=== PATIENT | female | born 1940 | race Caucasian/White ===

== ENCOUNTER 2016-10-28 17:06 | Inpatient (IN) | payer MEDICARE, OTHER ==
--- NOTE | 2016-10-28 18:32 | ER Document Report ---
ED General - General Mode of Arrival: Medic Information source: Patient TRAVEL OUTSIDE OF THE [place] IN LAST 30 DAYS: No - HPI Patient complains to provider of: Shortness of Breath Onset: Other - "few days" ago Onset/Duration: Gradual, Worse Associated symptoms: Nonproductive cough, Shortness of breath. denies: Chest pain Exacerbated by: Other - Exertion <KANDACE ROJAS - Last Filed: 10/28/16 19:19> <JOSEFA MONTGOMERY - Last Filed: 10/28/16 22:06> - General Chief Complaint: Breathing Difficulty Stated Complaint: SHORTNESS OF BREATH Notes: Patient is a 76-year-old female presenting to the emergency department from her trust evaluation supervisor's office due to low O2 saturation. Patient states that she was having difficulty breathing over the past 2-3 days. Patient is normally on oxygen at night, but her is at [facility], so she has been staying with him without her oxygen. Patient states that she went home this morning and hooked herself up to the oxygen and fell asleep. when she woke up she was rushing to get to her doctor's appointment because she woke up late. Patient states by the time she got to her car she was completely out of breath and could not breathe. Patient's trust evaluation supervisor, Vicenta Gustafson, told patient that her heart rate was out of whack and she had low oxygen levels, so she sent her here. Patient denies any chest pain, heart racing, or lightheadedness. Patient admits to having a dry cough. Patient states that she feels good now that she is laying down with oxygen. (KANDACE ROJAS) - Related Data Allergies/Adverse Reactions: sulfamethoxazole [From Bactrim] Allergy (Verified 10/28/16 17:07) trimethoprim [From Bactrim] Allergy (Verified 10/28/16 17:07) nut - unspecified Adverse Reaction (Verified 10/28/16 17:07) aggravates diverticulitis. Past Medical History - General Information source: Patient - Social History Smoking Status: Smoker,Current Status Unk Chew tobacco use (# tins/day): No Frequency of alcohol use: Occasional Drug Abuse: None Lives with: Spouse/Significant other Family History: Reviewed & Not Pertinent, CAD - in both parents but not premature Patient has suicidal ideation: No Patient has homicidal ideation: No - Past Medical History Cardiac Medical History: Reports: Hx Atrial Fibrillation, Hx Congestive Heart Failure, Hx Hypercholesterolemia Pulmonary Medical History: Reports: Hx COPD GI Medical History: Reports: Hx Gastroesophageal Reflux Disease, Hx Hiatal Hernia Past Surgical History: Reports: Hx Bowel Surgery, Other - Ablation - Immunizations Hx Diphtheria, Pertussis, Tetanus Vaccination: No <KANDACE ROJAS - Last Filed: 10/28/16 19:19> Review of Systems - Review of Systems Constitutional: No symptoms reported EENT: No symptoms reported Cardiovascular: No symptoms reported. denies: Chest pain, Heart racing, Dizziness, Lightheaded Respiratory: See HPI, Cough - Dry, Short of breath, Other - Difficulty breathing Gastrointestinal: No symptoms reported Genitourinary: No symptoms reported Female Genitourinary: No symptoms reported Musculoskeletal: No symptoms reported Skin: No symptoms reported Hematologic/Lymphatic: No symptoms reported Neurological/Psychological: No symptoms reported -: Yes All other systems reviewed and negative <KANDACE ROJAS - Last Filed: 10/28/16 19:19> Physical Exam - Vital signs Interpretation: Tachypneic - General General appearance: Appears well, Alert - HEENT Head: Normocephalic, Atraumatic Eyes: Normal Pupils: PERRL - Respiratory Respiratory status: No respiratory distress Chest status: Nontender Breath sounds: Normal Chest palpation: Normal - Cardiovascular Rhythm: Regular Heart sounds: Normal auscultation Murmur: No - Abdominal Inspection: Normal Distension: No distension Bowel sounds: Normal Tenderness: Nontender Organomegaly: No organomegaly - Back Back: Normal, Nontender - Extremities General upper extremity: Normal inspection, Nontender, Normal color, Normal ROM , Normal temperature General lower extremity: Normal inspection, Nontender, Normal color, Normal ROM , Normal temperature - Neurological Neuro grossly intact: Yes Cognition: Normal Starla Coma Scale Eye Opening: Spontaneous Norris Coma Scale Verbal: Oriented Starla Coma Scale Motor: Obeys Commands Starla Coma Scale Total: 15 Speech: Normal - Psychological Associated symptoms: Normal affect, Normal mood - Skin Skin Temperature: Warm Skin Moisture: Dry Skin Color: Normal <KANDACE ROJAS - Last Filed: 10/28/16 19:19> Course - Laboratory Result Diagrams: 10/28/16 17:50 10/28/16 17:50 <KANDACE ROJAS - Last Filed: 10/28/16 19:19> - Laboratory Result Diagrams: 10/28/16 17:50 10/28/16 17:50 <JOSEFA MONTGOMERY - Last Filed: 10/28/16 22:06> - Re-evaluation Re-evalutation: 10/28/16 21:58 Patient satting 94% on 2 L and resting comfortably. Chest x-ray reveals a right lower lobe infiltrate and pulmonary edema. Presentation most consistent with CHF exacerbation with acute hypoxic episode accompanied by likely a developing pneumonia. Patient has been treated for CHF with Nitropaste and Lasix. I've spoken to Dr. Morales, patient's primary physician who agrees to admit the patient. He requests that we start Rocephin. (JOSEFA MONTGOMERY) - Vital Signs Vital signs: Temp Pulse Resp BP Pulse Ox 97.8 F 40 H 116/69 95 10/28/16 21:23 10/28/16 19:10 10/28/16 19:10 10/28/16 19:10 (KANDACE ROJAS) (JOSEFA MONTGOMERY) - Laboratory Laboratory results interpreted by me: 10/28/16 10/28/16 10/28/16 17:50 17:50 18:35 BUN 22 H Creatinine 1.56 H Est GFR ( Amer) 39 L Est GFR (Non-Af Amer) 32 L NT-Pro-B Natriuret Pep 6310 H Urine Protein 100 H Ur Leukocyte Esterase MODERATE H Urine Ascorbic Acid 20 H (JOSEFA MONTGOMERY) - Diagnostic Test Radiology results interpreted by me: 10/28/16 22:01 CXR: pulmonary edema, cardiomegaly, RLL infiltrate worse than prior CXR, as interpreted by me. (JOSEFA MONTGOMERY) - EKG Interpretation by Me Additional EKG results interpreted by me: 10/28/16 19:36 EKG: Heart rate 78, multiple PACs, normal axis, nonspecific ST changes, as interpreted by me. (JOSEFA MONTGOMERY) Discharge <KANDACE ROJAS - Last Filed: 10/28/16 19:19> - Discharge Admitting Provider: Andrew Unit Admitted: Telemetry <JOSEFA MONTGOMERY - Last Filed: 10/28/16 22:06> - Discharge Clinical Impression: Shortness of breath CHF (congestive heart failure) Qualifiers: Congestive heart failure type: systolic Congestive heart failure chronicity: acute on chronic Qualified Code(s): I50.23 - Acute on chronic systolic ( congestive) heart failure Pneumonia Qualifiers: Pneumonia type: due to unspecified organism Laterality: right Lung location: lower lobe of lung Qualified Code(s): J18.1 - Lobar pneumonia, unspecified organism Condition: Stable Disposition: ADMITTED INPATIENT Referrals: CHEYENNE MORALES MD [Primary Care Provider] - Follow up as needed Scribe Attestation: 10/28/16 22:06 I personally performed the services described in the documentation, reviewed and edited the documentation which was dictated to the scribe in my presence, and it accurately records my words and actions. (JOSEFA MONTGOMERY) Scribe Documentation <KANDACE ROJAS - Last Filed: 10/28/16 19:19> <JOSEFA MONTGOMERY - Last Filed: 10/28/16 22:06> - Scribe Written by Scribe:: JOSEFA MONTGOMERY MD, SCRIBE 10/28/16 193 Acting as scribe for: KANDACE De Anda) (JOSEFA MONTGOMERY)
[2016-10-28 18:46] LABS: ABSOLUTE BASOPHILS # (AUTO) 0.1 10^3/uL (0.0-0.2); ABSOLUTE EOSINOPHILS # (AUTO) 0.3 10^3/uL (0.0-0.6); ABSOLUTE LYMPHOCYTES (AUTO) 1.5 10^3/uL (0.5-4.7); ABSOLUTE MONOCYTES (AUTO) 0.6 10^3/uL (0.1-1.4); ABSOLUTE NEUT (AUTO) 5.2 10^3/uL (1.7-8.2); BASOPHILS % (AUTO) 1.5 % (0-2); EOSINOPHILS % (AUTO) 3.3 % (0-6); HEMOGLOBIN 12.4 g/dL (12.0-15.5); HGB HCT DIFFERENCE -0.8; MEAN CORPUSCULAR HEMOGLOBIN 31.2 pg (27.0-33.4); MEAN CORPUSCULAR HGB CONC 32.5 g/dL (32.0-36.0); MEAN CORPUSCULAR VOLUME 96 fl (80-97); MONOCYTES % (AUTO) 7.3 % (3-13); RED BLOOD COUNT 3.96 10^6/uL (3.72-5.28); RED CELL DISTRIBUTION WIDTH 13.1 % (11.5-14.0); SEGMENTED NEUTROPHILS % (AUTO) 67.9 % (42-78); WHITE BLOOD COUNT 7.7 10^3/uL (4.0-10.5)
[2016-10-28 18:48] LABS: APPEARANCE,URINE CLEAR; BILIRUBIN,URINE NEGATIVE (NEGATIVE); GLUCOSE, URINE NEGATIVE (NEGATIVE); KETONES,URINE NEGATIVE (NEGATIVE); LEUKOCYTE ESTERASE,URINE MODERATE (NEGATIVE); NITRITE,URINE NEGATIVE (NEGATIVE); PROTEIN,URINE 100 mg/dL (NEGATIVE); URINE SPECIFIC GRAVITY 1.006; UROBILINOGEN,URINE NEGATIVE mg/dL (<2.0)
[2016-10-28 19:06] LABS: ANION GAP 8 (5-19); BLOOD UREA NITROGEN 22 mg/dL (7-20); CALCIUM 9.6 mg/dL (8.4-10.2); CARBON DIOXIDE 28 mmol/L (22-30); CHLORIDE 105 mmol/L (98-107); CREATININE RESULT 1.56 mg/dL (0.52-1.25); GLUCOSE 98 mg/dL (75-110); POTASSIUM 4.6 mmol/L (3.6-5.0); SODIUM 141.4 mmol/L (137-145)
[2016-10-28] MEDS ORDERED: NITROGLYCERIN 2% OINTMENT 1 GM PACKET TP ONE (21:15)
[2016-10-28] MEDS ORDERED: FUROSEMIDE INJ/PF 20 MG/2 ML SDV IV ONE (21:16)
[2016-10-28] MEDS ORDERED: ONDANSETRON HCL INJ/PF 4 MG/2 ML SDV IV PRN (21:51)
[2016-10-28] MEDS ORDERED: ACETAMINOPHEN 325 MG TABLET PO PRN (21:51)
[2016-10-28] MEDS ORDERED: CEFTRIAXONE 1 GM/D5W RTU 50 ML IV ONE (21:52)
[2016-10-28] MEDS: FUROSEMIDE INJ/PF 20 MG/2 ML SDV IV SCH (22:15)
[2016-10-28] MEDS: APIXABAN 2.5 MG TABLET PO SCH (22:37)
[2016-10-29 05:29] LABS: ABSOLUTE BASOPHILS # (AUTO) 0.1 10^3/uL (0.0-0.2); ABSOLUTE EOSINOPHILS # (AUTO) 0.3 10^3/uL (0.0-0.6); ABSOLUTE LYMPHOCYTES (AUTO) 1.5 10^3/uL (0.5-4.7); ABSOLUTE MONOCYTES (AUTO) 0.6 10^3/uL (0.1-1.4); ABSOLUTE NEUT (AUTO) 4.7 10^3/uL (1.7-8.2); BASOPHILS % (AUTO) 1.1 % (0-2); EOSINOPHILS % (AUTO) 4.7 % (0-6); HEMATOCRIT 35.1 % (36.0-47.0); HEMOGLOBIN 11.7 g/dL (12.0-15.5); LYMPHOCYTES % (AUTO) 20.4 % (13-45); MEAN CORPUSCULAR HEMOGLOBIN 31.6 pg (27.0-33.4); MEAN CORPUSCULAR HGB CONC 33.2 g/dL (32.0-36.0); MEAN CORPUSCULAR VOLUME 95 fl (80-97); MONOCYTES % (AUTO) 8.4 % (3-13); RED BLOOD COUNT 3.69 10^6/uL (3.72-5.28); RED CELL DISTRIBUTION WIDTH 13.3 % (11.5-14.0); SEGMENTED NEUTROPHILS % (AUTO) 65.4 % (42-78); WHITE BLOOD COUNT 7.2 10^3/uL (4.0-10.5)
[2016-10-29 05:45] LABS: ALANINE AMINOTRANSFERASE 28 U/L (9-52); ALBUMIN 2.4 g/dL (3.5-5.0); ALKALINE PHOSPHATASE 76 U/L (38-126); ANION GAP 10 (5-19); ASPARTATE AMINO TRANSFERASE 22 U/L (14-36); BILIRUBIN,TOTAL 0.3 mg/dL (0.2-1.3); BLOOD UREA NITROGEN 21 mg/dL (7-20); CALCIUM 8.8 mg/dL (8.4-10.2); CARBON DIOXIDE 25 mmol/L (22-30); CHLORIDE 105 mmol/L (98-107); CREATINE KINASE 43 U/L (30-135); GLUCOSE 85 mg/dL (75-110); POTASSIUM 4.1 mmol/L (3.6-5.0); SODIUM 140.2 mmol/L (137-145); TOTAL PROTEIN 4.8 g/dL (6.3-8.2)
[2016-10-29 06:07] LABS: CREATINE KINASE MB 2.22 ng/mL (<4.55); TROPONIN I 0.082 ng/mL
[2016-10-29] MEDS: IPRATROPIUM/ALBUTEROL 0.5-2.5 MG/3 ML AMPUL NEB SCH ×3 (07:47→19:44)
--- NOTE | 2016-10-29 08:16 | PDOC H&P ---
History of Present Illness Admission Date/PCP: 10/28/16 21:51 CHEYENNE VILLARREAL MD Patient complains of: Shortness of the breath History of Present Illness: SALOME MOSLEY is a 76 year old female This is a 76-year-old female with a history of diastolic congestive heart failure COPD oxygen dependent Q need 2 lit. Oxygen at night patient's also see the bindery worker office today and was complaining of shortness of the breath and patient's O2 sat was 80 persons patient was sent to the emergency department for further evaluation patient is taking care of for her in a care home and patient is not wearing the oxygen at nighttime supposed to and not watching the diet in the emergency department so find the hypoxia ordered to monitor oxygen and oxygen saturations close to up to 95% patient also found diastolic congestive heart failure to. Patient rwcentan echo done last hospital admissions and EF was normal. Currently on eliquis 2.5 mg bid for A. fib. Saw the patient on the floor is feeling much better since denied any chest pain or any shortness of the breath patient's compiling some mild cough no fever chest x-ray supposed the patient have a congestive heart failure and questionable infiltrate in cxr. Denied any fever no productive cough and most likely a patient have a congestive heart failure than pneumonia and was admitted the patient and treat appropriately Past Medical History Cardiac Medical History: Reports: Atrial Fibrillation, Congestive Heart Failure , Hyperlipidema Denies: Myocardial Infarction, Hypertension Pulmonary Medical History: Reports: Chronic Obstructive Pulmonary Disease (COPD) Denies: Asthma, Bronchitis, Pneumonia Neurological Medical History: Denies: Seizures GI Medical History: Reports: Gastroesophageal Reflux Disease, Hiatal Hernia Musculoskeltal Medical History: Denies: Arthritis Psychiatric Medical History: Reports: General Anxiety Disorder Denies: Depression Hematology: Denies: Anemia, Sickle Cell Disease Past Surgical History Past Surgical History: Reports: Other - Ablation Denies: Amputation, Hysterectomy, Mastectomy Social History Lives with: Spouse/Significant other Smoking Status: Former Smoker Last Time Smoked: 13 yrs ago Frequency of Alcohol Use: None Hx Recreational Drug Use: No Hx Prescription Drug Abuse: No - Advance Directive Resuscitation Status: Full Code Family History Family History: Reviewed & Not Pertinent, CAD - in both parents but not premature Parental Family History Reviewed: Yes Children Family History Reviewed: Yes Sibling(s) Family History Reviewed.: Yes Medication/Allergy Home Medications: Omeprazole 20 mg PO BID 09/08/16 Tiotropium Cypress [Spiriva Respimat] 2 sprays DAILY PRN 09/08/16 Vit A/Vit C/Vit E/Zinc/Copper [Preservision Areds Softgel] 1 each PO BID Simvastatin 40 mg PO DAILY 09/11/16 Apixaban [Eliquis 2.5 mg Tablet] 2.5 mg PO BID #60 tablet 09/12/16 Cephalexin Monohydrate [Keflex 500 mg Capsule] 500 mg PO Q8 #21 capsule Diltiazem HCl [Cardizem Cd 120 mg Capsule] 120 mg PO DAILY #30 cap.sr.24h Spironolactone [Aldactone 25 mg Tablet] 12.5 mg PO DAILY #30 tablet 09/12/16 Torsemide [Demadex 20 mg Tablet] 10 mg PO DAILY #30 tablet 09/12/16 Allergies/Adverse Reactions: sulfamethoxazole [From Bactrim] Allergy (Verified 10/28/16 17:07) trimethoprim [From Bactrim] Allergy (Verified 10/28/16 17:07) nut - unspecified Adverse Reaction (Verified 10/28/16 17:07) aggravates diverticulitis. Review of Systems Constitutional: PRESENT: fatigue, weakness Cardiovascular: PRESENT: dyspnea on exertion, edema Respiratory: PRESENT: cough Gastrointestinal: ABSENT: as per HPI, abdominal pain, bloating, coffee ground emesis, constipation, diarrhea, dysphagia, heartburn, hematemesis, hematochezia , melena, nausea, vomiting, other Genitourinary: ABSENT: as per HPI, difficulty urinating, dysuria, hematuria, nocturia, other Musculoskeletal: ABSENT: as per HPI, back pain, deformity, joint swelling, muscle weakness, other Integumentary: ABSENT: as per HPI, diaphoresis, erythema, lesions, pruritus, rash, wounds, other Neurological: ABSENT: as per HPI, abnormal gait, abnormal movements, abnormal speech, confusion, convulsions, dizziness, focal weakness, frequent falls, lack of coordination, memory loss, numbness, paresthesias, restless legs, syncope, tingling, tremor(s), vertigo, weakness, other Psychiatric: PRESENT: anxiety Endocrine: ABSENT: as per HPI, cold intolerance, flushing, heat intolerance, menstrual abnormalities, polydipsia, polyphagia, polyuria, other Hematologic/Lymphatic: ABSENT: as per HPI, easy bleeding, easy bruising, lymphadenopathy, other Physical Exam Vital Signs: Temp Pulse Resp BP Pulse Ox 98.2 F 85 18 127/56 H 97 10/29/16 00:28 10/29/16 07:00 10/29/16 00:28 10/29/16 00:28 10/29/16 00:28 Intake & Output 10/28/16 10/29/16 10/30/16 06:59 06:59 06:59 Intake Total 200 Balance 200 Weight 55.6 kg General appearance: PRESENT: no acute distress Head exam: PRESENT: normocephalic Eye exam: PRESENT: PERRLA Mouth exam: PRESENT: neck supple Neck exam: ABSENT: carotid bruit, full ROM, JVD, lymphadenopathy, meningismus, tenderness, thyromegaly, tracheal deviation, tracheostomy, other Respiratory exam: PRESENT: clear to auscultation marylou. ABSENT: wheezes Cardiovascular exam: PRESENT: +S1 GI/Abdominal exam: PRESENT: normal bowel sounds, soft. ABSENT: tenderness Extremities exam: ABSENT: pedal edema Musculoskeletal exam: PRESENT: ambulatory Neurological exam: PRESENT: alert, awake, oriented to person, oriented to place , oriented to time, oriented to situation Psychiatric exam: PRESENT: anxious, normal mood Skin exam: PRESENT: normal color Results Laboratory Results: 10/29/16 05:10 10/29/16 05:10 10/29/16 10/29/16 05:10 05:10 WBC 7.2 RBC 3.69 L Hgb 11.7 L Hct 35.1 L MCV 95 MCH 31.6 MCHC 33.2 RDW 13.3 Plt Count 170 Seg Neutrophils % 65.4 Lymphocytes % 20.4 Monocytes % 8.4 Eosinophils % 4.7 Basophils % 1.1 Absolute Neutrophils 4.7 Absolute Lymphocytes 1.5 Absolute Monocytes 0.6 Absolute Eosinophils 0.3 Absolute Basophils 0.1 Sodium 140.2 Potassium 4.1 Chloride 105 Carbon Dioxide 25 Anion Gap 10 BUN 21 H Creatinine 1.50 H Est GFR ( Amer) 41 L Est GFR (Non-Af Amer) 34 L Glucose 85 Calcium 8.8 Total Bilirubin 0.3 AST 22 ALT 28 Alkaline Phosphatase 76 Total Protein 4.8 L Albumin 2.4 L 10/28/16 10/28/16 10/29/16 23:26 23:26 05:10 Creatine Kinase 48 43 CK-MB (CK-2) 2.55 Troponin I NT-Pro-B Natriuret Pep 10/29/16 05:10 Creatine Kinase CK-MB (CK-2) 2.22 Troponin I 0.082 NT-Pro-B Natriuret Pep 5180 H Impressions: Chest X-Ray 10/28/16 18:28 IMPRESSION: Interval worsening in the appearance of the chest which may all be related to congestive failure although superimposed pneumonia in the right base cannot be excluded. Assessment & Plan - Diagnosis (1) CHF (congestive heart failure) Qualifiers: Congestive heart failure type: diastolic Congestive heart failure chronicity: acute on chronic Qualified Code(s): I50.33 - Acute on chronic diastolic (congestive) heart failure Is this a current diagnosis for this admission?: YesPlan: Plan to give IV Lasix (2) Chronic renal insufficiency, stage II (mild) Is this a current diagnosis for this admission?: YesPlan: Creatinine is 1.5 which is stable (3) History of atrial fibrillation Is this a current diagnosis for this admission?: YesPlan: Currently on eliquis (4) Pneumonia Qualifiers: Pneumonia type: due to unspecified organism Laterality: right Lung location: lower lobe of lung Qualified Code(s): J18.1 - Lobar pneumonia, unspecified organism Is this a current diagnosis for this admission?: YesPlan: Continues the Rocephin (5) Shortness of breath Is this a current diagnosis for this admission?: YesPlan: From the acute diastolic congestive heart failure and COPD and noncompliant with oxygen (6) Chronic obstruct airways disease Qualifiers: Emphysema type: unspecified Is this a current diagnosis for this admission?: YesPlan: Continues a nebulizer treatment is also severe pulmonary and outpatient center and the wear oxygen at night - Time Time Spent: 30 to 50 Minutes Medications reviewed and adjusted accordingly: Yes Anticipated discharge: Home Within: within 24 hours - Inpatient Certification Medical Necessity: Need Close Monitoring Due to Risk of Patient Decompensation, Need for Nebulizer Therapy and Monitoring of Response, Need for IV Antibiotics Post Hospital Care: D/C Route Jumper Documentation - Plan Summary Plan Summary: We start the patient IV Lasix nebulizer IV antibiotic and consult cardiology for further evaluation
[2016-10-29] MEDS: LANSOPRAZOLE 15 MG TAB.RAP.DR PO SCH ×2 (08:30→15:48)
[2016-10-29] MEDS: SIMVASTATIN 40 MG TABLET PO SCH (09:10)
[2016-10-29] MEDS: APIXABAN 2.5 MG TABLET PO SCH ×2 (09:10→22:22)
[2016-10-29] MEDS: SPIRONOLACTONE 25 MG TABLET PO SCH (09:10)
[2016-10-29] MEDS: DOCUSATE SODIUM 100 MG CAPSULE PO SCH (09:10)
[2016-10-29] MEDS: FUROSEMIDE INJ/PF 20 MG/2 ML SDV IV SCH ×2 (09:10→22:21)
--- NOTE | 2016-10-29 14:40 | Physician Advisory Note ---
Physician Advisor ProgressNote .: Pursuant to the plan for [facility], I have reviewed the medical record for this patient. Physician Advisor Statement: Great job documenting amount O2 pt usually needs, Ac on chr diastolic CHF, lobe of PNA Possible documentation opportunities if attending agrees: 1. "Chronic Hypoxic Respiratory Failure requiring 2L O2 at night at baseline" 2. "Possible Pneumonia RLL, likely gram-negative, given underlying COPD & spending time in rehab facility recently..." - or whatever type of bacteria you think is most likely, for which you are covering w/Rocephin 3. "Persistent Afib" - or "Paroxysmal Afib", or ... - need type specified. 4. "chronic kidney disease stage 3, with a single kidney" [GFR 30s, pt told ED nurse 1 kidney] - term "renal insufficiency" means nothing to coding/ reviewers 5. 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 (+) RR 32, HR 85, sat 95% on ___L O2 at 17:56, WBC 7.7, BUN 22, Cr 1.56, NTProBNP 6310, CXR = RLL infiltrate, pulm edema, cardiomegaly, U/A = mod LE. ED dr reported pt "feels good now that laying down w/O2", "tachypneic", " satting 94% on 2L & resting comfortably". ED dr ordered Lasix, NTP. Attending asked ED dr to give IV abx, & ordered IV Rocephin, Lasix, I/Os, daily wts, O2, Duonebs 6h, Cardiology consult. Status: O2 sat at 22:00 was 89% on __L O2, and at 23:11 was 86% on __ L O2. Pt came in with acute exac CHF + possible RLL pneumonia, with associated hypoxemia/possibly Ac on chr Resp Failure. CHF exacerbations are typically Outpt Obs appropriate to start with, then changing to Inpt the next day if pt not felt safe for d/c yet. However, this pt was seen for H&P after her 1st MN of hospital care, & attending did not feel she was sufficiently stable for d/c home today, which means she will require a 2nd MN of hospital care. He is appropriately worried about her risks for decompensation given her underlying co -morbidities. He needs to watch her response to diuresis closely due to underlying renal disease & lack of 1 kidney. BNP still quite elevated this AM at 5180 (baseline appears to be [id number] in 2015, went up to 1525-1559 & then down to 4620 in Aug 2016 during a CHF exacerbation admission.). Trop I =0.082, which appears to be around her baseline (CKD). Her BNP is still far from baseline, & attending plans to continue to follow it daily for the next couple of days in hospital, along with renal fn, lytes, & CBC, with repeat CXR 10/30 AM to follow up acute dx.s. Tx in inpatient hospital setting medically reasonable & necessary to protect pt' s health, safety, & medical condition. Appropriate for Inpt status. Thanks for your help with documentation accuracy/specificity improvement! Kimberly Price MD [facility] Physician Advisor, Fellow of Hospital Medicine
[2016-10-29] MEDS ORDERED: CEFTRIAXONE 1 GM/D5W RTU 1 GM/50 ML RTUPB IV ONE (15:00)
--- NOTE | 2016-10-29 21:28 | CONSULTATION REPORT E ---
Consultation Report NAME: SALOME MOSLEY : 1940 AGE: 76Y DATE: 10/29/2016 538 A TO: LOYDA WAGNER M.D. FROM: CHEYENNE VILLARREAL M.D. Requesting Physician REASON FOR CONSULTATION: Patient with acute exacerbation of COPD, hypoxemia, and congestive heart failure. HISTORY OF PRESENT ILLNESS: Patient is a 76-year-old female with a known history of recurrent congestive heart failure who has significant COPD on nocturnal oxygen at 2 L per minute. Due to taking care of her who is in rehabilitation, forgot to wear her nocturnal oxygen. 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 The patient denies any chest pain or discomfort. She has a history of atrial fibrillation, and in October, she was ablated successfully and now is in sinus rhythm. The patient denies any TIA or CVA. No anginal symptoms. No leg edema. No PND or orthopnea. She does have a cough which is nonproductive of any sputum. There is no pleuritic chest pain. There is no hemoptysis. PAST MEDICAL HISTORY: 1. History of atrial fibrillation ablated to sinus rhythm at present. 2. History of congestive heart failure. 3. History of COPD on home oxygen. 4. History of GERD and hiatal hernia. 5. Generalized anxiety disorder. There is no thyroid disease. There is no history of diabetes mellitus. The patient also has chronic kidney disease stage 3. There is no history of GI bleed. There is no bleeding on Eliquis on which the patient is. The patient's heart rate is controlled with Cardizem CD. PAST SURGICAL HISTORY: Negative for any surgeries. SOCIAL HISTORY: The patient used to smoke. She quit smoking 30 years ago. DISPOSITION: The patient is a FULL CODE although she lives with her who the patient states has mild dementia. The patient's sister is her surrogate healthcare decision maker. REVIEW OF SYSTEMS: CONSTITUTIONAL: Denies any fevers, chills, or rigors. HEAD: Denies headaches or head injury. EYES: No history of amblyopia or diplopia. No history of amaurosis fugax. EARS: The patient is hard of hearing and needs to be spoken to very loudly. NOSE: No history of hay fever. No history of nosebleeds. MOUTH: No history of ulcers in the mouth. No bleeding from the gums. THROAT: No odynophagia or dysphagia. No recurrent sore throats. SKIN: There is no psoriasis. No petechiae or ecchymosis. No skin cancer. No yellowish discoloration of the skin and no pruritus. NECK: Denies any symptoms of cervical arthritis. There is no goiter. There is no painless or painful swelling in the neck. LUNGS: History of COPD on home oxygen at night. The patient has been noncompliant with it which led to her getting hypoxemic with acute exacerbation of COPD with also congestive heart failure for the reasons mentioned above. There is no history of pulmonary embolism. No history of hemoptysis. No pleuritic chest pain. No history of sleep apnea. CARDIAC: No history of coronary artery disease. No history of NM. History of atrial fibrillation. The patient was ablated successfully to sinus rhythm. The patient is on Eliquis without any bleeding or TIA or CVA symptoms. She denies any PND, orthopnea or leg edema. There is no rapid beating of her heart. There is no syncope or presyncope. She denies a history of hypertension. GASTROINTESTINAL: History of hiatal hernia and GERD present. No history of GI bleed. No history of jaundice. No history of fatty food intolerance. ENDOCRINE: No history of diabetes mellitus. No history of thyroid disease. No history of polydipsia or polyuria. No history of heat or cold intolerance. No history of hirsutism or excessive sweating. MUSCULOSKELETAL: Denies any significant arthritis or collagen vascular disease. METABOLIC: History of hyperlipidemia present. No history of gout. RENAL: History of chronic kidney disease stage 3. No symptoms of UTI. No history of hematuria, polyuria, or dysuria. CENTRAL NERVOUS SYSTEM: No history of TIA or CVA. No history of sleep apnea. No history of gait imbalance. No history of seizures, headaches, or migraines. PSYCHIATRIC: History of generalized anxiety disorder. No history of depression. HEMATOLOGIC: Denies any bleeding diathesis or clotting disorders. PHYSICAL EXAMINATION: GENERAL: On examination, the patient is of a frail build but seems to be adequately nourished. VITAL SIGNS: She is afebrile with a temperature of 98.7 degrees Fahrenheit. Pulse is 85 beats per minute. Blood pressure is 117/64. Respirations are 18 per minute. O2 saturations now are 98% on 2 L nasal cannula. HEENT: Head is atraumatic, normocephalic. Eyes: Pupils are equal, round, regular, reactive to light and accommodation. Extraocular movements are normal. There is no conjunctival pallor. There is no scleral icterus. Ears: External auditory canals are clear. There is no inflammation of the tympanic membranes. Nose: The patient has no redness of nasal mucosa. There are no nasal polyps. Mouth: Mucous membranes of the mouth are moist. Tongue is moist. There are no ulcers. There is no bleeding from the gums. Throat: There is no redness of the oropharynx. There are no exudates in the throat. SKIN: There are no skin rashes. There is no petechiae or ecchymosis. There are no skin lesions. NECK: Supple. There is mild JVD present. Carotids are equal; there is no bruit. There is no goiter. There is no lymph node enlargement. LUNGS: There are a few scattered rhonchi and a few bibasilar rales of CHF. There is diminished air entry and prolonged expiration throughout. At present, there is no wheezing. CARDIOVASCULAR: S1, S2 are heard. There is no S3 gallop. There is no S4 gallop. There is systolic murmur left sternal border and the apex. There is no rub. ABDOMEN: Soft, nontender. There is no hepatosplenomegaly. Bowel sounds are well heard. There are no tender areas or masses. EXTREMITIES: Femorals are fairly well felt. There are no femoral bruits. Leg pulses are well felt. There is no pedal edema. There is no DVT or cellulitis. There is no cyanosis or clubbing. There is no calf tenderness. CENTRAL NERVOUS SYSTEM: The patient is conscious, awake in no acute distress. There are no focal deficits. PSYCHIATRIC: The patient appears to be slightly anxious, but the patient is not agitated. MEDICATIONS: 1. Tylenol 650 mg p.o. q.4 hours p.r.n. 2. She is on albuterol/ipratropium DuoNeb 3 mL respiratory treatment q.6 hours while awake. 3. She is on Eliquis 2.5 mg tablet b.i.d. 4. She is on ceftriaxone 1 g IV piggyback daily. 5. Colace 100 mg p.o. daily. 6. She is on Lasix 20 mg IV q.12 hours. 7. She is on Prevacid 15 mg p.o. b.i.d. 8. She is on Zofran 4 mg IV q.6 hours p.r.n. for nausea. 9. She is on Zocor 40 mg p.o. daily. 10. She is on Aldactone 12.5 mg p.o. daily. 11. She was on nitroglycerin. 12. *------* ointment 1 g packet with a dose of 0.5 g topically applied x1 which has been discontinued. LABORATORY DATA: The patient's white count is 7200; hemoglobin is 11.7; hematocrit is 35.1; platelet count is 170,000. The patient's sodium is 140.2, potassium 4.1, chloride 105, CO2 25. The patient's BUN is 21; creatinine is 1.50. Her GFR is estimated at 34 which is chronic kidney disease stage 3. Her borderline is 85. Calcium is 8.8. Her liver tests are normal. Anti-ProBNP is elevated at 5180. The patient's albumin is 2.4. Total protein is 4.8. The patient's CPK-MB are negative x3. Her troponin-I is negative x1. The patient's EKG shows some sinus rhythm with occasional PVCs with repolarization changes in the lateral leads. The patient's chest x-ray shows small bilateral pleural effusions. There are diffuse increased interstitial densities with abnormal airspace density in the bases. Findings may be related to congestive heart failure. Probable pneumonia in the right base cannot be excluded. There is no evidence of failure. No other acute findings. IMPRESSION: 1. Hypoxia secondary to chronic obstructive pulmonary disease acute exacerbation and congestive heart failure. 2. Chronic obstructive pulmonary disease acute exacerbation. 3. Congestive heart failure most likely a combination of diastolic heart failure and myocardial depression due to hypoxemia and with the patient having chronic kidney disease stage 3. 4. Chronic kidney disease stage 3. 5. History of atrial fibrillation, now in sinus rhythm post ablation in 10/2015. 6. Gastroesophageal reflux disease. 7. Hiatal hernia. 8. Anxiety disorder, unspecified. 9. Moderate pulmonary hypertension. RECOMMENDATIONS: Agree with antibiotics. Agree with Lasix. In view of the patient's renal function, would be very cautious with spironolactone. Continue Eliquis. Note the patient was on Cardizem CD at home 120 mg p.o. daily which has been held for bradycardia, but I do not see any records of her bradycardia by EKG or by rhythm strips. Would later restart the patient on Cardizem CD. Note that the patient had an echocardiogram in 10/16/2015 which showed normal left ventricular function within normal limits. Doppler measurements suggest pseudonormalized left ventricular relaxation which is associated with grade 2 bipolar or mild to moderate diastolic dysfunction. There is mild concentric left ventricular hypertrophy. The left ventricle is normal in size. Wall motion cannot be accurately commented on, but no definite regional wall motion abnormality is noted. The right ventricle is mildly dilated. The right ventricle appears to be hypertrophied. The right ventricular systolic function is normal. The right atrium is mildly dilated. The left atrium is mildly dilated. There is no mitral valve stenosis. There is mild to moderate amount of mitral regurgitation. There is no aortic valve stenosis. There is trace amount of aortic regurgitation. There is mild amount of tricuspid regurgitation. There is moderate pulmonary hypertension by echocardiogram. Right ventricular systolic pressure is estimated to be 50-60 mmHg. TIME SPENT: Note 40 minutes spent on this patient including of reviewing of old records, and more than 50% of the time was spent in direct patient care and discussions with the attending physician on the case. We will follow with you. DICTATING PHYSICIAN: LOYDA WAGNER M.D. [id number] PHY#: [id number] ID: [id number] JOB#: [id number] ACCT: [id number] cc:LOYDA WAGNER M.D. >
[2016-10-30] MEDS: IPRATROPIUM/ALBUTEROL 0.5-2.5 MG/3 ML AMPUL NEB SCH ×3 (07:45→20:23)
[2016-10-30 08:06] LABS: ABSOLUTE BASOPHILS # (AUTO) 0.1 10^3/uL (0.0-0.2); ABSOLUTE EOSINOPHILS # (AUTO) 0.2 10^3/uL (0.0-0.6); ABSOLUTE LYMPHOCYTES (AUTO) 1.1 10^3/uL (0.5-4.7); ABSOLUTE MONOCYTES (AUTO) 0.6 10^3/uL (0.1-1.4); ABSOLUTE NEUT (AUTO) 6.7 10^3/uL (1.7-8.2); BASOPHILS % (AUTO) 0.9 % (0-2); EOSINOPHILS % (AUTO) 2.2 % (0-6); HEMATOCRIT 36.4 % (36.0-47.0); HEMOGLOBIN 12.1 g/dL (12.0-15.5); HGB HCT DIFFERENCE -0.1; LYMPHOCYTES % (AUTO) 12.8 % (13-45); MEAN CORPUSCULAR HEMOGLOBIN 31.5 pg (27.0-33.4); MEAN CORPUSCULAR HGB CONC 33.2 g/dL (32.0-36.0); MEAN CORPUSCULAR VOLUME 95 fl (80-97); MONOCYTES % (AUTO) 6.6 % (3-13); RED BLOOD COUNT 3.83 10^6/uL (3.72-5.28); RED CELL DISTRIBUTION WIDTH 13.1 % (11.5-14.0); SEGMENTED NEUTROPHILS % (AUTO) 77.5 % (42-78); WHITE BLOOD COUNT 8.7 10^3/uL (4.0-10.5)
[2016-10-30 08:22] LABS: ANION GAP 8 (5-19); BLOOD UREA NITROGEN 22 mg/dL (7-20); CALCIUM 8.7 mg/dL (8.4-10.2); CARBON DIOXIDE 27 mmol/L (22-30); CHLORIDE 103 mmol/L (98-107); CREATININE RESULT 1.32 mg/dL (0.52-1.25); GLUCOSE 97 mg/dL (75-110); POTASSIUM 4.4 mmol/L (3.6-5.0); SODIUM 137.8 mmol/L (137-145)
--- NOTE | 2016-10-30 08:25 | PDOC PROGRESS REPORT ---
Subjective Progress Note for:: 10/30/16 Subjective:: Patient is doing much better. Since denied any chest pain no shortness of the breath patient seen by Dr. Phoenix. Since chest x-rays stable around in the hallway without any problems .. Denied any nausea no vomiting. Patient's no fever overnight Physical Exam Vital Signs: Temp Pulse Resp BP Pulse Ox 98.2 F 85 17 104/58 L 97 10/30/16 00:36 10/30/16 07:45 10/30/16 07:45 10/30/16 00:36 10/30/16 04:05 Intake & Output 10/29/16 10/30/16 10/31/16 06:59 06:59 06:59 Intake Total 200 1830 Output Total 300 Balance 200 1530 Weight 55.6 kg 56.6 kg General appearance: PRESENT: no acute distress Head exam: PRESENT: normocephalic Eye exam: PRESENT: PERRLA Mouth exam: PRESENT: neck supple Respiratory exam: PRESENT: clear to auscultation marylou Cardiovascular exam: PRESENT: +S1, +S2 GI/Abdominal exam: ABSENT: ascites, diminished bowel sounds, distended, firm, guarding, hernia, hyperactive bowel sounds, hypoactive bowel sounds, mass, Mckinley's sign, normal bowel sounds, organolmegaly, rebound, rigid, soft, tenderness, other Extremities exam: ABSENT: full ROM, left AKA, right AKA, left BKA, right BKA, calf tenderness, joint swelling, pedal edema, tenderness, other Neurological exam: PRESENT: alert, awake, oriented to person, oriented to place Psychiatric exam: PRESENT: anxious Skin exam: PRESENT: dry Results Laboratory Results: 10/30/16 07:42 10/30/16 07:42 WBC 8.7 RBC 3.83 Hgb 12.1 Hct 36.4 MCV 95 MCH 31.5 MCHC 33.2 RDW 13.1 Plt Count 228 Seg Neutrophils % 77.5 Lymphocytes % 12.8 L Monocytes % 6.6 Eosinophils % 2.2 Basophils % 0.9 Absolute Neutrophils 6.7 Absolute Lymphocytes 1.1 Absolute Monocytes 0.6 Absolute Eosinophils 0.2 Absolute Basophils 0.1 10/28/16 10/28/16 10/29/16 23:26 23:26 05:10 Creatine Kinase 48 43 CK-MB (CK-2) 2.55 Troponin I NT-Pro-B Natriuret Pep 10/29/16 10/29/16 10/29/16 05:10 12:22 12:22 Creatine Kinase 81 CK-MB (CK-2) 2.22 3.37 Troponin I 0.082 NT-Pro-B Natriuret Pep 5180 H Impressions: Chest X-Ray 10/30/16 07:00 IMPRESSION: 1. Pulmonary vascular congestion interstitial thickening likely secondary to underlying edema. 2. Persistent bibasilar airspace opacities, right greater than left. These likely representing combination of atelectasis with effusion. The left-sided appears stable. The right side appears slightly worsened. Assessment & Plan - Diagnosis (1) CHF (congestive heart failure) Qualifiers: Congestive heart failure type: diastolic Congestive heart failure chronicity: acute on chronic Qualified Code(s): I50.33 - Acute on chronic diastolic (congestive) heart failure Is this a current diagnosis for this admission?: YesPlan: Continuous IV Lasix (2) Chronic renal insufficiency, stage II (mild) Is this a current diagnosis for this admission?: YesPlan: Stable (3) History of atrial fibrillation Is this a current diagnosis for this admission?: YesPlan: Currently on eliquis (4) Pneumonia Qualifiers: Pneumonia type: due to unspecified organism Laterality: right Lung location: lower lobe of lung Qualified Code(s): J18.1 - Lobar pneumonia, unspecified organism Is this a current diagnosis for this admission?: YesPlan: Continues to IV Rocephin (5) Shortness of breath Is this a current diagnosis for this admission?: YesPlan: ALT improving (6) Chronic obstruct airways disease Qualifiers: Emphysema type: unspecified Is this a current diagnosis for this admission?: YesPlan: continue the current nebulizer - Time Time Spent with patient: 15-24 minutes Medications reviewed and adjusted accordingly: Yes Anticipated discharge: Home Within: within 24 hours - Inpatient Certification Medical Necessity: Need Close Monitoring Due to Risk of Patient Decompensation, Need for IV Antibiotics - Plan Summary Plan Summary: Continues IV Lasix and IV antibiotic and follow with the cardiology
[2016-10-30] MEDS: SIMVASTATIN 40 MG TABLET PO SCH (09:43)
[2016-10-30] MEDS: LANSOPRAZOLE 15 MG TAB.RAP.DR PO SCH ×2 (09:44→16:03)
[2016-10-30] MEDS: APIXABAN 2.5 MG TABLET PO SCH ×2 (09:44→22:20)
[2016-10-30] MEDS: SPIRONOLACTONE 25 MG TABLET PO SCH (09:45)
[2016-10-30] MEDS: DOCUSATE SODIUM 100 MG CAPSULE PO SCH (09:45)
[2016-10-30] MEDS: CEFTRIAXONE 1 GM/D5W RTU 1 GM/50 ML RTUPB IV SCH (09:47)
[2016-10-30] MEDS: FUROSEMIDE INJ/PF 20 MG/2 ML SDV IV SCH ×2 (09:47→22:21)
--- NOTE | 2016-10-30 14:28 | PROGRESS NOTE E ---
Progress Note NAME: SALOME MOSLEY : 1940 AGE: 76Y DATE: 10/30/2016 ROOM: 538 SUBJECTIVE: The patient states her shortness of breath is much improved after she received Lasix this morning. She has a cough which is nonproductive. She has no pedal edema. There is no PND, orthopnea, chest pain, or discomfort. She says her breathing is much better compared to the day she came into the hospital. The patient remains in sinus rhythm with occasional APCs and PVCs. There are no TIA or CVA symptoms. There is no bleeding on Eliquis. OBJECTIVE: GENERAL: On examination, the patient is of frail built but seems to be adequately nourished. VITAL SIGNS: She is afebrile with a temperature of 98.3 degrees Fahrenheit, pulse is 80 beats per minute, blood pressure 110/66, respirations are 18 per minute, 02 saturations are 99% on 2 L nasal cannula. HEENT: Head is atraumatic, normocephalic. Eyes: Pupils are equal, round, regular, and reactive to light and accommodation. Extraocular movements are normal. There is no conjunctival pallor. There is no scleral icterus. ENT is negative. NECK: Supple. There is no JVD present today. Carotids are equal. There is no bruit. There is no goiter. There is no lymph node enlargement. LUNGS: There are a few scattered rhonchi and also there is dry and wet rales in the bases. There is diminished air entry and prolonged expiration throughout. On percussion, there is hyperresonance throughout. There is no wheezing. HEART: S1 and S2 are heard. There is no S3 gallop. There is no S4 gallop. There is a systolic murmur in the left sternal border and also a systolic murmur in the apex which radiates to the left axilla. There are no rubs. ABDOMEN: Soft, nontender. There is no hepatosplenomegaly. Bowel sounds are well heard. There are no tender areas or masses. EXTREMITIES: Femorals are fairly well felt. There are no femoral bruits. Leg pulses are well felt. There is no pedal edema. There is no DVT or cellulitis. There is no cyanosis or clubbing. There is no calf tenderness. CENTRAL NERVOUS SYSTEM: The patient is conscious, awake in no acute distress. There are no focal deficits. PSYCHIATRIC: The patient's judgment and insight appear to be intact. At present, she is not anxious. Note that the patient has significant hearing loss. The patient's 24-hour intake is 1830 mL. Output is 300 mL. DIAGNOSTICS: Patient's chest x-ray: 1. The impression of the radiologist is that the patient has pulmonary vascular congestion, interstitial thickening likely secondary to underlying edema. 2. Persistent bibasilar airspace opacities, right greater than left, likely representing combination of atelectasis with effusion. The left side appears stable. The right side seems to be slightly worsened. The patient's white count is 8700, hemoglobin is 12.1, hematocrit of 36.4, platelet count is 228,000. The patient's sodium is 137.8, potassium is 4.4, chloride 103, CO2 is 27. The patient's BUN is 22, creatinine is 1.32, and the GFR is improved to 39 mL which is still chronic kidney disease stage III. The NT-proBNP is 4900. It has come down from 5180. IMPRESSION: 1. HYPOXIA SECONDARY TO CHRONIC OBSTRUCTIVE PULMONARY DISEASE WITH ACUTE EXACERBATION AND CONGESTIVE HEART FAILURE. Now the patient on oxygen and has a good oxygen saturation. 2. CHRONIC OBSTRUCTIVE PULMONARY DISEASE WITH ACUTE EXACERBATION. 3. CONGESTIVE HEART FAILURE MOST LIKELY A COMBINATION OF DIASTOLIC HEART FAILURE AND MYOCARDIAL DEPRESSION AND ALSO WITH THE PATIENT HAVING CHRONIC KIDNEY DISEASE STAGE III. 4. CHRONIC KIDNEY DISEASE STAGE III. 5. POSSIBLE BIBASILAR PNEUMONIA WITH EFFUSION. 6. HISTORY OF ATRIAL FIBRILLATION, NOW IN SINUS RHYTHM POST ABLATION. 7. GASTROESOPHAGEAL REFLUX DISEASE. 8. HIATAL HERNIA. 9. ANXIETY DISORDER, UNSPECIFIED. At present, patient's anxiety has been well controlled. 10. MODERATE PULMONARY HYPERTENSION. RECOMMENDATIONS: I agree with the antibiotics. Agree with Lasix. Would continue the patient's spironolactone but would be cautious with the patient's potassium in view of the patient's renal failure. Would later restart the patient on Cardizem CD and continue the patient on Eliquis. Would recommend strongly that would get a high resolution CT of the chest without contrast if indeed the patient has interstitial fibrosis. Time spent is 30 minutes with more than 50% of the time spent on direct patient care. Also, reviewed the medications and discussions of the patient's care with the attending physician taking care of the patient. Note that the patient has a past history of *------*, contact precautions. We will follow with you. DICTATING PHYSICIAN: LOYDA WAGNER M.D. [id number] PHY#: [id number] ID: [id number] JOB#: [id number] ACCT: [id number] cc: >
[2016-10-31 05:07] LABS: ABSOLUTE EOSINOPHILS # (AUTO) 0.4 10^3/uL (0.0-0.6); ABSOLUTE LYMPHOCYTES (AUTO) 1.6 10^3/uL (0.5-4.7); ABSOLUTE MONOCYTES (AUTO) 0.6 10^3/uL (0.1-1.4); ABSOLUTE NEUT (AUTO) 4.7 10^3/uL (1.7-8.2); BASOPHILS % (AUTO) 0.1 % (0-2); EOSINOPHILS % (AUTO) 5.6 % (0-6); HEMATOCRIT 35.4 % (36.0-47.0); HEMOGLOBIN 11.5 g/dL (12.0-15.5); HGB HCT DIFFERENCE -0.9; LYMPHOCYTES % (AUTO) 21.8 % (13-45); MEAN CORPUSCULAR HGB CONC 32.4 g/dL (32.0-36.0); MEAN CORPUSCULAR VOLUME 96 fl (80-97); RED BLOOD COUNT 3.71 10^6/uL (3.72-5.28); SEGMENTED NEUTROPHILS % (AUTO) 64.5 % (42-78); WHITE BLOOD COUNT 7.3 10^3/uL (4.0-10.5)
[2016-10-31 05:26] LABS: ANION GAP 8 (5-19); BLOOD UREA NITROGEN 21 mg/dL (7-20); CALCIUM 8.7 mg/dL (8.4-10.2); CARBON DIOXIDE 26 mmol/L (22-30); CHLORIDE 105 mmol/L (98-107); CREATININE RESULT 1.41 mg/dL (0.52-1.25); GLUCOSE 98 mg/dL (75-110); POTASSIUM 4.4 mmol/L (3.6-5.0); SODIUM 139.2 mmol/L (137-145)
[2016-10-31] MEDS: IPRATROPIUM/ALBUTEROL 0.5-2.5 MG/3 ML AMPUL NEB SCH ×3 (07:43→20:16)
[2016-10-31] MEDS: CEFTRIAXONE 1 GM/D5W RTU 1 GM/50 ML RTUPB IV SCH (09:09)
[2016-10-31] MEDS: APIXABAN 2.5 MG TABLET PO SCH (09:09)
[2016-10-31] MEDS: DOCUSATE SODIUM 100 MG CAPSULE PO SCH (09:09)
[2016-10-31] MEDS: SPIRONOLACTONE 25 MG TABLET PO SCH (09:10)
[2016-10-31] MEDS: FUROSEMIDE INJ/PF 20 MG/2 ML SDV IV SCH ×2 (09:10→21:59)
[2016-10-31] MEDS: LANSOPRAZOLE 15 MG TAB.RAP.DR PO SCH ×2 (09:10→15:23)
[2016-10-31] MEDS: SIMVASTATIN 40 MG TABLET PO SCH (09:10)
--- NOTE | 2016-10-31 14:56 | PDOC PROGRESS REPORT ---
Subjective Progress Note for:: 10/31/16 Subjective:: pt is doing well nofever nosob no chest pain pt ct chest shows pleural effusion and rt side partial collapse lung Physical Exam Vital Signs: Temp Pulse Resp BP Pulse Ox 98.0 F 95 16 117/71 95 10/31/16 11:11 10/31/16 14:25 10/31/16 14:25 10/31/16 11:11 10/31/16 14:25 Intake & Output 10/30/16 10/31/16 11/01/16 06:59 06:59 06:59 Intake Total 1830 1167 Output Total 300 Balance 1530 1167 Weight 56.6 kg 55.8 kg General appearance: PRESENT: no acute distress Head exam: PRESENT: normocephalic Eye exam: PRESENT: PERRLA Mouth exam: PRESENT: neck supple Respiratory exam: PRESENT: clear to auscultation marylou Cardiovascular exam: PRESENT: +S1, +S2 GI/Abdominal exam: PRESENT: normal bowel sounds, soft. ABSENT: tenderness Extremities exam: ABSENT: pedal edema Neurological exam: PRESENT: alert, awake, oriented to person, oriented to place , oriented to time, oriented to situation Psychiatric exam: PRESENT: anxious Skin exam: PRESENT: dry Results Laboratory Results: 10/31/16 04:52 10/31/16 04:52 10/31/16 10/31/16 04:52 04:52 WBC 7.3 RBC 3.71 L Hgb 11.5 L Hct 35.4 L MCV 96 MCH 31.0 MCHC 32.4 RDW 13.0 Plt Count 204 Seg Neutrophils % 64.5 Lymphocytes % 21.8 Monocytes % 8.0 Eosinophils % 5.6 Basophils % 0.1 Absolute Neutrophils 4.7 Absolute Lymphocytes 1.6 Absolute Monocytes 0.6 Absolute Eosinophils 0.4 Absolute Basophils 0.0 Sodium 139.2 Potassium 4.4 Chloride 105 Carbon Dioxide 26 Anion Gap 8 BUN 21 H Creatinine 1.41 H Est GFR ( Amer) 44 L Est GFR (Non-Af Amer) 36 L Glucose 98 Calcium 8.7 10/29/16 09:00 Nasophary (Mrs[facility] Only) MRSA Surveillance Culture - Final NO MRSA RECOVERED 10/28/16 10/28/16 10/29/16 23:26 23:26 05:10 Creatine Kinase 48 43 CK-MB (CK-2) 2.55 Troponin I NT-Pro-B Natriuret Pep 10/29/16 10/29/16 10/29/16 05:10 12:22 12:22 Creatine Kinase 81 CK-MB (CK-2) 2.22 3.37 Troponin I 0.082 NT-Pro-B Natriuret Pep 5180 H 10/30/16 10/31/16 07:42 04:52 Creatine Kinase CK-MB (CK-2) Troponin I NT-Pro-B Natriuret Pep 4900 H 4670 H Impressions: Chest X-Ray 10/30/16 07:00 IMPRESSION: 1. Pulmonary vascular congestion interstitial thickening likely secondary to underlying edema. 2. Persistent bibasilar airspace opacities, right greater than left. These likely representing combination of atelectasis with effusion. The left-sided appears stable. The right side appears slightly worsened. Chest CT 10/31/16 06:00 IMPRESSION: Moderate bilateral pleural effusions Partial collapse and consolidation medial right lower lobe, persist on both prone and supine images Assessment & Plan - Diagnosis (1) CHF (congestive heart failure) Qualifiers: Congestive heart failure type: diastolic Congestive heart failure chronicity: acute on chronic Qualified Code(s): I50.33 - Acute on chronic diastolic (congestive) heart failure Is this a current diagnosis for this admission?: YesPlan: Continuous IV Lasix (2) Chronic renal insufficiency, stage II (mild) Is this a current diagnosis for this admission?: YesPlan: pt have only one kidney cont monitor (3) History of atrial fibrillation Is this a current diagnosis for this admission?: YesPlan: Currently on eliquis (4) Pneumonia Qualifiers: Pneumonia type: due to unspecified organism Laterality: right Lung location: lower lobe of lung Qualified Code(s): J18.1 - Lobar pneumonia, unspecified organism Is this a current diagnosis for this admission?: YesPlan: Continues to IV Rocephin (5) Shortness of breath Is this a current diagnosis for this admission?: YesPlan: consulr pulmonary (6) Chronic obstruct airways disease Qualifiers: Emphysema type: unspecified Is this a current diagnosis for this admission?: YesPlan: continue the current nebulizer - Time Time Spent with patient: 15-24 minutes Medications reviewed and adjusted accordingly: Yes Anticipated discharge: Home - Inpatient Certification Medical Necessity: Need Close Monitoring Due to Risk of Patient Decompensation, Need for IV Antibiotics
--- NOTE | 2016-10-31 15:45 | PDOC CONSULTATION ---
Consultation Consult Date: 10/31/16 Attending physician:: CHEYENNE VILLARREAL Consult reason:: dyspnea History of Present Illness Admission Date/PCP: 10/28/16 21:51 CHEYENNE VILLARREAL MD History of Present Illness: SALOME MOSLEY is a 76 year old female This is a 76-year-old female with a history of diastolic congestive heart failure COPD oxygen dependent Q need 2 lit. 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 Patient most recent echo done last hospital admissions and EF was normal. Currently on eliquis 2.5 mg bid for A. fib.She denies shortness of breath at rest but admits to increasing dyspnea on exertion not unlike that if she she is experiencing several episodes in the past when she was treated for congestive heart failure.She denies cough nausea vomiting fevers chills rhinorrhea sore throat chest pain and has some chronic edema. She denies any history of chronic lung disease as a child or adolescent. She denies hemoptysis her PPD was negative the dates unknown. She admits to exposure to passive smoke as a child as well as an adult. She herself has not smoked in the last 12 years smoked a pack a day for 45 years she denies any occupational exposure to known potential respiratory problem toxins. She has no pets and denies any recent travel she denies angina-like chest pain sleeps on 2 pillows no PND no nocturnal cough and edema as stated above. She denies snoring and restless sleep nocturia unrestful sleep or excessive daytime somnolence. Past Medical History Cardiac Medical History: Reports: Atrial Fibrillation, Congestive Heart Failure , Hyperlipidema Denies: Myocardial Infarction, Hypertension Pulmonary Medical History: Reports: Chronic Obstructive Pulmonary Disease (COPD) Denies: Asthma, Bronchitis, Pneumonia Neurological Medical History: Denies: Seizures GI Medical History: Reports: Gastroesophageal Reflux Disease, Hiatal Hernia Musculoskeltal Medical History: Denies: Arthritis Psychiatric Medical History: Reports: General Anxiety Disorder Denies: Depression Hematology: Denies: Anemia, Sickle Cell Disease Past Surgical History Past Surgical History: Reports: Other - Ablation Denies: Amputation, Hysterectomy, Mastectomy Social History Information Source: Patient, [facility] Records Lives with: Spouse/Significant other Smoking Status: Former Smoker Cigarettes Packs Per Day: 1 Number of Years Smokin Last Time Smoked: 13 yrs ago Passive smoke exposure as: Both Frequency of Alcohol Use: None Hx Recreational Drug Use: No Drugs: None Hx Prescription Drug Abuse: No Do you have pets?: No Have you had any respiratory illnesses as a child?: No Have you been exposed to any sick contacts recently?: No Have you travelled outside of [place] in the past 12 months?: No - Advance Directive Resuscitation Status: Full Code Family History Family History: Reviewed & Not Pertinent, CAD - in both parents but not premature Parental Family History Reviewed: Yes - HTN:H Lipids,CAD,CVA,cancer Children Family History Reviewed: Yes - w/o Sibling(s) Family History Reviewed.: Yes Medication/Allergy Home Medications: Omeprazole 20 mg PO BID 09/08/16 Tiotropium [place] [Spiriva Respimat] 2 sprays DAILY PRN 09/08/16 Vit A/Vit C/Vit E/Zinc/Copper [Preservision Areds Softgel] 1 each PO BID Simvastatin 40 mg PO DAILY 09/11/16 Apixaban [Eliquis 2.5 mg Tablet] 2.5 mg PO BID #60 tablet 09/12/16 Diltiazem HCl [Cardizem Cd 120 mg Capsule] 120 mg PO DAILY #30 cap.sr.24h Spironolactone [Aldactone 25 mg Tablet] 12.5 mg PO DAILY #30 tablet 09/12/16 Torsemide [Demadex 20 mg Tablet] 10 mg PO DAILY #30 tablet 09/12/16 Allergies/Adverse Reactions: sulfamethoxazole [From Bactrim] Allergy (Verified 10/28/16 17:07) trimethoprim [From Bactrim] Allergy (Verified 10/28/16 17:07) nut - unspecified Adverse Reaction (Verified 10/28/16 17:07) aggravates diverticulitis. Physical Exam Vital Signs: Temp Pulse Resp BP Pulse Ox 98.5 F 93 16 113/67 94 10/31/16 07:27 10/31/16 07:43 10/31/16 07:43 10/31/16 07:27 10/31/16 07:27 Intake & Output 10/30/16 10/31/16 11/01/16 06:59 06:59 06:59 Intake Total 1830 1167 Output Total 300 Balance 1530 1167 Weight 56.6 kg 55.8 kg General appearance: PRESENT: no acute distress, cooperative, thin Head exam: PRESENT: atraumatic, normocephalic Eye exam: PRESENT: conjunctiva pale, EOMI Mouth exam: PRESENT: moist, neck supple, tongue midline Throat exam: PRESENT: tonsillogmegaly Neck exam: ABSENT: carotid bruit, JVD, lymphadenopathy, thyromegaly Respiratory exam: PRESENT: decreased breath sounds, prolonged expiratory phas, rales, symmetrical, unlabored, other - Bibasilar decreased breath sounds and egophony on the right base Cardiovascular exam: PRESENT: irregular rhythm, other - Heart sounds distant Pulses: PRESENT: normal radial pulses GI/Abdominal exam: PRESENT: normal bowel sounds, soft. ABSENT: distended, guarding, mass, organolmegaly, rebound, tenderness Rectal exam: PRESENT: deferred Gentrourinary exam: PRESENT: indwelling catheter Musculoskeletal exam: PRESENT: normal inspection Neurological exam: PRESENT: alert, awake, oriented to person, other - hard of hearing Skin exam: PRESENT: dry, warm Results Laboratory Results: 10/31/16 04:52 10/31/16 04:52 10/31/16 10/31/16 04:52 04:52 WBC 7.3 RBC 3.71 L Hgb 11.5 L Hct 35.4 L MCV 96 MCH 31.0 MCHC 32.4 RDW 13.0 Plt Count 204 Seg Neutrophils % 64.5 Lymphocytes % 21.8 Monocytes % 8.0 Eosinophils % 5.6 Basophils % 0.1 Absolute Neutrophils 4.7 Absolute Lymphocytes 1.6 Absolute Monocytes 0.6 Absolute Eosinophils 0.4 Absolute Basophils 0.0 Sodium 139.2 Potassium 4.4 Chloride 105 Carbon Dioxide 26 Anion Gap 8 BUN 21 H Creatinine 1.41 H Est GFR ( Amer) 44 L Est GFR (Non-Af Amer) 36 L Glucose 98 Calcium 8.7 10/29/16 09:00 Nasophary (Mrsa Only) MRSA Surveillance Culture - Final NO MRSA RECOVERED 10/28/16 10/28/16 10/29/16 23:26 23:26 05:10 Creatine Kinase 48 43 CK-MB (CK-2) 2.55 Troponin I NT-Pro-B Natriuret Pep 10/29/16 10/29/16 10/29/16 05:10 12:22 12:22 Creatine Kinase 81 CK-MB (CK-2) 2.22 3.37 Troponin I 0.082 NT-Pro-B Natriuret Pep 5180 H 10/30/16 10/31/16 07:42 04:52 Creatine Kinase CK-MB (CK-2) Troponin I NT-Pro-B Natriuret Pep 4900 H 4670 H Impressions: Chest X-Ray 10/30/16 07:00 IMPRESSION: 1. Pulmonary vascular congestion interstitial thickening likely secondary to underlying edema. 2. Persistent bibasilar airspace opacities, right greater than left. These likely representing combination of atelectasis with effusion. The left-sided appears stable. The right side appears slightly worsened. Chest CT 10/31/16 06:00 IMPRESSION: Moderate bilateral pleural effusions Partial collapse and consolidation medial right lower lobe, persist on both prone and supine images Assessment & Plan - Diagnosis (1) Pleural effusion Is this a current diagnosis for this admission?: YesPlan: Bilateral effusions right greater than left both of which house player on CT scan initial assumption would be transudate of fluids from congestive heart failure and a single kidney which functions however review of patient's history of smoking age and general condition exudative effusion such as parapneumonic or even malignant should be excluded schedule patient for ultrasound-guided thoracentesis of right hemithoraxHold Eliquis in the a.m. (2) Chronic obstruct airways disease Qualifiers: Emphysema type: unspecified Is this a current diagnosis for this admission?: YesPlan: Continue DuoNeb and supplemental oxygen - Time Time Spent: 50 to 70 Minutes
[2016-10-31 16:06] LABS: PROTHROMBIN TIME 14.6 SEC (11.4-15.4)
[2016-10-31 16:07] LABS: PARTIAL THROMBOPLASTIN TIME 37.8 SEC (23.5-35.8)
[2016-10-31 16:21] LABS: TOTAL PROTEIN 6.3 g/dL (6.3-8.2)
--- NOTE | 2016-10-31 21:58 | PROGRESS NOTE E ---
Progress Note NAME: SALOME MOSLEY : 1940 AGE: 76Y DATE: 10/30/2016 ROOM: 538 SUBJECTIVE: The patient has no shortness of breath. She has no cough. She has no PND or orthopnea. The patient remains in sinus rhythm. There are no TIA or CVA symptoms. There is no bleeding on Eliquis, but Eliquis has been held for pleural effusion aspiration. OBJECTIVE: GENERAL: On examination, the patient is of frail build, but seems to be adequately nourished. VITAL SIGNS: She is afebrile with a temperature 98 degrees Fahrenheit, pulse 97 beats per minute and irregular rhythm., blood pressure 117/71, respirations 16 per minute, oxygen saturation 94% on room air. HEENT: Head is atraumatic, normocephalic. Eyes: Pupils are equal, round, regular, reactive to light and accommodation. Extraocular movements are normal. There is no conjunctival pallor. There is no scleral icterus. ENT is negative. NECK: Supple. There is no JVD. Carotids are equal. There is no bruit. There is no goiter. There is no lymph node enlargement. LUNGS: There are absent breath sounds in the bases. There are diffuse scattered rhonchi. There is diminished air entry and prolonged expiration throughout. There is no wheezing. There are no rales or CHF. HEART: S1 and S2 are heard. There is no S3 gallop. There is no S4 gallop. There is a systolic murmur in the left sternal border and also a systolic murmur in the apex which radiates to the left axilla, suggestive of mitral regurgitation. There are no rubs. ABDOMEN: Soft, nontender. There is no hepatosplenomegaly. Bowel sounds are well heard. There are no tender areas or masses. EXTREMITIES: Femorals are fairly well felt. There are no femoral bruits. Leg pulses are well felt. There is no pedal edema. CENTRAL NERVOUS SYSTEM: The patient is conscious, awake, alert and oriented x3, with no focal deficits. Note that the patient is hard of hearing, especially in her right ear. PSYCHIATRIC: At present, the patient has no anxiety or depression and is not agitated. INTAKE AND OUTPUT: The patient's intake and output are not accurate. DIAGNOSTIC DATA: The patient had a CT of her chest, which shows moderate bilateral pleural effusions with consolidation of right medial lobe. White count 7300, hemoglobin *------*, hematocrit 35.4, platelet count 204,000. Sodium 139.2, potassium 4.4, chloride 105, CO2 of 25, BUN 25, creatinine 1.41; GFR reduced to 36 mL which is chronic kidney disease, stage 3; glucose 98, calcium 8.7, total protein 6.3. LDH 347. IMPRESSION: 1. HYPOXIA SECONDARY TO CHRONIC OBSTRUCTIVE PULMONARY DISEASE WITH ACUTE EXACERBATION AND CONGESTIVE HEART FAILURE. Now, the patient's oxygen saturation is good. 2. CHRONIC OBSTRUCTIVE PULMONARY DISEASE WITH ACUTE EXACERBATION. Seems to be resolving. 3. CONGESTIVE HEART FAILURE, MORE THAN LIKELY A COMBINATION OF DIASTOLIC HEART FAILURE AND MYOCARDIAL DEPRESSION; ALSO, THE PATIENT HAS CHRONIC KIDNEY DISEASE. 4. CHRONIC KIDNEY DISEASE, STAGE 3. 5. POSSIBLE BIBASILAR PNEUMONIA WITH BILATERAL EFFUSIONS, BUT CANNOT RULE OUT AN EXUDATE SECONDARY TO DIASTOLIC CONGESTIVE HEART FAILURE AND ALSO SECONDARY TO THE PATIENT HAVING CHRONIC KIDNEY DISEASE. 6. HISTORY OF ATRIAL FIBRILLATION, NOW IN SINUS RHYTHM POST-ABLATION. 7. GASTROESOPHAGEAL REFLUX DISEASE. 8. HIATAL HERNIA. 9. ANXIETY DISORDER, UNSPECIFIED. At present, the patient's anxiety is well controlled. 10. MODERATE PULMONARY HYPERTENSION. RECOMMENDATIONS: Continue antibiotics, continue Lasix and continue spironolactone, but watch the patient's potassium as mentioned earlier. The patient is on Cardizem CD at present. Eliquis is being held for possible paracentesis. The CT scan does not show interstitial lung disease. A total of 30 minutes on this patient, with more than 50% of the time spent on direct patient care, and also reviewed the medications and discussions of the patient's care with the attending physician and all other care providers on the case. The patient has a past history of MRSA and she is on contact precautions. We will follow with you. Discussed the CT findings with the patient also. DICTATING PHYSICIAN: LOYDA WAGNER M.D. [id number] GUSTAVO#: [id number] ID: [id number] JOB#: [id number] ACCT: [id number] cc: >
[2016-11-01] MEDS: IPRATROPIUM/ALBUTEROL 0.5-2.5 MG/3 ML AMPUL NEB SCH ×3 (07:39→20:09)
[2016-11-01 08:09] LABS: ANION GAP 9 (5-19); BLOOD UREA NITROGEN 21 mg/dL (7-20); CARBON DIOXIDE 30 mmol/L (22-30); CHLORIDE 100 mmol/L (98-107); CREATININE RESULT 1.41 mg/dL (0.52-1.25); GLUCOSE 95 mg/dL (75-110); POTASSIUM 4.4 mmol/L (3.6-5.0); SODIUM 138.8 mmol/L (137-145)
[2016-11-01] MEDS: CEFTRIAXONE 1 GM/D5W RTU 1 GM/50 ML RTUPB IV SCH (10:14)
[2016-11-01] MEDS: DOCUSATE SODIUM 100 MG CAPSULE PO SCH (10:15)
[2016-11-01] MEDS: SIMVASTATIN 40 MG TABLET PO SCH (10:15)
[2016-11-01] MEDS: FUROSEMIDE INJ/PF 20 MG/2 ML SDV IV SCH ×2 (10:15→21:21)
[2016-11-01] MEDS: SPIRONOLACTONE 25 MG TABLET PO SCH (10:15)
[2016-11-01] MEDS: LANSOPRAZOLE 15 MG TAB.RAP.DR PO SCH ×2 (10:15→17:35)
--- NOTE | 2016-11-01 13:43 | PDOC PROGRESS REPORT ---
Subjective Progress Note for:: 11/01/16 Subjective:: Patient is doing well patient is scheduled for the thoracocentesis in the morning. Patient's complaining some heartburn symptoms. Patient's denied any chest pain denied any shortness of the breath. Patient's by mouth intake is fair and patient's move on the hallway without any problems. Physical Exam Vital Signs: Temp Pulse Resp BP Pulse Ox 98.7 F 84 18 116/48 L 93 11/01/16 12:49 11/01/16 12:49 11/01/16 12:49 11/01/16 12:49 11/01/16 12:49 Intake & Output 10/31/16 11/01/16 11/02/16 06:59 06:59 06:59 Intake Total 1167 995 Balance 1167 995 Weight 55.8 kg 56 kg General appearance: PRESENT: no acute distress Head exam: PRESENT: normocephalic Eye exam: PRESENT: PERRLA Mouth exam: PRESENT: neck supple Neck exam: PRESENT: full ROM Respiratory exam: PRESENT: clear to auscultation marylou Cardiovascular exam: PRESENT: +S1, +S2 GI/Abdominal exam: PRESENT: normal bowel sounds, soft. ABSENT: tenderness Extremities exam: ABSENT: pedal edema Neurological exam: PRESENT: alert, awake, oriented to person, oriented to place Psychiatric exam: PRESENT: anxious Results Laboratory Results: 10/31/16 04:52 11/01/16 07:25 10/31/16 11/01/16 15:30 07:25 Sodium 138.8 Potassium 4.4 Chloride 100 Carbon Dioxide 30 Anion Gap 9 BUN 21 H Creatinine 1.41 H Est GFR ( Amer) 44 L Est GFR (Non-Af Amer) 36 L Glucose 106 95 Calcium 10.0 Total Protein 6.3 10/28/16 10/28/16 10/29/16 23:26 23:26 05:10 Creatine Kinase 48 43 CK-MB (CK-2) 2.55 Troponin I NT-Pro-B Natriuret Pep 10/29/16 10/29/16 10/29/16 05:10 12:22 12:22 Creatine Kinase 81 CK-MB (CK-2) 2.22 3.37 Troponin I 0.082 NT-Pro-B Natriuret Pep 5180 H 10/30/16 10/31/16 07:42 04:52 Creatine Kinase CK-MB (CK-2) Troponin I NT-Pro-B Natriuret Pep 4900 H 4670 H Impressions: Chest X-Ray 10/30/16 07:00 IMPRESSION: 1. Pulmonary vascular congestion interstitial thickening likely secondary to underlying edema. 2. Persistent bibasilar airspace opacities, right greater than left. These likely representing combination of atelectasis with effusion. The left-sided appears stable. The right side appears slightly worsened. Chest CT 10/31/16 06:00 IMPRESSION: Moderate bilateral pleural effusions Partial collapse and consolidation medial right lower lobe, persist on both prone and supine images Assessment & Plan - Diagnosis (1) CHF (congestive heart failure) Qualifiers: Congestive heart failure type: diastolic Congestive heart failure chronicity: acute on chronic Qualified Code(s): I50.33 - Acute on chronic diastolic (congestive) heart failure Is this a current diagnosis for this admission?: YesPlan: Continuous IV Lasix (2) Chronic renal insufficiency, stage II (mild) Is this a current diagnosis for this admission?: YesPlan: pt have only one kidney cont monitor (3) History of atrial fibrillation Is this a current diagnosis for this admission?: YesPlan: Currently on eliquis (4) Pneumonia Qualifiers: Pneumonia type: due to unspecified organism Laterality: right Lung location: lower lobe of lung Qualified Code(s): J18.1 - Lobar pneumonia, unspecified organism Is this a current diagnosis for this admission?: YesPlan: Continues to IV Rocephin (5) Shortness of breath Is this a current diagnosis for this admission?: YesPlan: consulr pulmonary (6) Chronic obstruct airways disease Qualifiers: Emphysema type: unspecified Is this a current diagnosis for this admission?: YesPlan: continue the current nebulizer - Time Time Spent with patient: 15-24 minutes Medications reviewed and adjusted accordingly: Yes Within: within 72 hours - Inpatient Certification Medical Necessity: Need Close Monitoring Due to Risk of Patient Decompensation, Need for IV Antibiotics - Plan Summary Plan Summary: Currently hold and eliquis for thoracocentesis in the morning. Also given some mallox and continues to monitor the patient's is going to stay in the weekend
[2016-11-01] MEDS: MAG HYDROX/AL HYDROX/SIMETH SUSP 30 ML UDCUP PO PRN (17:35)
[2016-11-01] MEDS: APIXABAN 2.5 MG TABLET PO SCH (21:18)
--- NOTE | 2016-11-02 01:38 | PROGRESS NOTE E ---
Progress Note NAME: SALOME MOSLEY : 1940 AGE: 76Y DATE: 11/01/2016 ROOM: 538 SUBJECTIVE: The patient denies any chest pain or discomfort. There is no shortness of breath; in fact, she is off the oxygen. There is no PND or orthopnea. She has not had a paracentesis since the patient was on Eliquis which was stopped yesterday. She has no pedal edema. There is no palpitation. The patient remains in sinus rhythm. OBJECTIVE: GENERAL: On examination, the patient is of frail build, but seems to be adequately nourished. VITAL SIGNS: She is afebrile with a temperature 98.7 degrees Fahrenheit, pulse 84 beats per minute, blood pressure 116/48, respirations are 18 per minute, and oxygen saturation 93% on room air. HEENT: Head is atraumatic, normocephalic. Eyes: Pupils are equal, round, regular, reactive to light and accommodation. Extraocular movements are normal. There is no conjunctival pallor. There is no scleral icterus. ENT is negative. NECK: Supple. There is no JVD. Carotids are equal. There is no bruit. There is no goiter. There is no lymph node enlargement. LUNGS: There are absent breath sounds in the bases. The rest of the lungs are fairly clear. There is diminished air entry and prolonged expiration elsewhere except where there is dullness bilaterally. There is no rhonchi, rales or wheezes. There is diminished air entry and prolonged expiration on auscultation. On percussion there is dullness in the bases and hyperresonance elsewhere in the lung jeffery. HEART: S1 and S2 are heard. There is no S3 gallop. There is no S4 gallop. There is a systolic murmur in the left sternal border and also a systolic murmur in the apex which radiates to the left axilla, suggestive of mitral regurgitation. There are no rubs. ABDOMEN: Soft, nontender. There is no hepatosplenomegaly. Bowel sounds are well heard. There are no tender areas or masses. EXTREMITIES: Femorals are fairly well felt. There are no femoral bruits. Leg pulses are well felt. There is no pedal edema. There is no cyanosis or clubbing. CENTRAL NERVOUS SYSTEM: The patient is conscious, awake, alert and oriented x3, with no focal deficits. Note that the patient is hard of hearing, especially in her right ear in spite of a hearing aid which she said does not work. PSYCHIATRIC: At present, the patient has no anxiety or depression and is not agitated. INTAKE AND OUTPUT: The patient's intake and output are not accurate. DIAGNOSTIC DATA: The patient's sodium is 138.8, potassium 4.4, chloride 100, CO2 30, BUN and creatinine remain stable at 21 and 1.41; GFR reduced to 36 mL which is chronic kidney disease stage 4. The patient's glucose 95, calcium is 10. IMPRESSION: 1. HYPOXIA SECONDARY TO CHRONIC OBSTRUCTIVE PULMONARY DISEASE WITH ACUTE EXACERBATION AND CONGESTIVE HEART FAILURE. At present the patient's oxygen saturation is good on room air. 2. CHRONIC OBSTRUCTIVE PULMONARY DISEASE WITH ACUTE EXACERBATION. At present resolved but patient back to baseline COPD. 3. CONGESTIVE HEART FAILURE, MORE THAN LIKELY A COMBINATION OF DIASTOLIC HEART FAILURE AND MYOCARDIAL DEPRESSION AND ALSO, THE PATIENT HAS CHRONIC KIDNEY DISEASE. 4. CHRONIC KIDNEY DISEASE, STAGE 3. Stable. 5. POSSIBLE BIBASILAR PNEUMONIA WITH BILATERAL EFFUSIONS, BUT CANNOT RULE OUT AN EXUDATE VERSUS TRANSUDATE. The patient will have paracentesis done for diagnosis 72 hours after stopping the Eliquis. 6. HISTORY OF ATRIAL FIBRILLATION, NOW IN SINUS RHYTHM POST-ABLATION. 7. GASTROESOPHAGEAL REFLUX DISEASE. At present no symptoms. 8. HIATAL HERNIA. Stable. 9. ANXIETY DISORDER, UNSPECIFIED. At present, the patient's anxiety is well controlled. 10. MODERATE PULMONARY HYPERTENSION. RECOMMENDATIONS: I would continue Lasix. I would continue antibiotics, continue spironolactone. The patient was on Cardizem CD which she is not on anymore. Would start the patient on 30 mg of Cardizem p.o. q.8 h. from tomorrow in anticipation of the paracentesis and subsequently on the day of paracentesis converted to IV Cardizem infusion to prevent a recurrence of patient's atrial fibrillation. Watch the patient's potassium as mentioned earlier. Note Eliquis is being held and we will start it later after paracentesis. Note the patient needs accurate intake and outpatient measurements. NOTE: A total of 30 minutes spent on this patient, with more than 50% of the time spent on direct patient care, and also reviewing the medications and discussions of the patient's attending physician and all other care providers on the case. The patient also has a past history of MRSA and she is on contact precautions. Also, discussed with the patient's sister who is the healthcare [id number] who is at the bedside with the patient's consent. Also the patient was anxious to see Dr. Forman and after I discussed with Dr. Forman and he stopped by. Will follow with you. Thanking you. DICTATING PHYSICIAN: LOYDA WAGNER M.D. [id number] PHY#: [id number] ID: [id number] JOB#: [id number] ACCT: [id number] cc: >
[2016-11-02 06:00] LABS: ABSOLUTE EOSINOPHILS # (AUTO) 0.5 10^3/uL (0.0-0.6); ABSOLUTE LYMPHOCYTES (AUTO) 1.4 10^3/uL (0.5-4.7); ABSOLUTE MONOCYTES (AUTO) 0.5 10^3/uL (0.1-1.4); BASOPHILS % (AUTO) 0.1 % (0-2); EOSINOPHILS % (AUTO) 7.6 % (0-6); HEMATOCRIT 36.9 % (36.0-47.0); HGB HCT DIFFERENCE -0.9; LYMPHOCYTES % (AUTO) 22.2 % (13-45); MEAN CORPUSCULAR HEMOGLOBIN 31.4 pg (27.0-33.4); MEAN CORPUSCULAR HGB CONC 32.6 g/dL (32.0-36.0); MEAN CORPUSCULAR VOLUME 96 fl (80-97); MONOCYTES % (AUTO) 8.3 % (3-13); RED BLOOD COUNT 3.83 10^6/uL (3.72-5.28); RED CELL DISTRIBUTION WIDTH 13.3 % (11.5-14.0); SEGMENTED NEUTROPHILS % (AUTO) 61.8 % (42-78); WHITE BLOOD COUNT 6.5 10^3/uL (4.0-10.5)
[2016-11-02 06:01] LABS: ANION GAP 8 (5-19); BLOOD UREA NITROGEN 22 mg/dL (7-20); CALCIUM 9.4 mg/dL (8.4-10.2); CARBON DIOXIDE 29 mmol/L (22-30); CHLORIDE 98 mmol/L (98-107); CREATININE RESULT 1.46 mg/dL (0.52-1.25); GLUCOSE 106 mg/dL (75-110); POTASSIUM 4.7 mmol/L (3.6-5.0); SODIUM 135.2 mmol/L (137-145)
[2016-11-02] MEDS: LANSOPRAZOLE 15 MG TAB.RAP.DR PO SCH ×2 (07:47→15:15)
[2016-11-02] MEDS: IPRATROPIUM/ALBUTEROL 0.5-2.5 MG/3 ML AMPUL NEB SCH ×3 (08:15→20:42)
[2016-11-02 08:58] LABS: PROTHROMBIN TIME 13.2 SEC (11.4-15.4)
[2016-11-02 08:59] LABS: PARTIAL THROMBOPLASTIN TIME 37.2 SEC (23.5-35.8)
[2016-11-02] MEDS: SIMVASTATIN 40 MG TABLET PO SCH (09:58)
[2016-11-02] MEDS: DOCUSATE SODIUM 100 MG CAPSULE PO SCH (09:58)
[2016-11-02] MEDS: APIXABAN 2.5 MG TABLET PO SCH ×2 (09:58→21:28)
[2016-11-02] MEDS: FUROSEMIDE INJ/PF 20 MG/2 ML SDV IV SCH ×2 (09:59→21:28)
[2016-11-02] MEDS: CEFTRIAXONE 1 GM/D5W RTU 1 GM/50 ML RTUPB IV SCH (10:02)
[2016-11-02 11:45] LABS: FLUID APPEARANCE SLIGHTLY HAZY; FLUID TYPE PLEURAL
[2016-11-02 11:46] LABS: FLUID RBC AVERAGE 106.5; FLUID RBC DILUENT USED CSF DILUTING FLUID; FLUID RBC DILUTION FACTOR 1; FLUID RBC SIDE 1 100; FLUID RBC SIDE 2 113; TOTAL RBC SQUARES COUNTED FLD 150
[2016-11-02] MEDS: MAG HYDROX/AL HYDROX/SIMETH SUSP 30 ML UDCUP PO PRN (15:16)
--- NOTE | 2016-11-02 20:03 | PDOC PROGRESS REPORT ---
Subjective Progress Note for:: 11/02/16 Subjective:: Patient seen by the bedside, she had thoracentesis done today, 700 mL of fluid was collected Physical Exam Vital Signs: Temp Pulse Resp BP Pulse Ox 98.3 F 93 20 120/51 L 96 11/02/16 16:59 11/02/16 16:59 11/02/16 16:00 11/02/16 16:59 11/02/16 16:59 Intake & Output 11/01/16 11/02/16 11/03/16 06:59 06:59 06:59 Intake Total 995 1415 1030 Output Total 1200 Balance 995 1415 -170 Weight 56 kg 56 kg General appearance: PRESENT: no acute distress Eye exam: PRESENT: PERRLA Respiratory exam: PRESENT: clear to auscultation marylou Cardiovascular exam: PRESENT: +S1, +S2 GI/Abdominal exam: PRESENT: soft Neurological exam: PRESENT: alert, CN II-XII grossly intact Results Laboratory Results: 11/02/16 05:30 11/02/16 05:30 11/02/16 11/02/16 11/02/16 05:30 05:30 09:16 WBC 6.5 RBC 3.83 Hgb 12.0 Hct 36.9 MCV 96 MCH 31.4 MCHC 32.6 RDW 13.3 Plt Count 216 Seg Neutrophils % 61.8 Lymphocytes % 22.2 Monocytes % 8.3 Eosinophils % 7.6 H Basophils % 0.1 Absolute Neutrophils 4.0 Absolute Lymphocytes 1.4 Absolute Monocytes 0.5 Absolute Eosinophils 0.5 Absolute Basophils 0.0 Sodium 135.2 L Potassium 4.7 Chloride 98 Carbon Dioxide 29 Anion Gap 8 BUN 22 H Creatinine 1.46 H Est GFR ( Amer) 42 L Est GFR (Non-Af Amer) 35 L Glucose 106 Calcium 9.4 Fluid Type PLEURAL Fluid Source LUNG Fluid Color LIGHT YELLOW Fluid Appearance SLIGHTLY HAZY Fluid Viscosity LIQUID Fluid WBC 321 Fluid RBC 177 10/28/16 10/28/16 10/29/16 23:26 23:26 05:10 Creatine Kinase 48 43 CK-MB (CK-2) 2.55 Troponin I NT-Pro-B Natriuret Pep 10/29/16 10/29/16 10/29/16 05:10 12:22 12:22 Creatine Kinase 81 CK-MB (CK-2) 2.22 3.37 Troponin I 0.082 NT-Pro-B Natriuret Pep 5180 H 10/30/16 10/31/16 07:42 04:52 Creatine Kinase CK-MB (CK-2) Troponin I NT-Pro-B Natriuret Pep 4900 H 4670 H Impressions: Chest CT 10/31/16 06:00 IMPRESSION: Moderate bilateral pleural effusions Partial collapse and consolidation medial right lower lobe, persist on both prone and supine images Chest X-Ray 11/02/16 11:27 IMPRESSION: No pneumothorax status post right thoracentesis. Thoracentesis Ultrasound 11/02/16 13:49 IMPRESSION: Ultrasound-guided right thoracentesis. Assessment & Plan - Diagnosis (1) CHF (congestive heart failure) Qualifiers: Congestive heart failure type: diastolic Congestive heart failure chronicity: acute on chronic Qualified Code(s): I50.33 - Acute on chronic diastolic (congestive) heart failure Is this a current diagnosis for this admission?: YesPlan: Continue present treatment (2) Chronic renal insufficiency, stage II (mild) Is this a current diagnosis for this admission?: Yes (3) History of atrial fibrillation Is this a current diagnosis for this admission?: Yes
[2016-11-03 04:54] LABS: ANION GAP 8 (5-19); BLOOD UREA NITROGEN 22 mg/dL (7-20); CALCIUM 9.2 mg/dL (8.4-10.2); CARBON DIOXIDE 29 mmol/L (22-30); CHLORIDE 98 mmol/L (98-107); CREATININE RESULT 1.32 mg/dL (0.52-1.25); GLUCOSE 108 mg/dL (75-110); POTASSIUM 4.3 mmol/L (3.6-5.0); SODIUM 134.5 mmol/L (137-145)
[2016-11-03] MEDS: LANSOPRAZOLE 15 MG TAB.RAP.DR PO SCH ×2 (07:35→15:35)
[2016-11-03] MEDS: IPRATROPIUM/ALBUTEROL 0.5-2.5 MG/3 ML AMPUL NEB SCH ×3 (08:28→19:56)
[2016-11-03] MEDS: CEFTRIAXONE 1 GM/D5W RTU 1 GM/50 ML RTUPB IV SCH (09:51)
[2016-11-03] MEDS: FUROSEMIDE INJ/PF 20 MG/2 ML SDV IV SCH ×2 (09:52→22:12)
[2016-11-03] MEDS: SIMVASTATIN 40 MG TABLET PO SCH (09:52)
[2016-11-03] MEDS: DOCUSATE SODIUM 100 MG CAPSULE PO SCH (09:52)
[2016-11-03] MEDS: APIXABAN 2.5 MG TABLET PO SCH ×2 (09:52→22:11)
--- NOTE | 2016-11-03 15:08 | PROGRESS NOTE E ---
Progress Note NAME: SALOME MOSLEY : 1940 AGE: 76Y DATE: 11/03/2016 ROOM: 538 SUBJECTIVE: The patient is comfortable, denies any chest pain or discomfort. There is no PND or orthopnea. There is no leg discomfort. The patient remains in sinus rhythm. There are no TIA or CVA symptoms. The patient is back on Eliquis 2.5 mg p.o. at hour of sleep without any bleeding complications. OBJECTIVE: GENERAL: On examination, the patient is of frail build but seems to be adequately nourished. VITAL SIGNS: She is afebrile with a temperature of 97.5 degrees Fahrenheit. Pulse is 89 beats per minute. Blood pressure 101/45. Respirations are 16 per minute. O2 saturations are 95% on room air. HEAD: Atraumatic/normocephalic. EYES: Pupils are equal, round, regular, reactive to light and accommodation. Extraocular movements are normal. There is no conjunctival pallor. There is no scleral icterus. EARS, NOSE, AND THROAT: Negative. NECK: Supple. There is no JVD. Carotids are equal. There is no bruit. There is no goiter. There is no lymph node enlargement. LUNGS: The lungs are clear to auscultation and percussion with diminished air entry and prolonged expiration throughout. There is hyperresonance throughout. There is no rhonchi, rales. There is no dullness. HEART: S1, S2 is heard. There is no S3 gallop. There is no S4 gallop. There is a systolic murmur in the left sternal border and the apex. There is no rub. There is a murmur with mitral regurgitation at the apex which radiates to the left axilla. There are no rubs. ABDOMEN: Soft, nontender. There is no hepatosplenomegaly. Bowel sounds are well heard. There are no tender areas or masses. EXTREMITIES: Femoral are fairly well felt. There is no femoral bruit. Leg pulses are felt. There is no pedal edema. There is no cyanosis or clubbing. CENTRAL NERVOUS SYSTEM: The patient is conscious, awake, alert, oriented x3 with no focal deficit. PSYCHIATRIC: The patient's judgements and insights are intact. Her affect is normal. She is not depressed or anxious at present. DIAGNOSTIC DATA: The patient's pleural fluid shows that the color is light yellow, it is slightly hazy; the WBC is 321, the RBC is 177, the fluid lymphocytes are 66, fluid monocytes are 12; the protein and other labs on the pleural fluid is awaited. The patient's sodium is 134.5, potassium 4.8, chloride is 98, CO2 is 29, the patient's BUN is 22, creatinine is 1.32, GFR is reduced at 39 mL which is chronic kidney disease stage 3. The patient's glucose is 108, her calcium is 9.2. IMPRESSION: 1. HYPOXIA SECONDARY TO COPD DISEASE WITH ACUTE EXACERBATION AND CONGESTIVE HEART FAILURE. AT PRESENT, THIS IS RESOLVED. GOOD OXYGEN SATURATIONS ON ROOM AIR. 2. CHRONIC OBSTRUCTIVE PULMONARY DISEASE WITH ACUTE EXACERBATION AT PRESENT, WITHOUT PATIENT BACK TO BASELINE COPD. 3. CONGESTIVE HEART FAILURE, MOST LIKELY A COMBINATION OF CONGESTIVE HEART FAILURE AND MYOCARDIAL DEPRESSION, AND ALSO THE PATIENT HAS CHRONIC KIDNEY DISEASE, AT PRESENT COMPENSATED. NO EVIDENCE OF CONGESTIVE HEART FAILURE. 4. CHRONIC KIDNEY DISEASE STAGE 3, STABLE. 5. PNEUMONIA, BASILAR, RESOLVED. 6. PLEURAL FLUID, RESOLVED POST THORACENTESIS. AWAIT CHEMISTRY ON THE PLEURAL FLUID. 7. HISTORY OF ATRIAL FIBRILLATION, NOW IN SINUS RHYTHM POST ABLATION. 8. GASTROESOPHAGEAL REFLUX DISEASE, AT PRESENT NO SYMPTOMS. 9. HIATAL HERNIA, STABLE. 10. ANXIETY DISORDER UNSPECIFIED. AT PRESENT, ANXIETY IS WELL CONTROLLED. 11. MODERATE PULMONARY HYPERTENSION. RECOMMENDATIONS: I would continue the Lasix, continue antibiotics, continue spironolactone, and the patient is back on the Levaquin. Would start the patient on 30 mg p.o. of Cardizem q.8 h. Will follow with you. Of note, 30 minutes were spent on the patient with more than 50% of the time spent in direct patient care and adjusting the patient's medications and also discussions with Dr. Gillette, covering Dr. Morales. The patient's cardiac status is stable, will stable. Will discuss with Dr. Morales when he comes back in the morning to transition the plain Cardizem to Cardizem CD 120 mg p.o. daily. The patient will follow up with me in the office. DICTATING PHYSICIAN: LOYDA WAGNER M.D. [id number] PHY#: [id number] ID: [id number] JOB#: [id number] ACCT: [id number] cc:LOYDA WAGNER M.D. >
--- NOTE | 2016-11-03 18:53 | PROGRESS NOTE E ---
Progress Note NAME: SALOME MOSLEY : 1940 AGE: 76Y DATE: 11/02/2016 ROOM: 538 SUBJECTIVE: The patient states that at present she is comfortable without any orthopnea or PND. There are no palpitations. She remains in sinus rhythm. Earlier this morning, she had a right thoracentesis done with 660 mL of fluid being removed. The patient remains in sinus rhythm. The patient's Eliquis will be restarted later. There are no TIA or CVA symptoms. There is no pedal edema. OBJECTIVE: GENERAL: On examination, the patient is of a frail build but seems to be adequately nourished. VITAL SIGNS: She is afebrile with a temperature of 98 degrees Fahrenheit. Pulse of 83 beats per minute. Blood pressure is 110/68. Her respirations are 20 per minute. O2 saturations are 98% on room air. HEAD: Atraumatic/normocephalic. EYES: Pupils are equal, round, regular, reactive to light and accommodation. Extraocular movements are normal. There is no conjunctival pallor. There is no scleral icterus. EARS, NOSE, AND THROAT: Negative. NECK: Supple. There is no JVD. Carotids are equal. There is no bruit. There is no goiter. There is no lymph node enlargement. LUNGS: Show are fairly clear with a few crackles in the right base. There is diminished air entry and prolonged expiration throughout. There is no dullness. There is hyperresonance on percussion. HEART: S1, S2 is heard. There is no S3 gallop. There is no S4 gallop. There is a systolic murmur in the left sternal border and the apex. There is no rub. There is a murmur of mild mitral regurgitation at the apex which radiates to the left axilla. ABDOMEN: Soft, nontender. There is no hepatosplenomegaly. Bowel sounds are well heard. There are no tender areas or masses. EXTREMITIES: Femorals are slightly well felt. There is no femoral bruit. Leg pulses are felt. There is no pedal edema. There is no cyanosis or clubbing. CENTRAL NERVOUS SYSTEM: The patient is conscious, awake, alert, oriented x3 with no focal deficits. PSYCHIATRIC: The patient's judgement and intact are intact. Her affect is normal. DIAGNOSTIC DATA: The patient's chest x-ray 2 hours after the right thoracentesis is negative for any acute pathology. The patient's sodium is 135.2, potassium 4.7, chloride 98, CO2 is 29. The patient's BUN is 22, creatinine is 1.46, and her GFR is reduced to 35 which is chronic kidney disease stage 3. The patient's ProTime is *------*, INR is 0.98, PTT is 37.2. IMPRESSION: 1. HYPOXIA SECONDARY TO COPD ACUTE EXACERBATION AND CONGESTIVE HEART FAILURE. AT PRESENT, THIS HAS RESOLVED WITH GOOD OXYGEN SATURATIONS ON ROOM AIR. 2. CHRONIC OBSTRUCTIVE PULMONARY DISEASE WITH ACUTE EXACERBATION, AT PRESENT WITH THE PATIENT BACK TO BASELINE. 3. CONGESTIVE HEART FAILURE, MOST LIKELY A COMBINATION OF CONGESTIVE HEART FAILURE DUE TO MYOCARDIAL DEPRESSION AND ALSO DUE TO CHRONIC KIDNEY DISEASE. AT PRESENT, THERE IS NO EVIDENCE OF CONGESTIVE HEART FAILURE. AND ALSO SECONDARY DIASTOLIC HEART FAILURE HAS EARLIER CONTRIBUTED TO THE CHF, NOW THE PATIENT IS COMPENSATED. 4. CHRONIC KIDNEY DISEASE STAGE 3. 5. PNEUMONIA, BASILAR, SEEMS TO HAVE RESOLVED. 6. RIGHT PLEURAL FLUID STATUS POST THORACENTESIS WITH NO COMPLICATION. 7. HISTORY OF ATRIAL FIBRILLATION, NOW IN SINUS RHYTHM POST ABLATION. 8. GERD SYMPTOMS, AT PRESENT NO SYMPTOMS. 9. HIATAL HERNIA. 10. ANXIETY DISORDER, AT PRESENT CONTROLLED. 11. MODERATE PULMONARY HYPERTENSION. RECOMMENDATIONS: Continue Lasix. Continue antibiotics. Continue spironolactone. The patient will have her Eliquis started later on. Later, if the patient's blood pressure is stable, will start the patient on Cardizem 30 mg p.o. q.8 h. and transition to a long-acting Cardizem CD. Discussed with the patient. About 30 minutes spent on the patient, more than 50% of the time spent on direct patient care. Will follow with you. DICTATING PHYSICIAN: LOYDA WAGNER M.D. [id number] PHY#: [id number] ID: [id number] JOB#: [id number] ACCT: [id number] cc:LOYDA WAGNER M.D. >
--- NOTE | 2016-11-03 19:01 | PDOC PROGRESS REPORT ---
Subjective Subjective:: Patient seen by the bedside, she had thoracentesis done today, 700 mL of fluid was collected Physical Exam Vital Signs: Temp Pulse Resp BP Pulse Ox 97.7 F 89 18 109/63 98 11/03/16 16:52 11/03/16 16:52 11/03/16 16:52 11/03/16 16:52 11/03/16 16:52 Intake & Output 11/02/16 11/03/16 11/04/16 06:59 06:59 06:59 Intake Total 1415 1535 1570 Output Total 2300 900 Balance 1415 -765 670 Weight 56 kg 56 kg General appearance: PRESENT: no acute distress Eye exam: PRESENT: PERRLA Respiratory exam: PRESENT: clear to auscultation [email or web address] Cardiovascular exam: PRESENT: +S1, +S2 Neurological exam: PRESENT: alert Results Laboratory Results: 11/02/16 05:30 11/03/16 04:20 11/03/16 04:20 Sodium 134.5 L Potassium 4.3 Chloride 98 Carbon Dioxide 29 Anion Gap 8 BUN 22 H Creatinine 1.32 H Est GFR ( Amer) 47 L Est GFR (Non-Af Amer) 39 L Glucose 108 Calcium 9.2 10/28/16 10/28/16 10/29/16 23:26 23:26 05:10 Creatine Kinase 48 43 CK-MB (CK-2) 2.55 Troponin I NT-Pro-B Natriuret Pep 10/29/16 10/29/16 10/29/16 05:10 12:22 12:22 Creatine Kinase 81 CK-MB (CK-2) 2.22 3.37 Troponin I 0.082 NT-Pro-B Natriuret Pep 5180 H 10/30/16 10/31/16 07:42 04:52 Creatine Kinase CK-MB (CK-2) Troponin I NT-Pro-B Natriuret Pep 4900 H 4670 H Impressions: Chest CT 10/31/16 06:00 IMPRESSION: Moderate bilateral pleural effusions Partial collapse and consolidation medial right lower lobe, persist on both prone and supine images Chest X-Ray 11/02/16 11:27 IMPRESSION: No pneumothorax status post right thoracentesis. Thoracentesis Ultrasound 11/02/16 13:49 IMPRESSION: Ultrasound-guided right thoracentesis. Assessment & Plan - Diagnosis (1) CHF (congestive heart failure) Qualifiers: Congestive heart failure type: diastolic Congestive heart failure chronicity: acute on chronic Qualified Code(s): I50.33 - Acute on chronic diastolic (congestive) heart failure Is this a current diagnosis for this admission?: YesPlan: Continue present treatment (2) Chronic renal insufficiency, stage II (mild) Is this a current diagnosis for this admission?: Yes (3) History of atrial fibrillation Is this a current diagnosis for this admission?: Yes
[2016-11-03] MEDS: DILTIAZEM HCL 30 MG TABLET PO SCH (22:12)
[2016-11-04] MEDS: DILTIAZEM HCL 30 MG TABLET PO SCH ×3 (06:51→22:53)
[2016-11-04] MEDS: IPRATROPIUM/ALBUTEROL 0.5-2.5 MG/3 ML AMPUL NEB SCH ×3 (07:45→20:03)
[2016-11-04 08:10] LABS: BLOOD UREA NITROGEN 23 mg/dL (7-20); CALCIUM 9.1 mg/dL (8.4-10.2); CHLORIDE 95 mmol/L (98-107); CREATININE RESULT 1.32 mg/dL (0.52-1.25); GLUCOSE 90 mg/dL (75-110); POTASSIUM 4.3 mmol/L (3.6-5.0)
[2016-11-04 08:11] LABS: ANION GAP 10 (5-19); CARBON DIOXIDE 28 mmol/L (22-30); SODIUM 132.7 mmol/L (137-145)
--- NOTE | 2016-11-04 08:40 | PDOC PROGRESS REPORT ---
Subjective Progress Note for:: 11/04/16 Subjective:: Patient is doing very well denied any chest pain or any shortness of the breath. Patient also have a thoracocentesis done and there is no growth. I don 't see any cytology record Dr. patient otherwise doing well and is anxious to go home. Physical Exam Vital Signs: Temp Pulse Resp BP Pulse Ox 97.5 F 77 17 103/58 L 93 11/04/16 06:00 11/04/16 06:00 11/04/16 06:00 11/04/16 06:00 11/04/16 06:00 Intake & Output 11/03/16 11/04/16 11/05/16 06:59 06:59 06:59 Intake Total 1535 2640 Output Total 2300 2500 Balance -765 140 Weight 56 kg 55.9 kg General appearance: PRESENT: no acute distress, well-developed, well-nourished Head exam: PRESENT: atraumatic, normocephalic Eye exam: PRESENT: conjunctiva pink, EOMI, PERRLA. ABSENT: scleral icterus Ear exam: PRESENT: normal external ear exam Mouth exam: PRESENT: moist, tongue midline Neck exam: PRESENT: full ROM. ABSENT: carotid bruit, JVD, lymphadenopathy, thyromegaly Cardiovascular exam: PRESENT: RRR. ABSENT: diastolic murmur, rubs, systolic murmur Pulses: PRESENT: normal dorsalis pedis pul, +2 pedal pulses bilateral Vascular exam: PRESENT: normal capillary refill GI/Abdominal exam: PRESENT: normal bowel sounds, soft. ABSENT: distended, guarding, mass, organolmegaly, rebound, tenderness Rectal exam: PRESENT: deferred Neurological exam: PRESENT: alert, awake, oriented to person, oriented to place , oriented to time, oriented to situation, CN II-XII grossly intact. ABSENT: motor sensory deficit Psychiatric exam: PRESENT: appropriate affect, normal mood. ABSENT: homicidal ideation, suicidal ideation Skin exam: PRESENT: dry, intact, warm. ABSENT: cyanosis, rash Results Laboratory Results: 11/02/16 05:30 11/04/16 07:02 11/04/16 07:02 Sodium 132.7 L Potassium 4.3 Chloride 95 L Carbon Dioxide 28 Anion Gap 10 BUN 23 H Creatinine 1.32 H Est GFR ( Amer) 47 L Est GFR (Non-Af Amer) 39 L Glucose 90 Calcium 9.1 10/28/16 10/28/16 10/29/16 23:26 23:26 05:10 Creatine Kinase 48 43 CK-MB (CK-2) 2.55 Troponin I NT-Pro-B Natriuret Pep 10/29/16 10/29/16 10/29/16 05:10 12:22 12:22 Creatine Kinase 81 CK-MB (CK-2) 2.22 3.37 Troponin I 0.082 NT-Pro-B Natriuret Pep 5180 H 10/30/16 10/31/16 07:42 04:52 Creatine Kinase CK-MB (CK-2) Troponin I NT-Pro-B Natriuret Pep 4900 H 4670 H Impressions: Chest CT 10/31/16 06:00 IMPRESSION: Moderate bilateral pleural effusions Partial collapse and consolidation medial right lower lobe, persist on both prone and supine images Chest X-Ray 11/02/16 11:27 IMPRESSION: No pneumothorax status post right thoracentesis. Thoracentesis Ultrasound 11/02/16 13:49 IMPRESSION: Ultrasound-guided right thoracentesis. Assessment & Plan - Diagnosis (1) CHF (congestive heart failure) Qualifiers: Congestive heart failure type: diastolic Congestive heart failure chronicity: acute on chronic Qualified Code(s): I50.33 - Acute on chronic diastolic (congestive) heart failure Is this a current diagnosis for this admission?: YesPlan: Change IV to the by mouth Lasix (2) Chronic renal insufficiency, stage II (mild) Is this a current diagnosis for this admission?: YesPlan: As outpatient Dr. Forman currently cr is stable (3) History of atrial fibrillation Is this a current diagnosis for this admission?: YesPlan: Continuous current medications (4) Pneumonia Qualifiers: Pneumonia type: due to unspecified organism Laterality: right Lung location: lower lobe of lung Qualified Code(s): J18.1 - Lobar pneumonia, unspecified organism Is this a current diagnosis for this admission?: YesPlan: No sign of any bacterial and pleural fluid (5) Shortness of breath Is this a current diagnosis for this admission?: YesPlan: All resolving (6) Chronic obstruct airways disease Qualifiers: Emphysema type: unspecified Is this a current diagnosis for this admission?: YesPlan: Stable - Time Time Spent with patient: 15-24 minutes Medications reviewed and adjusted accordingly: Yes Anticipated discharge: Home Within: within 24 hours - Inpatient Certification Medical Necessity: Need Close Monitoring Due to Risk of Patient Decompensation, Need for IV Antibiotics - Plan Summary Plan Summary: This with the Dr. Phoenix and Dr. Smyth will also get the cytology report for pleural fluid and switched to IV the by mouth medications and potentially go home very soon within the 24 hours
[2016-11-04] MEDS: DOCUSATE SODIUM 100 MG CAPSULE PO SCH (09:47)
[2016-11-04] MEDS: LANSOPRAZOLE 15 MG TAB.RAP.DR PO SCH ×2 (09:47→18:27)
[2016-11-04] MEDS: SIMVASTATIN 40 MG TABLET PO SCH (09:47)
[2016-11-04] MEDS: FUROSEMIDE 20 MG TABLET PO SCH ×2 (09:48→18:28)
[2016-11-04] MEDS: APIXABAN 2.5 MG TABLET PO SCH ×2 (09:48→22:49)
[2016-11-04] MEDS: MAG HYDROX/AL HYDROX/SIMETH SUSP 30 ML UDCUP PO PRN (10:12)
[2016-11-05] MEDS: IPRATROPIUM/ALBUTEROL 0.5-2.5 MG/3 ML AMPUL NEB SCH (07:52)
[2016-11-05 07:59] VITALS: BP 104/77
[2016-11-05] MEDS: LANSOPRAZOLE 15 MG TAB.RAP.DR PO SCH (08:01)
[2016-11-05] MEDS: DILTIAZEM HCL 30 MG TABLET PO SCH (08:01)
--- NOTE | 2016-11-05 08:31 | PDOC DISCHARGE SUMMARY ---
General - Admit/Disc Date/PCP Admission Date/Primary Care Provider: 10/28/16 21:51 CHEYENNE VILLARREAL MD Discharge Date: 11/05/16 - Discharge Diagnosis (1) CHF (congestive heart failure) Is this a current diagnosis for this admission?: YesSummary: With the diastolic dysfunctions (2) Chronic renal insufficiency, stage II (mild) Is this a current diagnosis for this admission?: YesSummary: Patient's currently see out patient's Dr. Forman (3) History of atrial fibrillation Is this a current diagnosis for this admission?: YesSummary: Continues to Eliquis (4) Pneumonia Is this a current diagnosis for this admission?: YesSummary: Initial uroflow did not see any sign of bacterial infections continues to wait for the cytology report (5) Shortness of breath Is this a current diagnosis for this admission?: YesSummary: Is likely from diastolic dysfunctions (6) Chronic obstruct airways disease Is this a current diagnosis for this admission?: YesSummary: I the current inhaler - Additional Information Resuscitation Status: Full Code Discharge Diet: As Tolerated Discharge Activity: Activity As Tolerated, Balance Activity w/Rest, Weigh Daily Home Medications: Omeprazole 20 mg PO BID 09/08/16 Tiotropium [place] [Spiriva Respimat] 2 sprays DAILY PRN 09/08/16 Vit A/Vit C/Vit E/Zinc/Copper [Preservision Areds Softgel] 1 each PO BID Simvastatin 40 mg PO DAILY 09/11/16 Apixaban [Eliquis 2.5 mg Tablet] 2.5 mg PO BID #60 tablet 09/12/16 Diltiazem HCl [Cardizem Cd 120 mg Capsule] 120 mg PO DAILY #30 cap.sr.24h Cefdinir [Omnicef 300 mg Capsule] 1 cap PO BID #14 capsule 11/05/16 Furosemide [Lasix 20 mg Tablet] 20 mg PO DAILY #30 tablet 11/05/16 History of Present Illness History of Present Illness: SALOME MOSLEY is a 76 year old female This is a 76-year-old female with a history of diastolic congestive heart failure COPD oxygen dependent Q need 2 lit. 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 Patient rwcentan echo done last hospital admissions and EF was normal. Currently on eliquis 2.5 mg bid for A. fib. Saw the patient on the floor is feeling much better since denied any chest pain or any shortness of the breath patient's compiling some mild cough no fever chest x-ray supposed the patient have a congestive heart failure and questionable infiltrate in cxr. Denied any fever no productive cough and most likely a patient have a congestive heart failure than pneumonia and was admitted the patient and treat appropriately Hospital Course Hospital Course: This is a 76-year-old female with the history of the congestive heart failure chronic atrial fibrillation and COPD oxygen dependent at night and to the emergency department complaining of shortness of the breath and not feeling well by the Vicenta Gustafson geothermal powerplant mechanic as outpatient and is referred to the emergency department for the same day because of the above symptoms is a department patient's have a pleural effusions and pneumonia in the diastolic congestive heart failure and patient was admitted in the telemetry and appropriately treated with IV antibiotic and IV diuretics. In by Dr. Phoenix and also seen by Dr. Smyth also have a ultrasound-guided thoracocentesis done. Initial flow so most likely a transudate was removed for cytology is still pending. Otherwise feeling much better and patient's waiting to go home and discuss with the Dr. Phoenix and Dr. Smyth and follow as outpatient for further evaluation and treatment Physical Exam Vital Signs: Temp Pulse Resp BP Pulse Ox 98.4 F 93 16 104/77 97 11/05/16 07:29 11/05/16 07:52 11/05/16 07:52 11/05/16 07:29 11/05/16 07:52 Intake & Output 11/04/16 11/05/16 11/06/16 06:59 06:59 06:59 Intake Total 2640 1100 Output Total 2500 3050 Balance 140 -1950 Weight 55.9 kg 56 kg General appearance: PRESENT: no acute distress, well-developed, well-nourished Head exam: PRESENT: atraumatic, normocephalic Eye exam: PRESENT: conjunctiva pink, EOMI, PERRLA. ABSENT: scleral icterus Ear exam: PRESENT: normal external ear exam Mouth exam: PRESENT: moist, tongue midline Neck exam: PRESENT: full ROM. ABSENT: carotid bruit, JVD, lymphadenopathy, thyromegaly Cardiovascular exam: PRESENT: RRR. ABSENT: diastolic murmur, rubs, systolic murmur Pulses: PRESENT: normal dorsalis pedis pul, +2 pedal pulses bilateral Vascular exam: PRESENT: normal capillary refill GI/Abdominal exam: PRESENT: normal bowel sounds, soft. ABSENT: distended, guarding, mass, organolmegaly, rebound, tenderness Rectal exam: PRESENT: deferred Neurological exam: PRESENT: alert, awake, oriented to person, oriented to place , oriented to time, oriented to situation, CN II-XII grossly intact. ABSENT: motor sensory deficit Psychiatric exam: PRESENT: appropriate affect, normal mood. ABSENT: homicidal ideation, suicidal ideation Skin exam: PRESENT: dry, intact, warm. ABSENT: cyanosis, rash Results Laboratory Results: 11/02/16 05:30 11/04/16 07:02 10/28/16 10/28/16 10/29/16 23:26 23:26 05:10 Creatine Kinase 48 43 CK-MB (CK-2) 2.55 Troponin I NT-Pro-B Natriuret Pep 10/29/16 10/29/16 10/29/16 05:10 12:22 12:22 Creatine Kinase 81 CK-MB (CK-2) 2.22 3.37 Troponin I 0.082 NT-Pro-B Natriuret Pep 5180 H 10/30/16 10/31/16 07:42 04:52 Creatine Kinase CK-MB (CK-2) Troponin I NT-Pro-B Natriuret Pep 4900 H 4670 H Impressions: Chest CT 10/31/16 06:00 IMPRESSION: Moderate bilateral pleural effusions Partial collapse and consolidation medial right lower lobe, persist on both prone and supine images Chest X-Ray 11/02/16 11:27 IMPRESSION: No pneumothorax status post right thoracentesis. Thoracentesis Ultrasound 11/02/16 13:49 IMPRESSION: Ultrasound-guided right thoracentesis. Qualifiers PATEINT BEING DISCHARGED WITH ANY OF THE FOLLOWING DIAGNOSIS?: Heart Failure HF Pt being discharged on ACEI for LVEF less than 40%?: No Reason(s) for not prescribing ACEI:: Contraindicated HF Pt being discharged on ARBS for LVEF less than 40%?: No Reason(s) for not prescribing ARBS:: Contraindicated HF Pt with Afib discharged with Warfarin?: Yes HF Pt discharged on evidence-based [place] [facility]?: No Reason(s) for not prescribing evidence-based [address]:: Medical Contraindication Plan Discharge Plan: Plan is follow as outpatient is further evaluate the cytology report continues to Lasix 20 mg by mouth daily follow-up patient's cardiology and outpatients nephrology continuous oxygen at nighttime and continues the current inhaler Time Spent: Greater than 30 Minutes
[2016-11-05] MEDS: APIXABAN 2.5 MG TABLET PO SCH (09:30)
[2016-11-05] MEDS: DOCUSATE SODIUM 100 MG CAPSULE PO SCH (09:30)
[2016-11-05] MEDS: FUROSEMIDE 20 MG TABLET PO SCH (09:30)
[2016-11-05] MEDS: SIMVASTATIN 40 MG TABLET PO SCH (09:31)
--- NOTE | 2016-11-05 12:47 | PDOC PROGRESS REPORT ---
Subjective Progress Note for:: 11/05/16 Subjective:: Patient was seen prior to discharge. Patient seems to be doing better. Pt is denying any chest arm or neck discomfort. Patient denying any PND, orthopnea. Patient denied any sustained palpitations, dizziness, syncope, near syncope. Patient denying any fever chills. Patient denying any other significant discomfort. Patient is maintaining sinus rhythm. Review of systems: Rest review of systems negative. Medications: Medications have been reviewed. Physical Exam Vital Signs: Temp Pulse Resp BP Pulse Ox 98.4 F 85 16 104/77 95 11/05/16 09:52 11/05/16 09:52 11/05/16 09:52 11/05/16 09:52 11/05/16 09:52 Intake & Output 11/04/16 11/05/16 11/06/16 06:59 06:59 06:59 Intake Total 2640 1100 Output Total 2500 3050 Balance 140 -1950 Weight 55.9 kg 56 kg Exam: GENERAL: well-nourished and in no acute distress. Alert and oriented x3 HEAD: Atraumatic, normocephalic. EYES: Pupils equal round and reactive to light, extraocular movements intact, sclera anicteric, conjunctiva are normal. ENT: TMs normal, nares patent, oropharynx clear without exudates. Moist mucous membranes. No oral ulcerations or bleeding gums noted NECK: supple without lymphadenopathy. Trachea is central. No cervical or axillary lymphadenopathy noted. Carotids are 2+, JVD WNL LUNGS: Respiration seems nonlabored, no significant accessory muscle action noted. Breath sounds clear to auscultation bilaterally and equal. No wheezes rales or rhonchi. No significant dullness noted on percussion. CHEST: Palpation of the chest wall shows no significant chest wall tenderness or abnormalities. HEART: [place] [employer], No PSH, 1/6 SONJA aortic area, 1/6 zayas systolic murmur mitral area, no rubs, no gallops. ABDOMEN: Soft, no significant tenderness appreciated, normoactive bowel sounds. No guarding, no rebound. No rigidity noted . No masses appreciated. EXTREMITIES: Pedal pulses are 1-2+, no calf tenderness noted. No clubbing or cyanosis.trace to 1+ pedal edema noted NEUROLOGICAL: Focused neurological exam showed no significant neurologic deficit. Normal speech, no focal weakness appreciated. PSYCH: Normal mood, normal affect. Judgment and insight within normal limits. SKIN: No significant ecchymosis, rash, ulcerations or signs of pruritus noted. MUSCULOSKELETAL EXAM: No significant joint swelling noted. Results Laboratory Results: 11/02/16 05:30 11/04/16 07:02 10/28/16 10/28/16 10/29/16 23:26 23:26 05:10 Creatine Kinase 48 43 CK-MB (CK-2) 2.55 Troponin I NT-Pro-B Natriuret Pep 10/29/16 10/29/16 10/29/16 05:10 12:22 12:22 Creatine Kinase 81 CK-MB (CK-2) 2.22 3.37 Troponin I 0.082 NT-Pro-B Natriuret Pep 5180 H 10/30/16 10/31/16 07:42 04:52 Creatine Kinase CK-MB (CK-2) Troponin I NT-Pro-B Natriuret Pep 4900 H 4670 H Impressions: Chest CT 10/31/16 06:00 IMPRESSION: Moderate bilateral pleural effusions Partial collapse and consolidation medial right lower lobe, persist on both prone and supine images Chest X-Ray 11/02/16 11:27 IMPRESSION: No pneumothorax status post right thoracentesis. Thoracentesis Ultrasound 11/02/16 13:49 IMPRESSION: Ultrasound-guided right thoracentesis. Assessment & Plan - Diagnosis (1) CHF (congestive heart failure) Qualifiers: Congestive heart failure type: diastolic Congestive heart failure chronicity: acute on chronic Qualified Code(s): I50.33 - Acute on chronic diastolic (congestive) heart failure Is this a current diagnosis for this admission?: YesPlan: Currently improved. Precipitating cause could be COPD exacerbation, transient atrial fibrillation etc. Rhythm strip obtained this admission showed sinus rhythm. Continue baseline diuretic therapy. (2) Chronic obstruct airways disease Qualifiers: Emphysema type: unspecified Is this a current diagnosis for this admission?: YesPlan: Currently stable. Continue current bronchodilator management. (3) Chronic kidney disease Qualifiers: Chronic kidney disease stage: stage 3 (moderate) Qualified Code(s): N18.3 - Chronic kidney disease, stage 3 (moderate) Is this a current diagnosis for this admission?: YesPlan: Patient seems to have stage III chronic kidney disease. Continue close monitoring of renal functions. Avoid nephrotoxic drugs and contrast agent. (4) Atrial fibrillation Qualifiers: Atrial fibrillation type: paroxysmal Qualified Code(s): I48.0 - Paroxysmal atrial fibrillation Is this a current diagnosis for this admission?: YesPlan: Patient gives history of paroxysmal atrial fibrillation. This could be related to COPD and diastolic dysfunction. Patient to start on ELIQUIS as an outpatient. (5) Pleural effusion Is this a current diagnosis for this admission?: YesPlan: Patient status post thoracentesis. Chest x-ray review shows bilateral pleural effusion therefore most likely related to CHF. Continue diuretic therapy. Change therapy based on thoracentesis result as needed. - Notes Notes: CODE STATUS was discussed, patient remains full code. Surrogate decision-maker patient's . Multiple medical problems were addressed. - Time Time with patient: 15-25 minutes - More than 50% of the time spent coordinating care, discussing management plans with involved caregivers. Management plans discussed with involved personnels. Medical decision making was of moderate complexity.
== END 2016-11-05 10:49 | disposition home or self-care (01) | DRG 291 ==
LOC: ER 17:06 → EH 21:51 → 5 10-29 00:25
PROVIDERS: ADMIT Family Medicine; ATTEND Family Medicine
PROC: 3E0F73Z Introduction of Anti-inflammatory into Respiratory Tract, Via Natural or Artificial Opening (ICD-10-PCS; 2016-10-29)
PROC: 0W993ZX Drainage of Right Pleural Cavity, Percutaneous Approach, Diagnostic (ICD-10-PCS; principal; 2016-11-02)
DX: I13.0 Hypertensive heart and chronic kidney disease with heart failure and stage 1 through stage 4 chronic kidney disease, or unspecified chronic kidney disease (principal); J18.1 Lobar pneumonia, unspecified organism; I50.33 Acute on chronic diastolic (congestive) heart failure; J44.1 Chronic obstructive pulmonary disease with (acute) exacerbation; E78.5 Hyperlipidemia, unspecified; K21.9 Gastro-esophageal reflux disease without esophagitis; I27.2 Other secondary pulmonary hypertension; R09.02 Hypoxemia; N18.3 Chronic kidney disease, stage 3 (moderate); F41.1 Generalized anxiety disorder; K44.9 Diaphragmatic hernia without obstruction or gangrene; I34.0 Nonrheumatic mitral (valve) insufficiency; Z88.2 Allergy status to sulfonamides; Z87.891 Personal history of nicotine dependence; Z90.710 Acquired absence of both cervix and uterus; Z91.19 Patient's noncompliance with other medical treatment and regimen; Z99.81 Dependence on supplemental oxygen; Z79.02 Long term (current) use of antithrombotics/antiplatelets; Z82.49 Family history of ischemic heart disease and other diseases of the circulatory system; Z86.14 Personal history of Methicillin resistant Staphylococcus aureus infection; I48.91 Unspecified atrial fibrillation
CPT/HCPCS: 32555; 36415; 71010; 71020; 71250; 80048; 80053; 81001; 82550; 82553; 82947; 83615; 83880; 84155; 84484; 85025; 85610; 85730; 87015; 87070; 87075; 87116; 87205; 87206; 88305; 89050; 94640; 96374; 99285; J0696; J1940; J7620

== ENCOUNTER 2016-11-10 04:54 | Inpatient (IN) | payer MEDICARE, OTHER ==
[2016-11-10 05:21] LABS: ABSOLUTE EOSINOPHILS # (AUTO) 0.3 10^3/uL (0.0-0.6); ABSOLUTE LYMPHOCYTES (AUTO) 2.2 10^3/uL (0.5-4.7); ABSOLUTE MONOCYTES (AUTO) 0.5 10^3/uL (0.1-1.4); ABSOLUTE NEUT (AUTO) 4.4 10^3/uL (1.7-8.2); BASOPHILS % (AUTO) 0.3 % (0-2); EOSINOPHILS % (AUTO) 3.7 % (0-6); HEMATOCRIT 37.9 % (36.0-47.0); HEMOGLOBIN 12.5 g/dL (12.0-15.5); HGB HCT DIFFERENCE -0.4; LYMPHOCYTES % (AUTO) 29.3 % (13-45); MEAN CORPUSCULAR HEMOGLOBIN 31.4 pg (27.0-33.4); MEAN CORPUSCULAR VOLUME 95 fl (80-97); MONOCYTES % (AUTO) 7.2 % (3-13); RED BLOOD COUNT 3.98 10^6/uL (3.72-5.28); RED CELL DISTRIBUTION WIDTH 13.1 % (11.5-14.0); SEGMENTED NEUTROPHILS % (AUTO) 59.5 % (42-78); WHITE BLOOD COUNT 7.5 10^3/uL (4.0-10.5)
[2016-11-10 05:24] LABS: VENOUS BLOOD HCO3 28.3 mmol/L (20-32); VENOUS BLOOD PCO2 46.2 mmHg (35-63); VENOUS BLOOD PH 7.41 (7.30-7.42)
--- NOTE | 2016-11-10 05:33 | ER Document Report ---
ED Medical Screen (RME) - General Stated Complaint: TROUBLE BREATHING Time seen by provider: 05:32 Mode of Arrival: Medic Information source: Patient TRAVEL OUTSIDE OF THE [place] IN LAST 30 DAYS: No - HPI Patient complains to provider of: difficulty breathing Onset: Yesterday Onset/Duration: Gradual, Persistent Quality of pain: No pain Notes: 11/10/16 05:32 Patient is a 76-year-old female with history of CHF and COPD presenting to the emergency room via EMS for difficulty breathing that started yesterday, at time of arrival in the emergency room she reports that she is feeling much better, there is no respiratory distress, she denies any chest pain - Related Data Allergies/Adverse Reactions: sulfamethoxazole [From Bactrim] Allergy (Verified 10/28/16 17:07) trimethoprim [From Bactrim] Allergy (Verified 10/28/16 17:07) nut - unspecified Adverse Reaction (Verified 10/28/16 17:07) aggravates diverticulitis. Past Medical History - Past Medical History Cardiac Medical History: Reports: Hx Atrial Fibrillation, Hx Congestive Heart Failure, Hx Hypercholesterolemia Denies: Hx Heart Attack, Hx Hypertension Pulmonary Medical History: Reports: Hx COPD Denies: Hx Asthma, Hx Bronchitis, Hx Pneumonia Neurological Medical History: Denies: Hx Seizures GI Medical History: Reports: Hx Gastroesophageal Reflux Disease, Hx Hiatal Hernia Musculoskeltal Medical History: Denies Hx Arthritis Psychiatric Medical History: Denies: Hx Depression Past Surgical History: Reports: Hx Bowel Surgery, Other - Ablation. Denies: Hx Hysterectomy, Hx Mastectomy - Immunizations Hx Diphtheria, Pertussis, Tetanus Vaccination: No Course - Laboratory Result Diagrams: 11/10/16 05:05 11/10/16 05:05
[2016-11-10 05:43] LABS: ALANINE AMINOTRANSFERASE 37 U/L (9-52); ALBUMIN 3.1 g/dL (3.5-5.0); ALKALINE PHOSPHATASE 88 U/L (38-126); ANION GAP 10 (5-19); ASPARTATE AMINO TRANSFERASE 36 U/L (14-36); BILIRUBIN,TOTAL 0.5 mg/dL (0.2-1.3); BLOOD UREA NITROGEN 37 mg/dL (7-20); CALCIUM 9.3 mg/dL (8.4-10.2); CARBON DIOXIDE 27 mmol/L (22-30); CHLORIDE 98 mmol/L (98-107); CREATINE KINASE 90 U/L (30-135); CREATININE RESULT 1.72 mg/dL (0.52-1.25); GLUCOSE 96 mg/dL (75-110); POTASSIUM 4.1 mmol/L (3.6-5.0); SODIUM 135.2 mmol/L (137-145); TOTAL PROTEIN 6.4 g/dL (6.3-8.2)
[2016-11-10 05:55] LABS: CREATINE KINASE MB 3.54 ng/mL (<4.55); TROPONIN I 0.078 ng/mL
--- NOTE | 2016-11-10 06:21 | ER Document Report ---
ED Respiratory Problem - General Time seen by provider: 06:15 Mode of Arrival: Medic Information source: Patient, Emergency Med Personnel TRAVEL OUTSIDE OF THE [place] IN LAST 30 DAYS: No - HPI Patient complains to provider of: CHF, COPD, Cough, Short of breath Onset: Yesterday - see HPI Context: Hx CHF, Hx COPD Cough: Nonproductive At home treatment: Oxygen EMS treatments: Bronchodilators, Solumedrol Associated symptoms: Cough, Difficulty breathing Similar symptoms previously: Yes Recently seen / treated by doctor: Yes <LEWIS BECKER - Last Filed: 11/10/16 06:58> <DURAN CARRION - Last Filed: 11/10/16 07:25> - General Chief Complaint: Breathing Difficulty Stated Complaint: TROUBLE BREATHING Notes: Patient is a 76 year old female with a history of CHF and COPD presenting to the emergency department with complaints of difficulty breathing and cough. Patient was recently admitted to [facility] from 10/28-11/05 for CHF exacerbation. Patient had a para thoracentesis of the right lung on 11/02 in which 660 mL of fluid was drained. Patient states this episode of difficulty breathing started yesterday. Patient was brought in by EMS and received 1 duo neb and 125 mg solumedrol. Patient states she had some relief from this treatment. Patient is O2 dependent. Patient also states that she has gained 2 lbs since being discharged on 11/05. Patient denies any chest pain. (LEWIS BECKER) - Related Data Allergies/Adverse Reactions: sulfamethoxazole [From Bactrim] Allergy (Verified 10/28/16 17:07) trimethoprim [From Bactrim] Allergy (Verified 10/28/16 17:07) nut - unspecified Adverse Reaction (Verified 10/28/16 17:07) aggravates diverticulitis. Past Medical History - General Information source: Patient - Social History Smoking Status: Former Smoker Cigarette use (# per day): No Chew tobacco use (# tins/day): No Frequency of alcohol use: None Drug Abuse: None Family History: CAD - in both parents but not premature - Past Medical History Cardiac Medical History: Reports: Hx Atrial Fibrillation, Hx Congestive Heart Failure, Hx Hypercholesterolemia Pulmonary Medical History: Reports: Hx COPD GI Medical History: Reports: Hx Gastroesophageal Reflux Disease, Hx Hiatal Hernia Past Surgical History: Reports: Hx Bowel Surgery, Hx Cardiac Surgery - cardiac ablation - Immunizations Hx Diphtheria, Pertussis, Tetanus Vaccination: No <LEWIS BECKER - Last Filed: 11/10/16 06:58> Review of Systems - Review of Systems Constitutional: No symptoms reported EENT: No symptoms reported Cardiovascular: No symptoms reported Respiratory: See HPI, Cough, Short of breath Gastrointestinal: No symptoms reported Genitourinary: No symptoms reported Female Genitourinary: No symptoms reported Musculoskeletal: No symptoms reported Skin: No symptoms reported Hematologic/Lymphatic: No symptoms reported Neurological/Psychological: No symptoms reported -: Yes All other systems reviewed and negative <LEWIS BECKER - Last Filed: 11/10/16 06:58> Physical Exam - Vital signs Interpretation: Tachypneic - General General appearance: Appears well, Alert, Other - patient is sleeping in bed but is easily arousable In distress: Mild - HEENT Head: Normocephalic, Atraumatic Eyes: Normal Pupils: PERRL Mucous membranes: Normal - Respiratory Respiratory status: Tachypnea, Other - patient has a 93% O2 saturation with 4 L of oxygen Chest status: Nontender Breath sounds: Productive cough, Rales - in the bases bilaterally Chest palpation: Other - clear sputum - Cardiovascular Rhythm: Regular Heart sounds: Normal auscultation Murmur: No - Abdominal Inspection: Normal Distension: No distension Bowel sounds: Normal Tenderness: Nontender Organomegaly: No organomegaly - Back Back: Normal, Nontender - Extremities General upper extremity: Normal inspection, Normal ROM, Normal strength General lower extremity: Normal inspection, Normal ROM, Normal strength - Neurological Neuro grossly intact: Yes Cognition: Normal Orientation: AAOx4 [place] Coma Scale Eye Opening: Spontaneous Starla Coma Scale Verbal: Oriented Starla Coma Scale Motor: Obeys Commands Starla Coma Scale Total: 15 Speech: Normal - Psychological Associated symptoms: Normal affect, Normal mood - Skin Skin Temperature: Warm Skin Moisture: Dry <LEWIS BECKER - Last Filed: 11/10/16 06:58> Course - Laboratory Result Diagrams: 11/10/16 05:05 11/10/16 05:05 <LEWIS BECKER - Last Filed: 11/10/16 06:58> - Laboratory Result Diagrams: 11/10/16 05:05 11/10/16 05:05 - Diagnostic Test Radiology reviewed: Image reviewed, Reports reviewed - Bibasilar infiltrates with pleural effusions, right greater than left. These infiltrates are felt most likely to be pneumonia. - EKG Interpretation by Me EKG shows normal: Sinus rhythm, [place], Intervals. abnormal: QRS Complexes - Borderline R progression in the anterior leads, ST-T Waves - Abnormal T's in the lateral leads Rate: Normal - 85 Rhythm: NSR - Consults Dr. Morales Time consulted: 07:15 Consulted provider: will see as inpatient <DURAN CARRION - Last Filed: 11/10/16 07:25> - Vital Signs Vital signs: Temp Pulse Resp BP Pulse Ox 17 118/64 92 11/10/16 07:01 11/10/16 07:01 11/10/16 07:01 - Laboratory Laboratory results interpreted by ok: 11/10/16 11/10/16 05:05 05:05 Sodium 135.2 L BUN 37 H Creatinine 1.72 H Est GFR ( Amer) 35 L Est GFR (Non-Af Amer) 29 L NT-Pro-B Natriuret Pep 5230 H Albumin 3.1 L (LEWIS BECKER) (DURAN CARRION) Discharge <LEWIS BECKER - Last Filed: 11/10/16 06:58> - Discharge Admitting Provider: Andrew Unit Admitted: IMCU <DURAN CARRION - Last Filed: 11/10/16 07:25> - Discharge Clinical Impression: Pleural effusion, Dehydration, Hypoxia, COPD with exacerbation Pneumonia Qualifiers: Pneumonia type: due to unspecified organism Laterality: bilateral Lung location : lower lobe of lung Qualified Code(s): J18.9 - Pneumonia, unspecified organism Dyspnea Qualifiers: Dyspnea type: shortness of breath Qualified Code(s): R06.02 - Shortness of breath Condition: Good Disposition: ADMITTED INPATIENT Referrals: CHEYENNE MORALES MD [Primary Care Provider] - Follow up as needed Scribe Attestation: 11/10/16 07:25 I personally performed the services described in the documentation, reviewed and edited the documentation which was dictated to the scribe in my presence, and it accurately records my words and actions. (DURAN CARRION) Scribe Documentation - Scribe Written by Scribe:: Lewis Becker 11/10/16 06:34 acting as scribe for :: Cassi <LEWIS BECKER - Last Filed: 11/10/16 06:58>
[2016-11-10] MEDS ORDERED: CEFEPIME 1 GM/D5W RTU 50 ML IV ONE (07:23)
[2016-11-10] MEDS ORDERED: IPRATROPIUM/ALBUTEROL 0.5-2.5 MG/3 ML AMPUL NEB ONE (07:23)
[2016-11-10] MEDS ORDERED: ACETAMINOPHEN 325 MG TABLET PO PRN (09:08)
--- NOTE | 2016-11-10 09:39 | EKG REPORT ---
SEVERITY:- ABNORMAL ECG - SINUS RHYTHM LOW VOLTAGE THROUGHOUT BORDERLINE R WAVE PROGRESSION, ANTERIOR LEADS ABNORMAL T, CONSIDER ISCHEMIA, LATERAL LEADS : Confirmed by: Liya Phoenix MD 10-Nov-2016 09:39:02
[2016-11-10] MEDS: DOCUSATE SODIUM 100 MG CAPSULE PO SCH ×2 (11:56→17:34)
--- NOTE | 2016-11-10 12:48 | PDOC H&P ---
History of Present Illness Admission Date/PCP: 11/10/16 09:08 CHEYENNE VILLARREAL MD Patient complains of: Shortness of the breath History of Present Illness: SALOME MOSLEY is a 76 year old female This is a 76-year-old female centrally admitted in the hospital for the COPD and congestive heart failure and right-sided pleural effusion and underwent for the thoracocentesis and remove the 6 and is in a so some inflammatory cells but no sign of any malignancy. Patient's came today because patient's noticed that her oxygen tank was not working overnight and patient more difficulty in breathing is and is coughing a lot and it was a department patient's and found some again right-sided pleural effusion and possible pneumonia and decided to admit for further evaluation and treatment patient's kidney function is also worsening abdomen discharge is currently on a Lasix 20 mg by mouth daily. When I saw the patient in the room rations denied any chest discomfort comfortably sitting when the age of the back family on the bedside Past Medical History Cardiac Medical History: Reports: Atrial Fibrillation, Congestive Heart Failure , Hyperlipidema Denies: Myocardial Infarction, Hypertension Pulmonary Medical History: Reports: Chronic Obstructive Pulmonary Disease (COPD) Denies: Asthma, Bronchitis, Pneumonia Neurological Medical History: Denies: Seizures GI Medical History: Reports: Gastroesophageal Reflux Disease, Hiatal Hernia Musculoskeltal Medical History: Denies: Arthritis Psychiatric Medical History: Denies: Depression Hematology: Denies: Anemia, Sickle Cell Disease Past Surgical History Past Surgical History: Reports: Other - Ablation Denies: Amputation, Hysterectomy, Mastectomy Social History Smoking Status: Former Smoker Frequency of Alcohol Use: None Hx Recreational Drug Use: No Drugs: None Hx Prescription Drug Abuse: No Family History Family History: Reviewed & Not Pertinent, CAD - in both parents but not premature Parental Family History Reviewed: Yes Children Family History Reviewed: Yes Sibling(s) Family History Reviewed.: Yes Medication/Allergy Home Medications: Apixaban [Eliquis 2.5 mg Tablet] 2.5 mg PO BID 11/10/16 Diltiazem HCl [Diltiazem 24Hr Cd] 120 mg PO DAILY 11/10/16 Docusate Sodium [Colace 100 mg Capsule] 100 mg PO BID 11/10/16 Furosemide [Lasix 20 mg Tablet] 20 mg PO DAILY 11/10/16 Omeprazole 20 mg PO BID 11/10/16 Simvastatin [Zocor 40 mg Tablet] 40 mg PO QHS 11/10/16 Tiotropium [place] [Spiriva Respimat] 2 sprays IH DAILY 11/10/16 Vit A/Vit C/Vit E/Zinc/Copper [Preservision Areds Softgel] 1 cap PO BID Allergies/Adverse Reactions: sulfamethoxazole [From Bactrim] Allergy (Verified 10/28/16 17:07) trimethoprim [From Bactrim] Allergy (Verified 10/28/16 17:07) nut - unspecified Adverse Reaction (Verified 10/28/16 17:07) aggravates diverticulitis. Review of Systems Constitutional: PRESENT: fatigue, weakness. ABSENT: chills, fever(s), headache( s), weight gain, weight loss Eyes: ABSENT: visual disturbances Ears: ABSENT: hearing changes Cardiovascular: PRESENT: dyspnea on exertion. ABSENT: chest pain, edema, orthropnea, palpitations Respiratory: ABSENT: cough, hemoptysis Gastrointestinal: ABSENT: abdominal pain, constipation, diarrhea, hematemesis, hematochezia, nausea, vomiting Genitourinary: ABSENT: dysuria, hematuria Musculoskeletal: ABSENT: joint swelling Integumentary: ABSENT: rash, wounds Neurological: ABSENT: abnormal gait, abnormal speech, confusion, dizziness, focal weakness, syncope Psychiatric: ABSENT: anxiety, depression, homidical ideation, suicidal ideation Endocrine: ABSENT: cold intolerance, heat intolerance, menstrual abnormalities, polydipsia, polyuria Hematologic/Lymphatic: ABSENT: easy bleeding, easy bruising, lymphadenopathy Physical Exam Vital Signs: Temp Pulse Resp BP Pulse Ox 97.9 F 91 18 114/51 L 91 L 11/10/16 10:19 11/10/16 10:19 11/10/16 10:19 11/10/16 10:19 11/10/16 10:19 Intake & Output 11/09/16 11/10/16 11/11/16 06:59 06:59 06:59 Weight 54.2 kg General appearance: PRESENT: no acute distress, well-developed, well-nourished Head exam: PRESENT: atraumatic, normocephalic Eye exam: PRESENT: conjunctiva pink, EOMI, PERRLA. ABSENT: scleral icterus Ear exam: PRESENT: normal external ear exam Mouth exam: PRESENT: moist, tongue midline Neck exam: PRESENT: full ROM. ABSENT: carotid bruit, JVD, lymphadenopathy, thyromegaly Respiratory exam: PRESENT: decreased breath sounds Cardiovascular exam: PRESENT: RRR. ABSENT: diastolic murmur, rubs, systolic murmur Pulses: PRESENT: normal dorsalis pedis pul, +2 pedal pulses bilateral Vascular exam: PRESENT: normal capillary refill GI/Abdominal exam: PRESENT: normal bowel sounds, soft. ABSENT: distended, guarding, mass, organolmegaly, rebound, tenderness Rectal exam: PRESENT: deferred Neurological exam: PRESENT: alert, awake, oriented to person, oriented to place , oriented to time, oriented to situation, CN II-XII grossly intact. ABSENT: motor sensory deficit Psychiatric exam: PRESENT: appropriate affect, normal mood. ABSENT: homicidal ideation, suicidal ideation Skin exam: PRESENT: dry, intact, warm. ABSENT: cyanosis, rash Results Impressions: Renal Ultrasound 11/10/16 00:00 IMPRESSION: Atrophic right kidney. No hydronephrosis. Chest X-Ray 11/10/16 04:58 IMPRESSION: Bibasilar infiltrates and pleural effusions right slightly greater than left. Findings are most consistent with pneumonia less likely edema. Assessment & Plan - Diagnosis (1) Pneumonia Qualifiers: Pneumonia type: due to unspecified organism Laterality: bilateral Lung location: lower lobe of lung Qualified Code(s): J18.9 - Pneumonia, unspecified organism Is this a current diagnosis for this admission?: YesPlan: Start patient on IV cefepime and Levaquin (2) COPD (chronic obstructive pulmonary disease) Qualifiers: COPD type: chronic bronchitis Is this a current diagnosis for this admission?: YesPlan: Nebulizer treatment and oxygen (3) Recurrent pleural effusion on right Is this a current diagnosis for this admission?: YesPlan: The last thoracocentesis so some inflammatory cell and no sign of any malignancy (4) Hypoxia Is this a current diagnosis for this admission?: YesPlan: We'll consult the nephrology social worker to fix the oxygen tank (5) Atrial fibrillation Qualifiers: Atrial fibrillation type: paroxysmal Qualified Code(s): I48.0 - Paroxysmal atrial fibrillation Is this a current diagnosis for this admission?: YesPlan: Continues to current medication (6) CHF (congestive heart failure) Qualifiers: Congestive heart failure type: diastolic Congestive heart failure chronicity: acute on chronic Qualified Code(s): I50.33 - Acute on chronic diastolic (congestive) heart failure Is this a current diagnosis for this admission?: YesPlan: Currently hold the Lasix (7) Acute renal failure Qualifiers: Acute renal failure type: unspecified Qualified Code(s): N17.9 - Acute kidney failure, unspecified Is this a current diagnosis for this admission?: YesPlan: With the recent diuretics and the patient have a history of only [address] Forman - Time Time Spent: 50 to 70 Minutes Medications reviewed and adjusted accordingly: Yes Anticipated discharge: Home - Inpatient Certification Medical Necessity: Failure to Improve With Outpatient Therapy, Need Close Monitoring Due to Risk of Patient Decompensation, Need for IV Antibiotics Post Hospital Care: D/C Evaporator Documentation - Plan Summary Plan Summary: Discussed with the patient and her family in the room of the patient's current conditions with the multiple comorbidity consult the other subspecialty further evaluation of this complex problem
[2016-11-10 13:20] LABS: CREATINE KINASE MB 3.24 ng/mL (<4.55); TROPONIN I 0.067 ng/mL
[2016-11-10] MEDS: LEVOFLOXACIN 250 MG/D5W RTU 250 MG/50 ML RTUPB IV SCH (14:15)
[2016-11-10] MEDS: IPRATROPIUM/ALBUTEROL 0.5-2.5 MG/3 ML AMPUL NEB SCH ×2 (14:32→20:45)
[2016-11-10] MEDS: CEFEPIME 1 GM/D5W RTU 1 GM/50 ML RTUPB IV SCH (15:50)
--- NOTE | 2016-11-10 16:08 | PDOC CONSULTATION ---
Consultation Consult Date: 11/10/16 Attending physician:: CHEYENNE VILLARREAL Consult reason:: Congestive heart failure, dyspnea History of Present Illness Admission Date/PCP: 11/10/16 09:08 CHEYENNE VILLARREAL MD Patient complains of: Shortness of breath History of Present Illness: SALOME MOSLEY is a 76 year old female This is a 76-year-old female recently admitted in the hospital for the COPD and congestive heart failure and right-sided pleural effusion and underwent for the thoracocentesis. Patient's came today because patient's noticed that her oxygen tank was not working overnight and patient more difficulty in breathing is and is coughing a lot and it was a department patient's and found some again right-sided pleural effusion and possible pneumonia and decided to admit for further evaluation and treatment patient's kidney function is also worsening abdomen discharge is currently on a Lasix 20 mg by mouth daily. When I saw the patient in the room, patient denied any chest discomfort comfortably sitting when the age of the back family on the bedside. She was also noted to be comfortable in no acute distress. On questioning patient denied any chest pain. Patient denied any PND, orthopnea. She denied any fever or chills. Past Medical History Cardiac Medical History: Reports: Atrial Fibrillation, Congestive Heart Failure , Hyperlipidema Denies: Myocardial Infarction, Hypertension Pulmonary Medical History: Reports: Chronic Obstructive Pulmonary Disease (COPD) Denies: Asthma, Bronchitis, Pneumonia Neurological Medical History: Denies: Seizures GI Medical History: Reports: Gastroesophageal Reflux Disease, Hiatal Hernia Musculoskeltal Medical History: Denies: Arthritis Psychiatric Medical History: Denies: Depression Hematology: Denies: Anemia, Sickle Cell Disease Past Surgical History Past Surgical History: Reports: Other - Ablation Denies: Amputation, Hysterectomy, Mastectomy Social History Information Source: Patient Smoking Status: Former Smoker Frequency of Alcohol Use: None Hx Recreational Drug Use: No Drugs: None Hx Prescription Drug Abuse: No - Advance Directive Resuscitation Status: Full Code Family History Family History: Reviewed & Not Pertinent, CAD - in both parents but not premature Parental Family History Reviewed: Yes Children Family History Reviewed: Yes Sibling(s) Family History Reviewed.: Yes - Negative for premature coronary artery disease or sudden cardiac in the family amongst first degree relatives. Medication/Allergy Home Medications: Apixaban [Eliquis 2.5 mg Tablet] 2.5 mg PO BID 11/10/16 Diltiazem HCl [Diltiazem 24Hr Cd] 120 mg PO DAILY 11/10/16 Docusate Sodium [Colace 100 mg Capsule] 100 mg PO BID 11/10/16 Furosemide [Lasix 20 mg Tablet] 20 mg PO DAILY 11/10/16 Omeprazole 20 mg PO BID 11/10/16 Simvastatin [Zocor 40 mg Tablet] 40 mg PO QHS 11/10/16 Tiotropium [place] [Spiriva Respimat] 2 sprays IH DAILY 11/10/16 Vit A/Vit C/Vit E/Zinc/Copper [Preservision Areds Softgel] 1 cap PO BID Allergies/Adverse Reactions: sulfamethoxazole [From Bactrim] Allergy (Verified 10/28/16 17:07) trimethoprim [From Bactrim] Allergy (Verified 10/28/16 17:07) nut - unspecified Adverse Reaction (Verified 10/28/16 17:07) aggravates diverticulitis. Review of Systems Review of Systems: Please see history of present illness and past medical history as wall. Constitutional: No fever or chills reported. Head : No recent chronic headaches, recent head injury. Eyes: No recent eye pain, diplopia, redness, discharge, acute visual changes. Ears: No recent chronic ear pain, acute hearing loss, ear discharge. Oral cavity: No recent ulcerations, bleeding, oral cavity discomfort. Neck: No recent acute neck pain reported. Hematologic: No recent easy bruising or bleeding or hematologic malignancy reported. Lymphatic: No recent lymphatic malignancy, chronic lymphadenopathy reported yet Cardiovascular system review: See history of present illness. Occasional palpitations and paroxysmal atrial fibrillation. Respiratory system review: Cough with scant sputum production but no hemoptysis , blood clots in the lungs reported. Moderate Shortness of breath on exertion Gastrointestinal system review: Negative for any recent acute or chronic abdominal pain, hematemesis, melena, recent change in bowel habits. Genitourinary system review: No recent acute or chronic hematuria, flank pain, UTI etc. reported. Skin system review: Negative for any recent abnormal bruising, no rash, no pruritus reported. Neurologic: No prior history of strokes, mini strokes, seizure disorder. Psychologic: No history of major psychosis or depression reported. Musculoskeletal: Minor aches and pains reported. No acute joint swelling reported. Endocrine: No recent polyuria, polydipsia, recent heat or cold intolerance. Physical Exam Vital Signs: Temp Pulse Resp BP Pulse Ox 97.9 F 91 18 114/51 L 94 11/10/16 10:19 11/10/16 14:32 11/10/16 14:32 11/10/16 10:19 11/10/16 14:32 Intake & Output 11/09/16 11/10/16 11/11/16 06:59 06:59 06:59 Weight 54.2 kg Exam: GENERAL: well-nourished and in no acute distress. Alert and oriented x3 HEAD: Atraumatic, normocephalic. EYES: Pupils equal round and reactive to light, extraocular movements intact, sclera anicteric, conjunctiva are normal. ENT: TMs normal, nares patent, oropharynx clear without exudates. Moist mucous membranes. No oral ulcerations or bleeding gums noted NECK: supple without lymphadenopathy. Trachea is central. No cervical or axillary lymphadenopathy noted. Carotids are 2+, JVD 8-10 CM LUNGS: Respiration seems nonlabored, no significant accessory muscle action noted. Diminished breath sounds with mild dullness both bases. No wheezes rales or rhonchi. CHEST: Palpation of the chest wall shows no significant chest wall tenderness or abnormalities. 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 ABDOMEN: Soft, no significant tenderness appreciated, normoactive bowel sounds. No guarding, no rebound. No rigidity noted . No masses appreciated. EXTREMITIES: Pedal pulses are 1-2+, no calf tenderness noted. No clubbing or cyanosis.trace pedal edema noted NEUROLOGICAL: Focused neurological exam showed no significant neurologic deficit. Normal speech, no focal weakness appreciated. PSYCH: Normal mood, normal affect. Judgment and insight within normal limits. SKIN: No significant ecchymosis, rash, ulcerations or signs of pruritus noted. MUSCULOSKELETAL EXAM: No significant joint swelling noted. Results Laboratory Results: 11/10/16 11/10/16 12:31 12:31 Creatine Kinase 62 CK-MB (CK-2) 3.24 Troponin I 0.067 EKG Comments: Sinus rhythm with frequent APCs and minor nonspecific ST-T wave changes. Impressions: Chest CT 11/10/16 00:00 IMPRESSION: Moderate bilateral pleural effusions, similar compared to 2015 Renal Ultrasound 11/10/16 00:00 IMPRESSION: Atrophic right kidney. No hydronephrosis. Chest X-Ray 11/10/16 04:58 IMPRESSION: Bibasilar infiltrates and pleural effusions right slightly greater than left. Findings are most consistent with pneumonia less likely edema. Assessment & Plan - Diagnosis (1) CHF (congestive heart failure) Qualifiers: Congestive heart failure type: diastolic Congestive heart failure chronicity: acute on chronic Qualified Code(s): I50.33 - Acute on chronic diastolic (congestive) heart failure Is this a current diagnosis for this admission?: YesPlan: CT chest showed increased pleural effusion. Recommend IV diuretic therapy. Previous 2-D echo reviewed which showed diastolic dysfunction, moderate pulmonary hypertension. At this point will recommend oxygenation, may consider sleep study as an outpatient to help with mobilization of pleural fluid. (2) Chronic kidney disease Qualifiers: Chronic kidney disease stage: stage 3 (moderate) Qualified Code(s): N18.3 - Chronic kidney disease, stage 3 (moderate) Is this a current diagnosis for this admission?: YesPlan: Creatinine is somewhat worse but will treat volume overload. Follow renal functions closely. (3) Chronic obstruct airways disease Qualifiers: Emphysema type: unspecified Is this a current diagnosis for this admission?: YesPlan: Continue oxygen supplementation. Consider pulmonary consultation, PFTs etc. (5) Atrial fibrillation Qualifiers: Atrial fibrillation type: paroxysmal Qualified Code(s): I48.0 - Paroxysmal atrial fibrillation Is this a current diagnosis for this admission?: YesPlan: Patient has a history of paroxysmal atrial fibrillation. In the past was on Multaq therapy. Currently on hold. Continue chronic anticoagulation. Patient currently in sinus rhythm. - Notes Notes: Will recommend pulmonary consultation, close follow-up with chest x-ray, intake and output for proper management of CHF. May consider thoracentesis for further evaluation of pleural effusion. We will also recommend serologic studies such as AA name, rheumatoid factor etc., PPD with controls etc. CODE STATUS was discussed, patient remains full code. Surrogate decision-maker unchanged. Multiple medical problems were addressed. - Time Time Spent: 30 to 50 Minutes - More than 50% of the time spent coordinating care , discussing management plans with involved caregivers. Management plans discussed with involved personnels. Medical decision making was of moderate complexity.
[2016-11-10 17:23] LABS: CREATINE KINASE MB 2.77 ng/mL (<4.55); TROPONIN I 0.059 ng/mL
[2016-11-10] MEDS: APIXABAN 2.5 MG TABLET PO SCH (17:34)
[2016-11-10] MEDS: LANSOPRAZOLE 15 MG TAB.RAP.DR PO SCH (17:34)
[2016-11-10] MEDS ORDERED: (PENDING PHARMACY ID) (Vit A/Vit C/Vit E/Zinc/Copper [Preservision Areds Softgel] 1 CAP) PO SCH (18:00)
[2016-11-10] MEDS: MAG HYDROX/AL HYDROX/SIMETH SUSP 30 ML UDCUP PO PRN (21:34)
[2016-11-10] MEDS: FUROSEMIDE INJ/PF 20 MG/2 ML SDV IV SCH (21:35)
[2016-11-10] MEDS: SIMVASTATIN 40 MG TABLET PO SCH (21:40)
[2016-11-10 23:24] LABS: CREATINE KINASE MB 2.86 ng/mL (<4.55); TROPONIN I 0.067 ng/mL
[2016-11-11] MEDS ORDERED: FUROSEMIDE INJ/PF 20 MG/2 ML SDV ONE (04:30)
[2016-11-11] MEDS ORDERED: FUROSEMIDE INJ/PF 20 MG/2 ML SDV IV ONE (04:45)
[2016-11-11 06:54] LABS: ABSOLUTE BASOPHILS # (AUTO) 0.1 10^3/uL (0.0-0.2); ABSOLUTE EOSINOPHILS # (AUTO) 0.1 10^3/uL (0.0-0.6); ABSOLUTE LYMPHOCYTES (AUTO) 1.3 10^3/uL (0.5-4.7); ABSOLUTE MONOCYTES (AUTO) 0.7 10^3/uL (0.1-1.4); ABSOLUTE NEUT (AUTO) 9.6 10^3/uL (1.7-8.2); BASOPHILS % (AUTO) 0.8 % (0-2); HEMATOCRIT 33.1 % (36.0-47.0); HGB HCT DIFFERENCE -0.1; LYMPHOCYTES % (AUTO) 10.9 % (13-45); MEAN CORPUSCULAR HEMOGLOBIN 31.1 pg (27.0-33.4); MEAN CORPUSCULAR HGB CONC 33.3 g/dL (32.0-36.0); MEAN CORPUSCULAR VOLUME 93 fl (80-97); MONOCYTES % (AUTO) 6.3 % (3-13); RED BLOOD COUNT 3.55 10^6/uL (3.72-5.28); RED CELL DISTRIBUTION WIDTH 13.2 % (11.5-14.0); WHITE BLOOD COUNT 11.8 10^3/uL (4.0-10.5)
[2016-11-11 07:08] LABS: ANION GAP 12 (5-19); BLOOD UREA NITROGEN 36 mg/dL (7-20); CARBON DIOXIDE 23 mmol/L (22-30); CHLORIDE 93 mmol/L (98-107); CREATININE RESULT 1.64 mg/dL (0.52-1.25); GLUCOSE 113 mg/dL (75-110); POTASSIUM 3.8 mmol/L (3.6-5.0); SODIUM 127.6 mmol/L (137-145)
--- NOTE | 2016-11-11 08:31 | EKG REPORT ---
SEVERITY:- ABNORMAL ECG - SINUS RHYTHM ANTEROLATERAL INFARCT, AGE INDETERMINATE BORDERLINE T ABNORMALITIES, INFERIOR LEADS : Confirmed by: Jon Aguilera 11-Nov-2016 08:30:49
[2016-11-11] MEDS: IPRATROPIUM/ALBUTEROL 0.5-2.5 MG/3 ML AMPUL NEB SCH ×3 (08:44→20:46)
--- NOTE | 2016-11-11 09:34 | PDOC PROGRESS REPORT ---
Subjective Progress Note for:: 11/11/16 Subjective:: pt is overnithg painc attck and c/o sob but pt felt better thisam nochest pain no sob pt sodium level is low this am Physical Exam Vital Signs: Temp Pulse Resp BP Pulse Ox 97.6 F 77 18 116/74 88 L 11/11/16 03:44 11/11/16 08:44 11/11/16 08:44 11/11/16 03:44 11/11/16 08:44 Intake & Output 11/10/16 11/11/16 11/12/16 06:59 06:59 06:59 Intake Total 1126 Output Total 2400 Balance -1274 Weight 56.6 kg General appearance: PRESENT: no acute distress Head exam: PRESENT: normocephalic Eye exam: PRESENT: PERRLA Mouth exam: PRESENT: neck supple Respiratory exam: PRESENT: clear to auscultation marylou Cardiovascular exam: PRESENT: +S1, +S2 GI/Abdominal exam: PRESENT: normal bowel sounds, soft Extremities exam: ABSENT: pedal edema Neurological exam: PRESENT: alert, awake, oriented to person, oriented to place , oriented to time, oriented to situation Psychiatric exam: PRESENT: anxious Results Laboratory Results: 11/11/16 06:17 11/11/16 06:17 11/11/16 11/11/16 06:17 06:17 WBC 11.8 H RBC 3.55 L Hgb 11.0 L Hct 33.1 L MCV 93 MCH 31.1 MCHC 33.3 RDW 13.2 Plt Count 271 Seg Neutrophils % 81.0 H Lymphocytes % 10.9 L Monocytes % 6.3 Eosinophils % 1.0 Basophils % 0.8 Absolute Neutrophils 9.6 H Absolute Lymphocytes 1.3 Absolute Monocytes 0.7 Absolute Eosinophils 0.1 Absolute Basophils 0.1 Sodium 127.6 L Potassium 3.8 Chloride 93 L Carbon Dioxide 23 Anion Gap 12 BUN 36 H Creatinine 1.64 H Est GFR ( Amer) 37 L Est GFR (Non-Af Amer) 30 L Glucose 113 H Calcium 9.0 11/10/16 11/10/16 11/10/16 12:31 12:31 16:43 Creatine Kinase 62 76 CK-MB (CK-2) 3.24 Troponin I 0.067 11/10/16 11/10/16 11/10/16 16:43 22:30 22:30 Creatine Kinase 59 CK-MB (CK-2) 2.77 2.86 Troponin I 0.059 0.067 Impressions: Chest CT 11/10/16 00:00 IMPRESSION: Moderate bilateral pleural effusions, similar compared to 2015 Renal Ultrasound 11/10/16 00:00 IMPRESSION: Atrophic right kidney. No hydronephrosis. Chest X-Ray 11/11/16 00:00 IMPRESSION: No significant interval change. Bibasilar densities as noted above. Assessment & Plan - Diagnosis (1) Pneumonia Qualifiers: Pneumonia type: due to unspecified organism Laterality: bilateral Lung location: lower lobe of lung Qualified Code(s): J18.9 - Pneumonia, unspecified organism Is this a current diagnosis for this admission?: YesPlan: Start patient on IV cefepime and Levaquin (2) COPD (chronic obstructive pulmonary disease) Qualifiers: COPD type: chronic bronchitis Is this a current diagnosis for this admission?: YesPlan: Nebulizer treatment and oxygen (3) Recurrent pleural effusion on right Is this a current diagnosis for this admission?: YesPlan: The last thoracocentesis so some inflammatory cell and no sign of any malignancy (4) Hypoxia Is this a current diagnosis for this admission?: YesPlan: We'll consult the social services manager to fix the oxygen tank (5) Atrial fibrillation Qualifiers: Atrial fibrillation type: paroxysmal Qualified Code(s): I48.0 - Paroxysmal atrial fibrillation Is this a current diagnosis for this admission?: YesPlan: Continues to current medication (6) CHF (congestive heart failure) Qualifiers: Congestive heart failure type: diastolic Congestive heart failure chronicity: acute on chronic Qualified Code(s): I50.33 - Acute on chronic diastolic (congestive) heart failure Is this a current diagnosis for this admission?: YesPlan: Currently hold the Lasix (7) Acute renal failure Qualifiers: Acute renal failure type: unspecified Qualified Code(s): N17.9 - Acute kidney failure, unspecified Is this a current diagnosis for this admission?: YesPlan: With the recent diuretics and the patient have a history of only [address] Forman (8) Hyponatremia Is this a current diagnosis for this admission?: YesPlan: from diuretics will cutdown lasix check osmolity - Time Time Spent with patient: 15-24 minutes Medications reviewed and adjusted accordingly: Yes Anticipated discharge: Home - Inpatient Certification Medical Necessity: Need Close Monitoring Due to Risk of Patient Decompensation - Plan Summary Plan Summary: check cxr check urine osmloty check cma7 again
[2016-11-11] MEDS ORDERED: TIOTROPIUM BROMIDE IH SCH (10:00)
[2016-11-11] MEDS: LANSOPRAZOLE 15 MG TAB.RAP.DR PO SCH ×2 (10:30→17:48)
[2016-11-11] MEDS: FUROSEMIDE INJ/PF 20 MG/2 ML SDV IV SCH ×2 (10:31→21:29)
[2016-11-11] MEDS: DOCUSATE SODIUM 100 MG CAPSULE PO SCH ×3 (10:31→17:48)
[2016-11-11] MEDS: APIXABAN 2.5 MG TABLET PO SCH ×2 (10:59→17:48)
[2016-11-11] MEDS: MAG HYDROX/AL HYDROX/SIMETH SUSP 30 ML UDCUP PO PRN ×2 (11:42→17:47)
[2016-11-11] MEDS ORDERED: FUROSEMIDE 20 MG TABLET PO SCH (13:00)
[2016-11-11] MEDS: DILTIAZEM HCL 120 MG CAP.SR.24H PO SCH (14:28)
[2016-11-11] MEDS: LEVOFLOXACIN 250 MG/D5W RTU 250 MG/50 ML RTUPB IV SCH (14:28)
[2016-11-11] MEDS: CEFEPIME 1 GM/D5W RTU 1 GM/50 ML RTUPB IV SCH (16:02)
[2016-11-11] MEDS ORDERED: LORAZEPAM 0.5 MG TABLET PO PRN (19:08)
[2016-11-11] MEDS: SIMVASTATIN 40 MG TABLET PO SCH (21:29)
--- NOTE | 2016-11-11 21:55 | PDOC PROGRESS REPORT ---
Subjective Progress Note for:: 11/11/16 Subjective:: Patient seems to be doing better with gradual improvement. Patient still complains of shortness of breath on mild exertion. Pt is denying any chest arm or neck discomfort. Patient denying any PND, orthopnea. Patient denied any sustained palpitations, dizziness, syncope, near syncope. Patient denying any fever chills. Patient denying any other significant discomfort. Patient is maintaining sinus rhythm. Review of systems: Rest review of systems negative. Medications: Medications have been reviewed. Physical Exam Vital Signs: Temp Pulse Resp BP Pulse Ox 98.9 F 94 20 122/60 94 11/11/16 20:14 11/11/16 20:46 11/11/16 20:46 11/11/16 20:14 11/11/16 20:46 Intake & Output 11/10/16 11/11/16 11/12/16 06:59 06:59 06:59 Intake Total 1126 1059 Output Total 2400 1200 Balance -1274 -141 Weight 56.6 kg Exam: GENERAL: well-nourished and in no acute distress. Alert and oriented x3 HEAD: Atraumatic, normocephalic. EYES: Pupils equal round and reactive to light, extraocular movements intact, sclera anicteric, conjunctiva are normal. ENT: TMs normal, nares patent, oropharynx clear without exudates. Moist mucous membranes. No oral ulcerations or bleeding gums noted NECK: supple without lymphadenopathy. Trachea is central. No cervical or axillary lymphadenopathy noted. Carotids are 2+, JVD 8 CM LUNGS: Respiration seems nonlabored, no significant accessory muscle action noted. Breath sounds diminished breath sounds both bases but otherwise clear. No wheezes rales or rhonchi. Dullness noted both bases right more than left. CHEST: Palpation of the chest wall shows no significant chest wall tenderness or abnormalities. 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 ABDOMEN: Soft, no significant tenderness appreciated, normoactive bowel sounds. No guarding, no rebound. No rigidity noted . No masses appreciated. EXTREMITIES: Pedal pulses are 1-2+, no calf tenderness noted. No clubbing or cyanosis.trace to 1+ pedal edema noted NEUROLOGICAL: Focused neurological exam showed no significant neurologic deficit. Normal speech, no focal weakness appreciated. PSYCH: Normal mood, normal affect. Judgment and insight within normal limits. SKIN: No significant ecchymosis, rash, ulcerations or signs of pruritus noted. MUSCULOSKELETAL EXAM: No significant joint swelling noted. Results Laboratory Results: 11/11/16 06:17 11/11/16 06:17 11/11/16 11/11/16 06:17 06:17 WBC 11.8 H RBC 3.55 L Hgb 11.0 L Hct 33.1 L MCV 93 MCH 31.1 MCHC 33.3 RDW 13.2 Plt Count 271 Seg Neutrophils % 81.0 H Lymphocytes % 10.9 L Monocytes % 6.3 Eosinophils % 1.0 Basophils % 0.8 Absolute Neutrophils 9.6 H Absolute Lymphocytes 1.3 Absolute Monocytes 0.7 Absolute Eosinophils 0.1 Absolute Basophils 0.1 Sodium 127.6 L Potassium 3.8 Chloride 93 L Carbon Dioxide 23 Anion Gap 12 BUN 36 H Creatinine 1.64 H Est GFR ( Amer) 37 L Est GFR (Non-Af Amer) 30 L Glucose 113 H Calcium 9.0 11/10/16 11/10/16 11/10/16 12:31 12:31 16:43 Creatine Kinase 62 76 CK-MB (CK-2) 3.24 Troponin I 0.067 11/10/16 11/10/16 11/10/16 16:43 22:30 22:30 Creatine Kinase 59 CK-MB (CK-2) 2.77 2.86 Troponin I 0.059 0.067 Impressions: Chest CT 11/10/16 00:00 IMPRESSION: Moderate bilateral pleural effusions, similar compared to 2015 Renal Ultrasound 11/10/16 00:00 IMPRESSION: Atrophic right kidney. No hydronephrosis. Chest X-Ray 11/11/16 00:00 IMPRESSION: No significant interval change. Bibasilar densities as noted above. Assessment & Plan - Diagnosis (1) CHF (congestive heart failure) Qualifiers: Congestive heart failure type: diastolic Congestive heart failure chronicity: acute on chronic Qualified Code(s): I50.33 - Acute on chronic diastolic (congestive) heart failure Is this a current diagnosis for this admission?: Yes (2) Chronic kidney disease Qualifiers: Chronic kidney disease stage: stage 3 (moderate) Qualified Code(s): N18.3 - Chronic kidney disease, stage 3 (moderate) Is this a current diagnosis for this admission?: Yes (3) Chronic obstruct airways disease Qualifiers: Emphysema type: unspecified Is this a current diagnosis for this admission?: Yes (5) Atrial fibrillation Qualifiers: Atrial fibrillation type: paroxysmal Qualified Code(s): I48.0 - Paroxysmal atrial fibrillation Is this a current diagnosis for this admission?: Yes - Notes Notes: Congestive heart failure: On talking to the patient it seems she was taking too much fluid intake. Patient was placed on thousand mL fluid restriction. Patient still slightly volume overloaded. Continue IV Lasix. Chronic kidney disease: Renal functions been stable. COPD: Continue oxygen supplementation. Pleural effusion: By exam patient seems to have moderate right pleural effusion. Chest x-ray reviewed. Atrial fibrillation: Currently paroxysmal. Patient maintaining sinus rhythm. - Time Time with patient: 15-25 minutes - CODE STATUS was discussed, patient remains full code. Multiple medical problems were addressed.More than 50% of the time spent coordinating care, discussing management plans with involved caregivers. Management plans discussed with involved personnels. Medical decision making was of moderate complexity.
[2016-11-12 07:15] LABS: ABSOLUTE BASOPHILS # (AUTO) 0.1 10^3/uL (0.0-0.2); ABSOLUTE EOSINOPHILS # (AUTO) 0.3 10^3/uL (0.0-0.6); ABSOLUTE LYMPHOCYTES (AUTO) 1.4 10^3/uL (0.5-4.7); ABSOLUTE MONOCYTES (AUTO) 0.5 10^3/uL (0.1-1.4); BASOPHILS % (AUTO) 0.8 % (0-2); EOSINOPHILS % (AUTO) 3.3 % (0-6); HEMATOCRIT 34.4 % (36.0-47.0); HEMOGLOBIN 11.8 g/dL (12.0-15.5); LYMPHOCYTES % (AUTO) 14.7 % (13-45); MEAN CORPUSCULAR HGB CONC 34.3 g/dL (32.0-36.0); MEAN CORPUSCULAR VOLUME 93 fl (80-97); MONOCYTES % (AUTO) 5.8 % (3-13); RED BLOOD COUNT 3.68 10^6/uL (3.72-5.28); RED CELL DISTRIBUTION WIDTH 13.3 % (11.5-14.0); SEGMENTED NEUTROPHILS % (AUTO) 75.4 % (42-78); WHITE BLOOD COUNT 9.3 10^3/uL (4.0-10.5)
[2016-11-12 07:34] LABS: ANION GAP 10 (5-19); BLOOD UREA NITROGEN 30 mg/dL (7-20); CALCIUM 9.2 mg/dL (8.4-10.2); CARBON DIOXIDE 27 mmol/L (22-30); CHLORIDE 91 mmol/L (98-107); CREATININE RESULT 1.43 mg/dL (0.52-1.25); GLUCOSE 99 mg/dL (75-110); SODIUM 127.7 mmol/L (137-145)
[2016-11-12] MEDS: IPRATROPIUM/ALBUTEROL 0.5-2.5 MG/3 ML AMPUL NEB SCH ×3 (07:46→19:35)
--- NOTE | 2016-11-12 08:14 | PDOC PROGRESS REPORT ---
Subjective Progress Note for:: 11/12/16 Subjective:: Patient is feeling better he had any chest pain or any shortness of breath. Patient's still have difficulty improving when she walks. pt denied any cough no congestion. Physical Exam Vital Signs: Temp Pulse Resp BP Pulse Ox 98.0 F 92 18 113/71 95 11/12/16 04:15 11/12/16 07:46 11/12/16 07:46 11/12/16 04:15 11/12/16 07:46 Intake & Output 11/11/16 11/12/16 11/13/16 06:59 06:59 06:59 Intake Total 1126 1264 Output Total 2400 2500 Balance -1274 -1236 Weight 56.6 kg 55.1 kg General appearance: PRESENT: no acute distress, well-developed, well-nourished Head exam: PRESENT: atraumatic, normocephalic Eye exam: PRESENT: conjunctiva pink, EOMI, PERRLA. ABSENT: scleral icterus Ear exam: PRESENT: normal external ear exam Mouth exam: PRESENT: moist, tongue midline Neck exam: PRESENT: full ROM. ABSENT: carotid bruit, JVD, lymphadenopathy, thyromegaly Cardiovascular exam: PRESENT: RRR. ABSENT: diastolic murmur, rubs, systolic murmur Pulses: PRESENT: normal dorsalis pedis pul, +2 pedal pulses bilateral Vascular exam: PRESENT: normal capillary refill GI/Abdominal exam: PRESENT: normal bowel sounds, soft. ABSENT: distended, guarding, mass, organolmegaly, rebound, tenderness Rectal exam: PRESENT: deferred Neurological exam: PRESENT: alert, awake, oriented to person, oriented to place , oriented to time, oriented to situation, CN II-XII grossly intact. ABSENT: motor sensory deficit Psychiatric exam: PRESENT: appropriate affect, normal mood. ABSENT: homicidal ideation, suicidal ideation Skin exam: PRESENT: dry, intact, warm. ABSENT: cyanosis, rash Results Laboratory Results: 11/12/16 06:51 11/12/16 06:51 11/12/16 11/12/16 06:51 06:51 WBC 9.3 RBC 3.68 L Hgb 11.8 L Hct 34.4 L MCV 93 MCH 32.0 MCHC 34.3 RDW 13.3 Plt Count 275 Seg Neutrophils % 75.4 Lymphocytes % 14.7 Monocytes % 5.8 Eosinophils % 3.3 Basophils % 0.8 Absolute Neutrophils 7.0 Absolute Lymphocytes 1.4 Absolute Monocytes 0.5 Absolute Eosinophils 0.3 Absolute Basophils 0.1 Sodium 127.7 L Potassium 4.0 Chloride 91 L Carbon Dioxide 27 Anion Gap 10 BUN 30 H Creatinine 1.43 H Est GFR ( Amer) 43 L Est GFR (Non-Af Amer) 36 L Glucose 99 Calcium 9.2 11/10/16 11/10/16 11/10/16 12:31 12:31 16:43 Creatine Kinase 62 76 CK-MB (CK-2) 3.24 Troponin I 0.067 11/10/16 11/10/16 11/10/16 16:43 22:30 22:30 Creatine Kinase 59 CK-MB (CK-2) 2.77 2.86 Troponin I 0.059 0.067 Impressions: Chest CT 11/10/16 00:00 IMPRESSION: Moderate bilateral pleural effusions, similar compared to 2015 Renal Ultrasound 11/10/16 00:00 IMPRESSION: Atrophic right kidney. No hydronephrosis. Chest X-Ray 11/11/16 00:00 IMPRESSION: No significant interval change. Bibasilar densities as noted above. Assessment & Plan - Diagnosis (1) Pneumonia Qualifiers: Pneumonia type: due to unspecified organism Laterality: bilateral Lung location: lower lobe of lung Qualified Code(s): J18.9 - Pneumonia, unspecified organism Is this a current diagnosis for this admission?: YesPlan: Start patient on IV cefepime and Levaquin (2) COPD (chronic obstructive pulmonary disease) Qualifiers: COPD type: chronic bronchitis Is this a current diagnosis for this admission?: YesPlan: Nebulizer treatment and oxygen (3) Recurrent pleural effusion on right Is this a current diagnosis for this admission?: YesPlan: We will repeat the chest x-ray today (4) Hypoxia Is this a current diagnosis for this admission?: YesPlan: We'll consult the social services coordinator to fix the oxygen tank (5) Atrial fibrillation Qualifiers: Atrial fibrillation type: paroxysmal Qualified Code(s): I48.0 - Paroxysmal atrial fibrillation Is this a current diagnosis for this admission?: YesPlan: Continues to current medication (6) CHF (congestive heart failure) Qualifiers: Congestive heart failure type: diastolic Congestive heart failure chronicity: acute on chronic Qualified Code(s): I50.33 - Acute on chronic diastolic (congestive) heart failure Is this a current diagnosis for this admission?: YesPlan: Currently hold the Lasix (7) Acute renal failure Qualifiers: Acute renal failure type: unspecified Qualified Code(s): N17.9 - Acute kidney failure, unspecified Is this a current diagnosis for this admission?: YesPlan: Stable improving (8) Hyponatremia Is this a current diagnosis for this admission?: YesPlan: restrict fluid - Time Time Spent with patient: 15-24 minutes Medications reviewed and adjusted accordingly: Yes Anticipated discharge: Home - Inpatient Certification Medical Necessity: Need Close Monitoring Due to Risk of Patient Decompensation, Need for IV Antibiotics - Plan Summary Plan Summary: Continues the current medication
[2016-11-12] MEDS: DOCUSATE SODIUM 100 MG CAPSULE PO SCH ×3 (10:29→17:16)
[2016-11-12] MEDS: APIXABAN 2.5 MG TABLET PO SCH ×2 (10:29→17:17)
[2016-11-12] MEDS: LANSOPRAZOLE 15 MG TAB.RAP.DR PO SCH ×2 (10:30→17:16)
[2016-11-12] MEDS: FUROSEMIDE INJ/PF 20 MG/2 ML SDV IV SCH ×2 (10:30→21:13)
--- NOTE | 2016-11-12 12:51 | PDOC CONSULTATION ---
Consultation Consult Date: 11/12/16 Consult reason:: Acute renal injury. History of Present Illness Admission Date/PCP: 11/10/16 09:08 CHEYENNE VILLARREAL MD History of Present Illness: SALOME MOSLEY is a 76 year old female This is a 76-year-old female recently admitted in the hospital for the COPD and congestive heart failure and right-sided pleural effusion and underwent for the thoracocentesis. Also possible pneumonia and decided to admit for further evaluation and treatment. The patient's kidney function was also worsening suggestive of MENDEZ. The patient denied any chest pain. Patient denied any PND, orthopnea. She denied any fever or chills. She is feeling a whole lot better on current medications. Denies any history of fever or chills. She is making good amounts of urine. Her renal numbers have improved. Past Medical History Cardiac Medical History: Reports: Atrial Fibrillation, Hyperlipidemia Denies: Myocardial Infarction Pulmonary Medical History: Reports: Chronic Obstructive Pulmonary Disease (COPD) Denies: Asthma, Bronchitis, Pneumonia Neurological Medical History: Denies: Seizures Renal/ Medical History: Reports: Chronic Kidney Disease Stage III GI Medical History: Reports: Gastroesophageal Reflux Disease, Hiatal Hernia Musculoskeltal Medical History: Denies: Arthritis Psychiatric Medical History: Denies: Depression Past Surgical History Past Surgical History: Reports: Other - Ablation Denies: Hysterectomy, Mastectomy Social History Smoking Status: Former Smoker Frequency of Alcohol Use: None Hx Recreational Drug Use: No Drugs: None Hx Prescription Drug Abuse: No - Advance Directive Resuscitation Status: Full Code Family History Parental Family History Reviewed: Yes - Negative for ESRD. Children Family History Reviewed: No Sibling(s) Family History Reviewed.: No Medication/Allergy Home Medications: Apixaban [Eliquis 2.5 mg Tablet] 2.5 mg PO BID 11/10/16 Diltiazem HCl [Diltiazem 24Hr Cd] 120 mg PO DAILY 11/10/16 Docusate Sodium [Colace 100 mg Capsule] 100 mg PO BID 11/10/16 Furosemide [Lasix 20 mg Tablet] 20 mg PO DAILY 11/10/16 Omeprazole 20 mg PO BID 11/10/16 Simvastatin [Zocor 40 mg Tablet] 40 mg PO QHS 11/10/16 Tiotropium [place] [Spiriva Respimat] 2 sprays IH DAILY 11/10/16 Vit A/Vit C/Vit E/Zinc/Copper [Preservision Areds Softgel] 1 cap PO BID Allergies/Adverse Reactions: sulfamethoxazole [From Bactrim] Allergy (Verified 10/28/16 17:07) trimethoprim [From Bactrim] Allergy (Verified 10/28/16 17:07) nut - unspecified Adverse Reaction (Verified 10/28/16 17:07) aggravates diverticulitis. Review of Systems Review of Systems: Constitutional: PRESENT: as per HPI. ABSENT: chills, fever(s), headache(s), weight gain, weight loss Eyes: ABSENT: visual disturbances Ears: ABSENT: hearing changes Cardiovascular: ABSENT: chest pain, edema, orthropnea, palpitations Respiratory: ABSENT: cough, hemoptysis Gastrointestinal: ABSENT: abdominal pain, constipation, diarrhea, hematemesis, hematochezia, nausea, vomiting Genitourinary: ABSENT: dysuria, hematuria Musculoskeletal: ABSENT: joint swelling Integumentary: ABSENT: rash, wounds Neurological: ABSENT: abnormal gait, abnormal speech, confusion, dizziness, focal weakness, syncope Psychiatric: ABSENT: anxiety, depression, homicidal ideation, suicidal ideation Endocrine: ABSENT: cold intolerance, heat intolerance, menstrual abnormalities, polydipsia, polyuria Hematologic/Lymphatic: ABSENT: easy bleeding, easy bruising, lymphadenopathy Physical Exam Vital Signs: Temp Pulse Resp BP Pulse Ox 97.6 F 92 18 111/57 L 95 11/12/16 07:26 11/12/16 07:46 11/12/16 07:46 11/12/16 07:26 11/12/16 07:46 Intake & Output 11/11/16 11/12/16 11/13/16 06:59 06:59 06:59 Intake Total 1126 1264 Output Total 2400 2500 Balance -1274 -1236 Weight 56.6 kg 55.1 kg General appearance: PRESENT: no acute distress Eye exam: PRESENT: EOMI, PERRLA. ABSENT: nystagmus Mouth exam: PRESENT: moist, neck supple Neck exam: ABSENT: meningismus, tenderness, thyromegaly, tracheal deviation Respiratory exam: PRESENT: clear to auscultation marylou, crackles - In both the bases. Midsize., rhonchi - Diffuse and scattered GI/Abdominal exam: PRESENT: normal bowel sounds, soft. ABSENT: distended, firm , guarding, rigid, tenderness Extremities exam: ABSENT: pedal edema Neurological exam: PRESENT: alert, awake, oriented to person, oriented to place , oriented to time Skin exam: PRESENT: warm. ABSENT: cyanosis, erythema, mottled, rash Results Laboratory Results: 11/12/16 06:51 11/12/16 06:51 11/12/16 11/12/16 06:51 06:51 WBC 9.3 RBC 3.68 L Hgb 11.8 L Hct 34.4 L MCV 93 MCH 32.0 MCHC 34.3 RDW 13.3 Plt Count 275 Seg Neutrophils % 75.4 Lymphocytes % 14.7 Monocytes % 5.8 Eosinophils % 3.3 Basophils % 0.8 Absolute Neutrophils 7.0 Absolute Lymphocytes 1.4 Absolute Monocytes 0.5 Absolute Eosinophils 0.3 Absolute Basophils 0.1 Sodium 127.7 L Potassium 4.0 Chloride 91 L Carbon Dioxide 27 Anion Gap 10 BUN 30 H Creatinine 1.43 H Est GFR ( Amer) 43 L Est GFR (Non-Af Amer) 36 L Glucose 99 Calcium 9.2 11/10/16 11/10/16 11/10/16 12:31 12:31 16:43 Creatine Kinase 62 76 CK-MB (CK-2) 3.24 Troponin I 0.067 11/10/16 11/10/16 11/10/16 16:43 22:30 22:30 Creatine Kinase 59 CK-MB (CK-2) 2.77 2.86 Troponin I 0.059 0.067 Impressions: Chest CT 11/10/16 00:00 IMPRESSION: Moderate bilateral pleural effusions, similar compared to 2015 Renal Ultrasound 11/10/16 00:00 IMPRESSION: Atrophic right kidney. No hydronephrosis. Chest X-Ray 11/12/16 00:00 IMPRESSION: Bilateral moderate pleural effusions. Bilateral lower lobe airspace disease atelectasis versus pneumonia, these findings are unchanged from 11/10/2016 CT chest Assessment & Plan - Diagnosis (1) Acute renal failure Qualifiers: Acute renal failure type: unspecified Qualified Code(s): N17.9 - Acute kidney failure, unspecified Is this a current diagnosis for this admission?: YesPlan: Review latest labs. Her renal numbers are much improved and almost back to baseline. Continue same treatments. (2) COPD (chronic obstructive pulmonary disease) Qualifiers: COPD type: chronic bronchitis Is this a current diagnosis for this admission?: YesPlan: Improving. Continue on present treatments (3) Chronic renal insufficiency, stage II (mild) Plan: Almost back to baseline. Will follow-up as an outpatient. (5) Pneumonia Qualifiers: Pneumonia type: due to unspecified organism Laterality: bilateral Lung location: lower lobe of lung Qualified Code(s): J18.9 - Pneumonia, unspecified organism Is this a current diagnosis for this admission?: YesPlan: As per Dr. Villarreal (6) Recurrent pleural effusion on right Is this a current diagnosis for this admission?: Yes (7) CHF (congestive heart failure) Qualifiers: Congestive heart failure type: diastolic Congestive heart failure chronicity: acute on chronic Qualified Code(s): I50.33 - Acute on chronic diastolic (congestive) heart failure Is this a current diagnosis for this admission?: YesPlan: Improving on current medications. continue the same.
[2016-11-12] MEDS: LEVOFLOXACIN 250 MG/D5W RTU 250 MG/50 ML RTUPB IV SCH (14:31)
[2016-11-12] MEDS: DILTIAZEM HCL 120 MG CAP.SR.24H PO SCH (14:35)
[2016-11-12] MEDS: MAG HYDROX/AL HYDROX/SIMETH SUSP 30 ML UDCUP PO PRN (14:48)
[2016-11-12] MEDS: CEFEPIME 1 GM/D5W RTU 1 GM/50 ML RTUPB IV SCH (17:15)
--- NOTE | 2016-11-12 20:54 | PDOC PROGRESS REPORT ---
Subjective Progress Note for:: 11/12/16 Subjective:: Patient seems to be doing better with gradual improvement. Patient still complains of shortness of breath on mild exertion. Pt is denying any chest arm or neck discomfort. Patient denying any PND, orthopnea. Patient denied any sustained palpitations, dizziness, syncope, near syncope. Patient denying any fever chills. Patient denying any other significant discomfort. Patient is maintaining sinus rhythm. Chest x-ray from this morning reviewed. Shows improvement. Review of systems: Rest review of systems negative. Medications: Medications have been reviewed. Physical Exam Vital Signs: Temp Pulse Resp BP Pulse Ox 98.1 F 88 22 H 108/46 L 88 L 11/12/16 15:18 11/12/16 15:18 11/12/16 15:18 11/12/16 15:18 11/12/16 15:18 Intake & Output 11/11/16 11/12/16 11/13/16 06:59 06:59 06:59 Intake Total 1126 1264 1002 Output Total 2400 2500 1150 Balance -1274 -1236 -148 Weight 56.6 kg 55.1 kg Exam: GENERAL: well-nourished and in no acute distress. Alert and oriented x3 HEAD: Atraumatic, normocephalic. EYES: Pupils equal round and reactive to light, extraocular movements intact, sclera anicteric, conjunctiva are normal. ENT: TMs normal, nares patent, oropharynx clear without exudates. Moist mucous membranes. No oral ulcerations or bleeding gums noted NECK: supple without lymphadenopathy. Trachea is central. No cervical or axillary lymphadenopathy noted. Carotids are 2+, JVD 8-10 CM LUNGS: Respiration seems nonlabored, no significant accessory muscle action noted. Diminished breath sounds noted both bases right more than left. Dullness noted right base and also left basal right more than left. CHEST: Palpation of the chest wall shows no significant chest wall tenderness or abnormalities. HEART: [place] [employer], No PSH, 1/6 SONJA aortic area, 1/6 zayas systolic murmur mitral area, no rubs, no gallops. ABDOMEN: Soft, no significant tenderness appreciated, normoactive bowel sounds. No guarding, no rebound. No rigidity noted . No masses appreciated. EXTREMITIES: Pedal pulses are 1-2+, no calf tenderness noted. No clubbing or cyanosis.trace to 1+ pedal edema noted NEUROLOGICAL: Focused neurological exam showed no significant neurologic deficit. Normal speech, no focal weakness appreciated. PSYCH: Normal mood, normal affect. Judgment and insight within normal limits. SKIN: No significant ecchymosis, rash, ulcerations or signs of pruritus noted. MUSCULOSKELETAL EXAM: No significant joint swelling noted. Results Laboratory Results: 11/12/16 06:51 11/12/16 06:51 11/11/16 11/11/16 11/12/16 06:17 11:50 06:51 WBC 9.3 RBC 3.68 L Hgb 11.8 L Hct 34.4 L MCV 93 MCH 32.0 MCHC 34.3 RDW 13.3 Plt Count 275 Seg Neutrophils % 75.4 Lymphocytes % 14.7 Monocytes % 5.8 Eosinophils % 3.3 Basophils % 0.8 Absolute Neutrophils 7.0 Absolute Lymphocytes 1.4 Absolute Monocytes 0.5 Absolute Eosinophils 0.3 Absolute Basophils 0.1 Sodium Potassium Chloride Carbon Dioxide Anion Gap BUN Creatinine Est GFR ( Amer) Est GFR (Non-Af Amer) Glucose Serum Osmolality Cancelled Calcium Urine Osmolality Cancelled 11/12/16 06:51 WBC RBC Hgb Hct MCV MCH MCHC RDW Plt Count Seg Neutrophils % Lymphocytes % Monocytes % Eosinophils % Basophils % Absolute Neutrophils Absolute Lymphocytes Absolute Monocytes Absolute Eosinophils Absolute Basophils Sodium 127.7 L Potassium 4.0 Chloride 91 L Carbon Dioxide 27 Anion Gap 10 BUN 30 H Creatinine 1.43 H Est GFR ( Amer) 43 L Est GFR (Non-Af Amer) 36 L Glucose 99 Serum Osmolality Calcium 9.2 Urine Osmolality 11/10/16 11/10/16 11/10/16 12:31 12:31 16:43 Creatine Kinase 62 76 CK-MB (CK-2) 3.24 Troponin I 0.067 11/10/16 11/10/16 11/10/16 16:43 22:30 22:30 Creatine Kinase 59 CK-MB (CK-2) 2.77 2.86 Troponin I 0.059 0.067 Impressions: Chest CT 11/10/16 00:00 IMPRESSION: Moderate bilateral pleural effusions, similar compared to 2015 Renal Ultrasound 11/10/16 00:00 IMPRESSION: Atrophic right kidney. No hydronephrosis. Chest X-Ray 11/12/16 00:00 IMPRESSION: Bilateral moderate pleural effusions. Bilateral lower lobe airspace disease atelectasis versus pneumonia, these findings are unchanged from 11/10/2016 CT chest Assessment & Plan - Diagnosis (1) CHF (congestive heart failure) Qualifiers: Congestive heart failure type: diastolic Congestive heart failure chronicity: acute on chronic Qualified Code(s): I50.33 - Acute on chronic diastolic (congestive) heart failure Is this a current diagnosis for this admission?: Yes (2) Chronic kidney disease Qualifiers: Chronic kidney disease stage: stage 3 (moderate) Qualified Code(s): N18.3 - Chronic kidney disease, stage 3 (moderate) Is this a current diagnosis for this admission?: Yes (3) Chronic obstruct airways disease Qualifiers: Emphysema type: unspecified Is this a current diagnosis for this admission?: Yes (5) Atrial fibrillation Qualifiers: Atrial fibrillation type: paroxysmal Qualified Code(s): I48.0 - Paroxysmal atrial fibrillation Is this a current diagnosis for this admission?: Yes - Notes Notes: Patient remains volume overloaded as noted by elevated JVP. Continue IV Lasix. Renal functions been stable. Serum sodium is low. Patient will benefit from fluid restriction which was again instructed. As regards heart rhythm, patient is maintaining sinus rhythm with occasional APCs. Follow BNP and chest x-ray. Prior to discharge, May consider placing patient on Demadex 20 mg by mouth daily with close follow-up as an outpatient for fluid status. We will continue to follow while she is in the hospital. - Time Time with patient: 15-25 minutes - CODE STATUS was discussed, patient remains full code. Surrogate decision-maker unchanged. Multiple medical problems were addressed.More than 50% of the time spent coordinating care, discussing management plans with involved caregivers. Management plans discussed with involved personnels. Medical decision making was of moderate complexity. Medications reviewed and adjusted accordingly: Yes
[2016-11-12] MEDS: SIMVASTATIN 40 MG TABLET PO SCH (21:12)
[2016-11-13 06:23] LABS: ABSOLUTE BASOPHILS # (AUTO) 0.1 10^3/uL (0.0-0.2); ABSOLUTE EOSINOPHILS # (AUTO) 0.4 10^3/uL (0.0-0.6); ABSOLUTE LYMPHOCYTES (AUTO) 1.2 10^3/uL (0.5-4.7); ABSOLUTE MONOCYTES (AUTO) 0.6 10^3/uL (0.1-1.4); ABSOLUTE NEUT (AUTO) 5.7 10^3/uL (1.7-8.2); BASOPHILS % (AUTO) 1.2 % (0-2); EOSINOPHILS % (AUTO) 5.1 % (0-6); HEMATOCRIT 33.4 % (36.0-47.0); HEMOGLOBIN 11.5 g/dL (12.0-15.5); HGB HCT DIFFERENCE 1.1; LYMPHOCYTES % (AUTO) 14.8 % (13-45); MEAN CORPUSCULAR HEMOGLOBIN 32.1 pg (27.0-33.4); MEAN CORPUSCULAR HGB CONC 34.5 g/dL (32.0-36.0); MEAN CORPUSCULAR VOLUME 93 fl (80-97); MONOCYTES % (AUTO) 7.8 % (3-13); RED BLOOD COUNT 3.59 10^6/uL (3.72-5.28); SEGMENTED NEUTROPHILS % (AUTO) 71.1 % (42-78); WHITE BLOOD COUNT 8.1 10^3/uL (4.0-10.5)
[2016-11-13 06:40] LABS: ALANINE AMINOTRANSFERASE 34 U/L (9-52); ALBUMIN 2.6 g/dL (3.5-5.0); ALKALINE PHOSPHATASE 73 U/L (38-126); ANION GAP 9 (5-19); ASPARTATE AMINO TRANSFERASE 25 U/L (14-36); BILIRUBIN,TOTAL 0.4 mg/dL (0.2-1.3); BLOOD UREA NITROGEN 28 mg/dL (7-20); CARBON DIOXIDE 30 mmol/L (22-30); CHLORIDE 94 mmol/L (98-107); CREATININE RESULT 1.42 mg/dL (0.52-1.25); GLUCOSE 92 mg/dL (75-110); POTASSIUM 4.2 mmol/L (3.6-5.0); SODIUM 133.1 mmol/L (137-145); TOTAL PROTEIN 5.5 g/dL (6.3-8.2)
--- NOTE | 2016-11-13 08:09 | PDOC PROGRESS REPORT ---
Subjective Progress Note for:: 11/13/16 Subjective:: Patient is doing fair no chest pain no shortness of the breath no other events happen. Patient's chest x-rays doing some bilateral pleural effusion but stable sodium level is also improving Physical Exam Vital Signs: Temp Pulse Resp BP Pulse Ox 98.2 F 80 20 115/61 91 L 11/13/16 04:16 11/13/16 04:16 11/13/16 04:16 11/13/16 04:16 11/13/16 04:51 Intake & Output 11/12/16 11/13/16 11/14/16 06:59 06:59 06:59 Intake Total 1264 1154 Output Total 2500 2400 Balance -1236 -1246 Weight 55.1 kg 54 kg General appearance: PRESENT: no acute distress, well-developed, well-nourished Head exam: PRESENT: atraumatic, normocephalic Eye exam: PRESENT: conjunctiva pink, EOMI, PERRLA. ABSENT: scleral icterus Ear exam: PRESENT: normal external ear exam Mouth exam: PRESENT: moist, tongue midline Neck exam: PRESENT: full ROM. ABSENT: carotid bruit, JVD, lymphadenopathy, thyromegaly Cardiovascular exam: PRESENT: RRR. ABSENT: diastolic murmur, rubs, systolic murmur Pulses: PRESENT: normal dorsalis pedis pul, +2 pedal pulses bilateral Vascular exam: PRESENT: normal capillary refill GI/Abdominal exam: PRESENT: normal bowel sounds, soft. ABSENT: distended, guarding, mass, organolmegaly, rebound, tenderness Rectal exam: PRESENT: deferred Neurological exam: PRESENT: alert, awake, oriented to person, oriented to place , oriented to time, oriented to situation, CN II-XII grossly intact. ABSENT: motor sensory deficit Psychiatric exam: PRESENT: appropriate affect, normal mood. ABSENT: homicidal ideation, suicidal ideation Skin exam: PRESENT: dry, intact, warm. ABSENT: cyanosis, rash Results Laboratory Results: 11/13/16 05:21 11/13/16 05:21 11/11/16 11/11/16 11/13/16 06:17 11:50 05:21 WBC RBC Hgb Hct MCV MCH MCHC RDW Plt Count Seg Neutrophils % Lymphocytes % Monocytes % Eosinophils % Basophils % Absolute Neutrophils Absolute Lymphocytes Absolute Monocytes Absolute Eosinophils Absolute Basophils Sodium 133.1 L Potassium 4.2 Chloride 94 L Carbon Dioxide 30 Anion Gap 9 BUN 28 H Creatinine 1.42 H Est GFR ( Amer) 43 L Est GFR (Non-Af Amer) 36 L Glucose 92 Serum Osmolality Cancelled Calcium 9.0 Total Bilirubin 0.4 AST 25 ALT 34 Alkaline Phosphatase 73 Total Protein 5.5 L Albumin 2.6 L Urine Osmolality Cancelled 11/13/16 05:21 WBC 8.1 RBC 3.59 L Hgb 11.5 L Hct 33.4 L MCV 93 MCH 32.1 MCHC 34.5 RDW 13.0 Plt Count 267 Seg Neutrophils % 71.1 Lymphocytes % 14.8 Monocytes % 7.8 Eosinophils % 5.1 Basophils % 1.2 Absolute Neutrophils 5.7 Absolute Lymphocytes 1.2 Absolute Monocytes 0.6 Absolute Eosinophils 0.4 Absolute Basophils 0.1 Sodium Potassium Chloride Carbon Dioxide Anion Gap BUN Creatinine Est GFR ( Amer) Est GFR (Non-Af Amer) Glucose Serum Osmolality Calcium Total Bilirubin AST ALT Alkaline Phosphatase Total Protein Albumin Urine Osmolality 11/10/16 11/10/16 11/10/16 12:31 12:31 16:43 Creatine Kinase 62 76 CK-MB (CK-2) 3.24 Troponin I 0.067 11/10/16 11/10/16 11/10/16 16:43 22:30 22:30 Creatine Kinase 59 CK-MB (CK-2) 2.77 2.86 Troponin I 0.059 0.067 Impressions: Chest CT 11/10/16 00:00 IMPRESSION: Moderate bilateral pleural effusions, similar compared to 2015 Renal Ultrasound 11/10/16 00:00 IMPRESSION: Atrophic right kidney. No hydronephrosis. Chest X-Ray 11/12/16 00:00 IMPRESSION: Bilateral moderate pleural effusions. Bilateral lower lobe airspace disease atelectasis versus pneumonia, these findings are unchanged from 11/10/2016 CT chest Assessment & Plan - Diagnosis (1) Pneumonia Qualifiers: Pneumonia type: due to unspecified organism Laterality: bilateral Lung location: lower lobe of lung Qualified Code(s): J18.9 - Pneumonia, unspecified organism Is this a current diagnosis for this admission?: YesPlan: Start patient on IV cefepime and Levaquin (2) COPD (chronic obstructive pulmonary disease) Qualifiers: COPD type: chronic bronchitis Is this a current diagnosis for this admission?: YesPlan: Nebulizer treatment and oxygen (3) Recurrent pleural effusion on right Is this a current diagnosis for this admission?: YesPlan: Most likely from congestive heart failure (4) Hypoxia Is this a current diagnosis for this admission?: YesPlan: We'll consult the older adult social work specialist to fix the oxygen tank (5) Atrial fibrillation Qualifiers: Atrial fibrillation type: paroxysmal Qualified Code(s): I48.0 - Paroxysmal atrial fibrillation Is this a current diagnosis for this admission?: YesPlan: Continues to current medication (6) CHF (congestive heart failure) Qualifiers: Congestive heart failure type: diastolic Congestive heart failure chronicity: acute on chronic Qualified Code(s): I50.33 - Acute on chronic diastolic (congestive) heart failure Is this a current diagnosis for this admission?: YesPlan: Currently hold the Lasix (7) Acute renal failure Qualifiers: Acute renal failure type: unspecified Qualified Code(s): N17.9 - Acute kidney failure, unspecified Is this a current diagnosis for this admission?: YesPlan: ALT improving (8) Hyponatremia Is this a current diagnosis for this admission?: YesPlan: Fluid restriction - Time Time Spent with patient: 15-24 minutes Medications reviewed and adjusted accordingly: Yes Anticipated discharge: Home Within: within 48 hours - Inpatient Certification Medical Necessity: Need Close Monitoring Due to Risk of Patient Decompensation, Need for IV Antibiotics
[2016-11-13] MEDS: IPRATROPIUM/ALBUTEROL 0.5-2.5 MG/3 ML AMPUL NEB SCH ×3 (09:10→20:45)
[2016-11-13] MEDS: APIXABAN 2.5 MG TABLET PO SCH ×2 (09:54→17:23)
[2016-11-13] MEDS: LANSOPRAZOLE 15 MG TAB.RAP.DR PO SCH ×2 (09:57→17:24)
[2016-11-13] MEDS: DOCUSATE SODIUM 100 MG CAPSULE PO SCH ×3 (09:57→17:24)
[2016-11-13] MEDS: FUROSEMIDE INJ/PF 20 MG/2 ML SDV IV SCH ×2 (09:57→22:22)
[2016-11-13] MEDS: DILTIAZEM HCL 120 MG CAP.SR.24H PO SCH (12:44)
[2016-11-13] MEDS: LEVOFLOXACIN 250 MG/D5W RTU 250 MG/50 ML RTUPB IV SCH (12:49)
[2016-11-13] MEDS: CEFEPIME 1 GM/D5W RTU 1 GM/50 ML RTUPB IV SCH (14:15)
[2016-11-13 14:22] LABS: PROTHROMBIN TIME 15.2 SEC (11.4-15.4)
[2016-11-13 14:23] LABS: PARTIAL THROMBOPLASTIN TIME 35.4 SEC (23.5-35.8)
--- NOTE | 2016-11-13 17:01 | PDOC PROGRESS REPORT ---
Subjective Progress Note for:: 11/13/16 Subjective:: Patient seems to be doing better with gradual improvement. Patient still complains of shortness of breath on mild to moderate exertion. Pt is denying any chest arm or neck discomfort. Patient denying any PND, orthopnea. Patient denied any sustained palpitations, dizziness, syncope, near syncope. Patient denying any fever chills. Patient denying any other significant discomfort. Patient is maintaining sinus rhythm. Ultrasound of the chest reviewed. It shows moderate right pleural effusion and small left pleural effusion. Patient has been scheduled for a thoracentesis as per ultrasound criteria, pleural effusion has not improved. Review of systems: Rest review of systems negative. Medications: Medications have been reviewed. Physical Exam Vital Signs: Temp Pulse Resp BP Pulse Ox 97.7 F 82 16 111/59 L 94 11/13/16 10:50 11/13/16 14:07 11/13/16 14:07 11/13/16 10:50 11/13/16 14:07 Intake & Output 11/12/16 11/13/16 11/14/16 06:59 06:59 06:59 Intake Total 1264 1154 340 Output Total 2500 2400 400 Balance -1236 -1246 -60 Weight 55.1 kg 54 kg Exam: GENERAL: well-nourished and in no acute distress. Alert and oriented x3 HEAD: Atraumatic, normocephalic. EYES: Pupils equal round and reactive to light, extraocular movements intact, sclera anicteric, conjunctiva are normal. ENT: TMs normal, nares patent, oropharynx clear without exudates. Moist mucous membranes. No oral ulcerations or bleeding gums noted NECK: supple without lymphadenopathy. Trachea is central. No cervical or axillary lymphadenopathy noted. Carotids are 2+, JVD 8-9 CM LUNGS: Respiration seems nonlabored, no significant accessory muscle action noted. Breath sounds clear to auscultation except for reduced breath sounds right base. Dullness noted right base. Left side seems clear. CHEST: Palpation of the chest wall shows no significant chest wall tenderness or abnormalities. 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 ABDOMEN: Soft, no significant tenderness appreciated, normoactive bowel sounds. No guarding, no rebound. No rigidity noted . No masses appreciated. EXTREMITIES: Pedal pulses are 1-2+, no calf tenderness noted. No clubbing or cyanosis.trace pedal edema noted NEUROLOGICAL: Focused neurological exam showed no significant neurologic deficit. Normal speech, no focal weakness appreciated. PSYCH: Normal mood, normal affect. Judgment and insight within normal limits. SKIN: No significant ecchymosis, rash, ulcerations or signs of pruritus noted. MUSCULOSKELETAL EXAM: No significant joint swelling noted. Results Laboratory Results: 11/13/16 05:21 11/13/16 05:21 11/13/16 11/13/16 05:21 05:21 WBC 8.1 RBC 3.59 L Hgb 11.5 L Hct 33.4 L MCV 93 MCH 32.1 MCHC 34.5 RDW 13.0 Plt Count 267 Seg Neutrophils % 71.1 Lymphocytes % 14.8 Monocytes % 7.8 Eosinophils % 5.1 Basophils % 1.2 Absolute Neutrophils 5.7 Absolute Lymphocytes 1.2 Absolute Monocytes 0.6 Absolute Eosinophils 0.4 Absolute Basophils 0.1 Sodium 133.1 L Potassium 4.2 Chloride 94 L Carbon Dioxide 30 Anion Gap 9 BUN 28 H Creatinine 1.42 H Est GFR ( Amer) 43 L Est GFR (Non-Af Amer) 36 L Glucose 92 Calcium 9.0 Total Bilirubin 0.4 AST 25 ALT 34 Alkaline Phosphatase 73 Total Protein 5.5 L Albumin 2.6 L 11/10/16 11/10/16 11/10/16 12:31 12:31 16:43 Creatine Kinase 62 76 CK-MB (CK-2) 3.24 Troponin I 0.067 11/10/16 11/10/16 11/10/16 16:43 22:30 22:30 Creatine Kinase 59 CK-MB (CK-2) 2.77 2.86 Troponin I 0.059 0.067 Impressions: Chest CT 11/10/16 00:00 IMPRESSION: Moderate bilateral pleural effusions, similar compared to 2015 Renal Ultrasound 11/10/16 00:00 IMPRESSION: Atrophic right kidney. No hydronephrosis. Chest X-Ray 11/12/16 00:00 IMPRESSION: Bilateral moderate pleural effusions. Bilateral lower lobe airspace disease atelectasis versus pneumonia, these findings are unchanged from 11/10/2016 CT chest Chest Ultrasound 02/01/17 00:00 IMPRESSION: Right moderate pleural effusion similar compared to pre thoracentesis imaging on 11/02/2016 Small to moderate left pleural effusion similar compared to CT exam 11/10/2016 Assessment & Plan - Diagnosis (1) CHF (congestive heart failure) Qualifiers: Congestive heart failure type: diastolic Congestive heart failure chronicity: acute on chronic Qualified Code(s): I50.33 - Acute on chronic diastolic (congestive) heart failure Is this a current diagnosis for this admission?: Yes (2) Chronic kidney disease Qualifiers: Chronic kidney disease stage: stage 3 (moderate) Qualified Code(s): N18.3 - Chronic kidney disease, stage 3 (moderate) Is this a current diagnosis for this admission?: Yes (3) Chronic obstruct airways disease Qualifiers: Emphysema type: unspecified Is this a current diagnosis for this admission?: Yes (5) Atrial fibrillation Qualifiers: Atrial fibrillation type: paroxysmal Qualified Code(s): I48.0 - Paroxysmal atrial fibrillation Is this a current diagnosis for this admission?: Yes - Notes Notes: Patient has been generally stable but pleural effusion seems to be not improving. Agree that thoracentesis is indicated. Feel that pleural effusion most likely related to CHF but secondary causes would need to be ruled out. Recommend that pleural fluid be sent for LDH, total protein, glucose, cell count /cytology, AFB stain etc. Chronic kidney disease: Patient being followed by hospice office coordinator. Renal functions been stable. COPD: Patient to continue with chronic oxygen supplementation. Atrial fibrillation: Paroxysmal. Patient maintaining sinus rhythm. Patient going to be off ELIQUIS for 24 hours for thoracentesis. ELIQUIS can be resumed after the procedure. Congestive heart failure: Still seems slightly fluid overloaded. Sometimes it takes a long for pleural effusion to reabsorb. Continue diuretic therapy. When discharge, recommend torsemide dose to be 20 mg by mouth daily. Patient will benefit from close follow-up. Patient generally stable from cardiac standpoint. - Time Time with patient: 15-25 minutes - CODE STATUS was discussed, patient remains full code. Multiple medical problems were addressed.More than 50% of the time spent coordinating care, discussing management plans with involved caregivers. Management plans discussed with involved personnels. Medical decision making was of moderate complexity.
[2016-11-13] MEDS: MAG HYDROX/AL HYDROX/SIMETH SUSP 30 ML UDCUP PO PRN (17:27)
[2016-11-13] MEDS: SIMVASTATIN 40 MG TABLET PO SCH (22:22)
[2016-11-14] MEDS ORDERED: ACETAMINOPHEN 325 MG TABLET PO PRN (07:44)
--- NOTE | 2016-11-14 08:15 | PDOC PROGRESS REPORT ---
Subjective Progress Note for:: 11/14/16 Subjective:: Patient is doing fair he had any chest pain no shortness of the breath ultrasound of the chest is still moderate pleural effusion right side any fever. Is scheduled for the thoracocentesis today and patient's off the Eliquis since more than 24 hours Physical Exam Vital Signs: Temp Pulse Resp BP Pulse Ox 98.3 F 88 20 106/50 L 93 11/13/16 23:37 11/14/16 07:00 11/13/16 23:37 11/13/16 23:37 11/14/16 01:25 Intake & Output 11/13/16 11/14/16 11/15/16 06:59 06:59 06:59 Intake Total 1154 1212 Output Total 2400 2350 Balance -1246 -1138 Weight 54 kg 53.5 kg General appearance: PRESENT: no acute distress, well-developed, well-nourished Head exam: PRESENT: atraumatic, normocephalic Eye exam: PRESENT: conjunctiva pink, EOMI, PERRLA. ABSENT: scleral icterus Ear exam: PRESENT: normal external ear exam Mouth exam: PRESENT: moist, tongue midline Neck exam: PRESENT: full ROM. ABSENT: carotid bruit, JVD, lymphadenopathy, thyromegaly Cardiovascular exam: PRESENT: RRR. ABSENT: diastolic murmur, rubs, systolic murmur Pulses: PRESENT: normal dorsalis pedis pul, +2 pedal pulses bilateral Vascular exam: PRESENT: normal capillary refill GI/Abdominal exam: PRESENT: normal bowel sounds, soft. ABSENT: distended, guarding, mass, organolmegaly, rebound, tenderness Rectal exam: PRESENT: deferred Neurological exam: PRESENT: alert, awake, oriented to person, oriented to place , oriented to time, oriented to situation, CN II-XII grossly intact. ABSENT: motor sensory deficit Psychiatric exam: PRESENT: appropriate affect, normal mood. ABSENT: homicidal ideation, suicidal ideation Skin exam: PRESENT: dry, intact, warm. ABSENT: cyanosis, rash Results Laboratory Results: 11/13/16 05:21 11/13/16 05:21 11/10/16 11/10/16 11/10/16 12:31 12:31 16:43 Creatine Kinase 62 76 CK-MB (CK-2) 3.24 Troponin I 0.067 11/10/16 11/10/16 11/10/16 16:43 22:30 22:30 Creatine Kinase 59 CK-MB (CK-2) 2.77 2.86 Troponin I 0.059 0.067 Impressions: Chest CT 11/10/16 00:00 IMPRESSION: Moderate bilateral pleural effusions, similar compared to 2015 Renal Ultrasound 11/10/16 00:00 IMPRESSION: Atrophic right kidney. No hydronephrosis. Chest X-Ray 11/12/16 00:00 IMPRESSION: Bilateral moderate pleural effusions. Bilateral lower lobe airspace disease atelectasis versus pneumonia, these findings are unchanged from 11/10/2016 CT chest Chest Ultrasound 11/13/16 00:00 IMPRESSION: Right moderate pleural effusion similar compared to pre thoracentesis imaging on 11/02/2016 Small to moderate left pleural effusion similar compared to CT exam 11/10/2016 Assessment & Plan - Diagnosis (1) Pneumonia Qualifiers: Pneumonia type: due to unspecified organism Laterality: bilateral Lung location: lower lobe of lung Qualified Code(s): J18.9 - Pneumonia, unspecified organism Is this a current diagnosis for this admission?: YesPlan: Start patient on IV cefepime and Levaquin (2) COPD (chronic obstructive pulmonary disease) Qualifiers: COPD type: chronic bronchitis Is this a current diagnosis for this admission?: YesPlan: Nebulizer treatment and oxygen (3) Recurrent pleural effusion on right Is this a current diagnosis for this admission?: YesPlan: Scheduled thoracocentesis strength (4) Hypoxia Is this a current diagnosis for this admission?: YesPlan: We'll consult the delinquency prevention social worker to fix the oxygen tank (5) Atrial fibrillation Qualifiers: Atrial fibrillation type: paroxysmal Qualified Code(s): I48.0 - Paroxysmal atrial fibrillation Is this a current diagnosis for this admission?: YesPlan: Continues to current medication (6) CHF (congestive heart failure) Qualifiers: Congestive heart failure type: diastolic Congestive heart failure chronicity: acute on chronic Qualified Code(s): I50.33 - Acute on chronic diastolic (congestive) heart failure Is this a current diagnosis for this admission?: YesPlan: Currently hold the Lasix (7) Acute renal failure Qualifiers: Acute renal failure type: unspecified Qualified Code(s): N17.9 - Acute kidney failure, unspecified Is this a current diagnosis for this admission?: YesPlan: ALT improving (8) Hyponatremia Is this a current diagnosis for this admission?: YesPlan: Fluid restriction - Time Time Spent with patient: 15-24 minutes Medications reviewed and adjusted accordingly: Yes Anticipated discharge: Home - Inpatient Certification Medical Necessity: Need Close Monitoring Due to Risk of Patient Decompensation, Need for IV Antibiotics
[2016-11-14] MEDS: IPRATROPIUM/ALBUTEROL 0.5-2.5 MG/3 ML AMPUL NEB SCH ×3 (08:31→19:49)
[2016-11-14] MEDS: APIXABAN 2.5 MG TABLET PO SCH ×2 (09:04→17:29)
[2016-11-14] MEDS: FUROSEMIDE INJ/PF 20 MG/2 ML SDV IV SCH (09:06)
[2016-11-14] MEDS: MAG HYDROX/AL HYDROX/SIMETH SUSP 30 ML UDCUP PO PRN ×2 (09:09→17:28)
[2016-11-14] MEDS: DOCUSATE SODIUM 100 MG CAPSULE PO SCH ×2 (09:10→17:29)
[2016-11-14] MEDS: TIOTROPIUM BROMIDE DPI 5 CAP/KIT (18 MCG/CAP) IH SCH (09:11)
[2016-11-14] MEDS: LANSOPRAZOLE 15 MG TAB.RAP.DR PO SCH ×2 (09:12→17:29)
[2016-11-14 11:07] LABS: FLUID APPEARANCE CLEAR; FLUID TYPE PLEURAL
[2016-11-14 11:33] LABS: FLUID RBC DILUENT USED NONE USED; FLUID RBC DILUTION FACTOR 1; FLUID RBC SIDE 1 41; FLUID RBC SIDE 2 45; TOTAL RBC SQUARES COUNTED FLD 225
[2016-11-14] MEDS: DILTIAZEM HCL 120 MG CAP.SR.24H PO SCH (12:26)
[2016-11-14] MEDS: LEVOFLOXACIN 250 MG TABLET PO SCH (12:26)
[2016-11-14] MEDS: CEFEPIME 1 GM/D5W RTU 1 GM/50 ML RTUPB IV SCH (13:20)
--- NOTE | 2016-11-14 18:47 | PDOC PROGRESS REPORT ---
Subjective Progress Note for:: 11/14/16 Subjective:: Patient seems to be doing better with gradual improvement. Patient still complains of shortness of breath on mild to moderate exertion. Pt is denying any chest arm or neck discomfort. Patient denying any PND, orthopnea. Patient denied any sustained palpitations, dizziness, syncope, near syncope. Patient denying any fever chills. Patient denying any other significant discomfort. Patient to undergo thoracentesis under ultrasound guided. Postthoracentesis chest x-ray reviewed showed resolution of right pleural effusion but left pleural effusion remains. Preliminary results suggest that this is transudate and could be related to CHF. Review of systems: Rest review of systems negative. Medications: Medications have been reviewed. Physical Exam Vital Signs: Temp Pulse Resp BP Pulse Ox 98.5 F 85 16 110/61 97 11/14/16 16:08 11/14/16 16:08 11/14/16 16:08 11/14/16 16:08 11/14/16 16:08 Intake & Output 11/13/16 11/14/16 11/15/16 06:59 06:59 06:59 Intake Total 1154 1212 723 Output Total 2400 2350 400 Balance -1246 -1138 323 Weight 54 kg 53.5 kg Exam: GENERAL: well-nourished and in no acute distress. Alert and oriented x3 HEAD: Atraumatic, normocephalic. EYES: Pupils equal round and reactive to light, extraocular movements intact, sclera anicteric, conjunctiva are normal. ENT: TMs normal, nares patent, oropharynx clear without exudates. Moist mucous membranes. No oral ulcerations or bleeding gums noted NECK: supple without lymphadenopathy. Trachea is central. No cervical or axillary lymphadenopathy noted. Carotids are 2+, JVD 8 CM LUNGS: Respiration seems nonlabored, no significant accessory muscle action noted. Right side clear. Minimal decreased breath sounds left base. No wheezes rales or rhonchi. No significant dullness noted on percussion. CHEST: Palpation of the chest wall shows no significant chest wall tenderness or abnormalities. 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 ABDOMEN: Soft, no significant tenderness appreciated, normoactive bowel sounds. No guarding, no rebound. No rigidity noted . No masses appreciated. EXTREMITIES: Pedal pulses are 1-2+, no calf tenderness noted. No clubbing or cyanosis.trace pedal edema noted NEUROLOGICAL: Focused neurological exam showed no significant neurologic deficit. Normal speech, no focal weakness appreciated. PSYCH: Normal mood, normal affect. Judgment and insight within normal limits. SKIN: No significant ecchymosis, rash, ulcerations or signs of pruritus noted. MUSCULOSKELETAL EXAM: No significant joint swelling noted. Results Laboratory Results: 11/13/16 05:21 11/13/16 05:21 11/11/16 11/14/16 11:50 10:13 Urine Osmolality 239 Fluid Type PLEURAL Fluid Source LUNG Fluid Color LIGHT YELLOW Fluid Appearance CLEAR Fluid Viscosity LIQUID Fluid WBC 271 Fluid RBC 47 11/14/16 10:12 Pleural Fluid - Right Pleural Effusion Fungal Smear - Final Not Reportable 11/14/16 10:12 Pleural Fluid - Right Pleural Effusion Fungal Smear - Final Not Reportable 11/14/16 10:12 Pleural Fluid - Right Pleural Effusion Fungal Smear - Final Not Reportable 11/14/16 10:12 Pleural Fluid - Right Pleural Effusion Fungal Smear - Final Not Reportable 11/14/16 10:12 Pleural Fluid - Right Pleural Effusion Fungal Culture - Final Not Reportable 11/14/16 10:12 Pleural Fluid - Right Pleural Effusion Fungal Culture - Final Not Reportable 11/14/16 10:12 Pleural Fluid - Right Pleural Effusion Fungal Culture - Final Not Reportable 11/14/16 10:12 Pleural Fluid - Right Pleural Effusion Susceptibility Special Request - Final Not Reportable 11/10/16 11/10/16 11/10/16 12:31 12:31 16:43 Creatine Kinase 62 76 CK-MB (CK-2) 3.24 Troponin I 0.067 11/10/16 11/10/16 11/10/16 16:43 22:30 22:30 Creatine Kinase 59 CK-MB (CK-2) 2.77 2.86 Troponin I 0.059 0.067 Impressions: Chest CT 11/10/16 00:00 IMPRESSION: Moderate bilateral pleural effusions, similar compared to 2015 Renal Ultrasound 11/10/16 00:00 IMPRESSION: Atrophic right kidney. No hydronephrosis. Chest Ultrasound 11/13/16 00:00 IMPRESSION: Right moderate pleural effusion similar compared to pre thoracentesis imaging on 11/02/2016 Small to moderate left pleural effusion similar compared to CT exam 11/10/2016 Chest X-Ray 11/14/16 00:00 IMPRESSION: No pneumothorax 2 hours following thoracentesis. Thoracentesis Ultrasound 11/14/16 12:57 IMPRESSION: SUCCESSFUL DIAGNOSTIC AND THERAPEUTIC RIGHT THORACENTESIS USING ULTRASOUND GUIDANCE. Assessment & Plan - Diagnosis (1) CHF (congestive heart failure) Qualifiers: Congestive heart failure type: diastolic Congestive heart failure chronicity: acute on chronic Qualified Code(s): I50.33 - Acute on chronic diastolic (congestive) heart failure Is this a current diagnosis for this admission?: Yes (2) Chronic kidney disease Qualifiers: Chronic kidney disease stage: stage 3 (moderate) Qualified Code(s): N18.3 - Chronic kidney disease, stage 3 (moderate) Is this a current diagnosis for this admission?: Yes (3) Chronic obstruct airways disease Qualifiers: Emphysema type: unspecified Is this a current diagnosis for this admission?: Yes (5) Atrial fibrillation Qualifiers: Atrial fibrillation type: paroxysmal Qualified Code(s): I48.0 - Paroxysmal atrial fibrillation Is this a current diagnosis for this admission?: Yes - Notes Notes: CHF: Clinically improved. Continue current diuretic therapy. May consider discharging patient on increased dose of torsemide at 20 mg a day. Chronic kidney disease, renal functions has been stable. COPD: Stable. Continue current regimen. Pleural effusion: Patient is status post right thoracentesis with resolution of pleural effusion. Small left-sided effusion remains. Paroxysmal atrial fibrillation: Currently patient maintaining sinus rhythm. Resume ELIQUIS therapy. - Time Time with patient: 15-25 minutes - More than 50% of the time spent coordinating care, discussing management plans with involved caregivers. Management plans discussed with involved personnels. Medical decision making was of moderate complexity.CODE STATUS was discussed, patient remains full code. Surrogate decision-maker unchanged. Multiple medical problems were addressed.
[2016-11-14] MEDS: SIMVASTATIN 40 MG TABLET PO SCH (21:52)
[2016-11-14] MEDS ORDERED: FUROSEMIDE 20 MG TABLET PO ONE (22:00)
[2016-11-15 06:34] LABS: HEMATOCRIT 33.9 % (36.0-47.0); HEMOGLOBIN 11.4 g/dL (12.0-15.5); HGB HCT DIFFERENCE 0.3; MEAN CORPUSCULAR HEMOGLOBIN 31.8 pg (27.0-33.4); MEAN CORPUSCULAR HGB CONC 33.7 g/dL (32.0-36.0); MEAN CORPUSCULAR VOLUME 95 fl (80-97); RED BLOOD COUNT 3.58 10^6/uL (3.72-5.28); RED CELL DISTRIBUTION WIDTH 13.4 % (11.5-14.0); WHITE BLOOD COUNT 7.3 10^3/uL (4.0-10.5)
[2016-11-15 06:54] LABS: ANION GAP 9 (5-19); BLOOD UREA NITROGEN 29 mg/dL (7-20); CALCIUM 9.4 mg/dL (8.4-10.2); CARBON DIOXIDE 31 mmol/L (22-30); CHLORIDE 97 mmol/L (98-107); CREATININE RESULT 1.56 mg/dL (0.52-1.25); GLUCOSE 92 mg/dL (75-110); POTASSIUM 4.1 mmol/L (3.6-5.0); SODIUM 137.4 mmol/L (137-145)
[2016-11-15] MEDS: IPRATROPIUM/ALBUTEROL 0.5-2.5 MG/3 ML AMPUL NEB SCH ×3 (08:37→19:56)
--- NOTE | 2016-11-15 09:36 | PDOC PROGRESS REPORT ---
Subjective Progress Note for:: 11/15/16 Subjective:: Patient is doing fair. Patients have underwent for thoracocentesis and remove the thousand cc. Fluid analysis is still pending. She is denied any chest pain without any shortness of the breath and no fever. Physical Exam Vital Signs: Temp Pulse Resp BP Pulse Ox 98.4 F 77 18 111/62 95 11/15/16 08:00 11/15/16 08:00 11/15/16 08:00 11/15/16 08:00 11/15/16 08:00 Intake & Output 11/14/16 11/15/16 11/16/16 06:59 06:59 06:59 Intake Total 1212 723 Output Total 2350 400 Balance -1138 323 Weight 53.5 kg General appearance: PRESENT: no acute distress, well-developed, well-nourished Head exam: PRESENT: atraumatic, normocephalic Eye exam: PRESENT: conjunctiva pink, EOMI, PERRLA. ABSENT: scleral icterus Ear exam: PRESENT: normal external ear exam Mouth exam: PRESENT: moist, tongue midline Neck exam: PRESENT: full ROM. ABSENT: carotid bruit, JVD, lymphadenopathy, thyromegaly Cardiovascular exam: PRESENT: RRR. ABSENT: diastolic murmur, rubs, systolic murmur Pulses: PRESENT: normal dorsalis pedis pul, +2 pedal pulses bilateral Vascular exam: PRESENT: normal capillary refill GI/Abdominal exam: PRESENT: normal bowel sounds, soft. ABSENT: distended, guarding, mass, organolmegaly, rebound, tenderness Rectal exam: PRESENT: deferred Neurological exam: PRESENT: alert, awake, oriented to person, oriented to place , oriented to time, oriented to situation, CN II-XII grossly intact. ABSENT: motor sensory deficit Psychiatric exam: PRESENT: appropriate affect, normal mood. ABSENT: homicidal ideation, suicidal ideation Skin exam: PRESENT: dry, intact, warm. ABSENT: cyanosis, rash Results Laboratory Results: 11/15/16 06:01 11/15/16 06:01 11/11/16 11/14/16 11/15/16 11:50 10:13 06:01 WBC 7.3 RBC 3.58 L Hgb 11.4 L Hct 33.9 L MCV 95 MCH 31.8 MCHC 33.7 RDW 13.4 Plt Count 292 Sodium Potassium Chloride Carbon Dioxide Anion Gap BUN Creatinine Est GFR ( Amer) Est GFR (Non-Af Amer) Glucose Calcium Urine Osmolality 239 Fluid Type PLEURAL Fluid Source LUNG Fluid Color LIGHT YELLOW Fluid Appearance CLEAR Fluid Viscosity LIQUID Fluid WBC 271 Fluid RBC 47 11/15/16 06:01 WBC RBC Hgb Hct MCV MCH MCHC RDW Plt Count Sodium 137.4 Potassium 4.1 Chloride 97 L Carbon Dioxide 31 H Anion Gap 9 BUN 29 H Creatinine 1.56 H Est GFR ( Amer) 39 L Est GFR (Non-Af Amer) 32 L Glucose 92 Calcium 9.4 Urine Osmolality Fluid Type Fluid Source Fluid Color Fluid Appearance Fluid Viscosity Fluid WBC Fluid RBC 11/14/16 10:12 Pleural Fluid - Right Pleural Effusion Fungal Smear - Final Not Reportable 11/14/16 10:12 Pleural Fluid - Right Pleural Effusion Fungal Smear - Final Not Reportable 11/14/16 10:12 Pleural Fluid - Right Pleural Effusion Fungal Smear - Final Not Reportable 11/14/16 10:12 Pleural Fluid - Right Pleural Effusion Fungal Smear - Final Not Reportable 11/14/16 10:12 Pleural Fluid - Right Pleural Effusion Fungal Culture - Final Not Reportable 11/14/16 10:12 Pleural Fluid - Right Pleural Effusion Fungal Culture - Final Not Reportable 11/14/16 10:12 Pleural Fluid - Right Pleural Effusion Fungal Culture - Final Not Reportable 11/14/16 10:12 Pleural Fluid - Right Pleural Effusion Susceptibility Special Request - Final Not Reportable 11/10/16 11/10/16 11/10/16 12:31 12:31 16:43 Creatine Kinase 62 76 CK-MB (CK-2) 3.24 Troponin I 0.067 11/10/16 11/10/16 11/10/16 16:43 22:30 22:30 Creatine Kinase 59 CK-MB (CK-2) 2.77 2.86 Troponin I 0.059 0.067 Impressions: Chest CT 11/10/16 00:00 IMPRESSION: Moderate bilateral pleural effusions, similar compared to 2015 Renal Ultrasound 11/10/16 00:00 IMPRESSION: Atrophic right kidney. No hydronephrosis. Chest Ultrasound 11/13/16 00:00 IMPRESSION: Right moderate pleural effusion similar compared to pre thoracentesis imaging on 11/02/2016 Small to moderate left pleural effusion similar compared to CT exam 11/10/2016 Chest X-Ray 11/14/16 00:00 IMPRESSION: No pneumothorax 2 hours following thoracentesis. Thoracentesis Ultrasound 11/14/16 12:57 IMPRESSION: SUCCESSFUL DIAGNOSTIC AND THERAPEUTIC RIGHT THORACENTESIS USING ULTRASOUND GUIDANCE. Assessment & Plan - Diagnosis (1) Pneumonia Qualifiers: Pneumonia type: due to unspecified organism Laterality: bilateral Lung location: lower lobe of lung Qualified Code(s): J18.9 - Pneumonia, unspecified organism Is this a current diagnosis for this admission?: YesPlan: A wait for the fluid analysis continues to IV antibiotic (2) COPD (chronic obstructive pulmonary disease) Qualifiers: COPD type: chronic bronchitis Is this a current diagnosis for this admission?: YesPlan: Continues to nebulizer treatment (3) Recurrent pleural effusion on right Is this a current diagnosis for this admission?: YesPlan: It wait for the fluid analysis most likely a transudate fluid (4) Hypoxia Is this a current diagnosis for this admission?: YesPlan: We'll consult the marriage and family social worker to fix the oxygen tank (5) Atrial fibrillation Qualifiers: Atrial fibrillation type: paroxysmal Qualified Code(s): I48.0 - Paroxysmal atrial fibrillation Is this a current diagnosis for this admission?: YesPlan: Continues to current medication (6) CHF (congestive heart failure) Qualifiers: Congestive heart failure type: diastolic Congestive heart failure chronicity: acute on chronic Qualified Code(s): I50.33 - Acute on chronic diastolic (congestive) heart failure Is this a current diagnosis for this admission?: YesPlan: Continues the Lasix (7) Acute renal failure Qualifiers: Acute renal failure type: unspecified Qualified Code(s): N17.9 - Acute kidney failure, unspecified Is this a current diagnosis for this admission?: YesPlan: Stable for well patients follow with the nephrology (8) Hyponatremia Is this a current diagnosis for this admission?: YesPlan: Resolved - Time Time Spent with patient: 15-24 minutes Medications reviewed and adjusted accordingly: Yes Anticipated discharge: Home Within: within 48 hours - Inpatient Certification Medical Necessity: Need Close Monitoring Due to Risk of Patient Decompensation Post Hospital Care: [facility] President Documentation - Plan Summary Plan Summary: A wait for the pleural fluid analysis and continues the current p.o. medication since is going to stay in a week and hopefully will discharge on the Friday if remains stable. This with the patient and the family in the room about all the patient's current condition and the test result
[2016-11-15] MEDS: LANSOPRAZOLE 15 MG TAB.RAP.DR PO SCH ×2 (09:56→17:36)
[2016-11-15] MEDS: DOCUSATE SODIUM 100 MG CAPSULE PO SCH ×2 (10:04→17:35)
[2016-11-15] MEDS: APIXABAN 2.5 MG TABLET PO SCH ×2 (10:04→17:35)
[2016-11-15] MEDS: FUROSEMIDE 20 MG TABLET PO SCH ×2 (10:04→17:35)
[2016-11-15] MEDS: TIOTROPIUM BROMIDE DPI 5 CAP/KIT (18 MCG/CAP) IH SCH (10:04)
[2016-11-15] MEDS: MAG HYDROX/AL HYDROX/SIMETH SUSP 30 ML UDCUP PO PRN ×2 (10:05→17:35)
--- NOTE | 2016-11-15 12:20 | PROGRESS NOTE E ---
Progress Note NAME: SALOME MOSLEY : 1940 AGE: 76Y DATE: 11/15/2016 ROOM: 334 SUBJECTIVE: Of note, the patient denies any chest pain or discomfort. She states after a liter of right pleural fluid was removed by thoracentesis she has no shortness of breath. There is no PND or orthopnea. There are no palpitations. The patient remains in sinus rhythm. There is no leg edema. There is no TIA or CVA symptoms. OBJECTIVE: GENERAL: On examination, the patient is well built and well nourished, in no acute distress. VITAL SIGNS: Her temperature is 98.4 degrees Fahrenheit. Pulse is 75 beats per minute. Blood pressure is 111/62. Respirations are 18 per minute. O2 sats are 95% on room air. HEENT: Head - Atraumatic and normocephalic. Eyes - Pupils are equal, round, regular, and reactive to light and accommodation. Extraocular movements are normal. There is no conjunctival pallor. There is no scleral icterus. ENT - Negative. NECK: Supple. There is no JVD. Carotids are equal. There is no bruit. There is no goiter. There is no lymphadenopathy. Trachea is central. LUNGS: Show diminished air entry and prolonged expiration on auscultation without any rhonchi, rales or wheezing. There is dullness in the left base. There is hyperresonance elsewhere on percussion. HEART: S1 and S2 is heard. There is no S3 gallop and there is no S4 gallop. There is a systolic ejection murmur and a 1/6 pansystolic muscle in the mitral area. There are no rubs. No gallops. ABDOMEN: Soft, nontender. There is no hepatosplenomegaly. Bowel sounds are well heard. EXTREMITIES: Femorals are slightly diminished. There are no femoral bruits. Leg pulses are slightly diminished. There is no calf tenderness. There is no clubbing or cyanosis. There is no pedal edema noted. CENTRAL NERVOUS SYSTEM: The patient is conscious, awake, alert, oriented x3 with no focal deficits. PSYCHIATRIC: The patient's judgement and insight are intact. Affect is normal. DIAGNOSTICS: The pleural fluid shows that the fluid color is light yellow, fluid appearance is clear, fluid viscosity is liquid, fluid WBC is 271, fluid RBC is 47, fluid segment neutrophils is 46, fluid lymphocytes are 50, fluid monocytes are 3, fluid eosinophils are 1. Patient's fluid LDH, albumin, total protein and glucose are pending. The patient's sodium is 137.4, potassium is 4.1, chloride is 97, CO2 is 31, the patient's BUN is 21, creatinine is 1.56, GFR is reduced at 32 mL. This is chronic kidney disease stage III. The patient's glucose is 92 and her calcium is 9.0. The patient's serum LDH is 312. The patient's white count is 7300, hemoglobin is 11.4, hematocrit is 33.9, and platelet count is 292,000. The patient's rheumatoid factor is negative. The patient's smooth IgG antibody quantification *------* antibody is pending. Double-sided DNA antibody is pending. Her smooth IgG *------* is pending. The patient's chest x-ray done yesterday 2 hours status post right thoracentesis shows there is no pneumothorax 2 hours following right-sided pleurocentesis. Left pleural effusion remains the same. There is no evidence of congestive heart failure. The patient's 24-hour intake is 723 mL and output is 400 mL. IMPRESSION: 1. CONGESTIVE HEART FAILURE. MOST LIKELY THIS IS SECONDARY TO RIGHT HEART FAILURE SECONDARY TO PULMONARY HYPERTENSION. 2. CHRONIC KIDNEY DISEASE, STAGE III. 3. COPD, AT PRESENT BACK TO BASELINE. 4. PAROXYSMAL ATRIAL FIBRILLATION. THE PATIENT IS IN SINUS RHYTHM AFTER ABLATION. 5. RIGHT PLEURAL EFFUSION. RESULTS ARE PENDING. THIS COULD BE SECONDARY TO CONGESTIVE HEART FAILURE, ALTHOUGH A PARAPNEUMONIC EFFUSION CANNOT BE RULED OUT. 6. MODERATE PULMONARY HYPERTENSION WITH NORMAL LEFT VENTRICULAR SYSTOLIC FUNCTION BY AUGUST 2016 ECHO. RECOMMENDATIONS: The patient much improved after right thoracentesis. She still has a left pleural effusion. Continue Lasix. Continue diltiazem 120 mg p.o. daily long acting. The patient has been restarted on Eliquis 2.5 mg p.o. b.i.d.; there is no bleeding. Continue Levaquin 250 mg p.o. daily. Continue Prevacid 15 mg p.o. b.i.d. Continue Zocor and continue anti-COPD treatment. Of note, 30 minutes was spent on this patient with more than 50% of the time spent in direct patient care and also discussions with the other caregiving providers on the case, including the nurses. We will follow with you. Of note, THE PATIENT IS A FULL CODE. Her sister is the surrogate healthcare decision maker. DICTATING PHYSICIAN: LOYDA WAGNER M.D. [id number] PHY#: [id number] ID: [id number] JOB#: [id number] ACCT: [id number] cc: >
[2016-11-15] MEDS: CEFEPIME 1 GM/D5W RTU 1 GM/50 ML RTUPB IV SCH (14:01)
[2016-11-15] MEDS: LEVOFLOXACIN 250 MG TABLET PO SCH (14:12)
[2016-11-15] MEDS: DILTIAZEM HCL 120 MG CAP.SR.24H PO SCH (14:12)
[2016-11-15] MEDS: SIMVASTATIN 40 MG TABLET PO SCH (21:45)
[2016-11-16 05:54] LABS: HEMOGLOBIN 11.1 g/dL (12.0-15.5); HGB HCT DIFFERENCE 0.3; MEAN CORPUSCULAR HEMOGLOBIN 31.6 pg (27.0-33.4); MEAN CORPUSCULAR HGB CONC 33.6 g/dL (32.0-36.0); MEAN CORPUSCULAR VOLUME 94 fl (80-97); RED BLOOD COUNT 3.51 10^6/uL (3.72-5.28); RED CELL DISTRIBUTION WIDTH 13.3 % (11.5-14.0); WHITE BLOOD COUNT 7.6 10^3/uL (4.0-10.5)
[2016-11-16 06:21] LABS: ANION GAP 6 (5-19); BLOOD UREA NITROGEN 30 mg/dL (7-20); CALCIUM 9.2 mg/dL (8.4-10.2); CARBON DIOXIDE 32 mmol/L (22-30); CHLORIDE 99 mmol/L (98-107); CREATININE RESULT 1.49 mg/dL (0.52-1.25); GLUCOSE 100 mg/dL (75-110); POTASSIUM 4.4 mmol/L (3.6-5.0); SODIUM 137.2 mmol/L (137-145)
[2016-11-16] MEDS: IPRATROPIUM/ALBUTEROL 0.5-2.5 MG/3 ML AMPUL NEB SCH ×3 (09:28→20:45)
[2016-11-16] MEDS: MAG HYDROX/AL HYDROX/SIMETH SUSP 30 ML UDCUP PO PRN ×2 (11:25→17:35)
[2016-11-16] MEDS: DOCUSATE SODIUM 100 MG CAPSULE PO SCH ×2 (11:26→17:34)
[2016-11-16] MEDS: TIOTROPIUM BROMIDE DPI 5 CAP/KIT (18 MCG/CAP) IH SCH (11:26)
[2016-11-16] MEDS: APIXABAN 2.5 MG TABLET PO SCH ×2 (11:27→17:35)
[2016-11-16] MEDS: FUROSEMIDE 20 MG TABLET PO SCH ×2 (11:27→17:35)
[2016-11-16] MEDS: LANSOPRAZOLE 15 MG TAB.RAP.DR PO SCH ×2 (11:28→17:34)
[2016-11-16 11:38] LABS: JO-1 ANTIBODY <0.2 AI (0.0-0.9)
[2016-11-16] MEDS: LEVOFLOXACIN 250 MG TABLET PO SCH (12:29)
[2016-11-16] MEDS: DILTIAZEM HCL 120 MG CAP.SR.24H PO SCH (12:30)
--- NOTE | 2016-11-16 14:23 | PROGRESS NOTE E ---
Progress Note NAME: SALOME MOSLEY : 1940 AGE: 76Y DATE: 11/16/2016 ROOM: 334 SUBJECTIVE: Note that the patient denies any chest pain or discomfort. There is no PND or orthopnea. There is no leg edema. There is no arrhythmia. The patient remains in sinus rhythm. There is no recurrence of atrial fibrillation. There is no pedal edema. There is no TIA or CVA symptoms. OBJECTIVE: GENERAL: On examination, the patient is well built and well nourished, in no acute distress. VITAL SIGNS: The patient is afebrile with a temperature of 98.2 degrees Fahrenheit. Pulse is 75 beats per minute. Blood pressure is 106/54. Respirations are 17 per minute. O2 sats are 95% on 2 liters nasal cannula. HEAD: Atraumatic, normocephalic. EYES: Pupils are equal, round, regular, and reactive to light and accommodation. Extraocular movements are normal. There is no conjunctival pallor. There is no scleral icterus. ENT: Negative. NECK: Supple. There is no JVD. Carotids are equal. There is no bruit. There is no goiter. There is no lymphadenopathy. Trachea is central. LUNGS: Show diminished air entry and prolonged expiration on auscultation without any rhonchi, rales, or wheezing. There is dullness on the left base. There is hyperresonance throughout the lung on palpation. HEART: S1 and S2 is heard. There is no S3 gallop. There is no S4 gallop. S1 and S2 of normal intensity. There is a systolic ejection murmur in the aortic area and a 1/6 pansystolic murmur in the mitral area. There are no rubs. There are no gallops. ABDOMEN: Soft, nontender. There is no hepatosplenomegaly. Bowel sounds are well heard. EXTREMITIES: Femorals are slightly diminished. There are no femoral bruits. Leg pulses are slightly diminished. There is no pedal edema. There is no calf tenderness. There is no cyanosis or clubbing. CENTRAL NERVOUS SYSTEM: The patient is conscious, awake, alert, oriented x3, with no focal deficits. PSYCHIATRIC: The patient's judgement and insight are intact. Affect is normal. Note that the pleural fluid results are not yet available. The patient's 24 hour intake is 975 mL and output is 600 mL. LABORATORY: The patient's white count is 7600, hemoglobin is 11.1, hematocrit is 33, and platelet count is 267,000. The patient's sodium is 137.2, potassium 4.4, chloride is 99, CO2 is 32. The patient's BUN is 30, creatinine is 1.49. GFR is reduced at 34 mL, which is slightly better than yesterday, but still chronic kidney disease stage III. Her calcium is 9.2. IMPRESSION: 1. CONGESTIVE HEART FAILURE. MOST LIKELY THIS IS SECONDARY TO RIGHT HEART FAILURE SECONDARY TO PULMONARY HYPERTENSION. 2. CHRONIC KIDNEY DISEASE, STAGE III. 3. CHRONIC OBSTRUCTIVE PULMONARY DISEASE. ACUTE EXACERBATION HAS RESOLVED AND THE PATIENT IS BACK TO BASELINE. THE PATIENT IS ON ANTI-CHRONIC OBSTRUCTIVE PULMONARY DISEASE INHALERS. 4. PAROXYSMAL ATRIAL FIBRILLATION. THE PATIENT IS IN SINUS RHYTHM AFTER ABLATION. 5. RIGHT PLEURAL EFFUSION, STATUS POST THORACENTESIS. RESULTS ARE PENDING. THIS COULD BE SECONDARY TO CONGESTIVE HEART FAILURE, ALTHOUGH A PARAPNEUMONIC EFFUSION CANNOT BE RULED OUT. AWAIT RESULTS OF THE PLEURAL FLUID. 6. MODERATE PULMONARY HYPERTENSION, BUT UPWARD NORMAL LEFT VENTRICULAR SYSTOLIC FUNCTION IN AUGUST 2016 ECHO. RECOMMENDATIONS: The patient is continuing to be much improved after right thoracentesis. She still had a left pleural effusion, although I do no not elicit any dullness in the left base. Hence, would recommend getting a chest x-ray. Continue Lasix. Continue diltiazem CD 120 mg p.o. daily. The patient is back on Eliquis without any bleeding or TIA or CVA symptoms. Continue Levaquin. Continue Zocor. Continue anti-COPD treatment. Continue Prevacid. Note, described with patient and the patient's sister. Note, 30 minutes was spent on this patient with more than 50% of the time spent in direct patient care and also review of the patient's medication and discussions with the other caregiving providers on the case. We will follow with you. DICTATING PHYSICIAN: LOYDA WAGNER M.D. [id number] MOOSEY#: [id number] ID: [id number] JOB#: [id number] ACCT: [id number] cc: >
[2016-11-16] MEDS: CEFEPIME 1 GM/D5W RTU 1 GM/50 ML RTUPB IV SCH (14:49)
--- NOTE | 2016-11-16 16:44 | PDOC PROGRESS REPORT ---
Subjective Progress Note for:: 11/16/16 Subjective:: Patient was seen by the bedside, she is improving Physical Exam Vital Signs: Temp Pulse Resp BP Pulse Ox 98.2 F 83 16 106/54 L 92 11/16/16 11:43 11/16/16 15:01 11/16/16 15:01 11/16/16 11:43 11/16/16 15:01 Intake & Output 11/15/16 11/16/16 11/17/16 06:59 06:59 06:59 Intake Total 723 975 240 Output Total 400 600 800 Balance 323 375 -560 Weight 56.6 kg General appearance: PRESENT: no acute distress Eye exam: PRESENT: PERRLA Respiratory exam: PRESENT: rales Cardiovascular exam: PRESENT: +S1, +S2 Results Laboratory Results: 11/16/16 05:25 11/16/16 05:25 11/14/16 11/14/16 11/16/16 10:13 10:13 05:25 WBC 7.6 RBC 3.51 L Hgb 11.1 L Hct 33.0 L MCV 94 MCH 31.6 MCHC 33.6 RDW 13.3 Plt Count 267 Sodium Potassium Chloride Carbon Dioxide Anion Gap BUN Creatinine Est GFR ( Amer) Est GFR (Non-Af Amer) Glucose Calcium Fluid Total Protein 1.0 Fluid LDH 33 11/16/16 05:25 WBC RBC Hgb Hct MCV MCH MCHC RDW Plt Count Sodium 137.2 Potassium 4.4 Chloride 99 Carbon Dioxide 32 H Anion Gap 6 BUN 30 H Creatinine 1.49 H Est GFR ( Amer) 41 L Est GFR (Non-Af Amer) 34 L Glucose 100 Calcium 9.2 Fluid Total Protein Fluid LDH 11/14/16 10:12 Pleural Fluid - Right Pleural Effusion AFB Smear Concentration - Final 11/14/16 10:12 Pleural Fluid - Right Pleural Effusion Acid Fast Bacilli Smear - Final 11/10/16 11/10/16 11/10/16 12:31 12:31 16:43 Creatine Kinase 62 76 CK-MB (CK-2) 3.24 Troponin I 0.067 11/10/16 11/10/16 11/10/16 16:43 22:30 22:30 Creatine Kinase 59 CK-MB (CK-2) 2.77 2.86 Troponin I 0.059 0.067 Impressions: Chest CT 11/10/16 00:00 IMPRESSION: Moderate bilateral pleural effusions, similar compared to 2015 Renal Ultrasound 11/10/16 00:00 IMPRESSION: Atrophic right kidney. No hydronephrosis. Chest Ultrasound 11/13/16 00:00 IMPRESSION: Right moderate pleural effusion similar compared to pre thoracentesis imaging on 11/02/2016 Small to moderate left pleural effusion similar compared to CT exam 11/10/2016 Chest X-Ray 11/14/16 00:00 IMPRESSION: No pneumothorax 2 hours following thoracentesis. Thoracentesis Ultrasound 11/14/16 12:57 IMPRESSION: SUCCESSFUL DIAGNOSTIC AND THERAPEUTIC RIGHT THORACENTESIS USING ULTRASOUND GUIDANCE. Assessment & Plan - Diagnosis (1) CHF (congestive heart failure) Qualifiers: Congestive heart failure type: diastolic Congestive heart failure chronicity: acute on chronic Qualified Code(s): I50.33 - Acute on chronic diastolic (congestive) heart failure Is this a current diagnosis for this admission?: Yes (2) Chronic obstruct airways disease Qualifiers: Emphysema type: unspecified Is this a current diagnosis for this admission?: Yes
[2016-11-16] MEDS: SIMVASTATIN 40 MG TABLET PO SCH (21:40)
[2016-11-17 05:17] LABS: HEMATOCRIT 33.7 % (36.0-47.0); HEMOGLOBIN 11.4 g/dL (12.0-15.5); HGB HCT DIFFERENCE 0.5; MEAN CORPUSCULAR HGB CONC 33.7 g/dL (32.0-36.0); MEAN CORPUSCULAR VOLUME 95 fl (80-97); RED BLOOD COUNT 3.55 10^6/uL (3.72-5.28); RED CELL DISTRIBUTION WIDTH 13.6 % (11.5-14.0); WHITE BLOOD COUNT 7.5 10^3/uL (4.0-10.5)
[2016-11-17 05:48] LABS: ANION GAP 8 (5-19); BLOOD UREA NITROGEN 31 mg/dL (7-20); CALCIUM 8.7 mg/dL (8.4-10.2); CARBON DIOXIDE 30 mmol/L (22-30); CHLORIDE 98 mmol/L (98-107); CREATININE RESULT 1.48 mg/dL (0.52-1.25); GLUCOSE 99 mg/dL (75-110); POTASSIUM 3.9 mmol/L (3.6-5.0); SODIUM 136.4 mmol/L (137-145)
[2016-11-17] MEDS: IPRATROPIUM/ALBUTEROL 0.5-2.5 MG/3 ML AMPUL NEB SCH ×3 (08:33→20:51)
[2016-11-17] MEDS: APIXABAN 2.5 MG TABLET PO SCH ×2 (10:37→18:40)
[2016-11-17] MEDS: TIOTROPIUM BROMIDE DPI 5 CAP/KIT (18 MCG/CAP) IH SCH (10:37)
[2016-11-17] MEDS: FUROSEMIDE 20 MG TABLET PO SCH ×2 (10:37→18:40)
[2016-11-17] MEDS: DOCUSATE SODIUM 100 MG CAPSULE PO SCH ×2 (10:37→18:40)
[2016-11-17] MEDS: LANSOPRAZOLE 15 MG TAB.RAP.DR PO SCH ×2 (10:37→18:42)
[2016-11-17] MEDS: MAG HYDROX/AL HYDROX/SIMETH SUSP 30 ML UDCUP PO PRN ×2 (10:40→18:41)
[2016-11-17] MEDS: DILTIAZEM HCL 120 MG CAP.SR.24H PO SCH (14:30)
--- NOTE | 2016-11-17 14:49 | PROGRESS NOTE E ---
Progress Note NAME: SALOME MOSLEY : 1940 AGE: 76Y DATE: 11/17/2016 ROOM: 334 SUBJECTIVE: The patient remains in sinus rhythm. She denies any chest pain or discomfort. There is no shortness of breath. There is no PND or orthopnea. There is no palpitations. There is no chest pain or discomfort. There is no pedal edema. There is TIA or CVA symptoms. There is no bleeding on Eliquis. OBJECTIVE: VITAL SIGNS: She is afebrile with temperature of 98.2 degrees Fahrenheit orally, pulse is 73 beats/minute, blood pressure is 107/62, respirations are 19 per minute, O2 sats are 95% on 3L nasal cannula. GENERAL: The patient is well-built and well-nourished in no acute distress. HEENT: Normocephalic, atraumatic. Pupils are equal, round, and reactive to light and accommodation. Extraocular movements are normal. There is no conjunctival pallor. There is no scleral icterus. ENT is negative. NECK: Supple. There is no JVD. Carotids are equal. There is no bruit. Trachea is central. There is no goiter. There is no lymphadenopathy. LUNGS: Diminished air entry and prolonged expiration in auscultation. There are a few dry crackles in the right base. There is hyperresonance throughout exam on percussion. HEART: S1 and S2 is heard. There is no S3 gallop. There is no S4 gallop. There is S2 of normal intensity. There is systolic murmur at in the aortic area and 1/6 pansystolic murmur in the mitral area. There are no rubs. There are no gallops. ABDOMEN: Soft, nontender. There is no hepatosplenomegaly. Bowel sounds are well heard. EXTREMITIES: Femorals are slightly diminished. There are no femoral bruits. Leg pulses are diminished. There is no pedal edema. There There is no calf tenderness. There is no cyanosis or clubbing. CENTRAL NERVOUS SYSTEM: The patient is conscious, awake, alert and oriented x3 with no focal deficits. PSYCHIATRIC: The patient's judgment and insight are intact. Her affect is normal. LABORATORY DATA: The patient's 24 hour intake is 9928 mL in and 1950 mL out. The patient's chest x-ray shows trace bilateral pleural effusions with area of atelectasis in both bases, which is mild. My interpretation is that there is no congestive heart failure. The patient's white count is 7500, hemoglobin 11.4, hematocrit 33.7, platelet count 276,000. The patient's sodium is 136.4, potassium 3.9, chloride 98, CO2 is 30. The patient's BUN is 31, creatinine 1.48. GFR is reduced to 34 mL, which is chronic kidney disease stage 3. The patient's glucose is 99. The patient's calcium is 8.7. The patient's fluid LDH is 33. The patient's fluid albumin is 0.6. Total protein is 1.0. The patient's glucose is 116. *------* transudate. ASSESSMENT: 1. CONGESTIVE HEART FAILURE, MOST LIKELY THIS IS SECONDARY TO RIGHT HEART FAILURE SECONDARY TO PULMONARY HYPERTENSION. 2. PLEURAL EFFUSION, STATUS POST PARACENTESIS ON THE RIGHT SIDE, BUT NOW ONLY TRACE PLEURAL EFFUSION. THE PLEURAL EFFUSION IS TRANSUDATE, MOST LIKELY SECONDARY TO HEART FAILURE. 3. CHRONIC KIDNEY DISEASE STAGE 3. 4. COPD, AT PRESENT STABLE AND BACK TO BASELINE. NO EVIDENCE OF ACUTE EXACERBATION. Continue the patient's on COPD inhalers. 5. PAROXYSMAL ATRIAL FIBRILLATION. THE PATIENT IS IN SINUS RHYTHM AFTER ABLATION. Continue the patient's Cardizem CD and Eliquis. 6. MODERATE PULMONARY HYPERTENSION, BUT UPPER NORMAL LEFT VENTRICULAR SYSTOLIC FUNCTION ON 2016 ECH[address]IOGRAM. Would recommend to place the patient on incentive spirometry. Continue the patient on Eliquis and Cardizem CD. Continue Zocor. Would continue with Levaquin for now. Continue Prilosec. The patient's condition is stable. Note 30 minutes spent on this patient including more than 50% of the time spent on direct patient care and also discussions with the patient. Also reviewing the patient's medications and ordering incentive spirometry and also discussions with the other physicians and care providers in this case. We will sign off the case. We will follow the patient in the office since she is a patient of mine. DICTATING PHYSICIAN: LOYDA WAGNER M.D. [id number] PHY#: [id number] ID: [id number] JOB#: [id number] ACCT: [id number] cc: >
[2016-11-17] MEDS ORDERED: LORAZEPAM 0.5 MG TABLET PO PRN (16:59)
--- NOTE | 2016-11-17 17:04 | PDOC PROGRESS REPORT ---
Subjective Progress Note for:: 11/17/16 Subjective:: There is no new complaint today Physical Exam Vital Signs: Temp Pulse Resp BP Pulse Ox 98.0 F 84 16 132/51 H 94 11/17/16 12:15 11/17/16 14:22 11/17/16 14:22 11/17/16 12:15 11/17/16 14:22 Intake & Output 11/16/16 11/17/16 11/18/16 06:59 06:59 06:59 Intake Total 975 928 480 Output Total 600 1950 400 Balance 375 -1022 80 Weight 56.6 kg 56.3 kg General appearance: PRESENT: no acute distress Eye exam: PRESENT: PERRLA Respiratory exam: PRESENT: decreased breath sounds Cardiovascular exam: PRESENT: +S1, +S2 Results Laboratory Results: 11/17/16 04:58 11/17/16 04:58 11/14/16 11/14/16 11/17/16 10:13 10:13 04:58 WBC 7.5 RBC 3.55 L Hgb 11.4 L Hct 33.7 L MCV 95 MCH 32.0 MCHC 33.7 RDW 13.6 Plt Count 267 Sodium Potassium Chloride Carbon Dioxide Anion Gap BUN Creatinine Est GFR ( Amer) Est GFR (Non-Af Amer) Glucose Calcium Fluid Glucose 116 Fluid Albumin 0.6 11/17/16 04:58 WBC RBC Hgb Hct MCV MCH MCHC RDW Plt Count Sodium 136.4 L Potassium 3.9 Chloride 98 Carbon Dioxide 30 Anion Gap 8 BUN 31 H Creatinine 1.48 H Est GFR ( Amer) 41 L Est GFR (Non-Af Amer) 34 L Glucose 99 Calcium 8.7 Fluid Glucose Fluid Albumin 11/14/16 10:12 Pleural Fluid - Right Pleural Effusion Fungal Smear - Final 11/14/16 10:12 Pleural Fluid - Right Pleural Effusion Fungal Smear - Final 11/14/16 10:12 Pleural Fluid - Right Pleural Effusion Fungal Smear - Final 11/10/16 11/10/16 11/10/16 12:31 12:31 16:43 Creatine Kinase 62 76 CK-MB (CK-2) 3.24 Troponin I 0.067 11/10/16 11/10/16 11/10/16 16:43 22:30 22:30 Creatine Kinase 59 CK-MB (CK-2) 2.77 2.86 Troponin I 0.059 0.067 Impressions: Chest CT 11/10/16 00:00 IMPRESSION: Moderate bilateral pleural effusions, similar compared to 2015 Renal Ultrasound 11/10/16 00:00 IMPRESSION: Atrophic right kidney. No hydronephrosis. Chest Ultrasound 11/13/16 00:00 IMPRESSION: Right moderate pleural effusion similar compared to pre thoracentesis imaging on 11/02/2016 Small to moderate left pleural effusion similar compared to CT exam 11/10/2016 Thoracentesis Ultrasound 11/14/16 12:57 IMPRESSION: SUCCESSFUL DIAGNOSTIC AND THERAPEUTIC RIGHT THORACENTESIS USING ULTRASOUND GUIDANCE. Chest X-Ray 11/17/16 00:00 IMPRESSION: Trace bilateral pleural effusions Maureen lines at both bases from mild interstitial edema Bibasilar airspace disease, likely atelectasis Assessment & Plan - Diagnosis (1) CHF (congestive heart failure) Qualifiers: Congestive heart failure type: diastolic Congestive heart failure chronicity: acute on chronic Qualified Code(s): I50.33 - Acute on chronic diastolic (congestive) heart failure Is this a current diagnosis for this admission?: Yes (2) Chronic obstruct airways disease Qualifiers: Emphysema type: unspecified Is this a current diagnosis for this admission?: Yes
[2016-11-17] MEDS: SIMVASTATIN 40 MG TABLET PO SCH (21:41)
[2016-11-18] MEDS: IPRATROPIUM/ALBUTEROL 0.5-2.5 MG/3 ML AMPUL NEB SCH (08:42)
[2016-11-18] MEDS: FUROSEMIDE 20 MG TABLET PO SCH (09:35)
[2016-11-18] MEDS: LANSOPRAZOLE 15 MG TAB.RAP.DR PO SCH (09:35)
[2016-11-18] MEDS: TIOTROPIUM BROMIDE DPI 5 CAP/KIT (18 MCG/CAP) IH SCH (09:35)
[2016-11-18] MEDS: DOCUSATE SODIUM 100 MG CAPSULE PO SCH (09:35)
[2016-11-18] MEDS: APIXABAN 2.5 MG TABLET PO SCH (09:36)
[2016-11-18] MEDS: MAG HYDROX/AL HYDROX/SIMETH SUSP 30 ML UDCUP PO PRN (09:38)
[2016-11-18 10:44] VITALS: BP 110/61
--- NOTE | 2016-11-20 15:52 | PDOC DISCHARGE SUMMARY ---
General - Admit/Disc Date/PCP Admission Date/Primary Care Provider: 11/10/16 09:08 CHEYENNE VILLARREAL MD Discharge Date: 11/18/16 - Discharge Diagnosis (1) Pneumonia Is this a current diagnosis for this admission?: YesSummary: resolved (2) COPD (chronic obstructive pulmonary disease) Is this a current diagnosis for this admission?: YesSummary: stable (3) Recurrent pleural effusion on right Is this a current diagnosis for this admission?: YesSummary: from chf And is mostly transudate fluid (4) Hypoxia Is this a current diagnosis for this admission?: YesSummary: Patient is currently used the 2 L oxygen at home (5) Atrial fibrillation Is this a current diagnosis for this admission?: YesSummary: Currently on Eliquis (6) CHF (congestive heart failure) Is this a current diagnosis for this admission?: YesSummary: Continues the Lasix (7) Acute renal failure Is this a current diagnosis for this admission?: YesSummary: All stable (8) Hyponatremia Is this a current diagnosis for this admission?: YesSummary: Resolved - Additional Information Resuscitation Status: Full Code Discharge Activity: Activity As Tolerated, Balance Activity w/Rest, Weigh Daily Home Medications: Apixaban [Eliquis 2.5 mg Tablet] 2.5 mg PO BID 11/10/16 Diltiazem HCl [Diltiazem 24Hr Cd] 120 mg PO DAILY 11/10/16 Docusate Sodium [Colace 100 mg Capsule] 100 mg PO BID 11/10/16 Furosemide [Lasix 20 mg Tablet] 20 mg PO DAILY 11/10/16 Omeprazole 20 mg PO BID 11/10/16 Simvastatin [Zocor 40 mg Tablet] 40 mg PO QHS 11/10/16 Tiotropium [place] [Spiriva Respimat] 2 sprays IH DAILY 11/10/16 Vit A/Vit C/Vit E/Zinc/Copper [Preservision Areds Softgel] 1 cap PO BID Levofloxacin [Levaquin 250 mg Tablet] 250 mg PO DAILY #7 tablet 11/18/16 History of Present Illness History of Present Illness: SALOME MOSLEY is a 76 year old female This is a 76-year-old female centrally admitted in the hospital for the COPD and congestive heart failure and right-sided pleural effusion and underwent for the thoracocentesis and remove the 6 and is in a so some inflammatory cells but no sign of any malignancy. Patient's came today because patient's noticed that her oxygen tank was not working overnight and patient more difficulty in breathing is and is coughing a lot and it was a department patient's and found some again right-sided pleural effusion and possible pneumonia and decided to admit for further evaluation and treatment patient's kidney function is also worsening abdomen discharge is currently on a Lasix 20 mg by mouth daily. When I saw the patient in the room rations denied any chest discomfort comfortably sitting when the age of the back family on the bedside Hospital Course Hospital Course: This is a 76-year-old female is with a history of the congestive heart failure history of the chronic atrial fibrillations and the COPD and oxygen dependent came to the emergency department with the complaint was shortness of the breath. Patient have a history of the right-sided pleural effusion and thoracocentesis was done couple of weeks back patient again noticed the right- sided pleural effusions and patient was treated with IV antibiotics and IV Lasix. Patient again underwent for the diastolic thoracocentesis and initial workup so the patient have a transudate fluid which is most likely a coming from congestive heart failure on top of chronic kidney disease. Patient also treated with IV antibiotics. Patient's back to the baseline. Patient seen by Dr. Phoenix and also seen by Dr. Forman and patient underwent for thoracocentesis. Discussed with the family on discharge regarding the patient' s current condition. The cytology report is still pending. Physical Exam Vital Signs: Temp Pulse Resp BP Pulse Ox 98.1 F 75 20 110/61 95 11/18/16 10:40 11/18/16 10:40 11/18/16 10:40 11/18/16 10:40 11/18/16 10:40 General appearance: PRESENT: no acute distress, well-developed, well-nourished Head exam: PRESENT: atraumatic, normocephalic Eye exam: PRESENT: conjunctiva pink, EOMI, PERRLA. ABSENT: scleral icterus Ear exam: PRESENT: normal external ear exam Mouth exam: PRESENT: moist, tongue midline Neck exam: PRESENT: full ROM. ABSENT: carotid bruit, JVD, lymphadenopathy, thyromegaly Cardiovascular exam: PRESENT: RRR. ABSENT: diastolic murmur, rubs, systolic murmur Pulses: PRESENT: normal dorsalis pedis pul, +2 pedal pulses bilateral Vascular exam: PRESENT: normal capillary refill GI/Abdominal exam: PRESENT: normal bowel sounds, soft. ABSENT: distended, guarding, mass, organolmegaly, rebound, tenderness Rectal exam: PRESENT: deferred Neurological exam: PRESENT: alert, awake, oriented to person, oriented to place , oriented to time, oriented to situation, CN II-XII grossly intact. ABSENT: motor sensory deficit Psychiatric exam: PRESENT: appropriate affect, normal mood. ABSENT: homicidal ideation, suicidal ideation Skin exam: PRESENT: dry, intact, warm. ABSENT: cyanosis, rash Results Laboratory Results: 11/17/16 04:58 11/17/16 04:58 11/10/16 11/10/16 11/10/16 12:31 12:31 16:43 Creatine Kinase 62 76 CK-MB (CK-2) 3.24 Troponin I 0.067 11/10/16 11/10/16 11/10/16 16:43 22:30 22:30 Creatine Kinase 59 CK-MB (CK-2) 2.77 2.86 Troponin I 0.059 0.067 Impressions: Chest CT 11/10/16 00:00 IMPRESSION: Moderate bilateral pleural effusions, similar compared to 2015 Renal Ultrasound 11/10/16 00:00 IMPRESSION: Atrophic right kidney. No hydronephrosis. Chest Ultrasound 11/13/16 00:00 IMPRESSION: Right moderate pleural effusion similar compared to pre thoracentesis imaging on 11/02/2016 Small to moderate left pleural effusion similar compared to CT exam 11/10/2016 Thoracentesis Ultrasound 11/14/16 12:57 IMPRESSION: SUCCESSFUL DIAGNOSTIC AND THERAPEUTIC RIGHT THORACENTESIS USING ULTRASOUND GUIDANCE. Chest X-Ray 11/17/16 00:00 IMPRESSION: Trace bilateral pleural effusions Maureen lines at both bases from mild interstitial edema Bibasilar airspace disease, likely atelectasis Plan Time Spent: Less than 30 Minutes - Follow as outpatients in a one-week repeat the chest x-ray and the CBC and Chem-7 and follow outpatients cardiology
== END 2016-11-18 11:37 | disposition home or self-care (01) | DRG 193 ==
LOC: ER 04:54 → EH 07:34 → UNDOADMIN 07:34 → EH 09:08 → 3S 09:58 → EH 09:58
PROVIDERS: ADMIT Family Medicine; ATTEND Family Medicine
PROC: 0W993ZZ Drainage of Right Pleural Cavity, Percutaneous Approach (ICD-10-PCS; principal; 2016-11-14)
DX: J18.9 Pneumonia, unspecified organism (principal); I50.33 Acute on chronic diastolic (congestive) heart failure; J90 Pleural effusion, not elsewhere classified; N17.9 Acute kidney failure, unspecified; E87.1 Hypo-osmolality and hyponatremia; J44.9 Chronic obstructive pulmonary disease, unspecified; R09.02 Hypoxemia; I48.0 Paroxysmal atrial fibrillation; Z99.81 Dependence on supplemental oxygen; N18.3 Chronic kidney disease, stage 3 (moderate); E78.5 Hyperlipidemia, unspecified; I27.2 Other secondary pulmonary hypertension; K21.9 Gastro-esophageal reflux disease without esophagitis; K44.9 Diaphragmatic hernia without obstruction or gangrene; Z79.899 Other long term (current) drug therapy; Z88.8 Allergy status to other drugs, medicaments and biological substances; Z91.018 Allergy to other foods
CPT/HCPCS: 32555; 36415; 71010; 71020; 71250; 76604; 76770; 80048; 80053; 80076; 82042; 82550; 82553; 82803; 82945; 83615; 83880; 83930; 83935; 84157; 84300; 84484; 85025; 85027; 85610; 85730; 86225; 86235; 86430; 87015; 87040; 87070; 87075; 87101; 87116; 87205; 87206; 88305; 88341; 88342; 89050; 93005; 93010; 94640; 94799; 99285; G8978-GP; G8979-GP; G8980-GP; J0692; J1940; J1956; J3490; J7620

== ENCOUNTER → 2016-11-25 | Outpatient (CLI) | payer MEDICARE, OTHER ==
[2016-11-25 13:10] LABS: ABSOLUTE BASOPHILS # (AUTO) 0.1 10^3/uL (0.0-0.2); ABSOLUTE LYMPHOCYTES (AUTO) 1.3 10^3/uL (0.5-4.7); ABSOLUTE MONOCYTES (AUTO) 0.7 10^3/uL (0.1-1.4); ABSOLUTE NEUT (AUTO) 8.1 10^3/uL (1.7-8.2); BASOPHILS % (AUTO) 0.5 % (0-2); EOSINOPHILS % (AUTO) 0.2 % (0-6); HEMATOCRIT 36.3 % (36.0-47.0); HEMOGLOBIN 12.2 g/dL (12.0-15.5); HGB HCT DIFFERENCE 0.3; LYMPHOCYTES % (AUTO) 12.5 % (13-45); MEAN CORPUSCULAR HEMOGLOBIN 31.7 pg (27.0-33.4); MEAN CORPUSCULAR HGB CONC 33.7 g/dL (32.0-36.0); MEAN CORPUSCULAR VOLUME 94 fl (80-97); MONOCYTES % (AUTO) 6.8 % (3-13); RED BLOOD COUNT 3.86 10^6/uL (3.72-5.28); WHITE BLOOD COUNT 10.1 10^3/uL (4.0-10.5)
[2016-11-25 13:33] LABS: ANION GAP 10 (5-19); BLOOD UREA NITROGEN 30 mg/dL (7-20); CALCIUM 9.4 mg/dL (8.4-10.2); CARBON DIOXIDE 24 mmol/L (22-30); CHLORIDE 102 mmol/L (98-107); CREATININE RESULT 1.62 mg/dL (0.52-1.25); GLUCOSE 100 mg/dL (75-110); POTASSIUM 4.3 mmol/L (3.6-5.0); SODIUM 135.9 mmol/L (137-145)
== END ==
LOC: OD 12:02
PROVIDERS: ATTEND Physician Assistant
DX: R06.02 Shortness of breath (principal); R07.9 Chest pain, unspecified
CPT/HCPCS: 36415; 71020; 80048; 84484; 85025

== ENCOUNTER 2016-12-05 06:19 | Inpatient (IN) | payer MEDICARE, OTHER ==
[2016-12-05 06:45] LABS: ABSOLUTE BASOPHILS # (AUTO) 0.1 10^3/uL (0.0-0.2); ABSOLUTE LYMPHOCYTES (AUTO) 0.9 10^3/uL (0.5-4.7); ABSOLUTE MONOCYTES (AUTO) 0.5 10^3/uL (0.1-1.4); ABSOLUTE NEUT (AUTO) 2.9 10^3/uL (1.7-8.2); BASOPHILS % (AUTO) 3.3 % (0-2); HEMATOCRIT 43.1 % (36.0-47.0); HEMOGLOBIN 14.4 g/dL (12.0-15.5); HGB HCT DIFFERENCE 0.1; LYMPHOCYTES % (AUTO) 20.1 % (13-45); MEAN CORPUSCULAR HEMOGLOBIN 31.7 pg (27.0-33.4); MEAN CORPUSCULAR HGB CONC 33.5 g/dL (32.0-36.0); MEAN CORPUSCULAR VOLUME 95 fl (80-97); MONOCYTES % (AUTO) 10.9 % (3-13); RED BLOOD COUNT 4.54 10^6/uL (3.72-5.28); RED CELL DISTRIBUTION WIDTH 13.6 % (11.5-14.0); SEGMENTED NEUTROPHILS % (AUTO) 65.7 % (42-78); WHITE BLOOD COUNT 4.4 10^3/uL (4.0-10.5)
[2016-12-05 07:04] LABS: ALANINE AMINOTRANSFERASE 40 U/L (9-52); ALBUMIN 3.8 g/dL (3.5-5.0); ALKALINE PHOSPHATASE 104 U/L (38-126); ANION GAP 15 (5-19); ASPARTATE AMINO TRANSFERASE 34 U/L (14-36); BILIRUBIN,TOTAL 0.5 mg/dL (0.2-1.3); BLOOD UREA NITROGEN 18 mg/dL (7-20); CALCIUM 9.8 mg/dL (8.4-10.2); CARBON DIOXIDE 21 mmol/L (22-30); CHLORIDE 97 mmol/L (98-107); CREATINE KINASE 74 U/L (30-135); CREATININE RESULT 1.42 mg/dL (0.52-1.25); GLUCOSE 129 mg/dL (75-110); POTASSIUM 4.4 mmol/L (3.6-5.0); SODIUM 132.8 mmol/L (137-145)
[2016-12-05 07:15] LABS: CREATINE KINASE MB 2.02 ng/mL (<4.55)
[2016-12-05 07:18] LABS: TROPONIN I 0.115 ng/mL
[2016-12-05 07:40] LABS: VENOUS BLOOD BASE EXCESS -4.7 mmol/L; VENOUS BLOOD HCO3 23.3 mmol/L (20-32); VENOUS BLOOD PCO2 54.4 mmHg (35-63); VENOUS BLOOD PH 7.25 (7.30-7.42)
--- NOTE | 2016-12-05 08:18 | EKG REPORT ---
SEVERITY:- ABNORMAL ECG - SINUS RHYTHM VENTRICULAR PREMATURE COMPLEX PROBABLE LEFT ATRIAL ABNORMALITY LOW VOLTAGE THROUGHOUT BORDERLINE R WAVE PROGRESSION, ANTERIOR LEADS BORDERLINE T WAVE ABNORMALITIES : Confirmed by: Liya Phoenix MD 05-Dec-2016 08:18:18
[2016-12-05] MEDS ORDERED: FUROSEMIDE INJ/PF 40 MG/4 ML SDV IV ONE (08:40)
--- NOTE | 2016-12-05 09:02 | ER Document Report ---
ED General - General Chief Complaint: Respiratory Distress Stated Complaint: DIFFICULTY BREATHING TRAVEL OUTSIDE OF THE [place] IN LAST 30 DAYS: No - HPI Patient complains to provider of: respiratory distress Notes: Patient coming in for short distress. Patient trouble breathing in the last few days according to EMS report. Patient has a history of CHF. Patient denies any chest pain abdominal pain fevers chills nausea vomiting. Patient states she has been compliant with her medications. Upon evaluation very tachypneic requiring BiPAP. Patient does have audible rales and two 3 word dyspnea - Related Data Allergies/Adverse Reactions: sulfamethoxazole [From Bactrim] Allergy (Verified 12/05/16 07:09) trimethoprim [From Bactrim] Allergy (Verified 12/05/16 07:09) nut - unspecified Adverse Reaction (Verified 12/05/16 07:09) aggravates diverticulitis. Past Medical History - Social History Smoking Status: Unknown if Ever Smoked Family History: Reviewed & Not Pertinent, CAD - in both parents but not premature - Past Medical History Cardiac Medical History: Reports: Hx Atrial Fibrillation, Hx Congestive Heart Failure, Hx Hypercholesterolemia Denies: Hx Heart Attack, Hx Hypertension Pulmonary Medical History: Reports: Hx COPD Denies: Hx Asthma, Hx Bronchitis, Hx Pneumonia Neurological Medical History: Denies: Hx Seizures GI Medical History: Reports: Hx Gastroesophageal Reflux Disease, Hx Hiatal Hernia Musculoskeltal Medical History: Denies Hx Arthritis Psychiatric Medical History: Denies: Hx Depression Past Surgical History: Reports: Hx Bowel Surgery, Hx Cardiac Surgery - cardiac ablation, Other - Ablation. Denies: Hx Hysterectomy, Hx Mastectomy - Immunizations Hx Diphtheria, Pertussis, Tetanus Vaccination: No Review of Systems - Review of Systems Constitutional: No symptoms reported EENT: No symptoms reported Cardiovascular: No symptoms reported Respiratory: Short of breath, Other - Respiratory distress Gastrointestinal: No symptoms reported Genitourinary: No symptoms reported Female Genitourinary: No symptoms reported Musculoskeletal: No symptoms reported Skin: No symptoms reported Hematologic/Lymphatic: No symptoms reported Neurological/Psychological: No symptoms reported -: Yes All other systems reviewed and negative Physical Exam - Vital signs Vitals: Temp 97.5 F 12/05/16 06:25 Interpretation: Hypoxic, Tachypneic - General General appearance: Appears well, Alert - HEENT Head: Normocephalic, Atraumatic Eyes: Normal Pupils: PERRL - Respiratory Respiratory status: Respiratory distress Chest status: Nontender Breath sounds: Rales, Wheezing Chest palpation: Normal - Cardiovascular Rhythm: Regular Heart sounds: Normal auscultation Murmur: No - Abdominal Inspection: Normal Distension: No distension Bowel sounds: Normal Tenderness: Nontender Organomegaly: No organomegaly - Back Back: Normal, Nontender - Extremities General upper extremity: Normal inspection, Nontender, Normal color, Normal ROM , Normal temperature General lower extremity: Normal inspection, Nontender, Normal color, Normal ROM , Normal temperature, Normal weight bearing. No: Elmo's sign - Neurological Neuro grossly intact: Yes Cognition: Normal Orientation: AAOx4 [place] Coma Scale Eye Opening: Spontaneous Starla Coma Scale Verbal: Oriented [place] Coma Scale Motor: Obeys Commands [place] Coma Scale Total: 15 Speech: Normal Motor strength normal: LUE, RUE, LLE, RLE Sensory: Normal - Psychological Associated symptoms: Normal affect, Normal mood - Skin Skin Temperature: Warm Skin Moisture: Dry Skin Color: Normal Course - Re-evaluation Re-evalutation: 12/05/16 13:54 Chest x-ray and presentation is consistent with CHF exacerbation. Patient will continue on BiPAP will be given Lasix. Discussed recovery PCP will the patient for further evaluation. - Vital Signs Vital signs: Temp Pulse Resp BP Pulse Ox 97.5 F 89 30 H 118/61 96 12/05/16 06:25 12/05/16 10:37 12/05/16 10:37 12/05/16 09:02 12/05/16 10:37 - Laboratory Result Diagrams: 12/05/16 06:34 12/05/16 06:34 Laboratory results interpreted by me: 12/05/16 12/05/16 12/05/16 06:34 06:34 06:34 Basophils % 3.3 H VBG pH Sodium 132.8 L Chloride 97 L Carbon Dioxide 21 L Creatinine 1.42 H Est GFR ( Amer) 43 L Est GFR (Non-Af Amer) 36 L Glucose 129 H NT-Pro-B Natriuret Pep 9120 H Urine Protein Urine Ascorbic Acid 12/05/16 12/05/16 06:34 09:19 Basophils % VBG pH 7.25 L Sodium Chloride Carbon Dioxide Creatinine Est GFR ( Amer) Est GFR (Non-Af Amer) Glucose NT-Pro-B Natriuret Pep Urine Protein >=500 H Urine Ascorbic Acid 20 H Critical Care Note - Critical Care Note Total time excluding time spent on procedures (mins): 35 Comments: Multiple evaluations for her story stress CHF exacerbation requiring BiPAP Discharge - Discharge Clinical Impression: Hypoxia, Hyponatremia, Renal insufficiency, Shortness of breath, Pleural effusion, indeterminate troponin CHF (congestive heart failure) Qualifiers: Congestive heart failure type: diastolic Congestive heart failure chronicity: acute on chronic Qualified Code(s): I50.33 - Acute on chronic diastolic ( congestive) heart failure Condition: Fair Disposition: ADMITTED INPATIENT Admitting Provider: [facility] Admitted: [facility]
[2016-12-05] MEDS ORDERED: ACETAMINOPHEN 325 MG TABLET PO PRN (09:37)
[2016-12-05] MEDS ORDERED: ONDANSETRON HCL INJ/PF 4 MG/2 ML SDV IV PRN (09:37)
[2016-12-05] MEDS ORDERED: ENOXAPARIN SODIUM INJ 30 MG/0.3 ML DISP.SYRIN SUBCUT ONE (10:00)
[2016-12-05 10:14] LABS: AMORPHOUS SEDIMENT,URINE TRACE /HPF; APPEARANCE,URINE SLIGHTLY-CLOUDY; BILIRUBIN,URINE NEGATIVE (NEGATIVE); GLUCOSE, URINE NEGATIVE (NEGATIVE); KETONES,URINE NEGATIVE (NEGATIVE); LEUKOCYTE ESTERASE,URINE NEGATIVE (NEGATIVE); NITRITE,URINE NEGATIVE (NEGATIVE); PROTEIN,URINE >=500 mg/dL (NEGATIVE); URINE SPECIFIC GRAVITY 1.022; UROBILINOGEN,URINE NEGATIVE mg/dL (<2.0)
[2016-12-05] MEDS: DOCUSATE SODIUM 100 MG CAPSULE PO SCH ×2 (10:22→18:00)
[2016-12-05] MEDS: IPRATROPIUM/ALBUTEROL 0.5-2.5 MG/3 ML AMPUL NEB PRN (10:37)
--- NOTE | 2016-12-05 11:18 | PDOC CONSULTATION ---
Consultation Consult Date: 12/05/16 Attending physician:: CHEYENNE VILLARREAL Consult reason:: Congestive heart failure History of Present Illness Admission Date/PCP: 12/05/16 09:35 CHEYENNE VILLARREAL MD Patient complains of: Shortness of breath History of Present Illness: SALOME MOSLEY is a 76 year old female, with history of congestive heart failure , recurrent bilateral pleural effusion who started noticing shortness of breath over last few days which progressively got worse necessitating ER visit early this morning. Patient has been placed on bilevel therapy and feels better. She has history of chronic congestive heart failure being admitted to the hospital for this reason earlier this year. Patient is denying any chest pain. She is noted to have a normal troponin I elevation. Patient also has a history of chronic kidney disease. Past Medical History Cardiac Medical History: Reports: Atrial Fibrillation, Congestive Heart Failure , Hyperlipidema Denies: Myocardial Infarction, Hypertension Pulmonary Medical History: Reports: Chronic Obstructive Pulmonary Disease (COPD) Denies: Asthma, Bronchitis, Pneumonia Neurological Medical History: Denies: Seizures GI Medical History: Reports: Gastroesophageal Reflux Disease, Hiatal Hernia Musculoskeltal Medical History: Denies: Arthritis Psychiatric Medical History: Denies: Depression Hematology: Denies: Anemia, Sickle Cell Disease Past Surgical History Past Surgical History: Reports: Other - Ablation Denies: Amputation, Hysterectomy, Mastectomy Social History Information Source: Patient Smoking Status: Unknown if Ever Smoked Frequency of Alcohol Use: None Hx Recreational Drug Use: No Drugs: None Hx Prescription Drug Abuse: No - Advance Directive Resuscitation Status: Full Code Surrogate healthcare decision maker:: Patient stepchildren. Patient's currently in ICU on ventilator Family History Family History: Reviewed & Not Pertinent, CAD - in both parents but not premature Parental Family History Reviewed: Yes Children Family History Reviewed: Yes Sibling(s) Family History Reviewed.: Yes Medication/Allergy Home Medications: Apixaban [Eliquis 2.5 mg Tablet] 2.5 mg PO Q12 12/05/16 Diltiazem HCl [Diltiazem 24Hr Cd] 120 mg PO DAILY 12/05/16 Docusate Sodium [Colace 100 mg Capsule] 100 mg PO BID 12/05/16 Furosemide [Lasix] 20 mg PO DAILY 12/05/16 Omeprazole 20 mg PO QHS 12/05/16 Simvastatin [Zocor 40 mg Tablet] 40 mg PO QHS 12/05/16 Tiotropium [place] [Spiriva Respimat] 2 sprays IH DAILY 12/05/16 Vit A/Vit C/Vit E/Zinc/Copper [Preservision Areds Softgel] 1 each PO BID Allergies/Adverse Reactions: sulfamethoxazole [From Bactrim] Allergy (Verified 12/05/16 07:09) trimethoprim [From Bactrim] Allergy (Verified 12/05/16 07:09) nut - unspecified Adverse Reaction (Verified 12/05/16 07:09) aggravates diverticulitis. Review of Systems Review of Systems: Please see history of present illness and past medical history as wall. Constitutional: No fever or chills reported. Head : No recent chronic headaches, recent head injury. Eyes: No recent eye pain, diplopia, redness, discharge, acute visual changes. Ears: No recent chronic ear pain, acute hearing loss, ear discharge. Oral cavity: No recent ulcerations, bleeding, oral cavity discomfort. Neck: No recent acute neck pain reported. Hematologic: No recent easy bruising or bleeding or hematologic malignancy reported. Lymphatic: No recent lymphatic malignancy, chronic lymphadenopathy reported yet Cardiovascular system review: See history of present illness. History of intermittent palpitations but no syncope or near syncope. Respiratory system review: No recent chronic cough, hemoptysis, blood clots in the lungs reported. Shortness of breath on exertion Gastrointestinal system review: Negative for any recent acute or chronic abdominal pain, hematemesis, melena, recent change in bowel habits. Genitourinary system review: No recent acute or chronic hematuria, flank pain, UTI etc. reported. Skin system review: Negative for any recent abnormal bruising, no rash, no pruritus reported. Neurologic: No prior history of strokes, mini strokes, seizure disorder. Psychologic: No history of major psychosis or depression reported. Musculoskeletal: Minor aches and pains reported. No acute joint swelling reported. Endocrine: No recent polyuria, polydipsia, recent heat or cold intolerance. Physical Exam Vital Signs: Temp Pulse Resp BP Pulse Ox 97.5 F 89 30 H 118/61 96 12/05/16 06:25 12/05/16 10:37 12/05/16 10:37 12/05/16 09:02 12/05/16 10:37 Exam: GENERAL: well-nourished and in no acute distress. Alert and oriented x3 HEAD: Atraumatic, normocephalic. EYES: Pupils equal round and reactive to light, extraocular movements intact, sclera anicteric, conjunctiva are normal. ENT: TMs normal, nares patent, oropharynx clear without exudates. Moist mucous membranes. No oral ulcerations or bleeding gums noted NECK: supple without lymphadenopathy. Trachea is central. No cervical or axillary lymphadenopathy noted. Carotids are 2+, JVD elevated at 10 cm LUNGS: Respiration seems nonlabored, no significant accessory muscle action noted. Bilateral fine crackles noted right more than left. Mild dullness noted both bases. CHEST: Palpation of the chest wall shows no significant chest wall tenderness. No other significant abnormalities noted. 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 ABDOMEN: Soft, no significant tenderness appreciated, normoactive bowel sounds. No guarding, no rebound. No rigidity noted . No masses appreciated. EXTREMITIES: Pedal pulses are 1-2+, no calf tenderness noted. No clubbing or cyanosis.trace to 1+ pedal edema noted NEUROLOGICAL: Focused neurological exam showed no significant neurologic deficit. Normal speech, no focal weakness appreciated. PSYCH: Normal mood, normal affect. Judgment and insight within normal limits. SKIN: No significant ecchymosis, rash, ulcerations or signs of pruritus noted. MUSCULOSKELETAL EXAM: No significant joint swelling noted. Results EKG Comments: Sinus rhythm, no acute ST-T wave changes are noted Impressions: Chest X-Ray 12/05/16 06:21 IMPRESSION: Increase in alveolar and interstitial edema compared to 11/25/2016 Small right, trace left pleural effusion similar compared to 11/25/2016 Assessment & Plan - Diagnosis (1) CHF (congestive heart failure) Qualifiers: Congestive heart failure type: diastolic Congestive heart failure chronicity: acute on chronic Qualified Code(s): I50.33 - Acute on chronic diastolic (congestive) heart failure Is this a current diagnosis for this admission?: YesPlan: This seems decompensated on clinical exam. Recommend intravenous diuretic therapy and then switched to torsemide. Patient should be educated in CHF pathway. This should include salt and fluid restriction, daily weighing, adjustment of diuretic therapy based on weight gain et cetera. Patient to be educated that if there is gain of more than 2 pounds in a day or more than 5 pounds in a week, this indicates fluid retention and patient may need to adjust the diuretic therapy. Symptoms associated with CHF exacerbation to be discussed with the patient. This could include rapid weight gain, abdominal bloating, increased shortness of breath, fatigue, tiredness, cardiac arrhythmias et cetera. (2) History of atrial fibrillation Is this a current diagnosis for this admission?: YesPlan: Patient describes history of ablation. Patient has been noted to maintain sinus rhythm during this admission and also during her previous admission. (3) Pleural effusion Is this a current diagnosis for this admission?: YesPlan: Patient has bilateral pleural effusion. She has history of thoracentesis. Pleural effusion felt to be related to CHF. (4) Renal insufficiency Is this a current diagnosis for this admission?: YesPlan: Patient has renal insufficiency most likely stage III. Creatinine been stable. Avoid any nephrotoxic agents, IV contrast agent dye etc. consider nephrology evaluation. Presence of chronic kidney disease is a prognostic factor. (5) COPD (chronic obstructive pulmonary disease) Qualifiers: COPD type: unspecified COPD Qualified Code(s): J44.9 - Chronic obstructive pulmonary disease, unspecified Is this a current diagnosis for this admission?: YesPlan: Patient has a history of COPD. She is on chronic oxygen supplementation. (6) Elevated troponin Is this a current diagnosis for this admission?: YesPlan: This is felt to be most likely related to CHF. Patient does not have any EKG changes. Continue to monitor this. - Notes Notes: CODE STATUS was discussed, patient remains full code. Surrogate decision-maker patient's stepchildren. She does have a but currently he is on ventilator therapy. Multiple medical problems were addressed. - Time Time Spent: 30 to 50 Minutes - More than 50% of the time spent coordinating care , discussing management plans with involved caregivers. Management plans discussed with involved personnels. Medical decision making was of moderate complexity.
[2016-12-05 12:53] LABS: CREATINE KINASE MB 2.34 ng/mL (<4.55)
[2016-12-05 12:59] LABS: TROPONIN I 0.138 ng/mL
[2016-12-05] MEDS: FUROSEMIDE INJ/PF 20 MG/2 ML SDV IV SCH ×2 (14:22→23:22)
--- NOTE | 2016-12-05 17:11 | PDOC H&P ---
History of Present Illness Admission Date/PCP: 12/05/16 09:37 CHEYENNE VILLARREAL MD Patient complains of: sob History of Present Illness: SALOME MOSLEY is a 76 year old female, with history of congestive heart failure , recurrent bilateral pleural effusion who started noticing shortness of breath over last few days which progressively got worse necessitating ER visit early this morning. Patient has been placed on bilevel therapy and feels better. She has history of chronic congestive heart failure being admitted to the hospital for this reason earlier this year. Patient is denying any chest pain. She is noted to have a normal troponin I elevation. Patient also has a history of chronic kidney disease. Patient is recently is a very noncompliantWhile her was sick in the ICUWith the flulike symptomsIn the respiratory failure. Past Medical History Cardiac Medical History: Reports: Atrial Fibrillation, Congestive Heart Failure , Hyperlipidema Denies: Myocardial Infarction, Hypertension Pulmonary Medical History: Reports: Chronic Obstructive Pulmonary Disease (COPD) Denies: Asthma, Bronchitis, Pneumonia Neurological Medical History: Denies: Seizures GI Medical History: Reports: Gastroesophageal Reflux Disease, Hiatal Hernia Musculoskeltal Medical History: Denies: Arthritis Psychiatric Medical History: Denies: Depression Hematology: Denies: Anemia, Sickle Cell Disease Past Surgical History Past Surgical History: Reports: Other - Ablation Denies: Amputation, Hysterectomy, Mastectomy Social History Smoking Status: Unknown if Ever Smoked Frequency of Alcohol Use: None Hx Recreational Drug Use: No Drugs: None Hx Prescription Drug Abuse: No - Advance Directive Resuscitation Status: Full Code Family History Family History: Reviewed & Not Pertinent, CAD - in both parents but not premature Parental Family History Reviewed: Yes Children Family History Reviewed: Yes Sibling(s) Family History Reviewed.: Yes Medication/Allergy Home Medications: Apixaban [Eliquis 2.5 mg Tablet] 2.5 mg PO Q12 12/05/16 Diltiazem HCl [Diltiazem 24Hr Cd] 120 mg PO DAILY 12/05/16 Docusate Sodium [Colace 100 mg Capsule] 100 mg PO BID 12/05/16 Furosemide [Lasix] 20 mg PO DAILY 12/05/16 Omeprazole 20 mg PO QHS 12/05/16 Simvastatin [Zocor 40 mg Tablet] 40 mg PO QHS 12/05/16 Tiotropium [place] [Spiriva Respimat] 2 sprays IH DAILY 12/05/16 Vit A/Vit C/Vit E/Zinc/Copper [Preservision Areds Softgel] 1 each PO BID Allergies/Adverse Reactions: sulfamethoxazole [From Bactrim] Allergy (Verified 12/05/16 07:09) trimethoprim [From Bactrim] Allergy (Verified 12/05/16 07:09) nut - unspecified Adverse Reaction (Verified 12/05/16 07:09) aggravates diverticulitis. Review of Systems Constitutional: PRESENT: fatigue, weakness. ABSENT: chills, fever(s), headache( s), weight gain, weight loss Eyes: ABSENT: visual disturbances Ears: ABSENT: hearing changes Cardiovascular: PRESENT: dyspnea on exertion. ABSENT: chest pain, edema, orthropnea, palpitations Respiratory: PRESENT: cough. ABSENT: hemoptysis Gastrointestinal: ABSENT: abdominal pain, constipation, diarrhea, hematemesis, hematochezia, nausea, vomiting Genitourinary: ABSENT: dysuria, hematuria Musculoskeletal: ABSENT: joint swelling Integumentary: ABSENT: rash, wounds Neurological: ABSENT: abnormal gait, abnormal speech, confusion, dizziness, focal weakness, syncope Psychiatric: ABSENT: anxiety, depression, homidical ideation, suicidal ideation Endocrine: ABSENT: cold intolerance, heat intolerance, menstrual abnormalities, polydipsia, polyuria Hematologic/Lymphatic: ABSENT: easy bleeding, easy bruising, lymphadenopathy Physical Exam Vital Signs: Temp Pulse Resp BP Pulse Ox 98.0 F 89 19 117/61 96 12/05/16 14:01 12/05/16 10:37 12/05/16 16:01 12/05/16 16:01 12/05/16 16:01 Intake & Output 12/04/16 12/05/16 12/06/16 06:59 06:59 06:59 Output Total 1350 Balance -1350 General appearance: PRESENT: mild distress Head exam: PRESENT: normocephalic Eye exam: PRESENT: PERRLA Neck exam: ABSENT: carotid bruit, full ROM, JVD, lymphadenopathy, meningismus, tenderness, thyromegaly, tracheal deviation, tracheostomy, other Respiratory exam: PRESENT: decreased breath sounds. ABSENT: rhonchi, wheezes Cardiovascular exam: PRESENT: +S1, +S2 GI/Abdominal exam: PRESENT: normal bowel sounds, soft. ABSENT: tenderness Extremities exam: PRESENT: pedal edema Neurological exam: PRESENT: alert, awake, oriented to person, oriented to place , oriented to time, oriented to situation Psychiatric exam: PRESENT: anxious Skin exam: PRESENT: dry Results Laboratory Results: 12/05/16 12/05/16 12:10 12:10 Creatine Kinase 56 CK-MB (CK-2) 2.34 Troponin I 0.138 Impressions: Chest X-Ray 12/05/16 06:21 IMPRESSION: Increase in alveolar and interstitial edema compared to 11/25/2016 Small right, trace left pleural effusion similar compared to 11/25/2016 Assessment & Plan - Diagnosis (1) Respiratory failure Qualifiers: Chronicity: acute Is this a current diagnosis for this admission?: YesPlan: Most likely a from underlying COPD and acute congestive heart failure with the vascularCongestionAnd keep the patient's on the BiPAPAnd consulted pulmonary for further evaluation (2) CHF (congestive heart failure) Qualifiers: Congestive heart failure type: diastolic Congestive heart failure chronicity: acute on chronic Qualified Code(s): I50.33 - Acute on chronic diastolic (congestive) heart failure Is this a current diagnosis for this admission?: YesPlan: With the recurrent acute congestive heartI will start the patient on IV LasixAnd consult cardiology for further evaluation. (3) Chronic renal insufficiency, stage II (mild) Is this a current diagnosis for this admission?: YesPlan: As per discussed with the NephrologyPatient's creatinine is currently StableWe will continues to monitor the patient (4) History of atrial fibrillation Is this a current diagnosis for this admission?: YesPlan: Currently on Eliquis (5) Hypoxia Is this a current diagnosis for this admission?: YesPlan: ptn is a very noncompliance to keep oxygenAnd patient's needs to continues to put the oxygen (6) Shortness of breath Is this a current diagnosis for this admission?: YesPlan: Most likely from the acute congestive heart failure (7) COPD (chronic obstructive pulmonary disease) Qualifiers: COPD type: unspecified COPD Qualified Code(s): J44.9 - Chronic obstructive pulmonary disease, unspecified Is this a current diagnosis for this admission?: YesPlan: Continues the DuoNeb treatment (8) Elevated troponin Is this a current diagnosis for this admission?: YesPlan: Most likely a from the acute congestive heartFailureConsult to cardiology (9) Pleural effusion Is this a current diagnosis for this admission?: YesPlan: Patient have a Thoracocentesis was doneAnd all sorts the transudate fluidWhich consistent with the congestive heart failureAnd no sign of any pneumonia - Time Time Spent: 50 to 70 Minutes Medications reviewed and adjusted accordingly: Yes Anticipated discharge: Home - Inpatient Certification Medical Necessity: Need Close Monitoring Due to Risk of Patient Decompensation, Need For Continuous Telemetry Monitoring Post Hospital Care: D/C Template Reproduction Technician Documentation - Plan Summary Plan Summary: Admit the patient in IMCIn consult to cardiologyAnd consult the pulmonaryStart the patient on IV LasixAnd continues to monitor the patient
[2016-12-05] MEDS ORDERED: DOCUSATE SODIUM 100 MG CAPSULE PO SCH (18:00)
[2016-12-05] MEDS ORDERED: (PENDING PHARMACY ID) (Vit A/Vit C/Vit E/Zinc/Copper [Preservision Areds Softgel] 1 EACH) PO SCH (18:00)
[2016-12-05] MEDS: APIXABAN 2.5 MG TABLET PO SCH (18:45)
[2016-12-05 20:01] LABS: CREATINE KINASE MB 3.92 ng/mL (<4.55); TROPONIN I 0.152 ng/mL
[2016-12-05] MEDS ORDERED: APIXABAN 2.5 MG TABLET PO SCH (22:00)
[2016-12-05] MEDS: LANSOPRAZOLE 15 MG TAB.RAP.DR PO SCH (23:00)
[2016-12-05] MEDS: SIMVASTATIN 40 MG TABLET PO SCH (23:23)
[2016-12-06 01:10] LABS: CREATINE KINASE MB 5.5 ng/mL (<4.55)
[2016-12-06 01:12] LABS: TROPONIN I 0.159 ng/mL
[2016-12-06 07:09] LABS: ANION GAP 8 (5-19); BLOOD UREA NITROGEN 22 mg/dL (7-20); CALCIUM 8.5 mg/dL (8.4-10.2); CARBON DIOXIDE 26 mmol/L (22-30); CHLORIDE 97 mmol/L (98-107); CREATININE RESULT 1.29 mg/dL (0.52-1.25); GLUCOSE 88 mg/dL (75-110); MAGNESIUM 1.8 mg/dL (1.6-2.3); POTASSIUM 3.9 mmol/L (3.6-5.0); SODIUM 130.9 mmol/L (137-145)
[2016-12-06] MEDS ORDERED: ENOXAPARIN SODIUM INJ 30 MG/0.3 ML DISP.SYRIN SUBCUT SCH (08:00)
--- NOTE | 2016-12-06 08:12 | PDOC PROGRESS REPORT ---
Subjective Progress Note for:: 12/06/16 Subjective:: Patient is doing fair patient's denied any chest pain no shortness of the breath and no cough. Physical Exam Vital Signs: Temp Pulse Resp BP Pulse Ox 98.0 F 90 23 H 114/59 L 95 12/05/16 14:01 12/05/16 20:27 12/06/16 07:01 12/06/16 07:01 12/06/16 07:01 Intake & Output 12/05/16 12/06/16 12/07/16 06:59 06:59 06:59 Output Total 2200 Balance -2200 General appearance: PRESENT: no acute distress, well-developed, well-nourished Head exam: PRESENT: atraumatic, normocephalic Eye exam: PRESENT: conjunctiva pink, EOMI, PERRLA. ABSENT: scleral icterus Ear exam: PRESENT: normal external ear exam Mouth exam: PRESENT: moist, tongue midline Neck exam: PRESENT: full ROM. ABSENT: carotid bruit, JVD, lymphadenopathy, thyromegaly Respiratory exam: PRESENT: clear to auscultation [email or web address] Cardiovascular exam: PRESENT: RRR. ABSENT: diastolic murmur, rubs, systolic murmur Pulses: PRESENT: normal dorsalis pedis pul, +2 pedal pulses bilateral Vascular exam: PRESENT: normal capillary refill GI/Abdominal exam: PRESENT: normal bowel sounds, soft. ABSENT: distended, guarding, mass, organolmegaly, rebound, tenderness Rectal exam: PRESENT: deferred Neurological exam: PRESENT: alert, awake, oriented to person, oriented to place , oriented to time, oriented to situation, CN II-XII grossly intact. ABSENT: motor sensory deficit Psychiatric exam: PRESENT: appropriate affect, normal mood. ABSENT: homicidal ideation, suicidal ideation Skin exam: PRESENT: dry, intact, warm. ABSENT: cyanosis, rash Results Laboratory Results: 12/06/16 06:40 12/06/16 06:40 12/06/16 12/06/16 06:40 06:40 WBC Cancelled RBC Cancelled Hgb Cancelled Hct Cancelled MCV Cancelled MCH Cancelled MCHC Cancelled RDW Cancelled Plt Count Cancelled Seg Neutrophils % Cancelled Lymphocytes % Cancelled Monocytes % Cancelled Eosinophils % Cancelled Basophils % Cancelled Absolute Neutrophils Cancelled Absolute Lymphocytes Cancelled Absolute Monocytes Cancelled Absolute Eosinophils Cancelled Absolute Basophils Cancelled Sodium 130.9 L Potassium 3.9 Chloride 97 L Carbon Dioxide 26 Anion Gap 8 BUN 22 H Creatinine 1.29 H Est GFR ( Amer) 48 L Est GFR (Non-Af Amer) 40 L Glucose 88 Calcium 8.5 Magnesium 1.8 12/05/16 12/05/16 12/05/16 12:10 12:10 19:05 Creatine Kinase 56 89 CK-MB (CK-2) 2.34 Troponin I 0.138 12/05/16 12/06/16 12/06/16 19:05 00:29 00:29 Creatine Kinase 163 H CK-MB (CK-2) 3.92 5.50 H Troponin I 0.152 0.159 Impressions: Chest X-Ray 12/05/16 06:21 IMPRESSION: Increase in alveolar and interstitial edema compared to 11/25/2016 Small right, trace left pleural effusion similar compared to 11/25/2016 Assessment & Plan - Diagnosis (1) Respiratory failure Qualifiers: Chronicity: acute Is this a current diagnosis for this admission?: YesPlan: This is currently on a nasal cannula contiguous the current medications (2) CHF (congestive heart failure) Qualifiers: Congestive heart failure type: diastolic Congestive heart failure chronicity: acute on chronic Qualified Code(s): I50.33 - Acute on chronic diastolic (congestive) heart failure Is this a current diagnosis for this admission?: YesPlan: Continues IV Lasix (3) Chronic renal insufficiency, stage II (mild) Is this a current diagnosis for this admission?: YesPlan: As per discussed with the NephrologyPatient's creatinine is currently StableWe will continues to monitor the patient (4) History of atrial fibrillation Is this a current diagnosis for this admission?: YesPlan: Currently on Eliquis (5) Hypoxia Is this a current diagnosis for this admission?: YesPlan: ptn is a very noncompliance to keep oxygenAnd patient's needs to continues to put the oxygen (6) Shortness of breath Is this a current diagnosis for this admission?: YesPlan: Most likely from the acute congestive heart failure (7) COPD (chronic obstructive pulmonary disease) Qualifiers: COPD type: unspecified COPD Qualified Code(s): J44.9 - Chronic obstructive pulmonary disease, unspecified Is this a current diagnosis for this admission?: YesPlan: Continues the DuoNeb treatment (8) Elevated troponin Is this a current diagnosis for this admission?: YesPlan: Most likely a from the acute congestive heartFailureConsult to cardiology (9) Pleural effusion Is this a current diagnosis for this admission?: Yes - Time Time Spent with patient: 15-24 minutes Medications reviewed and adjusted accordingly: Yes Anticipated discharge: Home - Inpatient Certification Medical Necessity: Need Close Monitoring Due to Risk of Patient Decompensation Post Hospital Care: D/C Infection Prevention Coordinator Documentation - Plan Summary Plan Summary: Continuous IV Lasix and will get the echo report from the outpatient she does have a done
[2016-12-06 08:25] LABS: ABSOLUTE BASOPHILS # (AUTO) 0.1 10^3/uL (0.0-0.2); ABSOLUTE LYMPHOCYTES (AUTO) 0.9 10^3/uL (0.5-4.7); ABSOLUTE MONOCYTES (AUTO) 0.4 10^3/uL (0.1-1.4); BASOPHILS % (AUTO) 1.3 % (0-2); EOSINOPHILS % (AUTO) 0.3 % (0-6); HEMATOCRIT 35.4 % (36.0-47.0); HGB HCT DIFFERENCE 0.9; LYMPHOCYTES % (AUTO) 20.1 % (13-45); MEAN CORPUSCULAR HEMOGLOBIN 31.9 pg (27.0-33.4); MEAN CORPUSCULAR HGB CONC 34.1 g/dL (32.0-36.0); MEAN CORPUSCULAR VOLUME 93 fl (80-97); MONOCYTES % (AUTO) 9.7 % (3-13); RED BLOOD COUNT 3.79 10^6/uL (3.72-5.28); RED CELL DISTRIBUTION WIDTH 13.3 % (11.5-14.0); SEGMENTED NEUTROPHILS % (AUTO) 68.6 % (42-78); WHITE BLOOD COUNT 4.4 10^3/uL (4.0-10.5)
[2016-12-06 08:28] LABS: HEMOGLOBIN 12.1 g/dL (12.0-15.5)
[2016-12-06] MEDS ORDERED: TIOTROPIUM BROMIDE IH SCH (10:00)
[2016-12-06] MEDS ORDERED: DILTIAZEM HCL 120 MG CAP.SR.24H PO SCH (10:00)
[2016-12-06] MEDS: FUROSEMIDE INJ/PF 20 MG/2 ML SDV IV SCH ×3 (10:09→21:50)
[2016-12-06] MEDS: DOCUSATE SODIUM 100 MG CAPSULE PO SCH ×2 (10:10→19:00)
--- NOTE | 2016-12-06 12:28 | PDOC CONSULTATION ---
History of Present Illness Admission Date/PCP: 12/05/16 09:37 CHEYENNE VILLARREAL MD History of Present Illness: SALOME MOSLEY is a 76 year old female with PMH CHF, COPD, with recurrent pleural effusions. She presented to the hospital with shortness of breath that had progressed over the last few days. She was recently discharged from [facility] for similar symptoms, this visit she underwent thoracentesis. Upon discharge there was plans for her to follow-up with her tube winder and residential monitor in [place], unfortunately her became ill and she was not able to make these appointments. CXR was completed in ED with small bilateral pleural effusions similar appearance to last CXR prior to discharged. Patient was started on IV lasix upon admission and on my exam she states she is feeling much better. Is on nocturnal oxygen at home currently. Is on 2L NC currently and plans to do 6 minute walk test prior to discharge. NO complaints of any productive cough, fever, chills, nausea, vomiting, or diarrhea. Past Medical History Cardiac Medical History: Reports: Atrial Fibrillation, Congestive Heart Failure , Hyperlipidema Denies: Myocardial Infarction, Hypertension Pulmonary Medical History: Reports: Chronic Obstructive Pulmonary Disease (COPD) Denies: Asthma, Bronchitis, Pneumonia Neurological Medical History: Denies: Seizures GI Medical History: Reports: Gastroesophageal Reflux Disease, Hiatal Hernia Musculoskeltal Medical History: Denies: Arthritis Psychiatric Medical History: Denies: Depression Hematology: Denies: Anemia, Sickle Cell Disease Past Surgical History Past Surgical History: Reports: Other - Ablation Denies: Amputation, Hysterectomy, Mastectomy Social History Smoking Status: Unknown if Ever Smoked Frequency of Alcohol Use: None Hx Recreational Drug Use: No Drugs: None Hx Prescription Drug Abuse: No - Advance Directive Resuscitation Status: Full Code Family History Family History: Reviewed & Not Pertinent, CAD - in both parents but not premature Parental Family History Reviewed: Yes Children Family History Reviewed: Yes Sibling(s) Family History Reviewed.: Yes Medication/Allergy Home Medications: Apixaban [Eliquis 2.5 mg Tablet] 2.5 mg PO Q12 12/05/16 Diltiazem HCl [Diltiazem 24Hr Cd] 120 mg PO DAILY 12/05/16 Docusate Sodium [Colace 100 mg Capsule] 100 mg PO BID 12/05/16 Furosemide [Lasix] 20 mg PO DAILY 12/05/16 Omeprazole 20 mg PO QHS 12/05/16 Simvastatin [Zocor 40 mg Tablet] 40 mg PO QHS 12/05/16 Tiotropium [place] [Spiriva Respimat] 2 sprays IH DAILY 12/05/16 Vit A/Vit C/Vit E/Zinc/Copper [Preservision Areds Softgel] 1 each PO BID Allergies/Adverse Reactions: sulfamethoxazole [From Bactrim] Allergy (Verified 12/05/16 07:09) trimethoprim [From Bactrim] Allergy (Verified 12/05/16 07:09) nut - unspecified Adverse Reaction (Verified 12/05/16 07:09) aggravates diverticulitis. Review of Systems Constitutional: PRESENT: fatigue, weakness Eyes: ABSENT: visual disturbances Ears: ABSENT: hearing changes Nose, Mouth, and Throat: ABSENT: mouth pain, sore throat Cardiovascular: PRESENT: dyspnea on exertion. ABSENT: orthropnea, palpitations Gastrointestinal: ABSENT: diarrhea, nausea, vomiting Genitourinary: ABSENT: difficulty urinating Neurological: ABSENT: abnormal gait, abnormal movements, syncope Physical Exam Vital Signs: Temp Pulse Resp BP Pulse Ox 98.1 F 89 24 H 113/68 97 12/06/16 08:34 12/06/16 08:34 12/06/16 08:34 12/06/16 08:34 12/06/16 08:34 Intake & Output 12/05/16 12/06/16 12/07/16 06:59 06:59 06:59 Output Total 2200 Balance -2200 Weight 54.5 kg General appearance: PRESENT: no acute distress Head exam: PRESENT: atraumatic Eye exam: PRESENT: PERRLA Ear exam: PRESENT: normal external ear exam Mouth exam: PRESENT: moist Respiratory exam: PRESENT: decreased breath sounds, prolonged expiratory phas Cardiovascular exam: PRESENT: RRR, +S1, +S2 Pulses: PRESENT: normal radial pulses Vascular exam: PRESENT: normal capillary refill GI/Abdominal exam: PRESENT: normal bowel sounds Extremities exam: PRESENT: full ROM Musculoskeletal exam: PRESENT: ambulatory, full ROM Neurological exam: PRESENT: oriented to person, oriented to place, oriented to time, oriented to situation, CN II-XII grossly intact Results Laboratory Results: 12/06/16 07:55 12/06/16 06:40 12/06/16 12/06/16 12/06/16 06:40 06:40 07:55 WBC Cancelled 4.4 RBC Cancelled 3.79 Hgb Cancelled 12.1 D Hct Cancelled 35.4 L MCV Cancelled 93 MCH Cancelled 31.9 MCHC Cancelled 34.1 RDW Cancelled 13.3 Plt Count Cancelled 285 Seg Neutrophils % Cancelled 68.6 Lymphocytes % Cancelled 20.1 Monocytes % Cancelled 9.7 Eosinophils % Cancelled 0.3 Basophils % Cancelled 1.3 Absolute Neutrophils Cancelled 3.0 Absolute Lymphocytes Cancelled 0.9 Absolute Monocytes Cancelled 0.4 Absolute Eosinophils Cancelled 0.0 Absolute Basophils Cancelled 0.1 Sodium 130.9 L Potassium 3.9 Chloride 97 L Carbon Dioxide 26 Anion Gap 8 BUN 22 H Creatinine 1.29 H Est GFR ( Amer) 48 L Est GFR (Non-Af Amer) 40 L Glucose 88 Calcium 8.5 Magnesium 1.8 12/05/16 12/05/16 12/05/16 12:10 12:10 19:05 Creatine Kinase 56 89 CK-MB (CK-2) 2.34 Troponin I 0.138 12/05/16 12/06/16 12/06/16 19:05 00:29 00:29 Creatine Kinase 163 H CK-MB (CK-2) 3.92 5.50 H Troponin I 0.152 0.159 Impressions: Chest X-Ray 12/05/16 06:21 IMPRESSION: Increase in alveolar and interstitial edema compared to 11/25/2016 Small right, trace left pleural effusion similar compared to 11/25/2016 Assessment & Plan - Diagnosis (1) Pleural effusion Is this a current diagnosis for this admission?: YesPlan: Stable at this time. Likely related to patients CHF. Continue IV Lasix. Patient educated on the importance of following up with cardiology and pulmonology upon discharge from hospital. (2) Chronic obstruct airways disease Qualifiers: Emphysema type: unspecified Is this a current diagnosis for this admission?: YesPlan: Continue pulmonary toilet. Patient needs 6 minute walk test to assess for continous oxygen need prior to discharge. Can follow-up with patient in office at discharge. - Time Time Spent: 30 to 50 Minutes
[2016-12-06] MEDS: APIXABAN 2.5 MG TABLET PO SCH ×2 (14:42→19:01)
[2016-12-06] MEDS: DILTIAZEM HCL 120 MG CAP.SR.24H PO SCH (14:43)
--- NOTE | 2016-12-06 20:24 | PDOC PROGRESS REPORT ---
Subjective Progress Note for:: 12/06/16 Subjective:: Patient seems to be doing better with gradual improvement. Patient is breathing much easier. Pt is denying any chest arm or neck discomfort. Patient denying any PND, orthopnea. Patient denied any sustained palpitations, dizziness, syncope, near syncope. Patient denying any fever chills. Patient denying any other significant discomfort. Patient is maintaining sinus rhythm. Review of systems: Rest review of systems negative. Medications: Medications have been reviewed. Physical Exam Vital Signs: Temp Pulse Resp BP Pulse Ox 98.5 F 83 20 93/46 L 98 12/06/16 15:34 12/06/16 15:35 12/06/16 15:34 12/06/16 15:35 12/06/16 11:47 Intake & Output 12/05/16 12/06/16 12/07/16 06:59 06:59 06:59 Intake Total 1522 Output Total 2200 2126 Balance -2200 -604 Weight 54.5 kg Exam: GENERAL: well-nourished and in no acute distress. Alert and oriented x3 HEAD: Atraumatic, normocephalic. EYES: Pupils equal round and reactive to light, extraocular movements intact, sclera anicteric, conjunctiva are normal. ENT: TMs normal, nares patent, oropharynx clear without exudates. Moist mucous membranes. No oral ulcerations or bleeding gums noted NECK: supple without lymphadenopathy. Trachea is central. No cervical or axillary lymphadenopathy noted. Carotids are 2+, JVD 10 CM LUNGS: Respiration seems nonlabored, no significant accessory muscle action noted. Bibasal a fine crackles noted along with diminished breath sounds especially right base and dullness right base. CHEST: Palpation of the chest wall shows no significant chest wall tenderness. No other significant abnormalities noted. 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 ABDOMEN: Soft, no significant tenderness appreciated, normoactive bowel sounds. No guarding, no rebound. No rigidity noted . No masses appreciated. EXTREMITIES: Pedal pulses are 1-2+, no calf tenderness noted. No clubbing or cyanosis.trace + pedal edema noted NEUROLOGICAL: Focused neurological exam showed no significant neurologic deficit. Normal speech, no focal weakness appreciated. PSYCH: Normal mood, normal affect. Judgment and insight within normal limits. SKIN: No significant ecchymosis, rash, ulcerations or signs of pruritus noted. MUSCULOSKELETAL EXAM: No significant joint swelling noted. Results Laboratory Results: 12/06/16 07:55 12/06/16 06:40 12/06/16 12/06/16 12/06/16 06:40 06:40 07:55 WBC Cancelled 4.4 RBC Cancelled 3.79 Hgb Cancelled 12.1 D Hct Cancelled 35.4 L MCV Cancelled 93 MCH Cancelled 31.9 MCHC Cancelled 34.1 RDW Cancelled 13.3 Plt Count Cancelled 285 Seg Neutrophils % Cancelled 68.6 Lymphocytes % Cancelled 20.1 Monocytes % Cancelled 9.7 Eosinophils % Cancelled 0.3 Basophils % Cancelled 1.3 Absolute Neutrophils Cancelled 3.0 Absolute Lymphocytes Cancelled 0.9 Absolute Monocytes Cancelled 0.4 Absolute Eosinophils Cancelled 0.0 Absolute Basophils Cancelled 0.1 Sodium 130.9 L Potassium 3.9 Chloride 97 L Carbon Dioxide 26 Anion Gap 8 BUN 22 H Creatinine 1.29 H Est GFR ( Amer) 48 L Est GFR (Non-Af Amer) 40 L Glucose 88 Calcium 8.5 Magnesium 1.8 12/05/16 12/05/16 12/05/16 12:10 12:10 19:05 Creatine Kinase 56 89 CK-MB (CK-2) 2.34 Troponin I 0.138 12/05/16 12/06/16 12/06/16 19:05 00:29 00:29 Creatine Kinase 163 H CK-MB (CK-2) 3.92 5.50 H Troponin I 0.152 0.159 Impressions: Chest X-Ray 12/05/16 06:21 IMPRESSION: Increase in alveolar and interstitial edema compared to 11/25/2016 Small right, trace left pleural effusion similar compared to 11/25/2016 Assessment & Plan - Diagnosis (1) CHF (congestive heart failure) Qualifiers: Congestive heart failure type: diastolic Congestive heart failure chronicity: acute on chronic Qualified Code(s): I50.33 - Acute on chronic diastolic (congestive) heart failure Is this a current diagnosis for this admission?: Yes (2) History of atrial fibrillation Is this a current diagnosis for this admission?: Yes (3) Pleural effusion Is this a current diagnosis for this admission?: Yes (4) Renal insufficiency Is this a current diagnosis for this admission?: Yes (5) COPD (chronic obstructive pulmonary disease) Qualifiers: COPD type: unspecified COPD Qualified Code(s): J44.9 - Chronic obstructive pulmonary disease, unspecified Is this a current diagnosis for this admission?: Yes (6) Elevated troponin Is this a current diagnosis for this admission?: Yes - Notes Notes: Congestive heart failure: Predominantly from diastolic dysfunction and right heart failure. Patient has significant COPD. Patient currently on nocturnal oxygen but not using oxygen during the day. Patient still somewhat volume overloaded. Recommend continuation of diuretic therapy. May consider switch to torsemide and spironolactone on discharge. Atrial fibrillation: Patient gives history of paroxysmal atrial fibrillation. Currently has been maintaining sinus rhythm. Continue ELIQUIS therapy. Pleural effusion: Pleural fluid analysis suggests transudate and is most likely related to CHF. COPD: Currently stable. Elevated troponin I: Most likely related to CHF. Patient does not have any acute EKG changes nor does have any chest pain. CODE STATUS was discussed, patient remains full code. Surrogate decision-maker unchanged. Multiple medical problems were addressed. - Time Time with patient: 15-25 minutes Medications reviewed and adjusted accordingly: Yes
[2016-12-06] MEDS: IPRATROPIUM/ALBUTEROL 0.5-2.5 MG/3 ML AMPUL NEB PRN (20:41)
[2016-12-06] MEDS: SIMVASTATIN 40 MG TABLET PO SCH (21:50)
[2016-12-06] MEDS: LANSOPRAZOLE 15 MG TAB.RAP.DR PO SCH (21:57)
[2016-12-07] MEDS: FUROSEMIDE INJ/PF 20 MG/2 ML SDV IV SCH ×3 (07:02→21:02)
[2016-12-07 07:23] LABS: ABSOLUTE LYMPHOCYTES (AUTO) 1.2 10^3/uL (0.5-4.7); ABSOLUTE MONOCYTES (AUTO) 0.4 10^3/uL (0.1-1.4); ABSOLUTE NEUT (AUTO) 2.2 10^3/uL (1.7-8.2); BASOPHILS % (AUTO) 1.3 % (0-2); EOSINOPHILS % (AUTO) 0.8 % (0-6); HEMATOCRIT 36.3 % (36.0-47.0); HEMOGLOBIN 12.4 g/dL (12.0-15.5); HGB HCT DIFFERENCE 0.9; LYMPHOCYTES % (AUTO) 31.6 % (13-45); MEAN CORPUSCULAR HEMOGLOBIN 31.9 pg (27.0-33.4); MEAN CORPUSCULAR HGB CONC 34.2 g/dL (32.0-36.0); MEAN CORPUSCULAR VOLUME 93 fl (80-97); RED BLOOD COUNT 3.91 10^6/uL (3.72-5.28); RED CELL DISTRIBUTION WIDTH 13.3 % (11.5-14.0); SEGMENTED NEUTROPHILS % (AUTO) 56.3 % (42-78); WHITE BLOOD COUNT 3.9 10^3/uL (4.0-10.5)
[2016-12-07 07:48] LABS: ANION GAP 9 (5-19); BLOOD UREA NITROGEN 22 mg/dL (7-20); CALCIUM 8.7 mg/dL (8.4-10.2); CARBON DIOXIDE 30 mmol/L (22-30); CHLORIDE 95 mmol/L (98-107); CREATININE RESULT 1.32 mg/dL (0.52-1.25); GLUCOSE 89 mg/dL (75-110); MAGNESIUM 1.9 mg/dL (1.6-2.3); POTASSIUM 4.2 mmol/L (3.6-5.0); SODIUM 134.1 mmol/L (137-145)
--- NOTE | 2016-12-07 09:05 | PDOC PROGRESS REPORT ---
Subjective Progress Note for:: 12/07/16 Subjective:: Patient is complaining overnight cough and cold symptoms but denied any chest pain no shortness of the breath and no fever. Patient's otherwise doing fair Physical Exam Vital Signs: Temp Pulse Resp BP Pulse Ox 98.1 F 73 20 106/54 L 97 12/07/16 07:13 12/07/16 07:13 12/07/16 07:13 12/07/16 07:13 12/07/16 07:13 Intake & Output 12/06/16 12/07/16 12/08/16 06:59 06:59 06:59 Intake Total 2522 Output Total 2200 4226 Balance -2200 -1704 Weight 50.1 kg General appearance: PRESENT: no acute distress, well-developed, well-nourished Head exam: PRESENT: atraumatic, normocephalic Eye exam: PRESENT: conjunctiva pink, EOMI, PERRLA. ABSENT: scleral icterus Ear exam: PRESENT: normal external ear exam Mouth exam: PRESENT: moist, tongue midline Neck exam: PRESENT: full ROM. ABSENT: carotid bruit, JVD, lymphadenopathy, thyromegaly Respiratory exam: PRESENT: clear to auscultation marylou Cardiovascular exam: PRESENT: RRR. ABSENT: diastolic murmur, rubs, systolic murmur Pulses: PRESENT: normal dorsalis pedis pul, +2 pedal pulses bilateral Vascular exam: PRESENT: normal capillary refill GI/Abdominal exam: PRESENT: normal bowel sounds, soft. ABSENT: distended, guarding, mass, organolmegaly, rebound, tenderness Rectal exam: PRESENT: deferred Neurological exam: PRESENT: alert, awake, oriented to person, oriented to place , oriented to time, oriented to situation, CN II-XII grossly intact. ABSENT: motor sensory deficit Psychiatric exam: PRESENT: appropriate affect, normal mood. ABSENT: homicidal ideation, suicidal ideation Skin exam: PRESENT: dry, intact, warm. ABSENT: cyanosis, rash Results Laboratory Results: 12/07/16 06:44 12/07/16 06:44 12/07/16 12/07/16 06:44 06:44 WBC 3.9 L RBC 3.91 Hgb 12.4 Hct 36.3 MCV 93 MCH 31.9 MCHC 34.2 RDW 13.3 Plt Count 261 Seg Neutrophils % 56.3 Lymphocytes % 31.6 Monocytes % 10.0 Eosinophils % 0.8 Basophils % 1.3 Absolute Neutrophils 2.2 Absolute Lymphocytes 1.2 Absolute Monocytes 0.4 Absolute Eosinophils 0.0 Absolute Basophils 0.0 Sodium 134.1 L Potassium 4.2 Chloride 95 L Carbon Dioxide 30 Anion Gap 9 BUN 22 H Creatinine 1.32 H Est GFR ( Amer) 47 L Est GFR (Non-Af Amer) 39 L Glucose 89 Calcium 8.7 Magnesium 1.9 12/05/16 12/05/16 12/05/16 12:10 12:10 19:05 Creatine Kinase 56 89 CK-MB (CK-2) 2.34 Troponin I 0.138 NT-Pro-B Natriuret Pep 12/05/16 12/06/16 12/06/16 19:05 00:29 00:29 Creatine Kinase 163 H CK-MB (CK-2) 3.92 5.50 H Troponin I 0.152 0.159 NT-Pro-B Natriuret Pep 12/07/16 06:44 Creatine Kinase CK-MB (CK-2) Troponin I NT-Pro-B Natriuret Pep 5750 H Impressions: Chest X-Ray 12/05/16 06:21 IMPRESSION: Increase in alveolar and interstitial edema compared to 11/25/2016 Small right, trace left pleural effusion similar compared to 11/25/2016 Assessment & Plan - Diagnosis (1) Respiratory failure Qualifiers: Chronicity: acute Is this a current diagnosis for this admission?: YesPlan: This is currently on a nasal cannula contiguous the current medications (2) CHF (congestive heart failure) Qualifiers: Congestive heart failure type: diastolic Congestive heart failure chronicity: acute on chronic Qualified Code(s): I50.33 - Acute on chronic diastolic (congestive) heart failure Is this a current diagnosis for this admission?: YesPlan: Continues IV Lasix (3) Chronic renal insufficiency, stage II (mild) Is this a current diagnosis for this admission?: YesPlan: As per discussed with the NephrologyPatient's creatinine is currently StableWe will continues to monitor the patient (4) History of atrial fibrillation Is this a current diagnosis for this admission?: YesPlan: Currently on Eliquis (5) Hypoxia Is this a current diagnosis for this admission?: YesPlan: ptn is a very noncompliance to keep oxygenAnd patient's needs to continues to put the oxygen (6) Shortness of breath Is this a current diagnosis for this admission?: YesPlan: Most likely from the acute congestive heart failure (7) COPD (chronic obstructive pulmonary disease) Qualifiers: COPD type: unspecified COPD Qualified Code(s): J44.9 - Chronic obstructive pulmonary disease, unspecified Is this a current diagnosis for this admission?: YesPlan: Continues the DuoNeb treatment (8) Elevated troponin Is this a current diagnosis for this admission?: Yes (9) Pleural effusion Is this a current diagnosis for this admission?: Yes - Time Time Spent with patient: 15-24 minutes Medications reviewed and adjusted accordingly: Yes Anticipated discharge: Home Within: Other - Inpatient Certification Medical Necessity: Need Close Monitoring Due to Risk of Patient Decompensation Post Hospital Care: D/C Manager Grant Documentation - Plan Summary Plan Summary: Part of the chest x-ray and no cough medications and DC the Ya catheter continues to follow with the cardiology
[2016-12-07] MEDS: DOCUSATE SODIUM 100 MG CAPSULE PO SCH ×2 (10:00→18:30)
[2016-12-07] MEDS: APIXABAN 2.5 MG TABLET PO SCH ×2 (10:00→18:35)
[2016-12-07] MEDS: MAG HYDROX/AL HYDROX/SIMETH SUSP 30 ML UDCUP PO PRN ×2 (11:08→21:06)
[2016-12-07] MEDS: DILTIAZEM HCL 120 MG CAP.SR.24H PO SCH (11:09)
--- NOTE | 2016-12-07 12:51 | PDOC PROGRESS REPORT ---
Subjective Progress Note for:: 12/07/16 Subjective:: Patient seems to be doing better with gradual improvement. Patient is breathing much easier. Pt is denying any chest arm or neck discomfort. Patient denying any PND, orthopnea. Patient denied any sustained palpitations, dizziness, syncope, near syncope. Patient denying any fever chills. Patient denying any other significant discomfort. Patient resting comfortably. She was encouraged to ambulate. Patient is maintaining sinus rhythm. Review of systems: Rest review of systems negative. Medications: Medications have been reviewed. Physical Exam Vital Signs: Temp Pulse Resp BP Pulse Ox 98.1 F 73 16 106/54 L 97 12/07/16 07:13 12/07/16 08:00 12/07/16 08:00 12/07/16 07:13 12/07/16 08:00 Intake & Output 12/06/16 12/07/16 12/08/16 06:59 06:59 06:59 Intake Total 2531 Output Total 2200 4226 Balance -2200 -1695 Weight 50.1 kg Exam: GENERAL: well-nourished and in no acute distress. Alert and oriented x3 HEAD: Atraumatic, normocephalic. EYES: Pupils equal round and reactive to light, extraocular movements intact, sclera anicteric, conjunctiva are normal. ENT: TMs normal, nares patent, oropharynx clear without exudates. Moist mucous membranes. No oral ulcerations or bleeding gums noted NECK: supple without lymphadenopathy. Trachea is central. No cervical or axillary lymphadenopathy noted. Carotids are 2+, JVD 8-10 CM LUNGS: Respiration seems nonlabored, no significant accessory muscle action noted. Right sided basal crackles and right sided illness noted. CHEST: Palpation of the chest wall shows no significant chest wall tenderness. No other significant abnormalities noted. 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 ABDOMEN: Soft, no significant tenderness appreciated, normoactive bowel sounds. No guarding, no rebound. No rigidity noted . No masses appreciated. EXTREMITIES: Pedal pulses are 1-2+, no calf tenderness noted. No clubbing or cyanosis.trace to 1+ pedal edema noted NEUROLOGICAL: Focused neurological exam showed no significant neurologic deficit. Normal speech, no focal weakness appreciated. PSYCH: Normal mood, normal affect. Judgment and insight within normal limits. SKIN: No significant ecchymosis, rash, ulcerations or signs of pruritus noted. MUSCULOSKELETAL EXAM: No significant joint swelling noted. Results Laboratory Results: 12/07/16 06:44 12/07/16 06:44 12/07/16 12/07/16 06:44 06:44 WBC 3.9 L RBC 3.91 Hgb 12.4 Hct 36.3 MCV 93 MCH 31.9 MCHC 34.2 RDW 13.3 Plt Count 261 Seg Neutrophils % 56.3 Lymphocytes % 31.6 Monocytes % 10.0 Eosinophils % 0.8 Basophils % 1.3 Absolute Neutrophils 2.2 Absolute Lymphocytes 1.2 Absolute Monocytes 0.4 Absolute Eosinophils 0.0 Absolute Basophils 0.0 Sodium 134.1 L Potassium 4.2 Chloride 95 L Carbon Dioxide 30 Anion Gap 9 BUN 22 H Creatinine 1.32 H Est GFR ( Amer) 47 L Est GFR (Non-Af Amer) 39 L Glucose 89 Calcium 8.7 Magnesium 1.9 12/05/16 12/05/16 12/05/16 12:10 12:10 19:05 Creatine Kinase 56 89 CK-MB (CK-2) 2.34 Troponin I 0.138 NT-Pro-B Natriuret Pep 12/05/16 12/06/16 12/06/16 19:05 00:29 00:29 Creatine Kinase 163 H CK-MB (CK-2) 3.92 5.50 H Troponin I 0.152 0.159 NT-Pro-B Natriuret Pep 12/07/16 06:44 Creatine Kinase CK-MB (CK-2) Troponin I NT-Pro-B Natriuret Pep 5750 H Impressions: Chest X-Ray 12/07/16 00:00 IMPRESSION: Asymmetric edema or pneumonia. Assessment & Plan - Diagnosis (1) CHF (congestive heart failure) Qualifiers: Congestive heart failure type: diastolic Congestive heart failure chronicity: acute on chronic Qualified Code(s): I50.33 - Acute on chronic diastolic (congestive) heart failure Is this a current diagnosis for this admission?: Yes (2) History of atrial fibrillation Is this a current diagnosis for this admission?: Yes (3) Pleural effusion Is this a current diagnosis for this admission?: Yes (4) Renal insufficiency Is this a current diagnosis for this admission?: Yes (5) COPD (chronic obstructive pulmonary disease) Qualifiers: COPD type: unspecified COPD Qualified Code(s): J44.9 - Chronic obstructive pulmonary disease, unspecified Is this a current diagnosis for this admission?: Yes (6) Elevated troponin Is this a current diagnosis for this admission?: Yes - Notes Notes: Congestive heart failure: Predominantly from diastolic dysfunction and right heart failure. Patient has significant COPD. Patient currently on nocturnal oxygen but not using oxygen during the day. Patient still somewhat volume overloaded. Recommend continuation of diuretic therapy. May consider switch to torsemide and spironolactone on discharge. Atrial fibrillation: Patient gives history of paroxysmal atrial fibrillation. Currently has been maintaining sinus rhythm. Continue ELIQUIS therapy. Pleural effusion: Pleural fluid analysis suggests transudate and is most likely related to CHF. COPD: Currently stable. Elevated troponin I: Most likely related to CHF. Patient does not have any acute EKG changes nor does have any chest pain. CODE STATUS was discussed, patient remains full code. Surrogate decision-maker unchanged. Multiple medical problems were addressed. Chest x-ray reviewed. It showed mild improvement in bilateral pleural effusion but still pulmonary congestion and CHF remains. Continue with IV antibiotics. - Time Time with patient: 15-25 minutes - CODE STATUS was discussed, patient remains full code. Surrogate decision-maker unchanged. Multiple medical problems were addressed.More than 50% of the time spent coordinating care, discussing management plans with involved caregivers. Management plans discussed with involved personnels. Medical decision making was of moderate complexity.
[2016-12-07] MEDS: BENZONATATE 100 MG CAPSULE PO SCH ×2 (14:52→21:03)
[2016-12-07] MEDS: SIMVASTATIN 40 MG TABLET PO SCH (21:03)
[2016-12-07] MEDS: LANSOPRAZOLE 15 MG TAB.RAP.DR PO SCH (21:03)
[2016-12-08 04:33] LABS: ABSOLUTE LYMPHOCYTES (AUTO) 1.3 10^3/uL (0.5-4.7); ABSOLUTE MONOCYTES (AUTO) 0.5 10^3/uL (0.1-1.4); ABSOLUTE NEUT (AUTO) 1.8 10^3/uL (1.7-8.2); BASOPHILS % (AUTO) 1.1 % (0-2); EOSINOPHILS % (AUTO) 1.3 % (0-6); HEMATOCRIT 35.3 % (36.0-47.0); HEMOGLOBIN 12.2 g/dL (12.0-15.5); HGB HCT DIFFERENCE 1.3; LYMPHOCYTES % (AUTO) 35.5 % (13-45); MEAN CORPUSCULAR HEMOGLOBIN 31.7 pg (27.0-33.4); MEAN CORPUSCULAR HGB CONC 34.5 g/dL (32.0-36.0); MEAN CORPUSCULAR VOLUME 92 fl (80-97); MONOCYTES % (AUTO) 12.9 % (3-13); RED BLOOD COUNT 3.84 10^6/uL (3.72-5.28); SEGMENTED NEUTROPHILS % (AUTO) 49.2 % (42-78); WHITE BLOOD COUNT 3.7 10^3/uL (4.0-10.5)
[2016-12-08 04:55] LABS: ANION GAP 9 (5-19); BLOOD UREA NITROGEN 24 mg/dL (7-20); CALCIUM 8.5 mg/dL (8.4-10.2); CARBON DIOXIDE 30 mmol/L (22-30); CHLORIDE 93 mmol/L (98-107); CREATININE RESULT 1.15 mg/dL (0.52-1.25); GLUCOSE 105 mg/dL (75-110); MAGNESIUM 2.2 mg/dL (1.6-2.3); POTASSIUM 3.7 mmol/L (3.6-5.0); SODIUM 132.4 mmol/L (137-145)
[2016-12-08] MEDS: BENZONATATE 100 MG CAPSULE PO SCH ×3 (05:53→21:52)
[2016-12-08] MEDS: FUROSEMIDE INJ/PF 20 MG/2 ML SDV IV SCH ×3 (05:55→21:55)
[2016-12-08] MEDS: MAG HYDROX/AL HYDROX/SIMETH SUSP 30 ML UDCUP PO PRN ×2 (08:32→18:57)
[2016-12-08] MEDS: IPRATROPIUM/ALBUTEROL 0.5-2.5 MG/3 ML AMPUL NEB PRN (08:47)
[2016-12-08] MEDS: DOCUSATE SODIUM 100 MG CAPSULE PO SCH ×2 (09:09→17:33)
[2016-12-08] MEDS: APIXABAN 2.5 MG TABLET PO SCH ×2 (09:10→17:34)
--- NOTE | 2016-12-08 10:58 | PDOC PROGRESS REPORT ---
Subjective Progress Note for:: 12/08/16 Subjective:: Patient is doing fair still complaining some dry cough. Patient's denied any chest pain no shortness of the breath. And no fever Physical Exam Vital Signs: Temp Pulse Resp BP Pulse Ox 97.8 F 76 16 102/51 L 97 12/08/16 07:36 12/08/16 08:47 12/08/16 08:47 12/08/16 07:36 12/08/16 08:47 Intake & Output 12/07/16 12/08/16 12/09/16 06:59 06:59 06:59 Intake Total 2531 1193 Output Total 4226 600 Balance -1695 593 Weight 50.1 kg 50.1 kg General appearance: PRESENT: no acute distress, well-developed, well-nourished Head exam: PRESENT: atraumatic, normocephalic Eye exam: PRESENT: conjunctiva pink, EOMI, PERRLA. ABSENT: scleral icterus Ear exam: PRESENT: normal external ear exam Mouth exam: PRESENT: moist, tongue midline Neck exam: PRESENT: full ROM. ABSENT: carotid bruit, JVD, lymphadenopathy, thyromegaly Respiratory exam: PRESENT: clear to auscultation marylou Cardiovascular exam: PRESENT: RRR. ABSENT: diastolic murmur, rubs, systolic murmur Pulses: PRESENT: normal dorsalis pedis pul, +2 pedal pulses bilateral Vascular exam: PRESENT: normal capillary refill GI/Abdominal exam: PRESENT: normal bowel sounds, soft. ABSENT: distended, guarding, mass, organolmegaly, rebound, tenderness Rectal exam: PRESENT: deferred Neurological exam: PRESENT: alert, awake, oriented to person, oriented to place , oriented to time, oriented to situation, CN II-XII grossly intact. ABSENT: motor sensory deficit Psychiatric exam: PRESENT: appropriate affect, normal mood. ABSENT: homicidal ideation, suicidal ideation Skin exam: PRESENT: dry, intact, warm. ABSENT: cyanosis, rash Results Laboratory Results: 12/08/16 04:03 12/08/16 04:03 12/08/16 12/08/16 04:03 04:03 WBC 3.7 L RBC 3.84 Hgb 12.2 Hct 35.3 L MCV 92 MCH 31.7 MCHC 34.5 RDW 13.0 Plt Count 252 Seg Neutrophils % 49.2 Lymphocytes % 35.5 Monocytes % 12.9 Eosinophils % 1.3 Basophils % 1.1 Absolute Neutrophils 1.8 Absolute Lymphocytes 1.3 Absolute Monocytes 0.5 Absolute Eosinophils 0.0 Absolute Basophils 0.0 Sodium 132.4 L Potassium 3.7 Chloride 93 L Carbon Dioxide 30 Anion Gap 9 BUN 24 H Creatinine 1.15 Est GFR ( Amer) 55 L Est GFR (Non-Af Amer) 46 L Glucose 105 Calcium 8.5 Magnesium 2.2 12/05/16 12/05/16 12/05/16 12:10 12:10 19:05 Creatine Kinase 56 89 CK-MB (CK-2) 2.34 Troponin I 0.138 NT-Pro-B Natriuret Pep 12/05/16 12/06/16 12/06/16 19:05 00:29 00:29 Creatine Kinase 163 H CK-MB (CK-2) 3.92 5.50 H Troponin I 0.152 0.159 NT-Pro-B Natriuret Pep 12/07/16 06:44 Creatine Kinase CK-MB (CK-2) Troponin I NT-Pro-B Natriuret Pep 5750 H Impressions: Chest X-Ray 12/07/16 00:00 IMPRESSION: Asymmetric edema or pneumonia. Assessment & Plan - Diagnosis (1) Respiratory failure Qualifiers: Chronicity: acute Is this a current diagnosis for this admission?: YesPlan: This is currently on a nasal cannula contiguous the current medications (2) CHF (congestive heart failure) Qualifiers: Congestive heart failure type: diastolic Congestive heart failure chronicity: acute on chronic Qualified Code(s): I50.33 - Acute on chronic diastolic (congestive) heart failure Is this a current diagnosis for this admission?: YesPlan: Continues IV Lasix (3) Chronic renal insufficiency, stage II (mild) Is this a current diagnosis for this admission?: YesPlan: As per discussed with the NephrologyPatient's creatinine is currently StableWe will continues to monitor the patient (4) History of atrial fibrillation Is this a current diagnosis for this admission?: YesPlan: Currently on Eliquis (5) Hypoxia Is this a current diagnosis for this admission?: YesPlan: ptn is a very noncompliance to keep oxygenAnd patient's needs to continues to put the oxygen (6) Shortness of breath Is this a current diagnosis for this admission?: YesPlan: Most likely from the acute congestive heart failure (7) COPD (chronic obstructive pulmonary disease) Qualifiers: COPD type: unspecified COPD Qualified Code(s): J44.9 - Chronic obstructive pulmonary disease, unspecified Is this a current diagnosis for this admission?: YesPlan: Start the patient on the by mouth Levaquin (8) Elevated troponin Is this a current diagnosis for this admission?: Yes (9) Pleural effusion Is this a current diagnosis for this admission?: Yes - Time Time Spent with patient: 15-24 minutes Medications reviewed and adjusted accordingly: Yes Anticipated discharge: Home Within: Other - Inpatient Certification Medical Necessity: Significant Comorbidiites Make Outpatient Treatment Too Risky , Need Close Monitoring Due to Risk of Patient Decompensation Post Hospital Care: D/C Manager Imaging Documentation - Plan Summary Plan Summary: Continuous IV Lasix continues the current medications and add the Levaquin
[2016-12-08] MEDS: DILTIAZEM HCL 120 MG CAP.SR.24H PO SCH (11:22)
[2016-12-08] MEDS ORDERED: LEVOFLOXACIN 500 MG TABLET PO ONE (11:30)
--- NOTE | 2016-12-08 14:28 | PDOC PROGRESS REPORT ---
Subjective Progress Note for:: 12/08/16 Subjective:: Patient seems to be doing better with gradual improvement. Patient is breathing much easier. Pt is denying any chest arm or neck discomfort. Patient denying any PND, orthopnea. Patient denied any sustained palpitations, dizziness, syncope, near syncope. Patient denying any fever chills. Patient denying any other significant discomfort. Patient sitting up and eating. Patient claims that she is trying to comply with fluid restriction. She was encouraged to ambulate. Patient is maintaining sinus rhythm. Review of systems: Rest review of systems negative. Medications: Medications have been reviewed. Physical Exam Vital Signs: Temp Pulse Resp BP Pulse Ox 98.3 F 80 20 106/54 L 100 12/08/16 12:33 12/08/16 12:33 12/08/16 12:33 12/08/16 12:33 12/08/16 12:33 Intake & Output 12/07/16 12/08/16 12/09/16 06:59 06:59 06:59 Intake Total 2531 1193 592 Output Total 4226 600 Balance -1695 593 592 Weight 50.1 kg 50.1 kg Exam: GENERAL: well-nourished and in no acute distress. Alert and oriented x3 HEAD: Atraumatic, normocephalic. EYES: Pupils equal round and reactive to light, extraocular movements intact, sclera anicteric, conjunctiva are normal. ENT: TMs normal, nares patent, oropharynx clear without exudates. Moist mucous membranes. No oral ulcerations or bleeding gums noted NECK: supple without lymphadenopathy. Trachea is central. No cervical or axillary lymphadenopathy noted. Carotids are 2+, JVD WNL LUNGS: Respiration seems nonlabored, no significant accessory muscle action noted. Few right basal crackles and mild dullness noted right base. Left side seems clear. CHEST: Palpation of the chest wall shows no significant chest wall tenderness. No other significant abnormalities noted. 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 ABDOMEN: Soft, no significant tenderness appreciated, normoactive bowel sounds. No guarding, no rebound. No rigidity noted . No masses appreciated. EXTREMITIES: Pedal pulses are 1-2+, no calf tenderness noted. No clubbing or cyanosis.trace to 1+ pedal edema noted NEUROLOGICAL: Focused neurological exam showed no significant neurologic deficit. Normal speech, no focal weakness appreciated. PSYCH: Normal mood, normal affect. Judgment and insight within normal limits. SKIN: No significant ecchymosis, rash, ulcerations or signs of pruritus noted. MUSCULOSKELETAL EXAM: No significant joint swelling noted. Results Laboratory Results: 12/08/16 04:03 12/08/16 04:03 12/08/16 12/08/16 04:03 04:03 WBC 3.7 L RBC 3.84 Hgb 12.2 Hct 35.3 L MCV 92 MCH 31.7 MCHC 34.5 RDW 13.0 Plt Count 252 Seg Neutrophils % 49.2 Lymphocytes % 35.5 Monocytes % 12.9 Eosinophils % 1.3 Basophils % 1.1 Absolute Neutrophils 1.8 Absolute Lymphocytes 1.3 Absolute Monocytes 0.5 Absolute Eosinophils 0.0 Absolute Basophils 0.0 Sodium 132.4 L Potassium 3.7 Chloride 93 L Carbon Dioxide 30 Anion Gap 9 BUN 24 H Creatinine 1.15 Est GFR ( Amer) 55 L Est GFR (Non-Af Amer) 46 L Glucose 105 Calcium 8.5 Magnesium 2.2 12/05/16 12/05/16 12/05/16 12:10 12:10 19:05 Creatine Kinase 56 89 CK-MB (CK-2) 2.34 Troponin I 0.138 NT-Pro-B Natriuret Pep 12/05/16 12/06/16 12/06/16 19:05 00:29 00:29 Creatine Kinase 163 H CK-MB (CK-2) 3.92 5.50 H Troponin I 0.152 0.159 NT-Pro-B Natriuret Pep 12/07/16 06:44 Creatine Kinase CK-MB (CK-2) Troponin I NT-Pro-B Natriuret Pep 5750 H Impressions: Chest X-Ray 12/07/16 00:00 IMPRESSION: Asymmetric edema or pneumonia. Assessment & Plan - Diagnosis (1) CHF (congestive heart failure) Qualifiers: Congestive heart failure type: diastolic Congestive heart failure chronicity: acute on chronic Qualified Code(s): I50.33 - Acute on chronic diastolic (congestive) heart failure Is this a current diagnosis for this admission?: Yes (2) History of atrial fibrillation Is this a current diagnosis for this admission?: Yes (3) Pleural effusion Is this a current diagnosis for this admission?: Yes (4) Renal insufficiency Is this a current diagnosis for this admission?: Yes (5) COPD (chronic obstructive pulmonary disease) Qualifiers: COPD type: unspecified COPD Qualified Code(s): J44.9 - Chronic obstructive pulmonary disease, unspecified Is this a current diagnosis for this admission?: Yes (6) Elevated troponin Is this a current diagnosis for this admission?: Yes - Notes Notes: Congestive heart failure: Predominantly from diastolic dysfunction and right heart failure. Patient has significant COPD. Patient currently on nocturnal oxygen but not using oxygen during the day. Patient still somewhat volume overloaded and clinically has right pleural effusion. Recommend continuation of diuretic therapy. May consider switch to torsemide and spironolactone on discharge. Atrial fibrillation: Patient gives history of paroxysmal atrial fibrillation. Currently has been maintaining sinus rhythm. Continue ELIQUIS therapy. Pleural effusion: Pleural fluid analysis suggests transudate and is most likely related to CHF. COPD: Currently stable. Renal insufficiency: Renal functions has been stable with stable electrolyte pattern. Elevated troponin I: Most likely related to CHF. Patient does not have any acute EKG changes nor does have any chest pain. CODE STATUS was discussed, patient remains full code. Surrogate decision-maker unchanged. Multiple medical problems were addressed. Chest x-ray reviewed. - Time Time with patient: 15-25 minutes - CODE STATUS was discussed, patient remains full code. Surrogate decision-maker unchanged. Multiple medical problems were addressed.More than 50% of the time spent coordinating care, discussing management plans with involved caregivers. Management plans discussed with involved personnels. Medical decision making was of moderate complexity.
[2016-12-08] MEDS: SIMVASTATIN 40 MG TABLET PO SCH (21:52)
[2016-12-08] MEDS: LANSOPRAZOLE 15 MG TAB.RAP.DR PO SCH (21:52)
[2016-12-09 05:12] LABS: ABSOLUTE EOSINOPHILS # (AUTO) 0.1 10^3/uL (0.0-0.6); ABSOLUTE LYMPHOCYTES (AUTO) 1.6 10^3/uL (0.5-4.7); ABSOLUTE MONOCYTES (AUTO) 0.5 10^3/uL (0.1-1.4); ABSOLUTE NEUT (AUTO) 2.1 10^3/uL (1.7-8.2); BASOPHILS % (AUTO) 0.6 % (0-2); EOSINOPHILS % (AUTO) 1.8 % (0-6); HEMATOCRIT 35.1 % (36.0-47.0); HGB HCT DIFFERENCE 0.9; LYMPHOCYTES % (AUTO) 38.3 % (13-45); MEAN CORPUSCULAR HEMOGLOBIN 31.7 pg (27.0-33.4); MEAN CORPUSCULAR HGB CONC 34.2 g/dL (32.0-36.0); MEAN CORPUSCULAR VOLUME 93 fl (80-97); RED BLOOD COUNT 3.79 10^6/uL (3.72-5.28); RED CELL DISTRIBUTION WIDTH 13.2 % (11.5-14.0); SEGMENTED NEUTROPHILS % (AUTO) 48.3 % (42-78); WHITE BLOOD COUNT 4.3 10^3/uL (4.0-10.5)
[2016-12-09] MEDS: BENZONATATE 100 MG CAPSULE PO SCH ×3 (05:20→21:25)
[2016-12-09] MEDS: FUROSEMIDE INJ/PF 20 MG/2 ML SDV IV SCH ×3 (05:21→21:26)
[2016-12-09 05:33] LABS: ANION GAP 9 (5-19); BLOOD UREA NITROGEN 26 mg/dL (7-20); CALCIUM 8.6 mg/dL (8.4-10.2); CARBON DIOXIDE 29 mmol/L (22-30); CHLORIDE 96 mmol/L (98-107); CREATININE RESULT 1.26 mg/dL (0.52-1.25); GLUCOSE 101 mg/dL (75-110); POTASSIUM 3.8 mmol/L (3.6-5.0); SODIUM 133.5 mmol/L (137-145)
[2016-12-09] MEDS ORDERED: ONDANSETRON HCL INJ/PF 4 MG/2 ML SDV IV PRN (07:44)
[2016-12-09] MEDS ORDERED: ACETAMINOPHEN 325 MG TABLET PO PRN (07:48)
[2016-12-09] MEDS: LEVOFLOXACIN 500 MG TABLET PO SCH (09:32)
[2016-12-09] MEDS: APIXABAN 2.5 MG TABLET PO SCH ×2 (09:33→17:29)
[2016-12-09] MEDS: DOCUSATE SODIUM 100 MG CAPSULE PO SCH ×2 (09:35→17:29)
[2016-12-09] MEDS: DILTIAZEM HCL 120 MG CAP.SR.24H PO SCH (13:01)
[2016-12-09] MEDS: MAG HYDROX/AL HYDROX/SIMETH SUSP 30 ML UDCUP PO PRN (13:05)
--- NOTE | 2016-12-09 17:58 | PDOC PROGRESS REPORT ---
Subjective Progress Note for:: 12/09/16 Subjective:: Patient is doing fair still complaining some dry cough. Patient's denied any chest pain no shortness of the breath. And no fever Physical Exam Vital Signs: Temp Pulse Resp BP Pulse Ox 97.9 F 70 18 98/54 L 100 12/09/16 16:53 12/09/16 16:53 12/09/16 16:53 12/09/16 16:53 12/09/16 16:53 Intake & Output 12/08/16 12/09/16 12/10/16 06:59 06:59 06:59 Intake Total 1193 1263 457 Output Total 061 210 9095 Balance 593 963 -593 Weight 50.1 kg 49.9 kg General appearance: PRESENT: no acute distress, well-developed, well-nourished Head exam: PRESENT: atraumatic, normocephalic Eye exam: PRESENT: conjunctiva pink, EOMI, PERRLA. ABSENT: scleral icterus Ear exam: PRESENT: normal external ear exam Mouth exam: PRESENT: moist, tongue midline Neck exam: PRESENT: full ROM. ABSENT: carotid bruit, JVD, lymphadenopathy, thyromegaly Respiratory exam: PRESENT: clear to auscultation marylou Cardiovascular exam: PRESENT: RRR. ABSENT: diastolic murmur, rubs, systolic murmur Pulses: PRESENT: normal dorsalis pedis pul, +2 pedal pulses bilateral Vascular exam: PRESENT: normal capillary refill GI/Abdominal exam: PRESENT: normal bowel sounds, soft. ABSENT: distended, guarding, mass, organolmegaly, rebound, tenderness Rectal exam: PRESENT: deferred Neurological exam: PRESENT: alert, awake, oriented to person, oriented to place , oriented to time, oriented to situation, CN II-XII grossly intact. ABSENT: motor sensory deficit Psychiatric exam: PRESENT: appropriate affect, normal mood. ABSENT: homicidal ideation, suicidal ideation Skin exam: PRESENT: dry, intact, warm. ABSENT: cyanosis, rash Results Laboratory Results: 12/09/16 04:04 12/09/16 04:04 12/09/16 12/09/16 04:04 04:04 WBC 4.3 RBC 3.79 Hgb 12.0 Hct 35.1 L MCV 93 MCH 31.7 MCHC 34.2 RDW 13.2 Plt Count 250 Seg Neutrophils % 48.3 Lymphocytes % 38.3 Monocytes % 11.0 Eosinophils % 1.8 Basophils % 0.6 Absolute Neutrophils 2.1 Absolute Lymphocytes 1.6 Absolute Monocytes 0.5 Absolute Eosinophils 0.1 Absolute Basophils 0.0 Sodium 133.5 L Potassium 3.8 Chloride 96 L Carbon Dioxide 29 Anion Gap 9 BUN 26 H Creatinine 1.26 H Est GFR ( Amer) 50 L Est GFR (Non-Af Amer) 41 L Glucose 101 Calcium 8.6 12/05/16 12/05/16 12/05/16 12:10 12:10 19:05 Creatine Kinase 56 89 CK-MB (CK-2) 2.34 Troponin I 0.138 NT-Pro-B Natriuret Pep 12/05/16 12/06/16 12/06/16 19:05 00:29 00:29 Creatine Kinase 163 H CK-MB (CK-2) 3.92 5.50 H Troponin I 0.152 0.159 NT-Pro-B Natriuret Pep 12/07/16 06:44 Creatine Kinase CK-MB (CK-2) Troponin I NT-Pro-B Natriuret Pep 5750 H Impressions: Chest X-Ray 12/07/16 00:00 IMPRESSION: Asymmetric edema or pneumonia. Assessment & Plan - Diagnosis (1) Respiratory failure Qualifiers: Chronicity: acute Is this a current diagnosis for this admission?: YesPlan: This is currently on a nasal cannula contiguous the current medications (2) CHF (congestive heart failure) Qualifiers: Congestive heart failure type: diastolic Congestive heart failure chronicity: acute on chronic Qualified Code(s): I50.33 - Acute on chronic diastolic (congestive) heart failure Is this a current diagnosis for this admission?: YesPlan: Continues IV Lasix (3) Chronic renal insufficiency, stage II (mild) Is this a current diagnosis for this admission?: YesPlan: As per discussed with the NephrologyPatient's creatinine is currently StableWe will continues to monitor the patient (4) History of atrial fibrillation Is this a current diagnosis for this admission?: YesPlan: Currently on Eliquis (5) Hypoxia Is this a current diagnosis for this admission?: YesPlan: ptn is a very noncompliance to keep oxygenAnd patient's needs to continues to put the oxygen (6) Shortness of breath Is this a current diagnosis for this admission?: YesPlan: Most likely from the acute congestive heart failure (7) COPD (chronic obstructive pulmonary disease) Qualifiers: COPD type: unspecified COPD Qualified Code(s): J44.9 - Chronic obstructive pulmonary disease, unspecified Is this a current diagnosis for this admission?: YesPlan: Start the patient on the by mouth Levaquin (8) Elevated troponin Is this a current diagnosis for this admission?: Yes (9) Pleural effusion Is this a current diagnosis for this admission?: Yes - Time Time Spent with patient: 15-24 minutes Medications reviewed and adjusted accordingly: Yes Anticipated discharge: Home Within: within 24 hours - Inpatient Certification Medical Necessity: Need Close Monitoring Due to Risk of Patient Decompensation Post Hospital Care: D/C Content Strategist Documentation - Plan Summary Plan Summary: Will DC the patient in the morning if remains stable with the p.o. medications as per discussed with the cardiology suggest to start the patient on the Demadex and follow as outpatients
--- NOTE | 2016-12-09 20:35 | PDOC PROGRESS REPORT ---
Subjective Progress Note for:: 12/09/16 Subjective:: Patient seems to be doing better with gradual improvement. Patient is breathing much easier. Pt is denying any chest arm or neck discomfort. Patient denying any PND, orthopnea. Patient denied any sustained palpitations, dizziness, syncope, near syncope. Patient denying any fever chills. Patient denying any other significant discomfort. Patient claims that she is trying to comply with fluid restriction. She was encouraged to ambulate. Patient is maintaining sinus rhythm. Review of systems: Rest review of systems negative. Medications: Medications have been reviewed. Physical Exam Vital Signs: Temp Pulse Resp BP Pulse Ox 97.9 F 78 18 98/54 L 100 12/09/16 16:53 12/09/16 18:44 12/09/16 16:53 12/09/16 16:53 12/09/16 16:53 Intake & Output 12/08/16 12/09/16 12/10/16 06:59 06:59 06:59 Intake Total 1193 1263 469 Output Total 836 527 7352 Balance 593 963 -581 Weight 50.1 kg 49.9 kg Exam: GENERAL: well-nourished and in no acute distress. Alert and oriented x3 HEAD: Atraumatic, normocephalic. EYES: Pupils equal round and reactive to light, extraocular movements intact, sclera anicteric, conjunctiva are normal. ENT: TMs normal, nares patent, oropharynx clear without exudates. Moist mucous membranes. No oral ulcerations or bleeding gums noted NECK: supple without lymphadenopathy. Trachea is central. No cervical or axillary lymphadenopathy noted. Carotids are 2+, JVD WNL LUNGS: Respiration seems nonlabored, no significant accessory muscle action noted. Breath sounds mildly diminished right base along with minimal dullness. CHEST: Palpation of the chest wall shows no significant chest wall tenderness. No other significant abnormalities noted. 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 ABDOMEN: Soft, no significant tenderness appreciated, normoactive bowel sounds. No guarding, no rebound. No rigidity noted . No masses appreciated. EXTREMITIES: Pedal pulses are 1-2+, no calf tenderness noted. No clubbing or cyanosis.trace to 1+ pedal edema noted NEUROLOGICAL: Focused neurological exam showed no significant neurologic deficit. Normal speech, no focal weakness appreciated. PSYCH: Normal mood, normal affect. Judgment and insight within normal limits. SKIN: No significant ecchymosis, rash, ulcerations or signs of pruritus noted. MUSCULOSKELETAL EXAM: No significant joint swelling noted. Results Laboratory Results: 12/09/16 04:04 12/09/16 04:04 12/09/16 12/09/16 04:04 04:04 WBC 4.3 RBC 3.79 Hgb 12.0 Hct 35.1 L MCV 93 MCH 31.7 MCHC 34.2 RDW 13.2 Plt Count 250 Seg Neutrophils % 48.3 Lymphocytes % 38.3 Monocytes % 11.0 Eosinophils % 1.8 Basophils % 0.6 Absolute Neutrophils 2.1 Absolute Lymphocytes 1.6 Absolute Monocytes 0.5 Absolute Eosinophils 0.1 Absolute Basophils 0.0 Sodium 133.5 L Potassium 3.8 Chloride 96 L Carbon Dioxide 29 Anion Gap 9 BUN 26 H Creatinine 1.26 H Est GFR ( Amer) 50 L Est GFR (Non-Af Amer) 41 L Glucose 101 Calcium 8.6 12/05/16 12/05/16 12/05/16 12:10 12:10 19:05 Creatine Kinase 56 89 CK-MB (CK-2) 2.34 Troponin I 0.138 NT-Pro-B Natriuret Pep 12/05/16 12/06/16 12/06/16 19:05 00:29 00:29 Creatine Kinase 163 H CK-MB (CK-2) 3.92 5.50 H Troponin I 0.152 0.159 NT-Pro-B Natriuret Pep 12/07/16 06:44 Creatine Kinase CK-MB (CK-2) Troponin I NT-Pro-B Natriuret Pep 5750 H Impressions: Chest X-Ray 12/07/16 00:00 IMPRESSION: Asymmetric edema or pneumonia. Assessment & Plan - Diagnosis (1) CHF (congestive heart failure) Qualifiers: Congestive heart failure type: diastolic Congestive heart failure chronicity: acute on chronic Qualified Code(s): I50.33 - Acute on chronic diastolic (congestive) heart failure Is this a current diagnosis for this admission?: Yes (2) History of atrial fibrillation Is this a current diagnosis for this admission?: Yes (3) Pleural effusion Is this a current diagnosis for this admission?: Yes (4) Renal insufficiency Is this a current diagnosis for this admission?: Yes (5) COPD (chronic obstructive pulmonary disease) Qualifiers: COPD type: unspecified COPD Qualified Code(s): J44.9 - Chronic obstructive pulmonary disease, unspecified Is this a current diagnosis for this admission?: Yes (6) Elevated troponin Is this a current diagnosis for this admission?: Yes - Notes Notes: Congestive heart failure: Predominantly from diastolic dysfunction and right heart failure. Patient has significant COPD. Patient currently on nocturnal oxygen but not using oxygen during the day. Patient still somewhat volume overloaded and clinically has right pleural effusion. Recommend continuation of diuretic therapy. May consider switch to torsemide and spironolactone on discharge. Patient has been stable. Will therefore sign off. Patient can follow-up with me if she wishes. Atrial fibrillation: Patient gives history of paroxysmal atrial fibrillation. Currently has been maintaining sinus rhythm. Continue ELIQUIS therapy. Pleural effusion: Pleural fluid analysis suggests transudate and is most likely related to CHF. By clinical exam CHF and pleural effusion seems to have improved. COPD: Currently stable. Renal insufficiency: Renal functions has been stable with stable electrolyte pattern. Elevated troponin I: Most likely related to CHF. Patient does not have any acute EKG changes nor does have any chest pain. CODE STATUS was discussed, patient remains full code. Surrogate decision-maker unchanged. Multiple medical problems were addressed. Previous Chest x-ray reviewed. Patient has remained stable for several days, will continue to moniter. Discussed with Dr. Morales. - Time Time with patient: 15-25 minutes - CODE STATUS was discussed, patient remains full code. Surrogate decision-maker unchanged. Multiple medical problems were addressed.More than 50% of the time spent coordinating care, discussing management plans with involved caregivers. Management plans discussed with involved personnels. Medical decision making was of moderate complexity.
[2016-12-09] MEDS: SIMVASTATIN 40 MG TABLET PO SCH (21:25)
[2016-12-09] MEDS: LANSOPRAZOLE 15 MG TAB.RAP.DR PO SCH (21:26)
[2016-12-10 05:40] LABS: ANION GAP 9 (5-19); BLOOD UREA NITROGEN 26 mg/dL (7-20); CALCIUM 8.6 mg/dL (8.4-10.2); CARBON DIOXIDE 28 mmol/L (22-30); CHLORIDE 97 mmol/L (98-107); CREATININE RESULT 1.39 mg/dL (0.52-1.25); GLUCOSE 101 mg/dL (75-110); POTASSIUM 3.8 mmol/L (3.6-5.0); SODIUM 134.2 mmol/L (137-145)
[2016-12-10] MEDS: BENZONATATE 100 MG CAPSULE PO SCH (05:48)
[2016-12-10] MEDS: FUROSEMIDE INJ/PF 20 MG/2 ML SDV IV SCH (05:48)
[2016-12-10] MEDS: DOCUSATE SODIUM 100 MG CAPSULE PO SCH (09:14)
[2016-12-10] MEDS: APIXABAN 2.5 MG TABLET PO SCH (09:14)
[2016-12-10] MEDS: LEVOFLOXACIN 500 MG TABLET PO SCH (09:17)
[2016-12-10 10:42] VITALS: BP 106/66
--- NOTE | 2016-12-10 13:27 | PDOC PROGRESS REPORT ---
Subjective Progress Note for:: 12/10/16 Subjective:: Patient seems to be doing better with gradual improvement. Patient is breathing much easier. Pt is denying any chest arm or neck discomfort. Patient denying any PND, orthopnea. Patient denied any sustained palpitations, dizziness, syncope, near syncope. Patient denying any fever chills. Patient denying any other significant discomfort. Patient claims that she is trying to comply with fluid restriction. Patient claims she has ambulated. She is getting discharged today. Patient has follow-up appointment with Dr. Morales. She can follow-up with me if she wishes. Patient is maintaining sinus rhythm. Review of systems: Rest review of systems negative. Medications: Medications have been reviewed. Physical Exam Vital Signs: Temp Pulse Resp BP Pulse Ox 97.7 F 66 20 106/66 100 12/10/16 10:39 12/10/16 10:39 12/10/16 10:39 12/10/16 10:39 12/10/16 10:39 Intake & Output 12/09/16 12/10/16 12/11/16 06:59 06:59 06:59 Intake Total 1263 969 Output Total 300 1975 Balance 963 -1006 Weight 49.9 kg 49.4 kg Exam: GENERAL: well-nourished and in no acute distress. Alert and oriented x3 HEAD: Atraumatic, normocephalic. EYES: Pupils equal round and reactive to light, extraocular movements intact, sclera anicteric, conjunctiva are normal. ENT: TMs normal, nares patent, oropharynx clear without exudates. Moist mucous membranes. No oral ulcerations or bleeding gums noted NECK: supple without lymphadenopathy. Trachea is central. No cervical or axillary lymphadenopathy noted. Carotids are 2+, JVD WNL LUNGS: Respiration seems nonlabored, no significant accessory muscle action noted. Few basal crackles noted right base with minimal dullness but good air entry. CHEST: Palpation of the chest wall shows no significant chest wall tenderness. No other significant abnormalities noted. 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 ABDOMEN: Soft, no significant tenderness appreciated, normoactive bowel sounds. No guarding, no rebound. No rigidity noted . No masses appreciated. EXTREMITIES: Pedal pulses are 1-2+, no calf tenderness noted. No clubbing or cyanosis.trace to 1+ pedal edema noted NEUROLOGICAL: Focused neurological exam showed no significant neurologic deficit. Normal speech, no focal weakness appreciated. PSYCH: Normal mood, normal affect. Judgment and insight within normal limits. SKIN: No significant ecchymosis, rash, ulcerations or signs of pruritus noted. MUSCULOSKELETAL EXAM: No significant joint swelling noted. Results Laboratory Results: 12/09/16 04:04 12/10/16 04:38 12/10/16 04:38 Sodium 134.2 L Potassium 3.8 Chloride 97 L Carbon Dioxide 28 Anion Gap 9 BUN 26 H Creatinine 1.39 H Est GFR ( Amer) 44 L Est GFR (Non-Af Amer) 37 L Glucose 101 Calcium 8.6 12/05/16 12/05/16 12/05/16 12:10 12:10 19:05 Creatine Kinase 56 89 CK-MB (CK-2) 2.34 Troponin I 0.138 NT-Pro-B Natriuret Pep 12/05/16 12/06/16 12/06/16 19:05 00:29 00:29 Creatine Kinase 163 H CK-MB (CK-2) 3.92 5.50 H Troponin I 0.152 0.159 NT-Pro-B Natriuret Pep 12/07/16 06:44 Creatine Kinase CK-MB (CK-2) Troponin I NT-Pro-B Natriuret Pep 5750 H Impressions: Chest X-Ray 12/07/16 00:00 IMPRESSION: Asymmetric edema or pneumonia. Assessment & Plan - Diagnosis (1) CHF (congestive heart failure) Qualifiers: Congestive heart failure type: diastolic Congestive heart failure chronicity: acute on chronic Qualified Code(s): I50.33 - Acute on chronic diastolic (congestive) heart failure Is this a current diagnosis for this admission?: Yes (2) History of atrial fibrillation Is this a current diagnosis for this admission?: Yes (3) Pleural effusion Is this a current diagnosis for this admission?: Yes (4) Renal insufficiency Is this a current diagnosis for this admission?: Yes (5) COPD (chronic obstructive pulmonary disease) Qualifiers: COPD type: unspecified COPD Qualified Code(s): J44.9 - Chronic obstructive pulmonary disease, unspecified Is this a current diagnosis for this admission?: Yes (6) Elevated troponin Is this a current diagnosis for this admission?: Yes - Notes Notes: Congestive heart failure: Predominantly right-sided secondary to right heart failure with some contribution from diastolic heart failure. Patient would benefit from chronic oxygen supplementation even during the day. Patient will benefit from a sleep study to make sure patient does not have central sleep apnea. Paroxysmal atrial fibrillation: Currently stable continue chronic anticoagulation. Pleural effusion: Right sided this seems to have improved. Follow-up chest x- ray will be needed. COPD: Currently stable. Troponin I: [place] to be related to CHF and COPD as well as possible chronic hypoxemia. Patient to without any chest pain or any significant EKG changes. This can be followed as an outpatient. Renal insufficiency: Renal functions has been stable with stable electrolyte pattern. CODE STATUS was discussed, patient remains full code. Surrogate decision-maker unchanged. Multiple medical problems were addressed. - Time Time with patient: 15-25 minutes
== END 2016-12-10 11:12 | disposition home or self-care (01) | DRG 291 ==
LOC: ER 06:19 → UNDOADMIN 09:35 → EH 09:35 → 3S 12-06 07:36
PROVIDERS: ADMIT Family Medicine; ATTEND Family Medicine
PROC: 5A09457 Assistance with Respiratory Ventilation, 24-96 Consecutive Hours, Continuous Positive Airway Pressure (ICD-10-PCS; principal; 2016-12-05)
DX: I50.33 Acute on chronic diastolic (congestive) heart failure (principal); J96.01 Acute respiratory failure with hypoxia; I13.0 Hypertensive heart and chronic kidney disease with heart failure and stage 1 through stage 4 chronic kidney disease, or unspecified chronic kidney disease; I48.0 Paroxysmal atrial fibrillation; K21.9 Gastro-esophageal reflux disease without esophagitis; N18.2 Chronic kidney disease, stage 2 (mild); K44.9 Diaphragmatic hernia without obstruction or gangrene; R74.8 Abnormal levels of other serum enzymes; Z82.49 Family history of ischemic heart disease and other diseases of the circulatory system; Z88.2 Allergy status to sulfonamides; Z79.02 Long term (current) use of antithrombotics/antiplatelets
CPT/HCPCS: 36415; 71010; 71020; 80048; 80053; 81001; 82550; 82553; 82803; 83735; 83880; 84484; 85025; 87804; 93005; 93010; 94660; 96374; 99291; J1650; J1940; J7620

== ENCOUNTER 2017-01-07 22:21 | Inpatient (IN) | payer MEDICARE, OTHER ==
[2017-01-07] MEDS ORDERED: METHYLPREDNISOLONE INJ 125 MG/2 ML SDV IV ONE (22:28)
[2017-01-07] MEDS ORDERED: IPRATROPIUM/ALBUTEROL 0.5-2.5 MG/3 ML AMPUL NEB ONE ×2 (22:28→22:33)
[2017-01-07] MEDS ORDERED: ALBUTEROL SULFATE 0.083% NEB 2.5 MG/3 ML AMPUL NEB ONE (22:33)
[2017-01-07] MEDS: ALBUTEROL SULFATE 0.083% NEB 2.5 MG/3 ML AMPUL NEB SCH ×2 (22:37→22:56)
[2017-01-07] MEDS ORDERED: LORAZEPAM INJ 2 MG/1 ML VIAL IV ONE (23:21)
--- NOTE | 2017-01-07 23:21 | ER Document Report ---
ED Respiratory Problem - General Mode of Arrival: Medic Information source: Patient, Relative TRAVEL OUTSIDE OF THE [place] IN LAST 30 DAYS: No - HPI Patient complains to provider of: CHF, Short of breath Onset: This evening Context: Hx CHF Associated symptoms: Other - see HPI <MAJO MORALES - Last Filed: 01/08/17 00:08> <ALEX LANZA JANI - Last Filed: 01/08/17 06:21> - General Chief Complaint: Shortness Of Breath Stated Complaint: FLANK PAIN Notes: 76 year old female with history of CHF and COPD (oxygen dependent) presents to the ED via EMS after developing severe shortness of breath that started earlier this evening. Patient states that she went to brush her teeth this evening, but had to disconnect from her oxygen because the cord would not extend to the bathroom and then developed shortness of breath. Patient states that her breathing is better than it was earlier this evening. Patient's daughter states that she has recently been more short of breath. In the past, the patient was able to sit up without any difficulty breathing, but has recently developed difficulty breathing even while resting. Patient denies chest pain, cough, or fever. Patient reports that she has taken 2 Lasix today. Patient is on an anxiety medication secondary to her passing away 3 weeks ago. Patient's primary care provider is Dr. Morales. (MAJO MORALES) - Related Data Allergies/Adverse Reactions: sulfamethoxazole [From Bactrim] Allergy (Verified 01/08/17 02:43) trimethoprim [From Bactrim] Allergy (Verified 01/08/17 02:43) nut - unspecified Adverse Reaction (Verified 01/08/17 02:43) aggravates diverticulitis. Home Medications: Current Home Medications Digoxin [Digitek] 125 mcg PO DAILY 01/08/17 [History] Diltiazem HCl [Cartia Xt] 120 mg PO DAILY 01/08/17 [History] Escitalopram Oxalate [Escitalopram Oxalate] 5 mg PO DAILY 01/08/17 [History] Torsemide [Torsemide] 10 mg PO BID 01/08/17 [History] Past Medical History - General Information source: Patient, Relative - Social History Smoking Status: Unknown if Ever Smoked Family History: CAD - in both parents but not premature - Past Medical History Cardiac Medical History: Reports: Hx Atrial Fibrillation, Hx Congestive Heart Failure, Hx Hypercholesterolemia Pulmonary Medical History: Reports: Hx COPD GI Medical History: Reports: Hx Gastroesophageal Reflux Disease, Hx Hiatal Hernia Past Surgical History: Reports: Hx Bowel Surgery, Hx Cardiac Surgery - cardiac ablation, Other - Ablation - Immunizations Hx Diphtheria, Pertussis, Tetanus Vaccination: No <MAJO MORALES - Last Filed: 01/08/17 00:08> Review of Systems - Review of Systems Constitutional: No symptoms reported EENT: No symptoms reported Cardiovascular: No symptoms reported. denies: Chest pain Respiratory: See HPI, Short of breath. denies: Cough Gastrointestinal: No symptoms reported Genitourinary: No symptoms reported Female Genitourinary: No symptoms reported Musculoskeletal: No symptoms reported Skin: No symptoms reported Hematologic/Lymphatic: No symptoms reported Neurological/Psychological: No symptoms reported -: Yes All other systems reviewed and negative <MAJO MORALES - Last Filed: 01/08/17 00:08> Physical Exam - Vital signs Interpretation: Hypoxic, Tachypneic - General General appearance: Alert In distress: Moderate - HEENT Head: Normocephalic, Atraumatic Eyes: Normal Extraocular movements intact: Yes Pupils: PERRL - Respiratory Respiratory status: Respiratory distress - moderate, Tachypnea, Other - Accessory muscle use and hypoxic Breath sounds: Decreased air movement - bilaterally, Other - Crackles throughout - Cardiovascular Rhythm: Regular Heart sounds: Normal auscultation - Abdominal Inspection: Normal - Back Back: Normal - Neurological Neuro grossly intact: Yes Cognition: Normal Orientation: AAOx4 [place] Coma Scale Eye Opening: Spontaneous [place] Coma Scale Verbal: Oriented [place] Coma Scale Motor: Obeys Commands [place] Coma Scale Total: 15 Speech: Normal - Psychological Associated symptoms: Anxious - Skin Skin Temperature: Warm Skin Moisture: Dry Skin Color: Normal <MAJO MORALES - Last Filed: 01/08/17 00:08> Course - Laboratory Result Diagrams: 01/07/17 22:49 01/07/17 22:49 - Consults Dr. Morales Time consulted: 23:45 Dr. Marie Time consulted: 23:56 <MAJO MORALES - Last Filed: 01/08/17 00:08> - Laboratory Result Diagrams: 01/07/17 22:49 01/07/17 22:49 <ALEX LANZA - Last Filed: 01/08/17 06:21> - Re-evaluation Re-evalutation: 01/08/17 00:33 Patient is a 76-year-old female with a history of CHF who comes in with difficulty breathing. Patient denies any chest pain. Symptoms are consistent with CHF exacerbation. Patient has been started on BiPAP and is responding well. Patient has initially been started on a nitroglycerin drip but was instructed by cardiology to stop that. Patient is resting comfortably on BiPAP. She is been discussed with Dr. Morales. Dr. Vazquez and Dr. Morales her comfortable keeping the patient at this hospital at this time. Slight elevation of troponin which is likely due to CHF exacerbation and also some renal insufficiency. Stable at time of admission to the [facility]. Patient agrees with plan. (ALEX LANZA) - Vital Signs Vital signs: Temp Pulse Resp BP Pulse Ox 100 19 128/60 H 97 01/08/17 02:32 01/08/17 05:01 01/08/17 05:00 01/08/17 05:01 - Laboratory Laboratory results interpreted by me: 01/07/17 01/07/17 22:49 22:49 BUN 25 H Creatinine 1.45 H Est GFR ( Amer) 42 L Est GFR (Non-Af Amer) 35 L Glucose 111 H NT-Pro-B Natriuret Pep 6760 H Total Protein 5.9 L Albumin 3.0 L - Consults Dr. Morales Reason for consultation: 01/08/17 23:45 Patient was discussed with Dr. Morales and states to call Dr. Marie and discuss the patient with him first. 01/08/17 00:01 Dr. Morales was notified that Dr. Marie will see the patient in the morning as long as Dr. Morales is comfortable admitting her. Dr. Morales says he will see the patient and to admit the patient to [facility]. (MAJO MORALES) Dr. Marie Reason for consultation: 01/08/17 23:56 Patient was discussed with Dr. Marie and he agrees to see the patient as long as Dr. Morales is comfortable admitting the patient. (MAJO MORALES) Critical Care Note - Critical Care Note Total time excluding time spent on procedures (mins): 45 - evaluation and management of respiratory distress with multiple re-evaluations, counseling of specialist, coordination of admission, counseling of patient and family <ALEX LANZA - Last Filed: 01/08/17 06:21> Discharge <MAJO MORALES - Last Filed: 01/08/17 00:08> - Discharge Admitting Provider: Andrew Unit Admitted: [facility] <ALEX LANZA - Last Filed: 01/08/17 06:21> - Discharge Clinical Impression: Respiratory distress, Elevated troponin, Recurrent pleural effusion on right, Hypoxia CHF (congestive heart failure) Qualifiers: Congestive heart failure type: unspecified congestive heart failure type Congestive heart failure chronicity: acute on chronic Qualified Code(s): I50.9 - Heart failure, unspecified Acute renal failure Qualifiers: Acute renal failure type: unspecified Qualified Code(s): N17.9 - Acute kidney failure, unspecified Condition: Stable Disposition: ADMITTED INPATIENT Scribe Attestation: 01/08/17 06:21 I personally performed the services described in the documentation, reviewed and edited the documentation which was dictated to the scribe in my presence, and it accurately records my words and actions. (ALEX LANZA) Scribe Documentation - Scribe Written by Christy:: Christy Soni, 01/08/2017 0019 acting as scribe for :: Roxie <MAJO MORALES - Last Filed: 01/08/17 00:08>
[2017-01-07] MEDS ORDERED: NITROGLYCERIN/D5W 250 ML IV PRN (23:22)
--- NOTE | 2017-01-07 23:30 | EKG REPORT ---
SEVERITY:- ABNORMAL ECG - SINUS ARRHYTHMIA, RATE 70-102 LOW VOLTAGE IN FRONTAL LEADS CONSIDER ANTEROSEPTAL INFARCT BORDERLINE T ABNORMALITIES, LATERAL LEADS : Confirmed by: Jon Aguilera 07-Jan-2017 23:30:00
[2017-01-07 23:32] LABS: ABSOLUTE BASOPHILS # (AUTO) 0.1 10^3/uL (0.0-0.2); ABSOLUTE EOSINOPHILS # (AUTO) 0.2 10^3/uL (0.0-0.6); ABSOLUTE LYMPHOCYTES (AUTO) 1.8 10^3/uL (0.5-4.7); ABSOLUTE MONOCYTES (AUTO) 0.5 10^3/uL (0.1-1.4); ABSOLUTE NEUT (AUTO) 4.7 10^3/uL (1.7-8.2); BASOPHILS % (AUTO) 1.3 % (0-2); EOSINOPHILS % (AUTO) 2.3 % (0-6); HEMATOCRIT 36.5 % (36.0-47.0); HEMOGLOBIN 12.2 g/dL (12.0-15.5); HGB HCT DIFFERENCE 0.1; LYMPHOCYTES % (AUTO) 24.9 % (13-45); MEAN CORPUSCULAR HEMOGLOBIN 30.8 pg (27.0-33.4); MEAN CORPUSCULAR HGB CONC 33.3 g/dL (32.0-36.0); MEAN CORPUSCULAR VOLUME 93 fl (80-97); MONOCYTES % (AUTO) 6.6 % (3-13); RED BLOOD COUNT 3.95 10^6/uL (3.72-5.28); RED CELL DISTRIBUTION WIDTH 13.5 % (11.5-14.0); SEGMENTED NEUTROPHILS % (AUTO) 64.9 % (42-78); WHITE BLOOD COUNT 7.3 10^3/uL (4.0-10.5)
[2017-01-07 23:36] LABS: ALANINE AMINOTRANSFERASE 27 U/L (9-52); ALKALINE PHOSPHATASE 88 U/L (38-126); ANION GAP 9 (5-19); ASPARTATE AMINO TRANSFERASE 23 U/L (14-36); BILIRUBIN,DIRECT 0.1 mg/dL (0.0-0.4); BILIRUBIN,TOTAL 0.3 mg/dL (0.2-1.3); BLOOD UREA NITROGEN 25 mg/dL (7-20); CALCIUM 9.5 mg/dL (8.4-10.2); CARBON DIOXIDE 30 mmol/L (22-30); CHLORIDE 99 mmol/L (98-107); CREATINE KINASE 40 U/L (30-135); CREATININE RESULT 1.45 mg/dL (0.52-1.25); GLUCOSE 111 mg/dL (75-110); SODIUM 137.6 mmol/L (137-145); TOTAL PROTEIN 5.9 g/dL (6.3-8.2)
[2017-01-07 23:43] LABS: PROTHROMBIN TIME 14.4 SEC (11.4-15.4)
[2017-01-07 23:48] LABS: CREATINE KINASE MB 2.39 ng/mL (<4.55)
[2017-01-07 23:50] LABS: TROPONIN I 0.17 ng/mL
[2017-01-08 01:23] LABS: VENOUS BLOOD BASE EXCESS 2.2 mmol/L; VENOUS BLOOD HCO3 27.7 mmol/L (20-32); VENOUS BLOOD PCO2 45.1 mmHg (35-63); VENOUS BLOOD PH 7.41 (7.30-7.42)
[2017-01-08] MEDS: LEVALBUTEROL HCL NEB 1.25 MG/3 ML AMPUL NEB SCH ×4 (02:17→20:51)
[2017-01-08 05:32] LABS: CREATINE KINASE MB 2.85 ng/mL (<4.55); TROPONIN I 0.138 ng/mL
[2017-01-08] MEDS: FUROSEMIDE INJ/PF 20 MG/2 ML SDV IV SCH ×3 (07:04→21:51)
[2017-01-08] MEDS: LANSOPRAZOLE 15 MG TAB.RAP.DR PO SCH (07:14)
[2017-01-08] MEDS ORDERED: TIOTROPIUM BROMIDE IH SCH (10:00)
--- NOTE | 2017-01-08 11:53 | PDOC H&P ---
History of Present Illness Admission Date/PCP: 01/08/17 00:10 CHEYENNE VILLARREAL MD Patient complains of: Shortness of the breath History of Present Illness: SALOME OMSLEY is a 76 year old female This is a 76-year-old female with a significant history of the congestive heart failure history of the COPD with oxygen dependent and history of the chronic kidney disease and a history of the recurrent pleural effusionsAnd several thoracocentesis was done and no sign of any malignancy and mostly a transudate fluid came to the emergency department with the complaining of shortness of the breath and patient's chest x-ray shows the bilateral pleural effusions more increasing compared to the last timesAnd the patient's also put on the BiPAP and patient's currently seen in the ER feeling better. Patient have a several evaluations done by the pulmonary cardiology and the nephrology through the [facility] and in the [facility] and the patient is also noncompliance with the diet in patients also noncompliance with the putting the oxygen's and I think that is mostly creating the more problems. Discussed with the patient and the patient's sister on the bedside about the patient's current conditions and discussed with the cardiology and pulmonary today and admit the patient's for further evaluation and treatment Patients denied any chest pain, some mild cough and congestions Past Medical History Cardiac Medical History: Reports: Atrial Fibrillation, Congestive Heart Failure , Coronary Artery Disease, Hyperlipidema Denies: Myocardial Infarction, Hypertension Pulmonary Medical History: Reports: Chronic Obstructive Pulmonary Disease (COPD) Denies: Asthma, Bronchitis, Pneumonia Neurological Medical History: Denies: Seizures Renal/ Medical History: Reports: Chronic Kidney Disease Renal/ History Note: Patient is only having 1 kidney GI Medical History: Reports: Gastroesophageal Reflux Disease, Hiatal Hernia Musculoskeltal Medical History: Denies: Arthritis Psychiatric Medical History: Denies: Depression Hematology: Denies: Anemia, Sickle Cell Disease Past Surgical History Past Surgical History: Reports: Other - Ablation Denies: Amputation, Hysterectomy, Mastectomy Social History Smoking Status: Unknown if Ever Smoked Frequency of Alcohol Use: None Hx Recreational Drug Use: No Drugs: None Hx Prescription Drug Abuse: No Family History Family History: Reviewed & Not Pertinent, CAD - in both parents but not premature Parental Family History Reviewed: Yes Children Family History Reviewed: Yes Sibling(s) Family History Reviewed.: Yes Medication/Allergy Home Medications: Apixaban [Eliquis 2.5 mg Tablet] 2.5 mg PO Q12 12/05/16 Docusate Sodium [Colace 100 mg Capsule] 100 mg PO BID 12/05/16 Tiotropium [place] [Spiriva Respimat] 2 sprays IH DAILY 12/05/16 Vit A/Vit C/Vit E/Zinc/Copper [Preservision Areds Softgel] 1 each PO BID Omeprazole 20 mg PO QHS #30 12/10/16 Digoxin [Digitek] 125 mcg PO DAILY 01/08/17 Diltiazem HCl [Cartia Xt] 120 mg PO DAILY 01/08/17 Escitalopram Oxalate [Escitalopram Oxalate] 5 mg PO DAILY 01/08/17 Torsemide [Torsemide] 10 mg PO BID 01/08/17 Tramadol HCl [Ultram 50 mg Tablet] 50 mg PO BIDP PRN 01/08/17 Allergies/Adverse Reactions: sulfamethoxazole [From Bactrim] Allergy (Verified 01/08/17 02:43) trimethoprim [From Bactrim] Allergy (Verified 01/08/17 02:43) nut - unspecified Adverse Reaction (Verified 01/08/17 02:43) aggravates diverticulitis. Review of Systems Constitutional: PRESENT: weakness. ABSENT: chills, fever(s), headache(s), weight gain, weight loss Eyes: ABSENT: visual disturbances Ears: ABSENT: hearing changes Cardiovascular: PRESENT: dyspnea on exertion. ABSENT: chest pain, edema, orthropnea, palpitations Respiratory: PRESENT: cough. ABSENT: hemoptysis Gastrointestinal: ABSENT: abdominal pain, constipation, diarrhea, hematemesis, hematochezia, nausea, vomiting Genitourinary: ABSENT: dysuria, hematuria Musculoskeletal: ABSENT: joint swelling Integumentary: ABSENT: rash, wounds Neurological: ABSENT: abnormal gait, abnormal speech, confusion, dizziness, focal weakness, syncope Psychiatric: ABSENT: anxiety, depression, homidical ideation, suicidal ideation Endocrine: ABSENT: cold intolerance, heat intolerance, menstrual abnormalities, polydipsia, polyuria Hematologic/Lymphatic: ABSENT: easy bleeding, easy bruising, lymphadenopathy Physical Exam Vital Signs: Temp Pulse Resp BP Pulse Ox 89 24 H 121/59 L 94 01/08/17 08:30 01/08/17 08:30 01/08/17 07:00 01/08/17 08:30 General appearance: PRESENT: no acute distress, well-developed, well-nourished Head exam: PRESENT: atraumatic, normocephalic Eye exam: PRESENT: conjunctiva pink, EOMI, PERRLA. ABSENT: scleral icterus Ear exam: PRESENT: normal external ear exam Mouth exam: PRESENT: moist, tongue midline Neck exam: PRESENT: full ROM. ABSENT: carotid bruit, JVD, lymphadenopathy, thyromegaly Respiratory exam: PRESENT: decreased breath sounds Cardiovascular exam: PRESENT: irregular rhythm, +S1, +S2 Pulses: PRESENT: normal dorsalis pedis pul, +2 pedal pulses bilateral Vascular exam: PRESENT: normal capillary refill GI/Abdominal exam: PRESENT: normal bowel sounds, soft. ABSENT: distended, guarding, mass, organolmegaly, rebound, tenderness Rectal exam: PRESENT: deferred Extremities exam: ABSENT: pedal edema Neurological exam: PRESENT: alert, awake, oriented to person, oriented to place , oriented to time, oriented to situation, CN II-XII grossly intact. ABSENT: motor sensory deficit Psychiatric exam: PRESENT: appropriate affect, normal mood. ABSENT: homicidal ideation, suicidal ideation Skin exam: PRESENT: dry, intact, warm. ABSENT: cyanosis, rash Results Laboratory Results: 01/08/17 01:00 VBG pH 7.41 VBG pCO2 45.1 VBG HCO3 27.7 VBG Base Excess 2.2 01/08/17 01/08/17 04:43 04:43 Creatine Kinase 35 CK-MB (CK-2) 2.85 Troponin I 0.138 Impressions: Chest X-Ray 01/07/17 22:28 IMPRESSION: Bilateral pleural effusions right greater than left. The effusions have slightly increased in size when compared to prior study. Underlying airspace disease cannot be excluded. Assessment & Plan - Diagnosis (1) CHF (congestive heart failure) Qualifiers: Congestive heart failure type: unspecified congestive heart failure type Congestive heart failure chronicity: acute on chronic Qualified Code(s ): I50.9 - Heart failure, unspecified Is this a current diagnosis for this admission?: YesPlan: Start the patient on the Lasix 20 mg IV q. [address] Phoenix for ongoing problems with the pleural effusions and all the fluid is transudate in the bilateral which is related to the heart failure for further evaluations (2) Elevated troponin Is this a current diagnosis for this admission?: YesPlan: From chronic kidney disease with a troponin leak patient's denied any chest pain (3) Recurrent pleural effusion on right Is this a current diagnosis for this admission?: YesPlan: With the recurrent bilateral pleural effusions and there is no sign of any malignancy in the pleural fluid and the most fluid is a transudate discussed with the Dr. rodriguez about possible pleural cath placements and will follow that (4) Respiratory distress Is this a current diagnosis for this admission?: YesPlan: PICC patient currently on a BiPAP will repeat the ABG and continues to monitor the patient (5) Atrial fibrillation Qualifiers: Atrial fibrillation type: paroxysmal Qualified Code(s): I48.0 - Paroxysmal atrial fibrillation Is this a current diagnosis for this admission?: YesPlan: Currently on Eliquis (6) COPD (chronic obstructive pulmonary disease) Qualifiers: COPD type: unspecified COPD Qualified Code(s): J44.9 - Chronic obstructive pulmonary disease, unspecified Is this a current diagnosis for this admission?: YesPlan: Start the nebulizer treatments (7) Chronic kidney disease Qualifiers: Chronic kidney disease stage: stage 3 (moderate) Qualified Code(s): N18.3 - Chronic kidney disease, stage 3 (moderate) Is this a current diagnosis for this admission?: YesPlan: Current creatinine is 1.[address] Forman (8) Shortness of breath Is this a current diagnosis for this admission?: YesPlan: The multifactorial from the COPD and CHF and bilateral pleural effusions - Time Time Spent: 50 to 70 Minutes Medications reviewed and adjusted accordingly: Yes Anticipated discharge: Home Within: Other - Inpatient Certification Medical Necessity: Need Close Monitoring Due to Risk of Patient Decompensation Post Hospital Care: D/C Pot Holder Binder Documentation - Plan Summary Plan Summary: Discussed with the patient and her sister on the bedside about all the patient' s current conditions with the recurrent pleural effusions discussed with the pulmonary and cardiology and possible evaluations for the pleural cath placements
[2017-01-08] MEDS: DILTIAZEM HCL 120 MG CAP.SR.24H PO SCH (12:31)
[2017-01-08 12:32] LABS: CREATINE KINASE MB 2.82 ng/mL (<4.55); TROPONIN I 0.135 ng/mL
[2017-01-08] MEDS: APIXABAN 2.5 MG TABLET PO SCH (12:33)
[2017-01-08] MEDS: DOCUSATE SODIUM 100 MG CAPSULE PO SCH ×2 (12:34→18:28)
[2017-01-08] MEDS ORDERED: DIGOXIN 0.125 MG TABLET PO ONE (13:00)
[2017-01-08 17:41] LABS: CREATINE KINASE MB 2.81 ng/mL (<4.55); TROPONIN I 0.117 ng/mL
[2017-01-08] MEDS: SIMVASTATIN 40 MG TABLET PO SCH (21:48)
[2017-01-09] MEDS: LEVALBUTEROL HCL NEB 1.25 MG/3 ML AMPUL NEB SCH ×4 (02:15→21:22)
[2017-01-09 06:14] LABS: HEMATOCRIT 33.5 % (36.0-47.0); HEMOGLOBIN 11.2 g/dL (12.0-15.5); HGB HCT DIFFERENCE 0.1; MEAN CORPUSCULAR HEMOGLOBIN 30.9 pg (27.0-33.4); MEAN CORPUSCULAR HGB CONC 33.6 g/dL (32.0-36.0); MEAN CORPUSCULAR VOLUME 92 fl (80-97); RED BLOOD COUNT 3.64 10^6/uL (3.72-5.28)
[2017-01-09] MEDS: FUROSEMIDE INJ/PF 20 MG/2 ML SDV IV SCH ×3 (06:25→21:24)
[2017-01-09] MEDS: LANSOPRAZOLE 15 MG TAB.RAP.DR PO SCH (06:25)
[2017-01-09 06:31] LABS: ANION GAP 12 (5-19); BLOOD UREA NITROGEN 40 mg/dL (7-20); CALCIUM 9.7 mg/dL (8.4-10.2); CARBON DIOXIDE 25 mmol/L (22-30); CHLORIDE 97 mmol/L (98-107); GLUCOSE 134 mg/dL (75-110); POTASSIUM 4.2 mmol/L (3.6-5.0); SODIUM 134.4 mmol/L (137-145)
[2017-01-09 06:43] LABS: WHITE BLOOD COUNT 22.5 10^3/uL (4.0-10.5)
[2017-01-09 06:44] LABS: BAND NEUTROPHILS % (MANUAL) 3 % (3-5); BASOPHILS % (MANUAL) 0 % (0-2); EOSINOPHILS % (MANUAL) 0 % (0-6); LYMPHOCYTES % (MANUAL) 0 % (13-45); TOTAL CELLS COUNTED 100
[2017-01-09 06:45] LABS: ROULEAUX SLIGHT; TOXIC GRANULATION SLIGHT
[2017-01-09 06:46] LABS: ANISOCYTOSIS SLIGHT; HYPOCHROMASIA SLIGHT; OVALOCYTES SLIGHT; POIKILOCYTOSIS SLIGHT
[2017-01-09] MEDS: APIXABAN 2.5 MG TABLET PO SCH (09:16)
[2017-01-09] MEDS: DILTIAZEM HCL 120 MG CAP.SR.24H PO SCH (09:42)
[2017-01-09] MEDS: DIGOXIN 0.125 MG TABLET PO SCH (09:42)
[2017-01-09] MEDS: DOCUSATE SODIUM 100 MG CAPSULE PO SCH ×2 (09:42→17:31)
[2017-01-09] MEDS: ESCITALOPRAM OXALATE 10 MG TABLET PO SCH (09:42)
[2017-01-09] MEDS ORDERED: DILTIAZEM HCL 120 MG CAP.SR.24H PO SCH (10:00)
[2017-01-09] MEDS ORDERED: ESCITALOPRAM OXALATE 5 MG PO SCH (10:00)
--- NOTE | 2017-01-09 10:53 | PDOC CONSULTATION ---
Consultation Consult Date: 01/08/17 Attending physician:: CHEYENNE VILLARREAL Consult reason:: dyspnea History of Present Illness Admission Date/PCP: 01/08/17 00:10 CHEYENNE VILLARREAL MD History of Present Illness: SALOME MOSLEY is a 76 year old female Known to pulmonary service for repeated pleural effusions requiring multiple thoracentesis states that over the last several days she has become progressively more short of breath denies cough nausea vomiting fevers chills rhinorrhea sore throat chest pain or edema. She is a long history of congestive heart failure and atrial fibrillation. She is known to have a single kidney Past Medical History Cardiac Medical History: Reports: Atrial Fibrillation, Congestive Heart Failure , Hyperlipidema Denies: Myocardial Infarction, Hypertension Pulmonary Medical History: Reports: Chronic Obstructive Pulmonary Disease (COPD) Denies: Asthma, Bronchitis, Pneumonia Neurological Medical History: Denies: Seizures GI Medical History: Reports: Gastroesophageal Reflux Disease, Hiatal Hernia Musculoskeltal Medical History: Denies: Arthritis Psychiatric Medical History: Denies: Depression Hematology: Denies: Anemia, Sickle Cell Disease Past Surgical History Past Surgical History: Reports: Other - Ablation Denies: Amputation, Hysterectomy, Mastectomy Social History Information Source: Patient, [facility] Records Lives with: Alone Smoking Status: Former Smoker Passive smoke exposure as: Both Frequency of Alcohol Use: None Hx Recreational Drug Use: No Drugs: None Hx Prescription Drug Abuse: No Do you have pets?: No Have you had any respiratory illnesses as a child?: No Have you been exposed to any sick contacts recently?: No Have you travelled outside of [place] in the past 12 months?: No Family History Family History: CAD - in both parents but not premature Parental Family History Reviewed: Yes Children Family History Reviewed: Yes Sibling(s) Family History Reviewed.: Yes Medication/Allergy Home Medications: Apixaban [Eliquis 2.5 mg Tablet] 2.5 mg PO Q12 12/05/16 Docusate Sodium [Colace 100 mg Capsule] 100 mg PO BID 12/05/16 Tiotropium [place] [Spiriva Respimat] 2 sprays IH DAILY 12/05/16 Vit A/Vit C/Vit E/Zinc/Copper [Preservision Areds Softgel] 1 each PO BID Omeprazole 20 mg PO QHS #30 12/10/16 Digoxin [Digitek] 125 mcg PO DAILY 01/08/17 Diltiazem HCl [Cartia Xt] 120 mg PO DAILY 01/08/17 Escitalopram Oxalate [Escitalopram Oxalate] 5 mg PO DAILY 01/08/17 Torsemide [Torsemide] 10 mg PO BID 01/08/17 Tramadol HCl [Ultram 50 mg Tablet] 50 mg PO BIDP PRN 01/08/17 Allergies/Adverse Reactions: sulfamethoxazole [From Bactrim] Allergy (Verified 01/08/17 02:43) trimethoprim [From Bactrim] Allergy (Verified 01/08/17 02:43) nut - unspecified Adverse Reaction (Verified 01/08/17 02:43) aggravates diverticulitis. Physical Exam Vital Signs: Temp Pulse Resp BP Pulse Ox 89 24 H 121/59 L 94 01/08/17 08:30 01/08/17 08:30 01/08/17 07:00 01/08/17 08:30 General appearance: PRESENT: no acute distress, disheveled, thin, well-developed Head exam: PRESENT: atraumatic, normocephalic Eye exam: PRESENT: conjunctiva pale, EOMI, PERRLA Mouth exam: PRESENT: moist, neck supple Neck exam: ABSENT: carotid bruit, JVD, lymphadenopathy, thyromegaly Respiratory exam: PRESENT: decreased breath sounds, prolonged expiratory phas, rhonchi, unlabored - Decrease in breath sounds right greater than left could not elicit egophony Cardiovascular exam: PRESENT: RRR, +S1, +S2 Pulses: PRESENT: normal radial pulses GI/Abdominal exam: PRESENT: normal bowel sounds, soft. ABSENT: distended, guarding, mass, organolmegaly, rebound, tenderness Rectal exam: PRESENT: deferred Gentrourinary exam: PRESENT: indwelling catheter Musculoskeletal exam: PRESENT: tenderness Neurological exam: PRESENT: alert, awake Psychiatric exam: PRESENT: normal mood Skin exam: PRESENT: dry, warm Results Laboratory Results: 01/08/17 01:00 VBG pH 7.41 VBG pCO2 45.1 VBG HCO3 27.7 VBG Base Excess 2.2 01/08/17 01/08/17 04:43 04:43 Creatine Kinase 35 CK-MB (CK-2) 2.85 Troponin I 0.138 Impressions: Chest X-Ray 01/07/17 22:28 IMPRESSION: Bilateral pleural effusions right greater than left. The effusions have slightly increased in size when compared to prior study. Underlying airspace disease cannot be excluded. Assessment & Plan - Diagnosis (1) CHF (congestive heart failure) Qualifiers: Congestive heart failure type: unspecified congestive heart failure type Congestive heart failure chronicity: acute on chronic Qualified Code(s ): I50.9 - Heart failure, unspecified Is this a current diagnosis for this admission?: Yes (2) Chronic renal insufficiency, stage II (mild) Is this a current diagnosis for this admission?: Yes (3) History of atrial fibrillation Is this a current diagnosis for this admission?: Yes (4) Recurrent pleural effusion on right Is this a current diagnosis for this admission?: YesPlan: Discussed with patient ideally Pleurodex catheter can be placed and she has had multiple thoracentesis in the past (5) COPD (chronic obstructive pulmonary disease) Qualifiers: COPD type: unspecified COPD Qualified Code(s): J44.9 - Chronic obstructive pulmonary disease, unspecified Is this a current diagnosis for this admission?: Yes
[2017-01-09] MEDS: CEFEPIME 1 GM/D5W RTU 50 ML IV SCH ×2 (10:58→21:24)
--- NOTE | 2017-01-09 11:02 | PDOC PROGRESS REPORT ---
Subjective Progress Note for:: 01/09/17 Subjective:: Patient without complaints hard of hearing we discussed at length Pleurodex catheter and its role in her health Physical Exam Vital Signs: Temp Pulse Resp BP Pulse Ox 97.5 F 77 21 H 103/51 L 95 01/09/17 08:23 01/09/17 08:23 01/09/17 07:31 01/09/17 08:23 01/09/17 08:23 Intake & Output 01/08/17 01/09/17 01/10/17 06:59 06:59 06:59 Intake Total 719 Output Total 300 Balance 419 Weight 53.2 kg 54.8 kg General appearance: PRESENT: no acute distress Head exam: PRESENT: atraumatic, normocephalic Mouth exam: PRESENT: moist, neck supple Neck exam: ABSENT: carotid bruit, JVD, lymphadenopathy, thyromegaly Respiratory exam: PRESENT: decreased breath sounds, prolonged expiratory phas, rales Cardiovascular exam: PRESENT: RRR, +S1, +S2 Pulses: PRESENT: normal radial pulses GI/Abdominal exam: PRESENT: normal bowel sounds, soft. ABSENT: distended, guarding, mass, organolmegaly, rebound, tenderness Rectal exam: PRESENT: deferred Neurological exam: PRESENT: alert, awake, other - Hard of hearing Psychiatric exam: PRESENT: normal mood Skin exam: PRESENT: dry, warm Results Laboratory Results: 01/09/17 05:53 01/09/17 05:53 01/09/17 01/09/17 05:53 05:53 WBC 22.5 H D RBC 3.64 L Hgb 11.2 L Hct 33.5 L MCV 92 MCH 30.9 MCHC 33.6 RDW 14.0 Plt Count 303 Seg Neutrophils % Not Reportable Lymphocytes % Not Reportable Monocytes % Not Reportable Eosinophils % Not Reportable Basophils % Not Reportable Absolute Neutrophils Not Reportable Absolute Lymphocytes Not Reportable Absolute Monocytes Not Reportable Absolute Eosinophils Not Reportable Absolute Basophils Not Reportable Sodium 134.4 L Potassium 4.2 Chloride 97 L Carbon Dioxide 25 Anion Gap 12 BUN 40 H Creatinine 1.70 H Est GFR ( Amer) 35 L Est GFR (Non-Af Amer) 29 L Glucose 134 H Calcium 9.7 Magnesium 2.0 01/08/17 01/08/17 01/08/17 04:43 04:43 11:20 Creatine Kinase 35 36 CK-MB (CK-2) 2.85 Troponin I 0.138 01/08/17 01/08/17 01/08/17 11:20 16:45 16:45 Creatine Kinase 31 CK-MB (CK-2) 2.82 2.81 Troponin I 0.135 0.117 Impressions: Chest X-Ray 01/09/17 00:00 IMPRESSION: BASILAR DENSITIES AND PLEURAL EFFUSIONS, RIGHT GREATER THAN LEFT. NO CHANGE. Assessment & Plan - Diagnosis (1) History of atrial fibrillation Is this a current diagnosis for this admission?: Yes (2) Recurrent pleural effusion on right Is this a current diagnosis for this admission?: YesPlan: If okay with Dr. Morales will consult Dr. Núñez for insertion Pleurodex catheter (3) COPD (chronic obstructive pulmonary disease) Qualifiers: COPD type: unspecified COPD Qualified Code(s): J44.9 - Chronic obstructive pulmonary disease, unspecified Is this a current diagnosis for this admission?: Yes
--- NOTE | 2017-01-09 13:20 | PDOC PROGRESS REPORT ---
Subjective Progress Note for:: 01/09/17 Subjective:: Patient is currently doing fair still have a short of breath on and off and patient's currently on a BiPAP. Patient's seen by Dr. Palacios and also seen by Dr. Smyth and as per discussed with the both physicians possible evaluate for the pleural cath on the right side. Discussed with the patient and the family member her sister on the bedside about the all the patient's current conditions with the multiple comorbidity Physical Exam Vital Signs: Temp Pulse Resp BP Pulse Ox 98.3 F 90 24 H 125/58 L 90 L 01/09/17 12:33 01/09/17 12:33 01/09/17 12:33 01/09/17 12:33 01/09/17 12:33 Intake & Output 01/08/17 01/09/17 01/10/17 06:59 06:59 06:59 Intake Total 719 340 Output Total 300 600 Balance 419 -260 Weight 53.2 kg 54.8 kg General appearance: PRESENT: no acute distress Eye exam: PRESENT: PERRLA Respiratory exam: PRESENT: decreased breath sounds Cardiovascular exam: PRESENT: +S1, +S2 GI/Abdominal exam: PRESENT: normal bowel sounds, soft. ABSENT: tenderness Extremities exam: ABSENT: pedal edema Neurological exam: PRESENT: alert, awake, oriented to person, oriented to place , oriented to time, oriented to situation Psychiatric exam: PRESENT: anxious Results Laboratory Results: 01/09/17 05:53 01/09/17 05:53 01/09/17 01/09/17 05:53 05:53 WBC 22.5 H D RBC 3.64 L Hgb 11.2 L Hct 33.5 L MCV 92 MCH 30.9 MCHC 33.6 RDW 14.0 Plt Count 303 Seg Neutrophils % Not Reportable Lymphocytes % Not Reportable Monocytes % Not Reportable Eosinophils % Not Reportable Basophils % Not Reportable Absolute Neutrophils Not Reportable Absolute Lymphocytes Not Reportable Absolute Monocytes Not Reportable Absolute Eosinophils Not Reportable Absolute Basophils Not Reportable Sodium 134.4 L Potassium 4.2 Chloride 97 L Carbon Dioxide 25 Anion Gap 12 BUN 40 H Creatinine 1.70 H Est GFR ( Amer) 35 L Est GFR (Non-Af Amer) 29 L Glucose 134 H Calcium 9.7 Magnesium 2.0 01/08/17 13:50 Nasophary ([facility] Only) MRSA Surveillance Culture - Final MRSA RECOVERED 01/08/17 01/08/17 01/08/17 04:43 04:43 11:20 Creatine Kinase 35 36 CK-MB (CK-2) 2.85 Troponin I 0.138 01/08/17 01/08/17 01/08/17 11:20 16:45 16:45 Creatine Kinase 31 CK-MB (CK-2) 2.82 2.81 Troponin I 0.135 0.117 Impressions: Chest X-Ray 01/09/17 00:00 IMPRESSION: BASILAR DENSITIES AND PLEURAL EFFUSIONS, RIGHT GREATER THAN LEFT. NO CHANGE. Assessment & Plan - Diagnosis (1) CHF (congestive heart failure) Qualifiers: Congestive heart failure type: unspecified congestive heart failure type Congestive heart failure chronicity: acute on chronic Qualified Code(s ): I50.9 - Heart failure, unspecified Is this a current diagnosis for this admission?: YesPlan: Start the patient on the Lasix 20 mg IV q. [address] Phoenix for ongoing problems with the pleural effusions and all the fluid is transudate in the bilateral which is related to the heart failure for further evaluations (2) Elevated troponin Is this a current diagnosis for this admission?: YesPlan: From chronic kidney disease with a troponin leak patient's denied any chest pain (3) Recurrent pleural effusion on right Is this a current diagnosis for this admission?: YesPlan: Consult to general surgery for further evaluate for the pleural cath ordered the chest x-ray and ultrasound of the chest (4) Respiratory distress Is this a current diagnosis for this admission?: YesPlan: PICC patient currently on a BiPAP will repeat the ABG and continues to monitor the patient (5) Atrial fibrillation Qualifiers: Atrial fibrillation type: paroxysmal Qualified Code(s): I48.0 - Paroxysmal atrial fibrillation Is this a current diagnosis for this admission?: YesPlan: Currently on Eliquis (6) COPD (chronic obstructive pulmonary disease) Qualifiers: COPD type: unspecified COPD Qualified Code(s): J44.9 - Chronic obstructive pulmonary disease, unspecified Is this a current diagnosis for this admission?: YesPlan: Start the nebulizer treatments (7) Chronic kidney disease Qualifiers: Chronic kidney disease stage: stage 3 (moderate) Qualified Code(s): N18.3 - Chronic kidney disease, stage 3 (moderate) Is this a current diagnosis for this admission?: YesPlan: Current creatinine is 1.[address] Forman (8) Shortness of breath Is this a current diagnosis for this admission?: Yes (9) Leukocytosis Qualifiers: Leukocytosis type: unspecified Qualified Code(s): D72.829 - Elevated white blood cell count, unspecified Is this a current diagnosis for this admission?: YesPlan: Patient's urine culture is positive will start the IV antibiotic and possible patients may have a steroid effect to which patient received a 1 dose of the steroid yesterday in the ER - Time Time Spent with patient: 25-34 minutes Medications reviewed and adjusted accordingly: Yes Anticipated discharge: Home Within: Other - Inpatient Certification Medical Necessity: Need Close Monitoring Due to Risk of Patient Decompensation, Need for IV Antibiotics Post Hospital Care: D/C Abrasive 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
[2017-01-09] MEDS: SIMVASTATIN 40 MG TABLET PO SCH (21:24)
--- NOTE | 2017-01-09 23:48 | PROGRESS NOTE E ---
Progress Note NAME: SALOME MOSLEY : 1940 AGE: 76Y DATE: 01/09/2017 ROOM: 336 SUBJECTIVE: Note that the patient is still short of breath but slightly improved. She has orthopnea but no PND. She was on BiPAP earlier on and subsequently has been transitioned to nasal cannula. She denies any palpitations, she remains in sinus rhythm and no recurrence of atrial fibrillation. She denies any chest pain or discomfort. There is no PND or orthopnea. There is TIA or CVA symptom. There is no bleeding on Eliquis. OBJECTIVE: GENERAL: The patient is of thin built and seems to be in mild to moderate respiratory distress. VITAL SIGNS: She is afebrile with temperature of 98.3 degrees Fahrenheit, pulse is 90 beats/minute, regular in rhythm, blood pressure is 125/55, respirations are 22 minute, O2 sats are 90% on 4 L. HEENT: Normocephalic, atraumatic. Pupils are equal, round, and reactive to light and accommodation. Extraocular movements are normal. There is no conjunctival pallor. There is no scleral icterus. ENT is negative. NECK: Supple. There is mild JVD present. Carotids are equal. There is no bruit. There is no goiter. There is no lymphadenopathy. Trachea is central. LUNGS: Show absent breath sounds in both bases, right much greater than left. There is diminished air entry and prolonged expiration above the throughout and above the area of dullness, there is hyperresonance present. There is no rales of CHF. HEART: S1 and S2 are heard. There is no S3 gallop. There is no S4 gallop. There is a systolic murmur in the left sternal border and the apex. There are no rub. ABDOMEN: Soft, nontender. There is no hepatosplenomegaly. Bowel sounds are well heard. EXTREMITIES: Femorals are fairly well felt. There are no femoral bruits. Leg pulses are felt. There is no pedal edema. There is no DVT or cellulitis. There is no cyanosis or clubbing. There is no calf tenderness. CENTRAL NERVOUS SYSTEM: The patient is conscious, awake, alert and oriented x3 with no focal deficits. PSYCHIATRIC: The patient seems to be slightly anxious but patient is not agitated. LABORATORY DATA: The chest x-ray shows no evidence of heart failure, normal heart size. There are bilateral basilar infiltrates with right greater than left pleural effusion. The right pleural effusion is moderate, but there is only a little effusion on the left side. The patient's 24-hour intake is 710 mL in and output is 300 mL. The patient's sodium is 134.4, potassium 4.2, chloride 97, CO2 is 25. The patient's BUN is 40, creatinine 1.70. GFR is reduced to 29 mL, which is borderline between chronic kidney disease stage 3-4. The patient has a history of CKD stage 3 which has increased. The patient's calcium is 9.7, magnesium is 2.0. The patient's troponin I which was 0.138 and 0.135 yesterday has come down to 0.117. The patient's white count is 22,500, hemoglobin is 11.2, hematocrit is 33.5 and platelet count is 303,000. IMPRESSION: 1. ELEVATED TROPONIN I SECONDARY TO HYPOXIC RESPIRATORY FAILURE AND ALSO [id number] RENAL FAILURE AND POSSIBLY RIGHT HEART FAILURE. 2. [id number] RESPIRATORY FAILURE. 3. RECURRENT BILATERAL PLEURAL EFFUSIONS, RIGHT GREATER THAN LEFT. Note in the past the patient has had a tap and the pleural fluid was transudate. 4. MOST LIKELY THE PATIENT HAS RIGHT HEART FAILURE SECONDARY TO PULMONARY HYPERTENSION. 5. PULMONARY HYPERTENSION MODERATE TO SEVERE WITH RSVP OF 50 TO 60. 6. COPD, 02 DEPENDENT. 7. HISTORY OF CONGESTIVE HEART FAILURE SECONDARY TO VOLUME OVERLOAD, DIASTOLIC HEART FAILURE, AND RIGHT HEART FAILURE. At present there is no evidence of left heart failure. 8. HISTORY OF SOLITARY KIDNEY. 9. CHRONIC KIDNEY DISEASE STAGE 3 IN THE PAST, NOW HAS PROGRESSED TO BEING STAGE 3 TO 4 WITH A GFR OF 29. 10. ATRIAL FIBRILLATION IN THE PAST, CONVERTED TO SINUS RHYTHM POST ABLATION OF ATRIAL FIB FOCUS. 11. HYPERLIPIDEMIA. 12. GENERALIZED ANXIETY. RECOMMENDATIONS: Continue antibiotics. Continue IV Lasix. It has been recommended that the patient have a PleurX catheter on the right side coronary artery since these are recurrent pleural effusions mostly on the right side; hence, the patient's Eliquis has been held. The patient will have an ultrasound. Discussed with the patient and the patient's sister and discussed with the wallpaper embosser helper and the attending physician on the case. Note, 40 minutes spent on this patient with more than 50% of the time spent on direct patient care. The other option would be to try some dobutamine along with IV Lasix, but we will see how the patient responds to a PleurX catheter since in the past the patient has had multiple thoracenteses without a catheter being placed and had recurrent effusions. There are patchy infiltrates in the bases and, hence, continue antibiotics. Will follow with you. Thanking you. DICTATING PHYSICIAN: LOYDA WAGNER M.D. [id number] PHY#: [id number] ID: [id number] JOB#: [id number] ACCT: [id number] cc: >
[2017-01-10] MEDS: TRAMADOL HCL 50 MG TABLET PO PRN ×2 (00:19→21:17)
[2017-01-10] MEDS: LEVALBUTEROL HCL NEB 1.25 MG/3 ML AMPUL NEB SCH ×4 (02:04→20:54)
[2017-01-10 05:43] LABS: ABSOLUTE BASOPHILS # (AUTO) 0.1 10^3/uL (0.0-0.2); ABSOLUTE EOSINOPHILS # (AUTO) 0.2 10^3/uL (0.0-0.6); ABSOLUTE LYMPHOCYTES (AUTO) 1.3 10^3/uL (0.5-4.7); ABSOLUTE MONOCYTES (AUTO) 0.6 10^3/uL (0.1-1.4); ABSOLUTE NEUT (AUTO) 11.4 10^3/uL (1.7-8.2); BASOPHILS % (AUTO) 0.5 % (0-2); EOSINOPHILS % (AUTO) 1.6 % (0-6); HEMATOCRIT 33.8 % (36.0-47.0); HEMOGLOBIN 11.1 g/dL (12.0-15.5); HGB HCT DIFFERENCE -0.5; LYMPHOCYTES % (AUTO) 9.4 % (13-45); MEAN CORPUSCULAR HEMOGLOBIN 30.4 pg (27.0-33.4); MEAN CORPUSCULAR HGB CONC 32.9 g/dL (32.0-36.0); MEAN CORPUSCULAR VOLUME 93 fl (80-97); MONOCYTES % (AUTO) 4.6 % (3-13); RED BLOOD COUNT 3.66 10^6/uL (3.72-5.28); RED CELL DISTRIBUTION WIDTH 13.8 % (11.5-14.0); SEGMENTED NEUTROPHILS % (AUTO) 83.9 % (42-78); WHITE BLOOD COUNT 13.6 10^3/uL (4.0-10.5)
[2017-01-10] MEDS: FUROSEMIDE INJ/PF 20 MG/2 ML SDV IV SCH ×2 (05:56→17:57)
[2017-01-10] MEDS: LANSOPRAZOLE 15 MG TAB.RAP.DR PO SCH (05:57)
[2017-01-10 06:04] LABS: ANION GAP 9 (5-19); BLOOD UREA NITROGEN 39 mg/dL (7-20); CALCIUM 9.5 mg/dL (8.4-10.2); CARBON DIOXIDE 28 mmol/L (22-30); CHLORIDE 101 mmol/L (98-107); CREATININE RESULT 1.41 mg/dL (0.52-1.25); GLUCOSE 115 mg/dL (75-110); MAGNESIUM 2.2 mg/dL (1.6-2.3); SODIUM 138.1 mmol/L (137-145)
--- NOTE | 2017-01-10 08:21 | PDOC PROGRESS REPORT ---
Subjective Progress Note for:: 01/10/17 Subjective:: Patient is currently doing fair denied any chest pain. Patient's using the BiPAP at night patient is very anxious Patient scheduled to see by surgery for possible evaluations with a pleural cath placements due to the recurrent pleural effusions Patient is currently on the nasal cannula but using the BiPAP at night Patient's kidney function is currently stable Physical Exam Vital Signs: Temp Pulse Resp BP Pulse Ox 97.3 F 82 18 120/62 99 01/10/17 04:09 01/10/17 04:09 01/10/17 06:15 01/10/17 04:09 01/10/17 06:15 Intake & Output 01/09/17 01/10/17 01/11/17 06:59 06:59 06:59 Intake Total 719 677 Output Total 300 1600 Balance 419 -923 Weight 54.8 kg 55.8 kg General appearance: PRESENT: no acute distress, well-developed, well-nourished Head exam: PRESENT: atraumatic, normocephalic Eye exam: PRESENT: conjunctiva pink, EOMI, PERRLA. ABSENT: scleral icterus Ear exam: PRESENT: normal external ear exam Mouth exam: PRESENT: moist, tongue midline Neck exam: PRESENT: full ROM. ABSENT: carotid bruit, JVD, lymphadenopathy, thyromegaly Respiratory exam: PRESENT: clear to auscultation marylou Cardiovascular exam: PRESENT: RRR. ABSENT: diastolic murmur, rubs, systolic murmur Pulses: PRESENT: normal dorsalis pedis pul, +2 pedal pulses bilateral Vascular exam: PRESENT: normal capillary refill GI/Abdominal exam: PRESENT: normal bowel sounds, soft. ABSENT: distended, guarding, mass, organolmegaly, rebound, tenderness Rectal exam: PRESENT: deferred Neurological exam: PRESENT: alert, awake, oriented to person, oriented to place , oriented to time, oriented to situation, CN II-XII grossly intact. ABSENT: motor sensory deficit Psychiatric exam: PRESENT: appropriate affect, normal mood. ABSENT: homicidal ideation, suicidal ideation Skin exam: PRESENT: dry, intact, warm. ABSENT: cyanosis, rash Results Laboratory Results: 01/10/17 05:25 01/10/17 05:25 01/10/17 01/10/17 05:25 05:25 WBC 13.6 H RBC 3.66 L Hgb 11.1 L Hct 33.8 L MCV 93 MCH 30.4 MCHC 32.9 RDW 13.8 Plt Count 276 Seg Neutrophils % 83.9 H Lymphocytes % 9.4 L Monocytes % 4.6 Eosinophils % 1.6 Basophils % 0.5 Absolute Neutrophils 11.4 H Absolute Lymphocytes 1.3 Absolute Monocytes 0.6 Absolute Eosinophils 0.2 Absolute Basophils 0.1 Sodium 138.1 Potassium 4.0 Chloride 101 Carbon Dioxide 28 Anion Gap 9 BUN 39 H Creatinine 1.41 H Est GFR ( Amer) 44 L Est GFR (Non-Af Amer) 36 L Glucose 115 H Calcium 9.5 Magnesium 2.2 01/08/17 19:45 Clean Catch Midstream Urine Culture - Final Escherichia Coli 01/08/17 13:50 Nasophary (Mrsa Only) MRSA Surveillance Culture - Final MRSA RECOVERED 01/08/17 01/08/17 01/08/17 04:43 04:43 11:20 Creatine Kinase 35 36 CK-MB (CK-2) 2.85 Troponin I 0.138 01/08/17 01/08/17 01/08/17 11:20 16:45 16:45 Creatine Kinase 31 CK-MB (CK-2) 2.82 2.81 Troponin I 0.135 0.117 Impressions: Chest Ultrasound 01/09/17 00:00 IMPRESSION: BILATERAL PLEURAL EFFUSIONS, RIGHT GREATER THAN LEFT. Chest X-Ray 01/09/17 00:00 IMPRESSION: BASILAR DENSITIES AND PLEURAL EFFUSIONS, RIGHT GREATER THAN LEFT. NO CHANGE. Assessment & Plan - Diagnosis (1) CHF (congestive heart failure) Qualifiers: Congestive heart failure type: unspecified congestive heart failure type Congestive heart failure chronicity: acute on chronic Qualified Code(s ): I50.9 - Heart failure, unspecified Is this a current diagnosis for this admission?: YesPlan: Start the patient on the Lasix 20 mg IV q. [address] Phoenix for ongoing problems with the pleural effusions and all the fluid is transudate in the bilateral which is related to the heart failure for further evaluations (2) Elevated troponin Is this a current diagnosis for this admission?: YesPlan: From chronic kidney disease with a troponin leak patient's denied any chest pain (3) Recurrent pleural effusion on right Is this a current diagnosis for this admission?: YesPlan: Consult to general surgery for further evaluate for the pleural cath ordered the chest x-ray and ultrasound of the chest (4) Respiratory distress Is this a current diagnosis for this admission?: YesPlan: PICC patient currently on a BiPAP will repeat the ABG and continues to monitor the patient (5) Atrial fibrillation Qualifiers: Atrial fibrillation type: paroxysmal Qualified Code(s): I48.0 - Paroxysmal atrial fibrillation Is this a current diagnosis for this admission?: YesPlan: Currently on Eliquis (6) COPD (chronic obstructive pulmonary disease) Qualifiers: COPD type: unspecified COPD Qualified Code(s): J44.9 - Chronic obstructive pulmonary disease, unspecified Is this a current diagnosis for this admission?: YesPlan: Start the nebulizer treatments (7) Chronic kidney disease Qualifiers: Chronic kidney disease stage: stage 3 (moderate) Qualified Code(s): N18.3 - Chronic kidney disease, stage 3 (moderate) Is this a current diagnosis for this admission?: YesPlan: Current creatinine is 1.[address] Forman (8) Shortness of breath Is this a current diagnosis for this admission?: YesPlan: The multifactorial from the COPD and CHF and bilateral pleural effusions (9) Leukocytosis Qualifiers: Leukocytosis type: unspecified Qualified Code(s): D72.829 - Elevated white blood cell count, unspecified Is this a current diagnosis for this admission?: YesPlan: Patient's urine culture is positive will start the IV antibiotic and possible patients may have a steroid effect to which patient received a 1 dose of the steroid yesterday in the ER - Time Time Spent with patient: 15-24 minutes Medications reviewed and adjusted accordingly: Yes Anticipated discharge: Other Within: Other - Inpatient Certification Medical Necessity: Significant Comorbidiites Make Outpatient Treatment Too Risky , Need Close Monitoring Due to Risk of Patient Decompensation Post Hospital Care: D/C Casing Trimmer Documentation - Plan Summary Plan Summary: Patient is currently doing fair will follow with the pulmonary and cardiology continues to IV antibiotic and continues to IV Lasix. Continues to monitor the patient's kidney functions were patient only having 1 kidney
[2017-01-10] MEDS: ESCITALOPRAM OXALATE 10 MG TABLET PO SCH (09:44)
[2017-01-10] MEDS: DIGOXIN 0.125 MG TABLET PO SCH (09:44)
[2017-01-10] MEDS: DILTIAZEM HCL 120 MG CAP.SR.24H PO SCH (09:44)
[2017-01-10] MEDS: DOCUSATE SODIUM 100 MG CAPSULE PO SCH ×2 (09:44→17:57)
[2017-01-10] MEDS: POLYETHYLENE GLYCOL 3350 POWDER 17 GM/1 PACKET PO SCH (09:44)
[2017-01-10] MEDS: CEFEPIME 1 GM/D5W RTU 50 ML IV SCH ×2 (09:44→21:17)
[2017-01-10] MEDS ORDERED: BUSPIRONE HCL 10 MG TABLET PO PRN (10:06)
[2017-01-10] MEDS: MAG HYDROX/AL HYDROX/SIMETH SUSP 30 ML UDCUP PO PRN (12:56)
[2017-01-10] MEDS: SIMVASTATIN 40 MG TABLET PO SCH (21:18)
[2017-01-11] MEDS: LEVALBUTEROL HCL NEB 1.25 MG/3 ML AMPUL NEB SCH ×4 (02:16→20:41)
--- NOTE | 2017-01-11 03:08 | PROGRESS NOTE E ---
Progress Note NAME: SALOME MOSLEY : 1940 AGE: 76Y DATE: 01/10/2017 ROOM: 336 SUBJECTIVE: Note that earlier this morning the patient was very short of breath and was on the BiPAP and when she took off the BiPAP and went to the bathroom and came back, she was severely short of breath and dropped O2 sats. At present, the patient is less short of breath and she is on a nasal cannula at 5 liters. There is no recurrence of atrial fibrillation. There are no palpitations. There is no chest pain or discomfort. She has orthopnea, but no PND, and no leg edema. There are no TIA or CVA symptoms. OBJECTIVE: GENERAL: On examination, the patient is of thin build, seems to be in some mild distress at present. She is also anxious. VITAL SIGNS: She is afebrile with a temperature of 97.9 degrees Fahrenheit, pulse is 82 beats per minute, blood pressure 116/54, respirations are 24 per minute, O2 sats on 5 liters nasal cannula is 90%. HEENT: Head is atraumatic, normocephalic. Eyes: Pupils are equal, round, and regular, reactive to light and accommodation. Extraocular movements are normal. There is no conjunctival pallor. There is no scleral icterus. ENT is negative. NECK: Supple. There is no JVD present. Carotids are equal. There is no bruit. There is no goiter. There is no lymphadenopathy. Trachea is central. LUNGS: Show absent breath sounds in both bases, right much much greater than the left. There is diminished air entry with prolonged expiration above this area of dullness. There is hyperresonance present above the area of dullness. There are no rales or CHF. HEART: S1 and S2 are heard. There is no S3 gallop. There is no S4 gallop. There is systolic murmur at the left sternal border on the apex. There is no rub. ABDOMEN: Soft and nontender. There is no hepatosplenomegaly. Bowel sounds are well heard. EXTREMITIES: Femorals are fairly well heard. There are no femoral bruits. Leg pulses are felt well. There is no pedal edema. There is no DVT or cellulitis. There is no cyanosis or clubbing. There is no calf tenderness. CENTRAL NERVOUS SYSTEM: The patient is conscious, awake, alert, and oriented x3 with no focal deficits. PSYCHIATRIC: The patient seemed to be slightly anxious, but judgment and insight are intact. LABORATORY: The patient's 24-hour intake is 677 mL, output is 1600 mL. The patient's white count is 13,600; hemoglobin is 11.1; hematocrit is 33.8; and the platelet count is 276,000. ABG show pH of 7.50, pCO2 is 35.5, pO2 is 67.6 and O2 sats are 95% on FiO2 of 40% earlier when she was on the BiPAP. The patient's sodium is 138.1, potassium 4.0; chloride 101, CO2 is 28. The patient's BUN is 39, creatinine is 1.41. GFR has gone upto 36, which is chronic kidney disease stage III, which is her baseline. Her glucose is 115. Her calcium is 9.5. Magnesium is 2.2. Note yesterday night, the patient's troponin trended down to 0.117. IMPRESSION: 1. ELEVATED TROPONIN I SECONDARY TO HYPOXIC RESPIRATORY FAILURE AND ALSO ACUTE ON CHRONIC RENAL FAILURE AND POSSIBLY RIGHT HEART FAILURE. 2. ACUTE ON CHRONIC RESPIRATORY FAILURE. 3. RECURRENT BILATERAL PLEURAL EFFUSIONS, RIGHT MUCH GREATER THAN LEFT. The patient had multiple pleural thoracenteses in the past. The fluid was a transudate. 4. MOST LIKELY, THE PATIENT HAS RIGHT HEART FAILURE SECONDARY TO PULMONARY HYPERTENSION. 5. PULMONARY HYPERTENSION, [id number] WITH A RIGHT VENTRICULAR RESPONSE OF 50 TO 60. 6. CHRONIC OBSTRUCTIVE PULMONARY DISEASE, O2 DEPENDENT. 7. HISTORY OF CONGESTIVE HEART FAILURE SECONDARY TO VOLUME OVERLOAD, DIASTOLIC HEART FAILURE, RIGHT HEART FAILURE. At present, there is no evidence of left heart failure. 8. HISTORY OF SOLITARY KIDNEY. 9. CHRONIC KIDNEY DISEASE, STAGE III IN THE PAST, NOW HAS COME BACK TO STAGE III. 10. ATRIAL FIBRILLATION IN THE PAST, CONVERTED TO SINUS RHYTHM POST ABLATION OF THE ATRIAL FIBRILLATION FOCUS, AT PRESENT IN SINUS RHYTHM. 11. HYPERLIPIDEMIA. 12. ANXIETY. RECOMMENDATIONS: Continue antibiotics. Continue IV Lasix. The patient's Eliquis has been stopped to get a PleurX catheter on the right side. The patient had an ultrasound yesterday, which showed bilateral pleural effusions, moderate effusion in the right side and small effusion on the left. NOTE: Thirty five minutes spent on the patient with more than 50% of the time spent In direct patient care and also discussions with the patient's sister and the patient's brother. Continue IV Lasix. Continue current treatment, awaiting thoracentesis with a catheter being placed in the right side. CODE STATUS: Note that the patient at present has been made a FULL CODE. Her surrogate healthcare decision maker is sister. Discussed with the attending physician on the case and with the weatherstrip machine operator. Thanking you. DICTATING PHYSICIAN: LOYDA WAGNER M.D. [id number] GUSTAVO#: [id number] ID: [id number] JOB#: [id number] ACCT: [id number] cc: >
[2017-01-11 05:26] LABS: ABSOLUTE BASOPHILS # (AUTO) 0.1 10^3/uL (0.0-0.2); ABSOLUTE EOSINOPHILS # (AUTO) 0.3 10^3/uL (0.0-0.6); ABSOLUTE LYMPHOCYTES (AUTO) 1.3 10^3/uL (0.5-4.7); ABSOLUTE MONOCYTES (AUTO) 0.6 10^3/uL (0.1-1.4); ABSOLUTE NEUT (AUTO) 6.9 10^3/uL (1.7-8.2); BASOPHILS % (AUTO) 1.1 % (0-2); HEMATOCRIT 33.6 % (36.0-47.0); HEMOGLOBIN 11.4 g/dL (12.0-15.5); HGB HCT DIFFERENCE 0.6; LYMPHOCYTES % (AUTO) 14.1 % (13-45); MEAN CORPUSCULAR HEMOGLOBIN 31.5 pg (27.0-33.4); MEAN CORPUSCULAR HGB CONC 33.9 g/dL (32.0-36.0); MEAN CORPUSCULAR VOLUME 93 fl (80-97); MONOCYTES % (AUTO) 6.6 % (3-13); RED BLOOD COUNT 3.62 10^6/uL (3.72-5.28); RED CELL DISTRIBUTION WIDTH 13.9 % (11.5-14.0); SEGMENTED NEUTROPHILS % (AUTO) 75.2 % (42-78); WHITE BLOOD COUNT 9.2 10^3/uL (4.0-10.5)
[2017-01-11 05:53] LABS: ANION GAP 10 (5-19); BLOOD UREA NITROGEN 39 mg/dL (7-20); CALCIUM 9.5 mg/dL (8.4-10.2); CARBON DIOXIDE 28 mmol/L (22-30); CHLORIDE 100 mmol/L (98-107); CREATININE RESULT 1.22 mg/dL (0.52-1.25); GLUCOSE 107 mg/dL (75-110); MAGNESIUM 2.4 mg/dL (1.6-2.3); POTASSIUM 4.3 mmol/L (3.6-5.0); SODIUM 137.7 mmol/L (137-145)
[2017-01-11] MEDS: LANSOPRAZOLE 15 MG TAB.RAP.DR PO SCH (06:39)
[2017-01-11] MEDS: FUROSEMIDE INJ/PF 20 MG/2 ML SDV IV SCH ×2 (06:40→17:14)
--- NOTE | 2017-01-11 10:26 | PDOC PROGRESS REPORT ---
Subjective Progress Note for:: 01/11/17 Subjective:: felt better with Buspar med. For possible pleurex tube placement Friday Physical Exam Vital Signs: Temp Pulse Resp BP Pulse Ox 97.6 F 89 16 107/54 L 89 L 01/11/17 08:10 01/11/17 08:21 01/11/17 08:21 01/11/17 08:10 01/11/17 08:21 Intake & Output 01/10/17 01/11/17 01/12/17 06:59 06:59 06:59 Intake Total 677 1217 Output Total 1600 1400 Balance -923 -183 Weight 55.8 kg 52.3 kg Results Laboratory Results: 01/11/17 04:29 01/11/17 04:29 01/10/17 01/11/17 01/11/17 10:25 04:29 04:29 WBC 9.2 RBC 3.62 L Hgb 11.4 L Hct 33.6 L MCV 93 MCH 31.5 MCHC 33.9 RDW 13.9 Plt Count 256 Seg Neutrophils % 75.2 Lymphocytes % 14.1 Monocytes % 6.6 Eosinophils % 3.0 Basophils % 1.1 Absolute Neutrophils 6.9 Absolute Lymphocytes 1.3 Absolute Monocytes 0.6 Absolute Eosinophils 0.3 Absolute Basophils 0.1 Carbonic Acid 1.07 HCO3/H2CO3 Ratio 25:1 ABG pH 7.50 H ABG pCO2 35.5 ABG pO2 67.6 L ABG HCO3 27.1 H ABG O2 Saturation 95.0 ABG Base Excess 4.0 FiO2 40% Sodium 137.7 Potassium 4.3 Chloride 100 Carbon Dioxide 28 Anion Gap 10 BUN 39 H Creatinine 1.22 Est GFR ( Amer) 52 L Est GFR (Non-Af Amer) 43 L Glucose 107 Calcium 9.5 Magnesium 2.4 H 01/08/17 19:45 Clean Catch Midstream Urine Culture - Final Escherichia Coli 01/08/17 01/08/17 01/08/17 04:43 04:43 11:20 Creatine Kinase 35 36 CK-MB (CK-2) 2.85 Troponin I 0.138 01/08/17 01/08/17 01/08/17 11:20 16:45 16:45 Creatine Kinase 31 CK-MB (CK-2) 2.82 2.81 Troponin I 0.135 0.117 Impressions: Chest Ultrasound 01/09/17 00:00 IMPRESSION: BILATERAL PLEURAL EFFUSIONS, RIGHT GREATER THAN LEFT. Chest X-Ray 01/10/17 00:00 IMPRESSION: NO CHANGE IN APPEARANCE OF THE CHEST.
[2017-01-11] MEDS: CEFEPIME 1 GM/D5W RTU 50 ML IV SCH ×2 (10:44→22:22)
[2017-01-11] MEDS: ESCITALOPRAM OXALATE 10 MG TABLET PO SCH (10:44)
[2017-01-11] MEDS: POLYETHYLENE GLYCOL 3350 POWDER 17 GM/1 PACKET PO SCH (10:44)
[2017-01-11] MEDS: DIGOXIN 0.125 MG TABLET PO SCH (10:45)
[2017-01-11] MEDS: DOCUSATE SODIUM 100 MG CAPSULE PO SCH ×2 (10:45→17:15)
[2017-01-11] MEDS: DILTIAZEM HCL 120 MG CAP.SR.24H PO SCH (10:45)
[2017-01-11] MEDS: BUSPIRONE HCL 10 MG TABLET PO SCH (10:45)
--- NOTE | 2017-01-11 16:10 | PDOC PROGRESS REPORT ---
Subjective Progress Note for:: 01/11/17 Subjective:: She was seen by the bedside there is no new complaints Physical Exam Vital Signs: Temp Pulse Resp BP Pulse Ox 98.1 F 92 26 H 123/52 L 93 01/11/17 11:49 01/11/17 11:49 01/11/17 11:49 01/11/17 11:49 01/11/17 11:49 Intake & Output 01/10/17 01/11/17 01/12/17 06:59 06:59 06:59 Intake Total 677 1217 720 Output Total 1600 1400 700 Balance -923 -183 20 Weight 55.8 kg 52.3 kg General appearance: PRESENT: mild distress Eye exam: PRESENT: PERRLA Respiratory exam: PRESENT: crackles Cardiovascular exam: PRESENT: +S1, +S2 GI/Abdominal exam: PRESENT: soft Results Laboratory Results: 01/11/17 04:29 01/11/17 04:29 01/11/17 01/11/17 04:29 04:29 WBC 9.2 RBC 3.62 L Hgb 11.4 L Hct 33.6 L MCV 93 MCH 31.5 MCHC 33.9 RDW 13.9 Plt Count 256 Seg Neutrophils % 75.2 Lymphocytes % 14.1 Monocytes % 6.6 Eosinophils % 3.0 Basophils % 1.1 Absolute Neutrophils 6.9 Absolute Lymphocytes 1.3 Absolute Monocytes 0.6 Absolute Eosinophils 0.3 Absolute Basophils 0.1 Sodium 137.7 Potassium 4.3 Chloride 100 Carbon Dioxide 28 Anion Gap 10 BUN 39 H Creatinine 1.22 Est GFR ( Amer) 52 L Est GFR (Non-Af Amer) 43 L Glucose 107 Calcium 9.5 Magnesium 2.4 H 01/08/17 01/08/17 01/08/17 04:43 04:43 11:20 Creatine Kinase 35 36 CK-MB (CK-2) 2.85 Troponin I 0.138 01/08/17 01/08/17 01/08/17 11:20 16:45 16:45 Creatine Kinase 31 CK-MB (CK-2) 2.82 2.81 Troponin I 0.135 0.117 Impressions: Chest Ultrasound 01/09/17 00:00 IMPRESSION: BILATERAL PLEURAL EFFUSIONS, RIGHT GREATER THAN LEFT. Chest X-Ray 01/10/17 00:00 IMPRESSION: NO CHANGE IN APPEARANCE OF THE CHEST. Assessment & Plan - Diagnosis (1) CHF (congestive heart failure) Qualifiers: Congestive heart failure type: unspecified congestive heart failure type Congestive heart failure chronicity: acute on chronic Qualified Code(s ): I50.9 - Heart failure, unspecified Is this a current diagnosis for this admission?: Yes (2) Chronic renal insufficiency, stage II (mild) Is this a current diagnosis for this admission?: Yes (3) History of atrial fibrillation Is this a current diagnosis for this admission?: Yes (5) Respiratory failure Qualifiers: Chronicity: acute
--- NOTE | 2017-01-11 16:35 | PDOC PROGRESS REPORT ---
Subjective Progress Note for:: 01/10/17 Subjective:: Dramatic change anxious tachypnea Physical Exam Vital Signs: Temp Pulse Resp BP Pulse Ox 98.1 F 90 16 123/52 L 89 L 01/11/17 11:49 01/11/17 14:51 01/11/17 14:51 01/11/17 11:49 01/11/17 14:51 Intake & Output 01/10/17 01/11/17 01/12/17 06:59 06:59 06:59 Intake Total 677 1217 720 Output Total 1600 1400 700 Balance -923 -183 20 Weight 55.8 kg 52.3 kg Results Laboratory Results: 01/11/17 04:29 01/11/17 04:29 01/11/17 01/11/17 04:29 04:29 WBC 9.2 RBC 3.62 L Hgb 11.4 L Hct 33.6 L MCV 93 MCH 31.5 MCHC 33.9 RDW 13.9 Plt Count 256 Seg Neutrophils % 75.2 Lymphocytes % 14.1 Monocytes % 6.6 Eosinophils % 3.0 Basophils % 1.1 Absolute Neutrophils 6.9 Absolute Lymphocytes 1.3 Absolute Monocytes 0.6 Absolute Eosinophils 0.3 Absolute Basophils 0.1 Sodium 137.7 Potassium 4.3 Chloride 100 Carbon Dioxide 28 Anion Gap 10 BUN 39 H Creatinine 1.22 Est GFR ( Amer) 52 L Est GFR (Non-Af Amer) 43 L Glucose 107 Calcium 9.5 Magnesium 2.4 H 01/08/17 01/08/17 01/08/17 04:43 04:43 11:20 Creatine Kinase 35 36 CK-MB (CK-2) 2.85 Troponin I 0.138 01/08/17 01/08/17 01/08/17 11:20 16:45 16:45 Creatine Kinase 31 CK-MB (CK-2) 2.82 2.81 Troponin I 0.135 0.117 Impressions: Chest Ultrasound 01/09/17 00:00 IMPRESSION: BILATERAL PLEURAL EFFUSIONS, RIGHT GREATER THAN LEFT. Chest X-Ray 01/10/17 00:00 IMPRESSION: NO CHANGE IN APPEARANCE OF THE CHEST. Assessment & Plan - Diagnosis (1) History of atrial fibrillation Is this a current diagnosis for this admission?: Yes (2) Recurrent pleural effusion on right Is this a current diagnosis for this admission?: Yes (3) COPD (chronic obstructive pulmonary disease) Qualifiers: COPD type: unspecified COPD Qualified Code(s): J44.9 - Chronic obstructive pulmonary disease, unspecified Is this a current diagnosis for this admission?: Yes
--- NOTE | 2017-01-11 16:39 | PDOC PROGRESS REPORT ---
Subjective Progress Note for:: 01/11/17 Subjective:: Resting comfortably Physical Exam Vital Signs: Temp Pulse Resp BP Pulse Ox 98.1 F 90 16 123/52 L 89 L 01/11/17 11:49 01/11/17 14:51 01/11/17 14:51 01/11/17 11:49 01/11/17 14:51 Intake & Output 01/10/17 01/11/17 01/12/17 06:59 06:59 06:59 Intake Total 677 1217 720 Output Total 1600 1400 700 Balance -923 -183 20 Weight 55.8 kg 52.3 kg General appearance: PRESENT: no acute distress, disheveled, hard of hearing, thin Head exam: PRESENT: atraumatic, normocephalic Eye exam: PRESENT: conjunctiva pale Mouth exam: PRESENT: dry mucosa Neck exam: ABSENT: carotid bruit, JVD, lymphadenopathy, thyromegaly Respiratory exam: PRESENT: decreased breath sounds, prolonged expiratory phas, rhonchi, symmetrical, unlabored, wheezes Cardiovascular exam: PRESENT: irregular rhythm Pulses: PRESENT: normal radial pulses GI/Abdominal exam: PRESENT: normal bowel sounds, soft. ABSENT: distended, guarding, mass, organolmegaly, rebound, tenderness Rectal exam: PRESENT: deferred Neurological exam: PRESENT: alert, awake Psychiatric exam: PRESENT: normal mood Skin exam: PRESENT: dry, warm Results Laboratory Results: 01/11/17 04:29 01/11/17 04:29 01/11/17 01/11/17 04:29 04:29 WBC 9.2 RBC 3.62 L Hgb 11.4 L Hct 33.6 L MCV 93 MCH 31.5 MCHC 33.9 RDW 13.9 Plt Count 256 Seg Neutrophils % 75.2 Lymphocytes % 14.1 Monocytes % 6.6 Eosinophils % 3.0 Basophils % 1.1 Absolute Neutrophils 6.9 Absolute Lymphocytes 1.3 Absolute Monocytes 0.6 Absolute Eosinophils 0.3 Absolute Basophils 0.1 Sodium 137.7 Potassium 4.3 Chloride 100 Carbon Dioxide 28 Anion Gap 10 BUN 39 H Creatinine 1.22 Est GFR ( Amer) 52 L Est GFR (Non-Af Amer) 43 L Glucose 107 Calcium 9.5 Magnesium 2.4 H 01/08/17 01/08/17 01/08/17 04:43 04:43 11:20 Creatine Kinase 35 36 CK-MB (CK-2) 2.85 Troponin I 0.138 01/08/17 01/08/17 01/08/17 11:20 16:45 16:45 Creatine Kinase 31 CK-MB (CK-2) 2.82 2.81 Troponin I 0.135 0.117 Impressions: Chest Ultrasound 01/09/17 00:00 IMPRESSION: BILATERAL PLEURAL EFFUSIONS, RIGHT GREATER THAN LEFT. Chest X-Ray 01/10/17 00:00 IMPRESSION: NO CHANGE IN APPEARANCE OF THE CHEST. Assessment & Plan - Diagnosis (1) History of atrial fibrillation Is this a current diagnosis for this admission?: Yes (2) Recurrent pleural effusion on right Is this a current diagnosis for this admission?: Yes (3) COPD (chronic obstructive pulmonary disease) Qualifiers: COPD type: unspecified COPD Qualified Code(s): J44.9 - Chronic obstructive pulmonary disease, unspecified Is this a current diagnosis for this admission?: Yes
[2017-01-11] MEDS: APIXABAN 2.5 MG TABLET PO SCH (17:15)
[2017-01-11] MEDS: ALPRAZOLAM 0.25 MG TABLET PO PRN (17:15)
[2017-01-11] MEDS: TRAMADOL HCL 50 MG TABLET PO PRN (20:25)
[2017-01-11] MEDS: SIMVASTATIN 40 MG TABLET PO SCH (22:22)
[2017-01-12] MEDS: LEVALBUTEROL HCL NEB 1.25 MG/3 ML AMPUL NEB SCH ×4 (02:23→21:11)
--- NOTE | 2017-01-12 04:53 | PROGRESS NOTE E ---
Progress Note NAME: SALOME MOSLEY : 1940 AGE: 76Y DATE: 01/11/2017 ROOM: 336 SUBJECTIVE: Note that the patient was seen at 8:00 this morning. The patient still complains of shortness of breath, but she is on nasal O2 and not BiPAP. There is no recurrence of atrial fibrillation. There is no chest pain or discomfort. There is no PND. There is orthopnea present. There is no leg edema. There is no ventricular arrhythmia seen. There are no TIA or CVA symptoms. Note that the patient is off Eliquis and most likely, she will have her thoracentesis with placement of a PleurX catheter on Friday on the right side. OBJECTIVE: GENERAL: On examination, the patient is of thin built, seems to be in some mild respiratory distress. She is also anxious. VITAL SIGNS: The patient is afebrile with a temperature of 97.6 degrees Fahrenheit, pulse is 84 beats per minute, blood pressure is 107/54, respirations are 24 per minute, O2 sats are 94% on 5 L nasal cannula. HEAD: Atraumatic, normocephalic. EYES: Pupils are equal, round, regular, and reactive to light and accommodation. Extraocular movements are normal. There is no conjunctival pallor. ENT: Negative. NECK: Supple. There is no JVD. Carotids are equal. There is no bruit. There is no goiter. There is no lymphadenopathy. Trachea is central. LUNGS: Show accessory muscles of respiration in use. There are absent breast sounds in both the bases, right much greater than left. There is diminished air entry with prolonged expiration about the area of dullness. There is hyperresonance present about the area of dullness. There are no rales or CHF. HEART: S1 and S2 heard. There is no S3 gallop. There is no S4 gallop. There is systolic murmur in the left sternal border in the apex. There is no rub. ABDOMEN: Soft and nontender. There is no hepatosplenomegaly. Bowel sounds are well heard. EXTREMITIES: Femorals are very well heard. There are no femoral bruits. Leg pulses are well heard. There is no pedal edema. There is no DVT or cellulitis. There is no cyanosis or clubbing. There is no calf tenderness. CENTRAL NERVOUS SYSTEM: The patient is conscious, awake, alert and oriented x3 without focal deficits. PSYCHIATRIC: The patient seems to be slightly anxious, but the patient's judgment and insight are intact. LABORATORY: The patient's white count is 9200, hemoglobin is 11.4; hematocrit is 33.6; platelet count is 236,000. The patient's sodium is 137.7, potassium is 4.3, chloride is 100, CO2 is 28. The patient's BUN is 39, creatinine is 1.22, and GFR is reduced at 43 mL. The patient is slightly better, but still stage III chronic kidney disease. The patient's magnesium is elevated at 2.4. Her calcium is 9.5, glucose is 107. IMPRESSION: 1. ELEVATED TROPONIN I SECONDARY TO HYPOXIC RESPIRATORY FAILURE, ALSO [id number] RENAL FAILURE AND POSSIBLY RIGHT HEART FAILURE. 2. QUODL-SV-HYMXVPN CHRONIC RESPIRATORY FAILURE. 3. RECURRENT BILATERAL PLEURAL EFFUSIONS, RIGHT GREATER THAN LEFT. The patient in the past has had multiple thoracenteses in the past. The fluid was a transudate. The patient is for placement of a PleurX catheter on the right side after drainage of the pleural effusion. The pleural effusion is most likely secondary to right heart failure. 4. RIGHT HEART FAILURE, MOST LIKELY SECONDARY TO PULMONARY HYPERTENSION. 5. PULMONARY HYPERTENSION, [id number] WITH RIGHT VENTRICULAR SYSTOLIC PRESSURE OF 50-60. 6. CHRONIC OBSTRUCTIVE PULMONARY DISEASE, O2-DEPENDENT. 7. HISTORY OF CONGESTIVE HEART FAILURE SECONDARY TO VOLUME OVERLOAD, DIASTOLIC HEART FAILURE, RIGHT HEART FAILURE AT PRESENT. There is no evidence of left heart failure. 8. HISTORY OF SOLITARY KIDNEY. 9. CHRONIC KIDNEY DISEASE STAGE III IN THE PAST, NOW HAS COME BACK TO STAGE III. 10. PAROXYSMAL ATRIAL FIBRILLATION IN THE PAST, CONVERTED TO SINUS RHYTHM POST ABLATION OF ATRIAL FIBRILLATION FOCUS, AT PRESENT IN SINUS RHYTHM. 11. HYPERLIPIDEMIA. 12. ANXIETY. RECOMMENDATIONS: Continue antibiotics. Continue IV Lasix. The patient's Eliquis is being held for PleurX catheter placement on the right side on Friday. The patient's cardiac status is stable. Note, 30 minutes spent on this patient with more than 50% of the time spent on direct patient care and also discussed with the patient and the patient's sister. We will sign off the case. Discussed this with the attending physician covering Dr. Kyle Morales. Please call me if cardiology services are needed. The patient will follow up with me in the office after her discharge. The patient after the last admission discharge could not make an appointment to see me since her . Note, the patient is a FULL CODE this admission. She was a DNR on last admission. DICTATING PHYSICIAN: LOYDA WAGNER M.D. [id number] PHY#: [id number] ID: [id number] JOB#: [id number] ACCT: [id number] cc: >
[2017-01-12] MEDS: FUROSEMIDE INJ/PF 20 MG/2 ML SDV IV SCH ×2 (06:32→18:11)
[2017-01-12] MEDS: LANSOPRAZOLE 15 MG TAB.RAP.DR PO SCH (06:35)
[2017-01-12] MEDS: DILTIAZEM HCL 120 MG CAP.SR.24H PO SCH (10:44)
[2017-01-12] MEDS: DIGOXIN 0.125 MG TABLET PO SCH (10:44)
[2017-01-12] MEDS: POLYETHYLENE GLYCOL 3350 POWDER 17 GM/1 PACKET PO SCH (10:44)
[2017-01-12] MEDS: ESCITALOPRAM OXALATE 10 MG TABLET PO SCH (10:45)
[2017-01-12] MEDS: BUSPIRONE HCL 10 MG TABLET PO SCH ×2 (10:45→18:11)
[2017-01-12] MEDS: DOCUSATE SODIUM 100 MG CAPSULE PO SCH ×2 (10:45→18:11)
[2017-01-12] MEDS: CEFEPIME 1 GM/D5W RTU 50 ML IV SCH ×2 (10:46→22:12)
[2017-01-12] MEDS: APIXABAN 2.5 MG TABLET PO SCH ×2 (10:47→18:11)
--- NOTE | 2017-01-12 17:01 | PDOC PROGRESS REPORT ---
Subjective Progress Note for:: 01/12/17 Subjective:: Patient with no new complaints today, she is awaiting thoracentesis and probably catheter placement in the pleural space Physical Exam Vital Signs: Temp Pulse Resp BP Pulse Ox 97.7 F 89 20 126/60 H 90 L 01/12/17 08:14 01/12/17 14:09 01/12/17 14:09 01/12/17 08:14 01/12/17 14:09 Intake & Output 01/11/17 01/12/17 01/13/17 06:59 06:59 06:59 Intake Total 1217 1722 72 Output Total 1400 1450 Balance -183 272 72 Weight 52.3 kg 53.1 kg General appearance: PRESENT: no acute distress Eye exam: PRESENT: PERRLA Respiratory exam: PRESENT: rhonchi Cardiovascular exam: PRESENT: +S1, +S2 GI/Abdominal exam: PRESENT: soft Results Laboratory Results: 01/11/17 04:29 01/11/17 04:29 01/08/17 01/08/17 01/08/17 04:43 04:43 11:20 Creatine Kinase 35 36 CK-MB (CK-2) 2.85 Troponin I 0.138 01/08/17 01/08/17 01/08/17 11:20 16:45 16:45 Creatine Kinase 31 CK-MB (CK-2) 2.82 2.81 Troponin I 0.135 0.117 Impressions: Chest Ultrasound 01/09/17 00:00 IMPRESSION: BILATERAL PLEURAL EFFUSIONS, RIGHT GREATER THAN LEFT. Chest X-Ray 01/10/17 00:00 IMPRESSION: NO CHANGE IN APPEARANCE OF THE CHEST. Assessment & Plan - Diagnosis (1) CHF (congestive heart failure) Qualifiers: Congestive heart failure type: unspecified congestive heart failure type Congestive heart failure chronicity: acute on chronic Qualified Code(s ): I50.9 - Heart failure, unspecified Is this a current diagnosis for this admission?: Yes (2) Chronic renal insufficiency, stage II (mild) Is this a current diagnosis for this admission?: Yes (3) History of atrial fibrillation Is this a current diagnosis for this admission?: Yes (4) Pleural effusion Is this a current diagnosis for this admission?: Yes (5) Respiratory failure Qualifiers: Chronicity: acute Is this a current diagnosis for this admission?: Yes
[2017-01-12] MEDS: TRAMADOL HCL 50 MG TABLET PO PRN (22:13)
[2017-01-12] MEDS: SIMVASTATIN 40 MG TABLET PO SCH (22:13)
[2017-01-13] MEDS: LEVALBUTEROL HCL NEB 1.25 MG/3 ML AMPUL NEB SCH ×4 (02:40→20:54)
[2017-01-13 05:59] LABS: ABSOLUTE BASOPHILS # (AUTO) 0.1 10^3/uL (0.0-0.2); ABSOLUTE EOSINOPHILS # (AUTO) 0.4 10^3/uL (0.0-0.6); ABSOLUTE LYMPHOCYTES (AUTO) 1.2 10^3/uL (0.5-4.7); ABSOLUTE MONOCYTES (AUTO) 0.6 10^3/uL (0.1-1.4); ABSOLUTE NEUT (AUTO) 5.6 10^3/uL (1.7-8.2); BASOPHILS % (AUTO) 0.7 % (0-2); EOSINOPHILS % (AUTO) 4.5 % (0-6); HEMATOCRIT 33.8 % (36.0-47.0); HEMOGLOBIN 11.3 g/dL (12.0-15.5); HGB HCT DIFFERENCE 0.1; LYMPHOCYTES % (AUTO) 15.7 % (13-45); MEAN CORPUSCULAR HEMOGLOBIN 31.1 pg (27.0-33.4); MEAN CORPUSCULAR HGB CONC 33.4 g/dL (32.0-36.0); MEAN CORPUSCULAR VOLUME 93 fl (80-97); MONOCYTES % (AUTO) 7.1 % (3-13); RED BLOOD COUNT 3.63 10^6/uL (3.72-5.28); RED CELL DISTRIBUTION WIDTH 13.6 % (11.5-14.0); WHITE BLOOD COUNT 7.8 10^3/uL (4.0-10.5)
[2017-01-13] MEDS: LANSOPRAZOLE 15 MG TAB.RAP.DR PO SCH (06:02)
[2017-01-13] MEDS: FUROSEMIDE INJ/PF 20 MG/2 ML SDV IV SCH ×2 (06:02→20:19)
[2017-01-13 06:04] LABS: PROTHROMBIN TIME 13.9 SEC (11.4-15.4)
[2017-01-13 06:05] LABS: PARTIAL THROMBOPLASTIN TIME 34.9 SEC (23.5-35.8)
[2017-01-13 06:29] LABS: ALANINE AMINOTRANSFERASE 24 U/L (9-52); ALBUMIN 2.6 g/dL (3.5-5.0); ALKALINE PHOSPHATASE 89 U/L (38-126); ANION GAP 6 (5-19); ASPARTATE AMINO TRANSFERASE 23 U/L (14-36); BILIRUBIN,DIRECT 0.1 mg/dL (0.0-0.4); BILIRUBIN,TOTAL 0.4 mg/dL (0.2-1.3); BLOOD UREA NITROGEN 34 mg/dL (7-20); CARBON DIOXIDE 33 mmol/L (22-30); CHLORIDE 97 mmol/L (98-107); CREATININE RESULT 1.29 mg/dL (0.52-1.25); GLUCOSE 105 mg/dL (75-110); POTASSIUM 4.7 mmol/L (3.6-5.0); SODIUM 136.3 mmol/L (137-145); TOTAL PROTEIN 5.2 g/dL (6.3-8.2)
[2017-01-13] MEDS: DIGOXIN 0.125 MG TABLET PO SCH (10:05)
[2017-01-13] MEDS: POLYETHYLENE GLYCOL 3350 POWDER 17 GM/1 PACKET PO SCH (10:05)
[2017-01-13] MEDS: ESCITALOPRAM OXALATE 10 MG TABLET PO SCH (10:05)
[2017-01-13] MEDS: DILTIAZEM HCL 120 MG CAP.SR.24H PO SCH (10:05)
[2017-01-13] MEDS: BUSPIRONE HCL 10 MG TABLET PO SCH ×2 (10:05→20:18)
[2017-01-13] MEDS: DOCUSATE SODIUM 100 MG CAPSULE PO SCH ×2 (10:05→20:19)
--- NOTE | 2017-01-13 11:23 | PDOC PROGRESS REPORT ---
Subjective Progress Note for:: 01/13/17 Subjective:: Hard of hearing but awake and alert Physical Exam Vital Signs: Temp Pulse Resp BP Pulse Ox 97.8 F 83 20 118/66 93 01/13/17 08:00 01/13/17 08:00 01/13/17 08:00 01/13/17 08:00 01/13/17 08:00 Intake & Output 01/12/17 01/13/17 01/14/17 06:59 06:59 06:59 Intake Total 1722 990 Output Total 1450 2000 Balance 272 -1010 Weight 53.1 kg 52.1 kg General appearance: PRESENT: no acute distress, cooperative, disheveled, well- developed Head exam: PRESENT: atraumatic, normocephalic Eye exam: PRESENT: conjunctiva pale, EOMI Mouth exam: PRESENT: moist, neck supple Neck exam: PRESENT: carotid bruit Respiratory exam: PRESENT: decreased breath sounds, prolonged expiratory phas, rhonchi, symmetrical, unlabored Cardiovascular exam: PRESENT: irregular rhythm Pulses: PRESENT: normal radial pulses GI/Abdominal exam: PRESENT: normal bowel sounds, soft. ABSENT: distended, guarding, mass, organolmegaly, rebound, tenderness Rectal exam: PRESENT: deferred Gentrourinary exam: PRESENT: indwelling catheter Musculoskeletal exam: PRESENT: normal inspection Neurological exam: PRESENT: alert, awake Psychiatric exam: PRESENT: anxious, normal mood Skin exam: PRESENT: dry, warm Results Laboratory Results: 01/13/17 05:20 01/13/17 05:20 01/13/17 01/13/17 05:20 05:20 WBC 7.8 RBC 3.63 L Hgb 11.3 L Hct 33.8 L MCV 93 MCH 31.1 MCHC 33.4 RDW 13.6 Plt Count 245 Seg Neutrophils % 72.0 Lymphocytes % 15.7 Monocytes % 7.1 Eosinophils % 4.5 Basophils % 0.7 Absolute Neutrophils 5.6 Absolute Lymphocytes 1.2 Absolute Monocytes 0.6 Absolute Eosinophils 0.4 Absolute Basophils 0.1 Sodium 136.3 L Potassium 4.7 Chloride 97 L Carbon Dioxide 33 H Anion Gap 6 BUN 34 H Creatinine 1.29 H Est GFR ( Amer) 48 L Est GFR (Non-Af Amer) 40 L Glucose 105 Calcium 9.0 Total Bilirubin 0.4 AST 23 ALT 24 Alkaline Phosphatase 89 Total Protein 5.2 L Albumin 2.6 L 01/08/17 04:43 Blood Blood Culture - Final NO GROWTH IN 5 DAYS 01/08/17 01:00 Blood Blood Culture - Final NO GROWTH IN 5 DAYS 01/08/17 01/08/17 01/08/17 04:43 04:43 11:20 Creatine Kinase 35 36 CK-MB (CK-2) 2.85 Troponin I 0.138 01/08/17 01/08/17 01/08/17 11:20 16:45 16:45 Creatine Kinase 31 CK-MB (CK-2) 2.82 2.81 Troponin I 0.135 0.117 Impressions: Chest Ultrasound 01/09/17 00:00 IMPRESSION: BILATERAL PLEURAL EFFUSIONS, RIGHT GREATER THAN LEFT. Chest X-Ray 01/13/17 00:00 IMPRESSION: Bibasilar densities as noted above. Assessment & Plan - Diagnosis (1) History of atrial fibrillation Is this a current diagnosis for this admission?: Yes (2) Recurrent pleural effusion on right Is this a current diagnosis for this admission?: YesPlan: N.p.o.Pleurodex catheter insertion per Dr. Miguel Núñez (3) COPD (chronic obstructive pulmonary disease) Qualifiers: COPD type: unspecified COPD Qualified Code(s): J44.9 - Chronic obstructive pulmonary disease, unspecified Is this a current diagnosis for this admission?: Yes
[2017-01-13] MEDS: CEFEPIME 1 GM/D5W RTU 50 ML IV SCH ×2 (11:54→21:12)
--- NOTE | 2017-01-13 12:36 | PDOC PROGRESS REPORT ---
Subjective Progress Note for:: 01/13/17 Subjective:: Patient is currently doing fair nothing change from the weekends. Patient's denied any chest pain and no shortness of the breath. Patient scheduled to see breast surgery today for the evaluation of the pleural cath placement. Patient' s chest x-ray is still persistence of the pleural effusions Physical Exam Vital Signs: Temp Pulse Resp BP Pulse Ox 97.8 F 83 20 118/66 93 01/13/17 08:00 01/13/17 08:00 01/13/17 08:00 01/13/17 08:00 01/13/17 08:00 Intake & Output 01/12/17 01/13/17 01/14/17 06:59 06:59 06:59 Intake Total 1722 990 Output Total 1450 2000 Balance 272 -1010 Weight 53.1 kg 52.1 kg General appearance: PRESENT: no acute distress, well-developed, well-nourished Head exam: PRESENT: atraumatic, normocephalic Eye exam: PRESENT: conjunctiva pink, EOMI, PERRLA. ABSENT: scleral icterus Ear exam: PRESENT: normal external ear exam Mouth exam: PRESENT: moist, tongue midline Neck exam: PRESENT: full ROM. ABSENT: carotid bruit, JVD, lymphadenopathy, thyromegaly Respiratory exam: PRESENT: decreased breath sounds Cardiovascular exam: PRESENT: RRR. ABSENT: diastolic murmur, rubs, systolic murmur Pulses: PRESENT: normal dorsalis pedis pul, +2 pedal pulses bilateral Vascular exam: PRESENT: normal capillary refill GI/Abdominal exam: PRESENT: normal bowel sounds, soft. ABSENT: distended, guarding, mass, organolmegaly, rebound, tenderness Rectal exam: PRESENT: deferred Neurological exam: PRESENT: alert, awake, oriented to person, oriented to place , oriented to time, oriented to situation, CN II-XII grossly intact. ABSENT: motor sensory deficit Psychiatric exam: PRESENT: appropriate affect, normal mood. ABSENT: homicidal ideation, suicidal ideation Skin exam: PRESENT: dry, intact, warm. ABSENT: cyanosis, rash Results Laboratory Results: 01/13/17 05:20 01/13/17 05:20 01/13/17 01/13/17 05:20 05:20 WBC 7.8 RBC 3.63 L Hgb 11.3 L Hct 33.8 L MCV 93 MCH 31.1 MCHC 33.4 RDW 13.6 Plt Count 245 Seg Neutrophils % 72.0 Lymphocytes % 15.7 Monocytes % 7.1 Eosinophils % 4.5 Basophils % 0.7 Absolute Neutrophils 5.6 Absolute Lymphocytes 1.2 Absolute Monocytes 0.6 Absolute Eosinophils 0.4 Absolute Basophils 0.1 Sodium 136.3 L Potassium 4.7 Chloride 97 L Carbon Dioxide 33 H Anion Gap 6 BUN 34 H Creatinine 1.29 H Est GFR ( Amer) 48 L Est GFR (Non-Af Amer) 40 L Glucose 105 Calcium 9.0 Total Bilirubin 0.4 AST 23 ALT 24 Alkaline Phosphatase 89 Total Protein 5.2 L Albumin 2.6 L 01/08/17 04:43 Blood Blood Culture - Final NO GROWTH IN 5 DAYS 01/08/17 01:00 Blood Blood Culture - Final NO GROWTH IN 5 DAYS 01/08/17 01/08/17 01/08/17 04:43 04:43 11:20 Creatine Kinase 35 36 CK-MB (CK-2) 2.85 Troponin I 0.138 01/08/17 01/08/17 01/08/17 11:20 16:45 16:45 Creatine Kinase 31 CK-MB (CK-2) 2.82 2.81 Troponin I 0.135 0.117 Impressions: Chest Ultrasound 01/09/17 00:00 IMPRESSION: BILATERAL PLEURAL EFFUSIONS, RIGHT GREATER THAN LEFT. Chest X-Ray 01/13/17 00:00 IMPRESSION: Bibasilar densities as noted above. Assessment & Plan - Diagnosis (1) CHF (congestive heart failure) Qualifiers: Congestive heart failure type: unspecified congestive heart failure type Congestive heart failure chronicity: acute on chronic Qualified Code(s ): I50.9 - Heart failure, unspecified Is this a current diagnosis for this admission?: YesPlan: Vahid the current medications as per discussed with the Dr. Phoenix suggest the no need to change anything and he signed off the patient's (2) Elevated troponin Is this a current diagnosis for this admission?: YesPlan: From chronic kidney disease with a troponin leak patient's denied any chest pain (3) Recurrent pleural effusion on right Is this a current diagnosis for this admission?: YesPlan: Consult to general surgery for further evaluate for the pleural cath ordered the chest x-ray and ultrasound of the chest (4) Respiratory distress Is this a current diagnosis for this admission?: YesPlan: PICC patient currently on a BiPAP will repeat the ABG and continues to monitor the patient (5) Atrial fibrillation Qualifiers: Atrial fibrillation type: paroxysmal Qualified Code(s): I48.0 - Paroxysmal atrial fibrillation Is this a current diagnosis for this admission?: YesPlan: Currently on Eliquis (6) COPD (chronic obstructive pulmonary disease) Qualifiers: COPD type: unspecified COPD Qualified Code(s): J44.9 - Chronic obstructive pulmonary disease, unspecified Is this a current diagnosis for this admission?: YesPlan: Start the nebulizer treatments (7) Chronic kidney disease Qualifiers: Chronic kidney disease stage: stage 3 (moderate) Qualified Code(s): N18.3 - Chronic kidney disease, stage 3 (moderate) Is this a current diagnosis for this admission?: YesPlan: Current creatinine is 1.[address] 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
[2017-01-13] MEDS: APIXABAN 2.5 MG TABLET PO SCH (14:54)
[2017-01-13] MEDS ORDERED: MIDAZOLAM 2 MG/2 ML INJ ONE (17:30)
[2017-01-13] MEDS ORDERED: FENTANYL CITRATE INJ/PF 100 MCG/2 ML AMPUL ONE (17:31)
--- NOTE | 2017-01-13 18:10 | Operative Report ---
Operative Report DATE OF SURGERY: 01/13/17 PREOPERATIVE DIAGNOSIS: Right pleural effusion, recurrent POSTOPERATIVE DIAGNOSIS: same OPERATION: Pleurx catheter insertion right chest SURGEON: PHUONG FELICIANO ANESTHESIA: Local TISSUE REMOVED OR ALTERED: fluid right chest COMPLICATIONS: None ESTIMATED BLOOD LOSS: none INTRAOPERATIVE FINDINGS: See below PROCEDURE: The patient was taken to the floor to the recovery with the procedure was performed. She was placed in the left lateral decubitus position, right chest exposed. Surgical plan and surgical timeout were conducted. Appropriate level of sedation with 2 mg of Versed provided. The right lateral chest wall was prepped and draped in the sterile fashion. An approximately ICS 9 the skin was anesthetized 1% lidocaine plain. An 16-gauge Jelco needle and wire were then threaded into the right pleural space uneventfully. A suitable site for exit of the Pleurx catheter was chosen on the more anterior lateral chest wall. Skin anesthetized with local anesthesia, the neck made in the skin with 15 blade, after threaded between the 2 wounds. Then dilated up the Pleurx track with the medium and large dilator then with the dilator and introducer sheath. Wire and dilator were removed catheter was threaded into the strip away sheath. Sheath was removed uneventfully leaving the catheter with appropriate curve. The catheter was hooked to the proprietary Vacutainer and approximately 1500 mL of serous exudate was evacuated. Patient coughed somewhat and had some pain and this was managed with a 5 g of fentanyl. Incisions closed with 3-0 Vicryl And secured to skin with 0 silk, Biopatch and sterile dressings applied. Portable upright chest x-ray pending at time of dictation.
[2017-01-13] MEDS: TRAMADOL HCL 50 MG TABLET PO PRN (20:17)
[2017-01-13] MEDS: KETOROLAC TROMETHAMINE INJ/PF 30 MG/1 ML SDV IV PRN (21:12)
[2017-01-13] MEDS: SIMVASTATIN 40 MG TABLET PO SCH (21:12)
[2017-01-14] MEDS: ALPRAZOLAM 0.25 MG TABLET PO PRN (01:20)
[2017-01-14] MEDS: LEVALBUTEROL HCL NEB 1.25 MG/3 ML AMPUL NEB SCH ×4 (02:32→20:46)
[2017-01-14] MEDS: KETOROLAC TROMETHAMINE INJ/PF 30 MG/1 ML SDV IV PRN ×3 (03:10→18:54)
[2017-01-14] MEDS: LANSOPRAZOLE 15 MG TAB.RAP.DR PO SCH (06:42)
[2017-01-14] MEDS: FUROSEMIDE INJ/PF 20 MG/2 ML SDV IV SCH (06:42)
[2017-01-14] MEDS: TRAMADOL HCL 50 MG TABLET PO PRN ×2 (09:33→18:54)
[2017-01-14] MEDS: POLYETHYLENE GLYCOL 3350 POWDER 17 GM/1 PACKET PO SCH (11:16)
[2017-01-14] MEDS: ESCITALOPRAM OXALATE 10 MG TABLET PO SCH (11:17)
[2017-01-14] MEDS: DILTIAZEM HCL 120 MG CAP.SR.24H PO SCH (11:17)
[2017-01-14] MEDS: BUSPIRONE HCL 10 MG TABLET PO SCH ×2 (11:17→18:23)
[2017-01-14] MEDS: DOCUSATE SODIUM 100 MG CAPSULE PO SCH ×2 (11:18→18:23)
[2017-01-14] MEDS: DIGOXIN 0.125 MG TABLET PO SCH (11:18)
[2017-01-14] MEDS: CEFEPIME 1 GM/D5W RTU 50 ML IV SCH ×2 (11:21→21:51)
[2017-01-14 12:53] LABS: FLUID APPEARANCE CLOUDY; FLUID RBC DILUENT USED NONE USED; FLUID RBC DILUTION FACTOR 1; FLUID RBC SIDE 1 202; FLUID RBC SIDE 2 198; FLUID TYPE PLEURAL; TOTAL RBC SQUARES COUNTED FLD 25
--- NOTE | 2017-01-14 13:57 | PDOC PROGRESS REPORT ---
Subjective Progress Note for:: 01/14/17 Subjective:: Patient underwent for the right-sided pleural cath placement in the 1500 cc fluid came outPatient's chest x-ray shows some mild apical pneumothorax currently follow with the surgery and the pulmonaryPatient is complaining of pain in the catheter site and getting the pain medicationsPatient's sister was on the bedside Physical Exam Vital Signs: Temp Pulse Resp BP Pulse Ox 97.5 F 79 18 159/82 H 93 01/14/17 07:50 01/14/17 08:16 01/14/17 08:16 01/14/17 07:50 01/14/17 08:16 Intake & Output 01/13/17 01/14/17 01/15/17 06:59 06:59 06:59 Intake Total 990 185 Output Total 2000 1 Balance -1010 184 Weight 52.1 kg 52.4 kg General appearance: PRESENT: no acute distress, well-developed, well-nourished Head exam: PRESENT: atraumatic, normocephalic Eye exam: PRESENT: conjunctiva pink, EOMI, PERRLA. ABSENT: scleral icterus Ear exam: PRESENT: normal external ear exam Mouth exam: PRESENT: moist, tongue midline Neck exam: PRESENT: full ROM. ABSENT: carotid bruit, JVD, lymphadenopathy, thyromegaly Respiratory exam: PRESENT: decreased breath sounds, other Additional comments: Right-sided pleural cath is placed Cardiovascular exam: PRESENT: RRR. ABSENT: diastolic murmur, rubs, systolic murmur Pulses: PRESENT: normal dorsalis pedis pul, +2 pedal pulses bilateral Vascular exam: PRESENT: normal capillary refill GI/Abdominal exam: PRESENT: normal bowel sounds, soft. ABSENT: distended, guarding, mass, organolmegaly, rebound, tenderness Rectal exam: PRESENT: deferred Neurological exam: PRESENT: alert, awake, oriented to person, oriented to place , oriented to time, oriented to situation, CN II-XII grossly intact. ABSENT: motor sensory deficit Psychiatric exam: PRESENT: appropriate affect, normal mood. ABSENT: homicidal ideation, suicidal ideation Skin exam: PRESENT: dry, intact, warm. ABSENT: cyanosis, rash Results Laboratory Results: 01/13/17 05:20 01/13/17 05:20 01/14/17 11:15 Fluid Type PLEURAL Fluid Source Fluid Color LIGHT YELLOW Fluid Appearance CLOUDY Fluid Viscosity SLIGHTLY VISCOUS Fluid WBC 8300 Fluid RBC 199901/08/17 01/08/17 01/08/17 04:43 04:43 11:20 Creatine Kinase 35 36 CK-MB (CK-2) 2.85 Troponin I 0.138 01/08/17 01/08/17 01/08/17 11:20 16:45 16:45 Creatine Kinase 31 CK-MB (CK-2) 2.82 2.81 Troponin I 0.135 0.117 Impressions: Chest Ultrasound 01/09/17 00:00 IMPRESSION: BILATERAL PLEURAL EFFUSIONS, RIGHT GREATER THAN LEFT. Chest X-Ray 01/14/17 00:00 IMPRESSION: Stable trace right apical pneumothorax. Right PleurX catheter unchanged. Since prior chest film 01/13/2017 1844 hours patient has developed mild right basilar airspace disease with trace right pleural effusion. Assessment & Plan - Diagnosis (1) CHF (congestive heart failure) Qualifiers: Congestive heart failure type: unspecified congestive heart failure type Congestive heart failure chronicity: acute on chronic Qualified Code(s ): I50.9 - Heart failure, unspecified Is this a current diagnosis for this admission?: YesPlan: Vahid the current medications as per discussed with the Dr. Phoenix suggest the no need to change anything and he signed off the patient's (2) Elevated troponin Is this a current diagnosis for this admission?: Yes (3) Recurrent pleural effusion on right Is this a current diagnosis for this admission?: YesPlan: Status post right-sided pleural cath will wait for the all the analysis (4) Respiratory distress Is this a current diagnosis for this admission?: YesPlan: PICC patient currently on a BiPAP will repeat the ABG and continues to monitor the patient (5) Atrial fibrillation Qualifiers: Atrial fibrillation type: paroxysmal Qualified Code(s): I48.0 - Paroxysmal atrial fibrillation Is this a current diagnosis for this admission?: YesPlan: Currently on Eliquis (6) COPD (chronic obstructive pulmonary disease) Qualifiers: COPD type: unspecified COPD Qualified Code(s): J44.9 - Chronic obstructive pulmonary disease, unspecified Is this a current diagnosis for this admission?: YesPlan: Stable (7) Chronic kidney disease Qualifiers: Chronic kidney disease stage: stage 3 (moderate) Qualified Code(s): N18.3 - Chronic kidney disease, stage 3 (moderate) Is this a current diagnosis for this admission?: YesPlan: Continues to current medications (8) Shortness of breath Is this a current diagnosis for this admission?: Yes (9) Leukocytosis Qualifiers: Leukocytosis type: unspecified Qualified Code(s): D72.829 - Elevated white blood cell count, unspecified Is this a current diagnosis for this admission?: YesPlan: Stable - Time Time Spent with patient: 15-24 minutes Medications reviewed and adjusted accordingly: Yes Anticipated discharge: Home Within: Other - Inpatient Certification Medical Necessity: Need Close Monitoring Due to Risk of Patient Decompensation, Need for IV Antibiotics Post Hospital Care: D/C Supervisor Blasting Documentation - Plan Summary Plan Summary: Continues to IV antibiotics continues to Lasix and await further all the culture and sensitivity
[2017-01-14] MEDS ORDERED: APIXABAN 2.5 MG TABLET PO ONE (14:00)
[2017-01-14] MEDS: SIMVASTATIN 40 MG TABLET PO SCH (21:50)
[2017-01-14] MEDS: APIXABAN 2.5 MG TABLET PO SCH (21:51)
[2017-01-15] MEDS: LEVALBUTEROL HCL NEB 1.25 MG/3 ML AMPUL NEB SCH ×4 (02:20→21:48)
[2017-01-15] MEDS: TRAMADOL HCL 50 MG TABLET PO PRN (02:27)
[2017-01-15] MEDS: LANSOPRAZOLE 15 MG TAB.RAP.DR PO SCH (05:52)
[2017-01-15] MEDS: MAG HYDROX/AL HYDROX/SIMETH SUSP 30 ML UDCUP PO PRN (06:05)
[2017-01-15 06:52] LABS: ABSOLUTE BASOPHILS # (AUTO) 0.1 10^3/uL (0.0-0.2); ABSOLUTE EOSINOPHILS # (AUTO) 0.5 10^3/uL (0.0-0.6); ABSOLUTE LYMPHOCYTES (AUTO) 1.6 10^3/uL (0.5-4.7); ABSOLUTE MONOCYTES (AUTO) 0.7 10^3/uL (0.1-1.4); ABSOLUTE NEUT (AUTO) 5.4 10^3/uL (1.7-8.2); BASOPHILS % (AUTO) 0.8 % (0-2); EOSINOPHILS % (AUTO) 5.6 % (0-6); HEMATOCRIT 32.3 % (36.0-47.0); HEMOGLOBIN 10.9 g/dL (12.0-15.5); HGB HCT DIFFERENCE 0.4; LYMPHOCYTES % (AUTO) 19.1 % (13-45); MEAN CORPUSCULAR HEMOGLOBIN 31.4 pg (27.0-33.4); MEAN CORPUSCULAR HGB CONC 33.8 g/dL (32.0-36.0); MEAN CORPUSCULAR VOLUME 93 fl (80-97); MONOCYTES % (AUTO) 9.1 % (3-13); RED BLOOD COUNT 3.48 10^6/uL (3.72-5.28); RED CELL DISTRIBUTION WIDTH 13.3 % (11.5-14.0); SEGMENTED NEUTROPHILS % (AUTO) 65.4 % (42-78); WHITE BLOOD COUNT 8.2 10^3/uL (4.0-10.5)
[2017-01-15] MEDS: KETOROLAC TROMETHAMINE INJ/PF 30 MG/1 ML SDV IV PRN ×2 (06:55→17:47)
[2017-01-15 07:07] LABS: ANION GAP 8 (5-19); BLOOD UREA NITROGEN 45 mg/dL (7-20); CALCIUM 8.8 mg/dL (8.4-10.2); CARBON DIOXIDE 29 mmol/L (22-30); CHLORIDE 94 mmol/L (98-107); CREATININE RESULT 1.49 mg/dL (0.52-1.25); GLUCOSE 89 mg/dL (75-110); POTASSIUM 4.5 mmol/L (3.6-5.0); SODIUM 131.4 mmol/L (137-145)
[2017-01-15] MEDS: ESCITALOPRAM OXALATE 10 MG TABLET PO SCH (09:48)
[2017-01-15] MEDS: DILTIAZEM HCL 120 MG CAP.SR.24H PO SCH (09:49)
[2017-01-15] MEDS: DOCUSATE SODIUM 100 MG CAPSULE PO SCH ×2 (09:50→17:44)
[2017-01-15] MEDS: POLYETHYLENE GLYCOL 3350 POWDER 17 GM/1 PACKET PO SCH (09:50)
[2017-01-15] MEDS: DIGOXIN 0.125 MG TABLET PO SCH (09:50)
[2017-01-15] MEDS: BUSPIRONE HCL 10 MG TABLET PO SCH ×2 (09:50→17:44)
[2017-01-15] MEDS: APIXABAN 2.5 MG TABLET PO SCH ×2 (09:51→22:01)
[2017-01-15] MEDS: CEFEPIME 1 GM/D5W RTU 50 ML IV SCH ×2 (09:52→22:00)
[2017-01-15] MEDS ORDERED: TORSEMIDE 20 MG TABLET PO SCH (10:00)
--- NOTE | 2017-01-15 10:04 | PDOC PROGRESS REPORT ---
Subjective Progress Note for:: 01/15/17 Subjective:: Patient is feeling much better patient's throat pleural cath placement on the right side and currently doing well Patient's denied any cough denied any chest pain denied any shortness of the breath Physical Exam Vital Signs: Temp Pulse Resp BP Pulse Ox 98.3 F 95 20 117/51 L 93 01/15/17 08:26 01/15/17 08:26 01/15/17 08:26 01/15/17 08:26 01/15/17 08:26 Intake & Output 01/14/17 01/15/17 01/16/17 06:59 06:59 06:59 Intake Total 185 1232 Output Total 1 60 Balance 184 1172 Weight 52.4 kg 53.5 kg General appearance: PRESENT: no acute distress, well-developed, well-nourished Head exam: PRESENT: atraumatic, normocephalic Eye exam: PRESENT: conjunctiva pink, EOMI, PERRLA. ABSENT: scleral icterus Ear exam: PRESENT: normal external ear exam Mouth exam: PRESENT: moist, tongue midline Neck exam: PRESENT: full ROM. ABSENT: carotid bruit, JVD, lymphadenopathy, thyromegaly Respiratory exam: PRESENT: clear to auscultation [email or web address] Cardiovascular exam: PRESENT: RRR. ABSENT: diastolic murmur, rubs, systolic murmur Pulses: PRESENT: normal dorsalis pedis pul, +2 pedal pulses bilateral Vascular exam: PRESENT: normal capillary refill GI/Abdominal exam: PRESENT: normal bowel sounds, soft. ABSENT: distended, guarding, mass, organolmegaly, rebound, tenderness Rectal exam: PRESENT: deferred Neurological exam: PRESENT: alert, awake, oriented to person, oriented to place , oriented to time, oriented to situation, CN II-XII grossly intact. ABSENT: motor sensory deficit Psychiatric exam: PRESENT: appropriate affect, normal mood. ABSENT: homicidal ideation, suicidal ideation Skin exam: PRESENT: dry, intact, warm. ABSENT: cyanosis, rash Results Laboratory Results: 01/15/17 05:46 01/15/17 05:46 01/14/17 01/15/17 01/15/17 11:15 05:46 05:46 WBC 8.2 RBC 3.48 L Hgb 10.9 L Hct 32.3 L MCV 93 MCH 31.4 MCHC 33.8 RDW 13.3 Plt Count 212 Seg Neutrophils % 65.4 Lymphocytes % 19.1 Monocytes % 9.1 Eosinophils % 5.6 Basophils % 0.8 Absolute Neutrophils 5.4 Absolute Lymphocytes 1.6 Absolute Monocytes 0.7 Absolute Eosinophils 0.5 Absolute Basophils 0.1 Sodium 131.4 L Potassium 4.5 Chloride 94 L Carbon Dioxide 29 Anion Gap 8 BUN 45 H Creatinine 1.49 H Est GFR ( Amer) 41 L Est GFR (Non-Af Amer) 34 L Glucose 89 Calcium 8.8 Fluid Type PLEURAL Fluid Source Fluid Color LIGHT YELLOW Fluid Appearance CLOUDY Fluid Viscosity SLIGHTLY VISCOUS Fluid WBC 8300 Fluid RBC 199901/08/17 01/08/17 01/08/17 04:43 04:43 11:20 Creatine Kinase 35 36 CK-MB (CK-2) 2.85 Troponin I 0.138 01/08/17 01/08/17 01/08/17 11:20 16:45 16:45 Creatine Kinase 31 CK-MB (CK-2) 2.82 2.81 Troponin I 0.135 0.117 Impressions: Chest Ultrasound 01/09/17 00:00 IMPRESSION: BILATERAL PLEURAL EFFUSIONS, RIGHT GREATER THAN LEFT. Chest X-Ray 01/15/17 00:00 IMPRESSION: Decrease in right apical pneumothorax, now trace pleural air persists. Decrease in consolidation at the right lung base Stable trace persistent bilateral pleural effusions and stable left basilar airspace disease. Assessment & Plan - Diagnosis (1) CHF (congestive heart failure) Qualifiers: Congestive heart failure type: unspecified congestive heart failure type Congestive heart failure chronicity: acute on chronic Qualified Code(s ): I50.9 - Heart failure, unspecified Is this a current diagnosis for this admission?: YesPlan: Vahid the current medications as per discussed with the Dr. Phoenix suggest the no need to change anything and he signed off the patient's (2) Elevated troponin Is this a current diagnosis for this admission?: Yes (3) Recurrent pleural effusion on right Is this a current diagnosis for this admission?: YesPlan: Status post right-sided pleural cath will wait for the all the analysis (4) Respiratory distress Is this a current diagnosis for this admission?: YesPlan: PICC patient currently on a BiPAP will repeat the ABG and continues to monitor the patient (5) Atrial fibrillation Qualifiers: Atrial fibrillation type: paroxysmal Qualified Code(s): I48.0 - Paroxysmal atrial fibrillation Is this a current diagnosis for this admission?: YesPlan: Currently on Eliquis (6) COPD (chronic obstructive pulmonary disease) Qualifiers: COPD type: unspecified COPD Qualified Code(s): J44.9 - Chronic obstructive pulmonary disease, unspecified Is this a current diagnosis for this admission?: YesPlan: Stable (7) Chronic kidney disease Qualifiers: Chronic kidney disease stage: stage 3 (moderate) Qualified Code(s): N18.3 - Chronic kidney disease, stage 3 (moderate) Is this a current diagnosis for this admission?: YesPlan: Continues to current medications (8) Shortness of breath Is this a current diagnosis for this admission?: YesPlan: The multifactorial from the COPD and CHF and bilateral pleural effusions (9) Leukocytosis Qualifiers: Leukocytosis type: unspecified Qualified Code(s): D72.829 - Elevated white blood cell count, unspecified Is this a current diagnosis for this admission?: Yes - Time Time Spent with patient: 25-34 minutes Medications reviewed and adjusted accordingly: Yes - Inpatient Certification Medical Necessity: Need for IV Antibiotics Post Hospital Care: D/C Transport Pilot Documentation - Plan Summary Plan Summary: Currently stable continues the current medications
[2017-01-15 13:48] LABS: AMYLASE BODY FLUID 16 U/L (.); GLUCOSE BODY FLUID 80 mg/dL (.)
--- NOTE | 2017-01-15 17:06 | PDOC PROGRESS REPORT ---
Subjective Progress Note for:: 01/14/17 Subjective:: Hard of hearing but awake and alert complaining of pain at incision site Physical Exam Vital Signs: Temp Pulse Resp BP Pulse Ox 97.9 F 83 20 114/59 L 95 01/15/17 15:37 01/15/17 15:37 01/15/17 15:37 01/15/17 15:37 01/15/17 15:37 Intake & Output 01/14/17 01/15/17 01/16/17 06:59 06:59 06:59 Intake Total 185 1232 237 Output Total 1 60 Balance 184 1172 237 Weight 52.4 kg 53.5 kg General appearance: PRESENT: cooperative, disheveled, thin, well-developed Head exam: PRESENT: normocephalic Eye exam: PRESENT: conjunctiva pale, EOMI Mouth exam: PRESENT: dry mucosa, neck supple Neck exam: ABSENT: carotid bruit, JVD, lymphadenopathy, thyromegaly Respiratory exam: PRESENT: decreased breath sounds, prolonged expiratory phas, rhonchi, unlabored, wheezes, other - Right Pleurodex catheter in place dressing dry Cardiovascular exam: PRESENT: RRR, +S1, +S2 Pulses: PRESENT: normal radial pulses GI/Abdominal exam: PRESENT: normal bowel sounds, soft. ABSENT: distended, guarding, mass, organolmegaly, rebound, tenderness Rectal exam: PRESENT: deferred Gentrourinary exam: PRESENT: indwelling catheter Musculoskeletal exam: PRESENT: normal inspection Neurological exam: PRESENT: alert, awake Skin exam: PRESENT: dry, warm Results Laboratory Results: 01/15/17 05:46 01/15/17 05:46 01/14/17 01/15/17 01/15/17 11:15 05:46 05:46 WBC 8.2 RBC 3.48 L Hgb 10.9 L Hct 32.3 L MCV 93 MCH 31.4 MCHC 33.8 RDW 13.3 Plt Count 212 Seg Neutrophils % 65.4 Lymphocytes % 19.1 Monocytes % 9.1 Eosinophils % 5.6 Basophils % 0.8 Absolute Neutrophils 5.4 Absolute Lymphocytes 1.6 Absolute Monocytes 0.7 Absolute Eosinophils 0.5 Absolute Basophils 0.1 Sodium 131.4 L Potassium 4.5 Chloride 94 L Carbon Dioxide 29 Anion Gap 8 BUN 45 H Creatinine 1.49 H Est GFR ( Amer) 41 L Est GFR (Non-Af Amer) 34 L Glucose 89 Calcium 8.8 Fluid Glucose 80 Fluid LDH 875 Fluid Amylase 16 01/08/17 01/08/17 01/08/17 04:43 04:43 11:20 Creatine Kinase 35 36 CK-MB (CK-2) 2.85 Troponin I 0.138 01/08/17 01/08/17 01/08/17 11:20 16:45 16:45 Creatine Kinase 31 CK-MB (CK-2) 2.82 2.81 Troponin I 0.135 0.117 Impressions: Chest Ultrasound 01/09/17 00:00 IMPRESSION: BILATERAL PLEURAL EFFUSIONS, RIGHT GREATER THAN LEFT. Chest X-Ray 01/15/17 00:00 IMPRESSION: Decrease in right apical pneumothorax, now trace pleural air persists. Decrease in consolidation at the right lung base Stable trace persistent bilateral pleural effusions and stable left basilar airspace disease. Assessment & Plan - Diagnosis (1) History of atrial fibrillation Is this a current diagnosis for this admission?: Yes (2) Recurrent pleural effusion on right Is this a current diagnosis for this admission?: Yes (3) COPD (chronic obstructive pulmonary disease) Qualifiers: COPD type: unspecified COPD Qualified Code(s): J44.9 - Chronic obstructive pulmonary disease, unspecified Is this a current diagnosis for this admission?: Yes
--- NOTE | 2017-01-15 17:07 | PDOC PROGRESS REPORT ---
Subjective Progress Note for:: 01/15/17 Subjective:: Pain better controlled today she is anxious to go home Physical Exam Vital Signs: Temp Pulse Resp BP Pulse Ox 97.9 F 83 20 114/59 L 95 01/15/17 15:37 01/15/17 15:37 01/15/17 15:37 01/15/17 15:37 01/15/17 15:37 Intake & Output 01/14/17 01/15/17 01/16/17 06:59 06:59 06:59 Intake Total 185 1232 237 Output Total 1 60 Balance 184 1172 237 Weight 52.4 kg 53.5 kg General appearance: PRESENT: no acute distress, cooperative, disheveled, hard of hearing, thin, well-developed Head exam: PRESENT: atraumatic, normocephalic Eye exam: PRESENT: conjunctiva pale, EOMI Mouth exam: PRESENT: moist, neck supple Neck exam: ABSENT: carotid bruit, JVD, lymphadenopathy, thyromegaly Respiratory exam: PRESENT: chest wall tenderness, decreased breath sounds, prolonged expiratory phas, rhonchi, unlabored, wheezes Cardiovascular exam: PRESENT: RRR, +S1, +S2 Pulses: PRESENT: normal radial pulses GI/Abdominal exam: PRESENT: normal bowel sounds, soft. ABSENT: distended, guarding, mass, organolmegaly, rebound, tenderness Rectal exam: PRESENT: deferred Gentrourinary exam: PRESENT: indwelling catheter Musculoskeletal exam: PRESENT: normal inspection Neurological exam: PRESENT: alert, awake Psychiatric exam: PRESENT: normal mood Skin exam: PRESENT: dry Results Laboratory Results: 01/15/17 05:46 01/15/17 05:46 01/14/17 01/15/17 01/15/17 11:15 05:46 05:46 WBC 8.2 RBC 3.48 L Hgb 10.9 L Hct 32.3 L MCV 93 MCH 31.4 MCHC 33.8 RDW 13.3 Plt Count 212 Seg Neutrophils % 65.4 Lymphocytes % 19.1 Monocytes % 9.1 Eosinophils % 5.6 Basophils % 0.8 Absolute Neutrophils 5.4 Absolute Lymphocytes 1.6 Absolute Monocytes 0.7 Absolute Eosinophils 0.5 Absolute Basophils 0.1 Sodium 131.4 L Potassium 4.5 Chloride 94 L Carbon Dioxide 29 Anion Gap 8 BUN 45 H Creatinine 1.49 H Est GFR ( Amer) 41 L Est GFR (Non-Af Amer) 34 L Glucose 89 Calcium 8.8 Fluid Glucose 80 Fluid LDH 875 Fluid Amylase 16 01/08/17 01/08/17 01/08/17 04:43 04:43 11:20 Creatine Kinase 35 36 CK-MB (CK-2) 2.85 Troponin I 0.138 01/08/17 01/08/17 01/08/17 11:20 16:45 16:45 Creatine Kinase 31 CK-MB (CK-2) 2.82 2.81 Troponin I 0.135 0.117 Impressions: Chest Ultrasound 01/09/17 00:00 IMPRESSION: BILATERAL PLEURAL EFFUSIONS, RIGHT GREATER THAN LEFT. Chest X-Ray 01/15/17 00:00 IMPRESSION: Decrease in right apical pneumothorax, now trace pleural air persists. Decrease in consolidation at the right lung base Stable trace persistent bilateral pleural effusions and stable left basilar airspace disease. Assessment & Plan - Diagnosis (1) History of atrial fibrillation Is this a current diagnosis for this admission?: Yes (2) Recurrent pleural effusion on right Is this a current diagnosis for this admission?: YesPlan: Pleurodex catheter in place draining well (3) COPD (chronic obstructive pulmonary disease) Qualifiers: COPD type: unspecified COPD Qualified Code(s): J44.9 - Chronic obstructive pulmonary disease, unspecified Is this a current diagnosis for this admission?: Yes
[2017-01-15] MEDS: SIMVASTATIN 40 MG TABLET PO SCH (22:01)
[2017-01-16] MEDS: LEVALBUTEROL HCL NEB 1.25 MG/3 ML AMPUL NEB SCH ×4 (02:36→20:56)
[2017-01-16] MEDS: KETOROLAC TROMETHAMINE INJ/PF 30 MG/1 ML SDV IV PRN ×2 (03:56→17:45)
[2017-01-16] MEDS: MAG HYDROX/AL HYDROX/SIMETH SUSP 30 ML UDCUP PO PRN (05:21)
[2017-01-16] MEDS: LANSOPRAZOLE 15 MG TAB.RAP.DR PO SCH (05:21)
[2017-01-16 07:12] LABS: ABSOLUTE BASOPHILS # (AUTO) 0.1 10^3/uL (0.0-0.2); ABSOLUTE EOSINOPHILS # (AUTO) 0.5 10^3/uL (0.0-0.6); ABSOLUTE LYMPHOCYTES (AUTO) 1.2 10^3/uL (0.5-4.7); ABSOLUTE MONOCYTES (AUTO) 0.9 10^3/uL (0.1-1.4); ABSOLUTE NEUT (AUTO) 5.7 10^3/uL (1.7-8.2); BASOPHILS % (AUTO) 1.3 % (0-2); EOSINOPHILS % (AUTO) 5.7 % (0-6); HEMATOCRIT 32.8 % (36.0-47.0); HEMOGLOBIN 11.1 g/dL (12.0-15.5); HGB HCT DIFFERENCE 0.5; LYMPHOCYTES % (AUTO) 14.4 % (13-45); MEAN CORPUSCULAR HEMOGLOBIN 30.9 pg (27.0-33.4); MEAN CORPUSCULAR VOLUME 91 fl (80-97); MONOCYTES % (AUTO) 11.1 % (3-13); RED BLOOD COUNT 3.61 10^6/uL (3.72-5.28); RED CELL DISTRIBUTION WIDTH 13.7 % (11.5-14.0); SEGMENTED NEUTROPHILS % (AUTO) 67.5 % (42-78); WHITE BLOOD COUNT 8.4 10^3/uL (4.0-10.5)
[2017-01-16 07:33] LABS: ANION GAP 8 (5-19); BLOOD UREA NITROGEN 56 mg/dL (7-20); CALCIUM 8.9 mg/dL (8.4-10.2); CARBON DIOXIDE 31 mmol/L (22-30); CHLORIDE 89 mmol/L (98-107); CREATININE RESULT 1.64 mg/dL (0.52-1.25); GLUCOSE 124 mg/dL (75-110); POTASSIUM 4.4 mmol/L (3.6-5.0); SODIUM 128.4 mmol/L (137-145)
[2017-01-16] MEDS: ESCITALOPRAM OXALATE 10 MG TABLET PO SCH (10:11)
[2017-01-16] MEDS: DIGOXIN 0.125 MG TABLET PO SCH (10:12)
[2017-01-16] MEDS: DILTIAZEM HCL 120 MG CAP.SR.24H PO SCH (10:12)
[2017-01-16] MEDS: BUSPIRONE HCL 10 MG TABLET PO SCH ×2 (10:12→17:45)
[2017-01-16] MEDS: APIXABAN 2.5 MG TABLET PO SCH ×2 (10:13→22:20)
[2017-01-16] MEDS: DOCUSATE SODIUM 100 MG CAPSULE PO SCH ×2 (10:14→18:09)
[2017-01-16] MEDS: POLYETHYLENE GLYCOL 3350 POWDER 17 GM/1 PACKET PO SCH (10:14)
--- NOTE | 2017-01-16 12:19 | PDOC PROGRESS REPORT ---
Subjective Progress Note for:: 01/16/17 Subjective:: Patient is feeling much better patient's chest x-ray is all resolved with the pneumothorax. Patient's fluid analysis shows a possible exudate which is discussed with the doctor Curseen as it is probably a transudate fluid done to be exudate because of the long-standingPatient's otherwise denied any chest pain no shortness of the breath patient's sodium level is low today Physical Exam Vital Signs: Temp Pulse Resp BP Pulse Ox 98.0 F 76 24 H 108/47 L 97 01/16/17 09:02 01/16/17 09:02 01/16/17 09:02 01/16/17 09:02 01/16/17 09:02 Intake & Output 01/15/17 01/16/17 01/17/17 06:59 06:59 06:59 Intake Total 1232 854 Output Total 60 400 Balance 1172 454 Weight 53.5 kg 54.2 kg General appearance: PRESENT: no acute distress, well-developed, well-nourished Head exam: PRESENT: atraumatic, normocephalic Eye exam: PRESENT: conjunctiva pink, EOMI, PERRLA. ABSENT: scleral icterus Ear exam: PRESENT: normal external ear exam Mouth exam: PRESENT: moist, tongue midline Neck exam: PRESENT: full ROM. ABSENT: carotid bruit, JVD, lymphadenopathy, thyromegaly Respiratory exam: PRESENT: clear to auscultation [email or web address] Additional comments: Right-sided pleural catheter dressing is intact Cardiovascular exam: PRESENT: RRR. ABSENT: diastolic murmur, rubs, systolic murmur Pulses: PRESENT: normal dorsalis pedis pul, +2 pedal pulses bilateral Vascular exam: PRESENT: normal capillary refill GI/Abdominal exam: PRESENT: normal bowel sounds, soft. ABSENT: distended, guarding, mass, organolmegaly, rebound, tenderness Rectal exam: PRESENT: deferred Neurological exam: PRESENT: alert, awake, oriented to person, oriented to place , oriented to time, oriented to situation, CN II-XII grossly intact. ABSENT: motor sensory deficit Psychiatric exam: PRESENT: appropriate affect, normal mood. ABSENT: homicidal ideation, suicidal ideation Skin exam: PRESENT: dry, intact, warm. ABSENT: cyanosis, rash Results Laboratory Results: 01/16/17 06:42 01/16/17 06:42 01/14/17 01/16/17 01/16/17 11:15 06:42 06:42 WBC 8.4 RBC 3.61 L Hgb 11.1 L Hct 32.8 L MCV 91 MCH 30.9 MCHC 34.0 RDW 13.7 Plt Count 240 Seg Neutrophils % 67.5 Lymphocytes % 14.4 Monocytes % 11.1 Eosinophils % 5.7 Basophils % 1.3 Absolute Neutrophils 5.7 Absolute Lymphocytes 1.2 Absolute Monocytes 0.9 Absolute Eosinophils 0.5 Absolute Basophils 0.1 Sodium 128.4 L Potassium 4.4 Chloride 89 L Carbon Dioxide 31 H Anion Gap 8 BUN 56 H Creatinine 1.64 H Est GFR ( Amer) 37 L Est GFR (Non-Af Amer) 30 L Glucose 124 H Calcium 8.9 Fluid Glucose 80 Fluid LDH 875 Fluid Amylase 16 01/08/17 01/08/17 01/08/17 04:43 04:43 11:20 Creatine Kinase 35 36 CK-MB (CK-2) 2.85 Troponin I 0.138 01/08/17 01/08/17 01/08/17 11:20 16:45 16:45 Creatine Kinase 31 CK-MB (CK-2) 2.82 2.81 Troponin I 0.135 0.117 Impressions: Chest Ultrasound 01/09/17 00:00 IMPRESSION: BILATERAL PLEURAL EFFUSIONS, RIGHT GREATER THAN LEFT. Chest X-Ray 01/16/17 00:00 IMPRESSION: ESSENTIALLY NO CHANGE IN APPEARANCE OF THE CHEST. NO PNEUMOTHORAX. Assessment & Plan - Diagnosis (1) CHF (congestive heart failure) Qualifiers: Congestive heart failure type: unspecified congestive heart failure type Congestive heart failure chronicity: acute on chronic Qualified Code(s ): I50.9 - Heart failure, unspecified Is this a current diagnosis for this admission?: YesPlan: He currently hold the Demadex because of the electrolytes and worsening the kidney functions (2) Elevated troponin Is this a current diagnosis for this admission?: Yes (3) Recurrent pleural effusion on right Is this a current diagnosis for this admission?: YesPlan: Will start the patient on Augmentin as per discussed with Dr. Smyth (4) Respiratory distress Is this a current diagnosis for this admission?: YesPlan: PICC patient currently on a BiPAP will repeat the ABG and continues to monitor the patient (5) Atrial fibrillation Qualifiers: Atrial fibrillation type: paroxysmal Qualified Code(s): I48.0 - Paroxysmal atrial fibrillation Is this a current diagnosis for this admission?: YesPlan: Currently on Eliquis (6) COPD (chronic obstructive pulmonary disease) Qualifiers: COPD type: unspecified COPD Qualified Code(s): J44.9 - Chronic obstructive pulmonary disease, unspecified Is this a current diagnosis for this admission?: YesPlan: Stable (7) Chronic kidney disease Qualifiers: Chronic kidney disease stage: stage 3 (moderate) Qualified Code(s): N18.3 - Chronic kidney disease, stage 3 (moderate) Is this a current diagnosis for this admission?: YesPlan: Continues to current medications (8) Shortness of breath Is this a current diagnosis for this admission?: Yes (9) Leukocytosis Qualifiers: Leukocytosis type: unspecified Qualified Code(s): D72.829 - Elevated white blood cell count, unspecified Is this a current diagnosis for this admission?: Yes - Time Time Spent with patient: 15-24 minutes Medications reviewed and adjusted accordingly: Yes Anticipated discharge: Home Within: Other - Inpatient Certification Medical Necessity: Need Close Monitoring Due to Risk of Patient Decompensation, Need for IV Antibiotics Post Hospital Care: D/C Wire Fence Builder Documentation - Plan Summary Plan Summary: We will hold the Demadex repeat the kidney functions tomorrow and continues to start the patient on p.o. antibiotic
[2017-01-16] MEDS: AMOXICILLIN TR/POT CLAVULANATE 500-125 MG TAB PO SCH ×2 (13:34→22:13)
[2017-01-16] MEDS: SIMVASTATIN 40 MG TABLET PO SCH (22:13)
[2017-01-16] MEDS: ALPRAZOLAM 0.25 MG TABLET PO PRN (22:13)
[2017-01-17] MEDS: KETOROLAC TROMETHAMINE INJ/PF 30 MG/1 ML SDV IV PRN ×2 (01:44→21:16)
[2017-01-17] MEDS: LEVALBUTEROL HCL NEB 1.25 MG/3 ML AMPUL NEB SCH ×4 (02:25→20:39)
[2017-01-17] MEDS: ALPRAZOLAM 0.25 MG TABLET PO PRN ×2 (02:55→16:55)
[2017-01-17] MEDS: AMOXICILLIN TR/POT CLAVULANATE 500-125 MG TAB PO SCH (05:20)
[2017-01-17] MEDS: MAG HYDROX/AL HYDROX/SIMETH SUSP 30 ML UDCUP PO PRN (05:20)
[2017-01-17] MEDS: LANSOPRAZOLE 15 MG TAB.RAP.DR PO SCH (05:21)
[2017-01-17 06:00] LABS: ANION GAP 7 (5-19); BLOOD UREA NITROGEN 63 mg/dL (7-20); CALCIUM 8.6 mg/dL (8.4-10.2); CARBON DIOXIDE 31 mmol/L (22-30); CHLORIDE 87 mmol/L (98-107); CREATININE RESULT 1.62 mg/dL (0.52-1.25); GLUCOSE 110 mg/dL (75-110); POTASSIUM 4.6 mmol/L (3.6-5.0); SODIUM 124.9 mmol/L (137-145)
[2017-01-17] MEDS: NORMAL SALINE 1000 ML 1,000 ML IV PRN (08:20)
[2017-01-17] MEDS: APIXABAN 2.5 MG TABLET PO SCH ×2 (09:27→21:16)
[2017-01-17] MEDS: LACTOBACILLUS ACIDOPHILUS 250 MG TAB PO SCH ×2 (09:28→18:28)
[2017-01-17] MEDS: DIGOXIN 0.125 MG TABLET PO SCH (09:28)
[2017-01-17] MEDS: ESCITALOPRAM OXALATE 10 MG TABLET PO SCH (09:30)
[2017-01-17] MEDS: DILTIAZEM HCL 120 MG CAP.SR.24H PO SCH (09:30)
[2017-01-17] MEDS: BUSPIRONE HCL 10 MG TABLET PO SCH ×2 (09:30→18:28)
[2017-01-17] MEDS: DOCUSATE SODIUM 100 MG CAPSULE PO SCH ×2 (10:36→18:29)
[2017-01-17] MEDS: POLYETHYLENE GLYCOL 3350 POWDER 17 GM/1 PACKET PO SCH (10:36)
--- NOTE | 2017-01-17 13:33 | PDOC PROGRESS REPORT ---
Subjective Progress Note for:: 01/17/17 Subjective:: Patient is currently doing fair patient's noticed that augmenting makes the stomach upset but other than that patients denied any chest pain denied any shortness of the breath. Patient's sodium level is 124 but other blood work is stable. Physical Exam Vital Signs: Temp Pulse Resp BP Pulse Ox 97.5 F 91 21 H 118/51 L 97 01/17/17 07:14 01/17/17 08:30 01/17/17 08:30 01/17/17 07:14 01/17/17 07:14 Intake & Output 01/16/17 01/17/17 01/18/17 06:59 06:59 06:59 Intake Total 854 260 Output Total 400 0 Balance 454 260 Weight 54.2 kg 55.1 kg General appearance: PRESENT: no acute distress, well-developed, well-nourished Head exam: PRESENT: atraumatic, normocephalic Eye exam: PRESENT: conjunctiva pink, EOMI, PERRLA. ABSENT: scleral icterus Ear exam: PRESENT: normal external ear exam Mouth exam: PRESENT: moist, tongue midline Neck exam: PRESENT: full ROM. ABSENT: carotid bruit, JVD, lymphadenopathy, thyromegaly Respiratory exam: PRESENT: clear to auscultation marylou Cardiovascular exam: PRESENT: RRR. ABSENT: diastolic murmur, rubs, systolic murmur Pulses: PRESENT: normal dorsalis pedis pul, +2 pedal pulses bilateral Vascular exam: PRESENT: normal capillary refill GI/Abdominal exam: PRESENT: normal bowel sounds, soft. ABSENT: distended, guarding, mass, organolmegaly, rebound, tenderness Rectal exam: PRESENT: deferred Neurological exam: PRESENT: alert, awake, oriented to person, oriented to place , oriented to time, oriented to situation, CN II-XII grossly intact. ABSENT: motor sensory deficit Psychiatric exam: PRESENT: appropriate affect, normal mood. ABSENT: homicidal ideation, suicidal ideation Skin exam: PRESENT: dry, intact, warm. ABSENT: cyanosis, rash Results Laboratory Results: 01/16/17 06:42 01/17/17 05:22 01/17/17 05:22 Sodium 124.9 L Potassium 4.6 Chloride 87 L Carbon Dioxide 31 H Anion Gap 7 BUN 63 H Creatinine 1.62 H Est GFR ( Amer) 37 L Est GFR (Non-Af Amer) 31 L Glucose 110 Calcium 8.6 01/08/17 01/08/17 01/08/17 04:43 04:43 11:20 Creatine Kinase 35 36 CK-MB (CK-2) 2.85 Troponin I 0.138 01/08/17 01/08/17 01/08/17 11:20 16:45 16:45 Creatine Kinase 31 CK-MB (CK-2) 2.82 2.81 Troponin I 0.135 0.117 Impressions: Chest Ultrasound 01/09/17 00:00 IMPRESSION: BILATERAL PLEURAL EFFUSIONS, RIGHT GREATER THAN LEFT. Chest X-Ray 01/16/17 00:00 IMPRESSION: ESSENTIALLY NO CHANGE IN APPEARANCE OF THE CHEST. NO PNEUMOTHORAX. Assessment & Plan - Diagnosis (1) CHF (congestive heart failure) Qualifiers: Congestive heart failure type: unspecified congestive heart failure type Congestive heart failure chronicity: acute on chronic Qualified Code(s ): I50.9 - Heart failure, unspecified Is this a current diagnosis for this admission?: YesPlan: The plan is to put the Demadex 10 mg daily on the discharge (2) Elevated troponin Is this a current diagnosis for this admission?: Yes (3) Recurrent pleural effusion on right Is this a current diagnosis for this admission?: YesPlan: Status post pleural cath on the right side and continues the patient on the Keflex for another 7 days as per discussed with Dr. Smyth and stop the Augmentin while the patient's upset the stomach will put the patient on probiotics. Most likely afford is a transudate but current analysis of the exudate but the culture is negative so far (4) Respiratory distress Is this a current diagnosis for this admission?: Yes (5) Atrial fibrillation Qualifiers: Atrial fibrillation type: paroxysmal Qualified Code(s): I48.0 - Paroxysmal atrial fibrillation Is this a current diagnosis for this admission?: YesPlan: Currently on Eliquis (6) COPD (chronic obstructive pulmonary disease) Qualifiers: COPD type: unspecified COPD Qualified Code(s): J44.9 - Chronic obstructive pulmonary disease, unspecified Is this a current diagnosis for this admission?: YesPlan: Patients require 2 L oxygen at home (7) Chronic kidney disease Qualifiers: Chronic kidney disease stage: stage 3 (moderate) Qualified Code(s): N18.3 - Chronic kidney disease, stage 3 (moderate) Is this a current diagnosis for this admission?: YesPlan: Will give IV fluid for the next 12 hours and repeat the Chem-7 in the morning (8) Shortness of breath Is this a current diagnosis for this admission?: Yes (9) Leukocytosis Qualifiers: Leukocytosis type: unspecified Qualified Code(s): D72.829 - Elevated white blood cell count, unspecified Is this a current diagnosis for this admission?: Yes - Time Time Spent with patient: 15-24 minutes Medications reviewed and adjusted accordingly: Yes Anticipated discharge: Home Within: within 24 hours - Inpatient Certification Medical Necessity: Need For IV Fluids 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 Patient already have a home health arrangement for the pleural cath and a follow-up appointment with Dr. Smyth in 1 or 2 weeks. Discussed with the patient and the sister about all the patient's current conditions and all arrangement is made. Continues to all the other home medication as before
[2017-01-17] MEDS: CEPHALEXIN 500 MG CAPSULE PO SCH ×2 (14:27→21:16)
--- NOTE | 2017-01-17 15:07 | PDOC PROGRESS REPORT ---
Subjective Progress Note for:: 01/16/17 Subjective:: Pain better controlled today she is anxious to go home Physical Exam Vital Signs: Temp Pulse Resp BP Pulse Ox 97.9 F 86 24 H 115/61 95 01/16/17 12:49 01/16/17 13:28 01/16/17 13:28 01/16/17 12:49 01/16/17 13:28 Intake & Output 01/15/17 01/16/17 01/17/17 06:59 06:59 06:59 Intake Total 1232 854 Output Total 60 400 Balance 1172 454 Weight 53.5 kg 54.2 kg General appearance: PRESENT: no acute distress, cooperative, disheveled, hard of hearing, thin Head exam: PRESENT: atraumatic, normocephalic Eye exam: PRESENT: conjunctiva pale, EOMI Mouth exam: PRESENT: dry mucosa, neck supple Neck exam: ABSENT: carotid bruit, JVD, lymphadenopathy, thyromegaly Respiratory exam: PRESENT: decreased breath sounds, prolonged expiratory phas, rhonchi, unlabored, other - Pleurodex catheter right lateral chest wall Cardiovascular exam: PRESENT: irregular rhythm Pulses: PRESENT: normal radial pulses GI/Abdominal exam: PRESENT: normal bowel sounds, soft. ABSENT: distended, guarding, mass, organolmegaly, rebound, tenderness Rectal exam: PRESENT: deferred Musculoskeletal exam: PRESENT: normal inspection Neurological exam: PRESENT: awake Skin exam: PRESENT: dry, warm Results Laboratory Results: 01/16/17 06:42 01/16/17 06:42 01/16/17 01/16/17 06:42 06:42 WBC 8.4 RBC 3.61 L Hgb 11.1 L Hct 32.8 L MCV 91 MCH 30.9 MCHC 34.0 RDW 13.7 Plt Count 240 Seg Neutrophils % 67.5 Lymphocytes % 14.4 Monocytes % 11.1 Eosinophils % 5.7 Basophils % 1.3 Absolute Neutrophils 5.7 Absolute Lymphocytes 1.2 Absolute Monocytes 0.9 Absolute Eosinophils 0.5 Absolute Basophils 0.1 Sodium 128.4 L Potassium 4.4 Chloride 89 L Carbon Dioxide 31 H Anion Gap 8 BUN 56 H Creatinine 1.64 H Est GFR ( Amer) 37 L Est GFR (Non-Af Amer) 30 L Glucose 124 H Calcium 8.9 01/08/17 01/08/17 01/08/17 04:43 04:43 11:20 Creatine Kinase 35 36 CK-MB (CK-2) 2.85 Troponin I 0.138 01/08/17 01/08/17 01/08/17 11:20 16:45 16:45 Creatine Kinase 31 CK-MB (CK-2) 2.82 2.81 Troponin I 0.135 0.117 Impressions: Chest Ultrasound 01/09/17 00:00 IMPRESSION: BILATERAL PLEURAL EFFUSIONS, RIGHT GREATER THAN LEFT. Chest X-Ray 01/16/17 00:00 IMPRESSION: ESSENTIALLY NO CHANGE IN APPEARANCE OF THE CHEST. NO PNEUMOTHORAX. Assessment & Plan - Diagnosis (1) History of atrial fibrillation Is this a current diagnosis for this admission?: Yes (2) Recurrent pleural effusion on right Is this a current diagnosis for this admission?: YesPlan: Drain Pleurodex catheter daily (3) COPD (chronic obstructive pulmonary disease) Qualifiers: COPD type: unspecified COPD Qualified Code(s): J44.9 - Chronic obstructive pulmonary disease, unspecified Is this a current diagnosis for this admission?: YesPlan: Follow-up in office after discharge continue current therapy - Time Time Spent with patient: 25-34 minutes
--- NOTE | 2017-01-17 15:09 | PDOC PROGRESS REPORT ---
Subjective Progress Note for:: 01/17/17 Subjective:: Pain better controlled today she is anxious to go home Physical Exam Vital Signs: Temp Pulse Resp BP Pulse Ox 97.5 F 75 25 H 118/51 L 97 01/17/17 07:14 01/17/17 07:14 01/17/17 07:14 01/17/17 07:14 01/17/17 07:14 Intake & Output 01/16/17 01/17/17 01/18/17 06:59 06:59 06:59 Intake Total 854 260 Output Total 400 0 Balance 454 260 Weight 54.2 kg 55.1 kg General appearance: PRESENT: no acute distress, cooperative, disheveled, hard of hearing, thin Head exam: PRESENT: atraumatic, normocephalic Eye exam: PRESENT: conjunctiva pale, EOMI Neck exam: ABSENT: carotid bruit, JVD, lymphadenopathy, thyromegaly Respiratory exam: PRESENT: decreased breath sounds, rhonchi, symmetrical, unlabored, other - Pleurodex catheter right lateral chest wall Cardiovascular exam: PRESENT: irregular rhythm Pulses: PRESENT: normal radial pulses GI/Abdominal exam: PRESENT: normal bowel sounds, soft. ABSENT: distended, guarding, mass, organolmegaly, rebound, tenderness Rectal exam: PRESENT: deferred Neurological exam: PRESENT: alert, awake Psychiatric exam: PRESENT: normal mood Skin exam: PRESENT: dry, warm Results Laboratory Results: 01/16/17 06:42 01/17/17 05:22 01/17/17 05:22 Sodium 124.9 L Potassium 4.6 Chloride 87 L Carbon Dioxide 31 H Anion Gap 7 BUN 63 H Creatinine 1.62 H Est GFR ( Amer) 37 L Est GFR (Non-Af Amer) 31 L Glucose 110 Calcium 8.6 01/08/17 01/08/17 01/08/17 04:43 04:43 11:20 Creatine Kinase 35 36 CK-MB (CK-2) 2.85 Troponin I 0.138 01/08/17 01/08/17 01/08/17 11:20 16:45 16:45 Creatine Kinase 31 CK-MB (CK-2) 2.82 2.81 Troponin I 0.135 0.117 Impressions: Chest Ultrasound 01/09/17 00:00 IMPRESSION: BILATERAL PLEURAL EFFUSIONS, RIGHT GREATER THAN LEFT. Chest X-Ray 01/16/17 00:00 IMPRESSION: ESSENTIALLY NO CHANGE IN APPEARANCE OF THE CHEST. NO PNEUMOTHORAX. Assessment & Plan - Diagnosis (1) History of atrial fibrillation Is this a current diagnosis for this admission?: Yes (2) Recurrent pleural effusion on right Is this a current diagnosis for this admission?: YesPlan: Drain Pleurodex catheter daily (3) COPD (chronic obstructive pulmonary disease) Qualifiers: COPD type: unspecified COPD Qualified Code(s): J44.9 - Chronic obstructive pulmonary disease, unspecified Is this a current diagnosis for this admission?: YesPlan: Follow-up in office after discharge continue current therapy - Time Time Spent with patient: 35 or more minutes - 45 minutes
[2017-01-17] MEDS: SIMVASTATIN 40 MG TABLET PO SCH (21:16)
[2017-01-18] MEDS: ALPRAZOLAM 0.25 MG TABLET PO PRN (00:53)
[2017-01-18] MEDS: LEVALBUTEROL HCL NEB 1.25 MG/3 ML AMPUL NEB SCH ×4 (01:49→20:44)
[2017-01-18] MEDS: NORMAL SALINE 1000 ML 1,000 ML IV PRN ×2 (03:30→22:25)
[2017-01-18] MEDS: CEPHALEXIN 500 MG CAPSULE PO SCH ×3 (05:41→22:26)
[2017-01-18 05:45] LABS: HEMATOCRIT 32.7 % (36.0-47.0); HEMOGLOBIN 11.4 g/dL (12.0-15.5); HGB HCT DIFFERENCE 1.5; MEAN CORPUSCULAR HEMOGLOBIN 31.6 pg (27.0-33.4); MEAN CORPUSCULAR HGB CONC 34.8 g/dL (32.0-36.0); MEAN CORPUSCULAR VOLUME 91 fl (80-97); RED CELL DISTRIBUTION WIDTH 13.6 % (11.5-14.0); WHITE BLOOD COUNT 8.8 10^3/uL (4.0-10.5)
[2017-01-18] MEDS: KETOROLAC TROMETHAMINE INJ/PF 30 MG/1 ML SDV IV PRN ×2 (05:46→13:27)
[2017-01-18] MEDS: LANSOPRAZOLE 15 MG TAB.RAP.DR PO SCH (05:46)
[2017-01-18 06:23] LABS: ANION GAP 9 (5-19); BLOOD UREA NITROGEN 62 mg/dL (7-20); CALCIUM 8.8 mg/dL (8.4-10.2); CARBON DIOXIDE 26 mmol/L (22-30); CHLORIDE 91 mmol/L (98-107); CREATININE RESULT 1.61 mg/dL (0.52-1.25); GLUCOSE 103 mg/dL (75-110); POTASSIUM 4.6 mmol/L (3.6-5.0); SODIUM 125.9 mmol/L (137-145)
[2017-01-18] MEDS: DILTIAZEM HCL 120 MG CAP.SR.24H PO SCH (09:10)
[2017-01-18] MEDS: ESCITALOPRAM OXALATE 10 MG TABLET PO SCH (09:13)
[2017-01-18] MEDS: BUSPIRONE HCL 10 MG TABLET PO SCH ×2 (09:13→17:45)
[2017-01-18] MEDS: LACTOBACILLUS ACIDOPHILUS 250 MG TAB PO SCH ×2 (09:13→17:44)
[2017-01-18] MEDS: DIGOXIN 0.125 MG TABLET PO SCH (09:13)
[2017-01-18] MEDS: APIXABAN 2.5 MG TABLET PO SCH ×2 (09:14→22:26)
[2017-01-18] MEDS: POLYETHYLENE GLYCOL 3350 POWDER 17 GM/1 PACKET PO SCH (09:25)
[2017-01-18] MEDS: DOCUSATE SODIUM 100 MG CAPSULE PO SCH ×2 (09:25→17:47)
[2017-01-18] MEDS: MAG HYDROX/AL HYDROX/SIMETH SUSP 30 ML UDCUP PO PRN (13:27)
--- NOTE | 2017-01-18 16:04 | PDOC PROGRESS REPORT ---
Subjective Progress Note for:: 01/18/17 Subjective:: Patient denied any chest pain. Schedule for right pleural fluid removal through pleurx catheter later. No difficulty with breathing beyond her baseline COPD. No fever or chills. No nausea, vomiting or abdominal pain. D/C arrangement was delayed due to significant hyponatremia. Physical Exam Vital Signs: Temp Pulse Resp BP Pulse Ox 97.9 F 80 22 H 111/45 L 94 01/18/17 15:08 01/18/17 15:08 01/18/17 15:08 01/18/17 15:08 01/18/17 15:08 Intake & Output 01/17/17 01/18/17 01/19/17 06:59 06:59 06:59 Intake Total 260 1590 236 Output Total 0 Balance 260 1590 236 Weight 55.1 kg 55 kg General appearance: PRESENT: no acute distress, cooperative, mild distress - on supplementatl oxygen via nasal canula at 2L/min. Head exam: PRESENT: atraumatic, normocephalic Mouth exam: PRESENT: moist Respiratory exam: PRESENT: clear to auscultation marylou, decreased breath sounds - bilateraly but right > left Cardiovascular exam: PRESENT: RRR. ABSENT: diastolic murmur, rubs, systolic murmur GI/Abdominal exam: PRESENT: normal bowel sounds, soft. ABSENT: distended, guarding, mass, organolmegaly, rebound, tenderness Musculoskeletal exam: PRESENT: deformity - related to arthritis Neurological exam: PRESENT: alert, awake, oriented to person, oriented to place , oriented to time, oriented to situation, CN II-XII grossly intact. ABSENT: motor sensory deficit Psychiatric exam: PRESENT: appropriate affect Skin exam: PRESENT: dry, intact - except the catheter site with satisfactory dressing., warm. ABSENT: cyanosis, rash Results Laboratory Results: 01/18/17 05:35 01/18/17 05:35 01/18/17 01/18/17 05:35 05:35 WBC 8.8 RBC 3.60 L Hgb 11.4 L Hct 32.7 L MCV 91 MCH 31.6 MCHC 34.8 RDW 13.6 Plt Count 222 Sodium 125.9 L Potassium 4.6 Chloride 91 L Carbon Dioxide 26 Anion Gap 9 BUN 62 H Creatinine 1.61 H Est GFR ( Amer) 38 L Est GFR (Non-Af Amer) 31 L Glucose 103 Calcium 8.8 01/14/17 11:15 Pleural Fluid - Right Pleural Effusion Gram Stain - Final 01/14/17 11:15 Pleural Fluid - Right Pleural Effusion Body Fluid Culture - Final NO AEROBIC OR ANAEROBIC ORGANISMS RECOVERED 01/15/17 17:00 Pleural Fluid - Right Pleural Effusion Gram Stain - Final 01/15/17 17:00 Pleural Fluid - Right Pleural Effusion Body Fluid Culture - Final NO AEROBIC OR ANAEROBIC ORGANISMS RECOVERED 01/08/17 01/08/17 01/08/17 04:43 04:43 11:20 Creatine Kinase 35 36 CK-MB (CK-2) 2.85 Troponin I 0.138 01/08/17 01/08/17 01/08/17 11:20 16:45 16:45 Creatine Kinase 31 CK-MB (CK-2) 2.82 2.81 Troponin I 0.135 0.117 Impressions: Chest Ultrasound 01/09/17 00:00 IMPRESSION: BILATERAL PLEURAL EFFUSIONS, RIGHT GREATER THAN LEFT. Chest X-Ray 01/16/17 00:00 IMPRESSION: ESSENTIALLY NO CHANGE IN APPEARANCE OF THE CHEST. NO PNEUMOTHORAX. Assessment & Plan - Diagnosis (1) Acute on chronic systolic (congestive) heart failure Is this a current diagnosis for this admission?: YesPlan: See covering attending physician orders. (2) Hyponatremia Is this a current diagnosis for this admission?: YesPlan: See covering attending physician orders. (3) COPD (chronic obstructive pulmonary disease) Qualifiers: COPD type: unspecified COPD Qualified Code(s): J44.9 - Chronic obstructive pulmonary disease, unspecified Is this a current diagnosis for this admission?: YesPlan: See covering attending physician orders. (4) Pleural effusion Is this a current diagnosis for this admission?: YesPlan: See covering attending physician orders. 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
[2017-01-18] MEDS: OXYCODONE-ACETAMINOPHEN 5-325 MG TABLET PO PRN (17:46)
[2017-01-18] MEDS: SIMVASTATIN 40 MG TABLET PO SCH (22:27)
[2017-01-19] MEDS: LEVALBUTEROL HCL NEB 1.25 MG/3 ML AMPUL NEB SCH ×4 (02:29→20:52)
[2017-01-19] MEDS: LANSOPRAZOLE 15 MG TAB.RAP.DR PO SCH (05:35)
[2017-01-19] MEDS: CEPHALEXIN 500 MG CAPSULE PO SCH ×3 (05:35→22:58)
[2017-01-19] MEDS: MAG HYDROX/AL HYDROX/SIMETH SUSP 30 ML UDCUP PO PRN (05:36)
[2017-01-19] MEDS ORDERED: ONDANSETRON HCL INJ/PF 4 MG/2 ML SDV ONE (06:32)
[2017-01-19] MEDS: ONDANSETRON HCL INJ/PF 4 MG/2 ML SDV IV PRN ×3 (06:34→22:59)
[2017-01-19 07:05] LABS: ANION GAP 9 (5-19); BLOOD UREA NITROGEN 64 mg/dL (7-20); CALCIUM 8.9 mg/dL (8.4-10.2); CARBON DIOXIDE 28 mmol/L (22-30); CHLORIDE 88 mmol/L (98-107); CREATININE RESULT 1.58 mg/dL (0.52-1.25); GLUCOSE 119 mg/dL (75-110); POTASSIUM 5.5 mmol/L (3.6-5.0); SODIUM 124.7 mmol/L (137-145)
[2017-01-19] MEDS: LACTOBACILLUS ACIDOPHILUS 250 MG TAB PO SCH ×2 (09:56→17:05)
[2017-01-19] MEDS: DIGOXIN 0.125 MG TABLET PO SCH (09:57)
[2017-01-19] MEDS: ESCITALOPRAM OXALATE 10 MG TABLET PO SCH (09:57)
[2017-01-19] MEDS: DILTIAZEM HCL 120 MG CAP.SR.24H PO SCH (09:57)
[2017-01-19] MEDS: BUSPIRONE HCL 10 MG TABLET PO SCH ×2 (09:57→17:01)
[2017-01-19] MEDS: APIXABAN 2.5 MG TABLET PO SCH ×2 (09:57→22:59)
[2017-01-19] MEDS: DOCUSATE SODIUM 100 MG CAPSULE PO SCH ×2 (10:07→17:05)
[2017-01-19] MEDS: POLYETHYLENE GLYCOL 3350 POWDER 17 GM/1 PACKET PO SCH (10:07)
[2017-01-19] MEDS: OXYCODONE-ACETAMINOPHEN 5-325 MG TABLET PO PRN ×2 (12:30→18:00)
--- NOTE | 2017-01-19 13:48 | PDOC PROGRESS REPORT ---
Subjective Progress Note for:: 01/19/17 Subjective:: Patient reported right sided chest pain post pleural fluid removal via pleurx catheter since last clinical evaluation. No difficulty with breathing beyond her baseline COPD. She remain on supplemental oxygen via nasal canula with fairly satisfactory saturation level. No fever or chills. She reported episodes of nausea this morning with some improvement following administration of IV Zofran. No vomiting or abdominal pain. Physical Exam Vital Signs: Temp Pulse Resp BP Pulse Ox 98.2 F 84 19 134/79 H 93 01/19/17 11:19 01/19/17 11:19 01/19/17 11:19 01/19/17 11:19 01/19/17 12:20 Intake & Output 01/18/17 01/19/17 01/20/17 06:59 06:59 06:59 Intake Total 1590 1968 50 Output Total 1000 1100 Balance 1590 968 -1050 Weight 55 kg 55.1 kg Physical Exam: General appearance: PRESENT: no acute distress, cooperative, mild distress - on supplemental oxygen via nasal canula at 2L/min. Head exam: PRESENT: atraumatic, normocephalic Mouth exam: PRESENT: moist Respiratory exam: PRESENT: clear to auscultation marylou, decreased breath sounds - bilateraly but right > left Cardiovascular exam: PRESENT: RRR. ABSENT: diastolic murmur, rubs, systolic murmur GI/Abdominal exam: PRESENT: normal bowel sounds, soft. ABSENT: distended, guarding, mass, organomegaly, rebound, tenderness Musculoskeletal exam: PRESENT: deformity - related to arthritis Neurological exam: PRESENT: alert, awake, oriented to person, oriented to place , oriented to time, oriented to situation, CN II-XII grossly intact. ABSENT: motor sensory deficit Psychiatric exam: PRESENT: appropriate affect Skin exam: PRESENT: dry, intact - except the catheter site with satisfactory dressing., warm. ABSENT: cyanosis, rash Results Laboratory Results: 01/18/17 05:35 01/19/17 06:31 01/18/17 01/19/17 01/19/17 23:35 06:31 06:31 Sodium 124.7 L Potassium 5.5 H Chloride 88 L Carbon Dioxide 28 Anion Gap 9 BUN 64 H Creatinine 1.58 H Est GFR ( Amer) 38 L Est GFR (Non-Af Amer) 32 L Glucose 119 H Serum Osmolality 279 Calcium 8.9 Urine Osmolality 557 01/14/17 11:15 Pleural Fluid - Right Pleural Effusion Gram Stain - Final 01/14/17 11:15 Pleural Fluid - Right Pleural Effusion Body Fluid Culture - Final NO AEROBIC OR ANAEROBIC ORGANISMS RECOVERED 01/08/17 01/08/17 01/08/17 04:43 04:43 11:20 Creatine Kinase 35 36 CK-MB (CK-2) 2.85 Troponin I 0.138 01/08/17 01/08/17 01/08/17 11:20 16:45 16:45 Creatine Kinase 31 CK-MB (CK-2) 2.82 2.81 Troponin I 0.135 0.117 Impressions: Chest Ultrasound 01/09/17 00:00 IMPRESSION: BILATERAL PLEURAL EFFUSIONS, RIGHT GREATER THAN LEFT. Chest X-Ray 01/16/17 00:00 IMPRESSION: ESSENTIALLY NO CHANGE IN APPEARANCE OF THE CHEST. NO PNEUMOTHORAX. Assessment & Plan - Diagnosis (1) Acute on chronic systolic (congestive) heart failure Is this a current diagnosis for this admission?: YesPlan: See covering attending physician orders. (2) Hyponatremia Is this a current diagnosis for this admission?: YesPlan: See covering attending physician orders. (3) COPD (chronic obstructive pulmonary disease) Qualifiers: COPD type: unspecified COPD Qualified Code(s): J44.9 - Chronic obstructive pulmonary disease, unspecified Is this a current diagnosis for this admission?: YesPlan: See covering attending physician orders. (4) Pleural effusion Is this a current diagnosis for this admission?: YesPlan: See covering attending physician orders. - Time Time Spent with patient: 25-34 minutes Medications reviewed and adjusted accordingly: Yes Anticipated discharge: Home with Homehealth Within: Other - Inpatient Certification Based on my medical assessment, after consideration of the patient's comorbidities, presenting symptoms, or acuity I expect that the services needed warrant INPATIENT care.: Yes I certify that my determination is in accordance with my understanding of Medicare's requirements for reasonable and necessary INPATIENT services [42 CFR 412.3e].: Yes Medical Necessity: Need Close Monitoring Due to Risk of Patient Decompensation, Need For Continuous Telemetry Monitoring, Risk of Complication if Not Cared For in Hospital 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
[2017-01-19] MEDS ORDERED: FUROSEMIDE INJ/PF 40 MG/4 ML SDV IV ONE (15:00)
[2017-01-19] MEDS: NORMAL SALINE 1000 ML 1,000 ML IV PRN (16:59)
--- NOTE | 2017-01-19 17:15 | PDOC PROGRESS REPORT ---
Subjective Progress Note for:: 01/18/17 Subjective:: alert responsive w/o complaints Physical Exam Vital Signs: Temp Pulse Resp BP Pulse Ox 97.5 F 80 18 113/53 L 96 01/18/17 07:49 01/18/17 08:38 01/18/17 08:38 01/18/17 07:49 01/18/17 08:38 Intake & Output 01/17/17 01/18/17 01/19/17 06:59 06:59 06:59 Intake Total 260 1590 Output Total 0 Balance 260 1590 Weight 55.1 kg 55 kg General appearance: PRESENT: no acute distress, cooperative, disheveled, hard of hearing, thin Head exam: PRESENT: atraumatic, normocephalic Eye exam: PRESENT: conjunctiva pale, EOMI Mouth exam: PRESENT: dry mucosa, neck supple Neck exam: ABSENT: carotid bruit, JVD, lymphadenopathy, thyromegaly Respiratory exam: PRESENT: decreased breath sounds, prolonged expiratory phas, rhonchi, unlabored, other - pleuradex cath r lateral Cardiovascular exam: PRESENT: irregular rhythm Pulses: PRESENT: normal radial pulses GI/Abdominal exam: PRESENT: normal bowel sounds, soft. ABSENT: distended, guarding, mass, organolmegaly, rebound, tenderness Rectal exam: PRESENT: deferred Musculoskeletal exam: PRESENT: normal inspection Neurological exam: PRESENT: alert, awake Skin exam: PRESENT: dry, vesicles Results Laboratory Results: 01/18/17 05:35 01/18/17 05:35 01/18/17 01/18/17 05:35 05:35 WBC 8.8 RBC 3.60 L Hgb 11.4 L Hct 32.7 L MCV 91 MCH 31.6 MCHC 34.8 RDW 13.6 Plt Count 222 Sodium 125.9 L Potassium 4.6 Chloride 91 L Carbon Dioxide 26 Anion Gap 9 BUN 62 H Creatinine 1.61 H Est GFR ( Amer) 38 L Est GFR (Non-Af Amer) 31 L Glucose 103 Calcium 8.8 01/14/17 11:15 Pleural Fluid - Right Pleural Effusion Gram Stain - Final 01/14/17 11:15 Pleural Fluid - Right Pleural Effusion Body Fluid Culture - Final NO AEROBIC OR ANAEROBIC ORGANISMS RECOVERED 01/15/17 17:00 Pleural Fluid - Right Pleural Effusion Gram Stain - Final 01/15/17 17:00 Pleural Fluid - Right Pleural Effusion Body Fluid Culture - Final NO AEROBIC OR ANAEROBIC ORGANISMS RECOVERED 01/08/17 01/08/17 01/08/17 04:43 04:43 11:20 Creatine Kinase 35 36 CK-MB (CK-2) 2.85 Troponin I 0.138 01/08/17 01/08/17 01/08/17 11:20 16:45 16:45 Creatine Kinase 31 CK-MB (CK-2) 2.82 2.81 Troponin I 0.135 0.117 Impressions: Chest Ultrasound 01/09/17 00:00 IMPRESSION: BILATERAL PLEURAL EFFUSIONS, RIGHT GREATER THAN LEFT. Chest X-Ray 01/16/17 00:00 IMPRESSION: ESSENTIALLY NO CHANGE IN APPEARANCE OF THE CHEST. NO PNEUMOTHORAX. Assessment & Plan - Diagnosis (1) History of atrial fibrillation Is this a current diagnosis for this admission?: Yes (2) Recurrent pleural effusion on right Is this a current diagnosis for this admission?: YesPlan: draining 500 cc/24hrs drain daily until less 200cc/day then every other day (3) COPD (chronic obstructive pulmonary disease) Qualifiers: COPD type: unspecified COPD Qualified Code(s): J44.9 - Chronic obstructive pulmonary disease, unspecified Is this a current diagnosis for this admission?: YesPlan: Follow-up in office after discharge continue current therapy
[2017-01-19] MEDS: SIMVASTATIN 40 MG TABLET PO SCH (22:59)
[2017-01-20] MEDS: LEVALBUTEROL HCL NEB 1.25 MG/3 ML AMPUL NEB SCH ×4 (02:17→19:49)
[2017-01-20] MEDS: OXYCODONE-ACETAMINOPHEN 5-325 MG TABLET PO PRN ×3 (03:19→21:50)
[2017-01-20] MEDS: CEPHALEXIN 500 MG CAPSULE PO SCH ×3 (05:56→21:50)
[2017-01-20] MEDS: LANSOPRAZOLE 15 MG TAB.RAP.DR PO SCH (05:58)
[2017-01-20 07:21] LABS: ANION GAP 8 (5-19); BLOOD UREA NITROGEN 60 mg/dL (7-20); CALCIUM 8.8 mg/dL (8.4-10.2); CARBON DIOXIDE 25 mmol/L (22-30); CHLORIDE 89 mmol/L (98-107); CREATININE RESULT 1.59 mg/dL (0.52-1.25); GLUCOSE 119 mg/dL (75-110); POTASSIUM 5.5 mmol/L (3.6-5.0); SODIUM 121.9 mmol/L (137-145)
[2017-01-20] MEDS: ONDANSETRON HCL INJ/PF 4 MG/2 ML SDV IV PRN ×3 (08:25→21:55)
[2017-01-20] MEDS: DOCUSATE SODIUM 100 MG CAPSULE PO SCH ×2 (10:46→17:18)
[2017-01-20] MEDS: ESCITALOPRAM OXALATE 10 MG TABLET PO SCH (10:46)
[2017-01-20] MEDS: DIGOXIN 0.125 MG TABLET PO SCH (10:47)
[2017-01-20] MEDS: DILTIAZEM HCL 120 MG CAP.SR.24H PO SCH (10:47)
[2017-01-20] MEDS: BUSPIRONE HCL 10 MG TABLET PO SCH ×2 (10:47→17:18)
[2017-01-20] MEDS: POLYETHYLENE GLYCOL 3350 POWDER 17 GM/1 PACKET PO SCH (10:48)
[2017-01-20] MEDS: LACTOBACILLUS ACIDOPHILUS 250 MG TAB PO SCH ×2 (10:48→17:17)
[2017-01-20] MEDS: NORMAL SALINE 1000 ML 1,000 ML IV PRN ×2 (10:53→21:49)
[2017-01-20] MEDS: APIXABAN 2.5 MG TABLET PO SCH ×2 (11:01→21:50)
--- NOTE | 2017-01-20 13:02 | PDOC PROGRESS REPORT ---
Subjective Progress Note for:: 01/20/17 Subjective:: Patient reported right upper quadrant abdominal pain. There is associated nausea and vomiting. No fever or chills. No difficulty with breathing beyond her baseline COPD. She remain on supplemental oxygen via nasal canula with fairly satisfactory saturation level. Physical Exam Vital Signs: Temp Pulse Resp BP Pulse Ox 97.9 F 85 26 H 130/63 H 89 L 01/20/17 07:12 01/20/17 08:35 01/20/17 08:35 01/20/17 07:12 01/20/17 08:35 Intake & Output 01/19/17 01/20/17 01/21/17 06:59 06:59 06:59 Intake Total 1968 1620 Output Total 1000 1100 Balance 968 520 Weight 55.1 kg 56.4 kg Physical Exam: General appearance: PRESENT: no acute distress, cooperative, mild distress - on supplemental oxygen via nasal canula at 2L/min. Head exam: PRESENT: atraumatic, normocephalic Mouth exam: PRESENT: moist Respiratory exam: PRESENT: clear to auscultation marylou, decreased breath sounds - bilateraly but right > left Cardiovascular exam: PRESENT: RRR. ABSENT: diastolic murmur, rubs, systolic murmur GI/Abdominal exam: PRESENT: RUQ tenderness, normal bowel sounds, soft. ABSENT: distended, guarding, mass, organomegaly, rebound, Musculoskeletal exam: PRESENT: deformity - related to arthritis Neurological exam: PRESENT: alert, awake, oriented to person, oriented to place , oriented to time, oriented to situation, CN II-XII grossly intact. ABSENT: motor sensory deficit Psychiatric exam: PRESENT: appropriate affect Skin exam: PRESENT: dry, intact - except the catheter site with satisfactory dressing., warm. ABSENT: cyanosis, rash Results Laboratory Results: 01/18/17 05:35 01/20/17 06:37 01/20/17 06:37 Sodium 121.9 L Potassium 5.5 H Chloride 89 L Carbon Dioxide 25 Anion Gap 8 BUN 60 H Creatinine 1.59 H Est GFR ( Amer) 38 L Est GFR (Non-Af Amer) 31 L Glucose 119 H Calcium 8.8 01/08/17 01/08/17 01/08/17 04:43 04:43 11:20 Creatine Kinase 35 36 CK-MB (CK-2) 2.85 Troponin I 0.138 01/08/17 01/08/17 01/08/17 11:20 16:45 16:45 Creatine Kinase 31 CK-MB (CK-2) 2.82 2.81 Troponin I 0.135 0.117 Impressions: Chest Ultrasound 01/09/17 00:00 IMPRESSION: BILATERAL PLEURAL EFFUSIONS, RIGHT GREATER THAN LEFT. Chest X-Ray 01/19/17 00:00 IMPRESSION: 1. Worsening left lung aeration as above. Assessment & Plan - Diagnosis (1) Acute on chronic systolic (congestive) heart failure Is this a current diagnosis for this admission?: YesPlan: See covering attending physician orders. (2) Hyponatremia Is this a current diagnosis for this admission?: YesPlan: Less likely SIADH as per her evaluation so far. No response to IV fluid and Lasix administration. I will request lens polisher hand consultation with Dr Prince Forman for further input. See covering attending physician orders. (3) COPD (chronic obstructive pulmonary disease) Qualifiers: COPD type: unspecified COPD Qualified Code(s): J44.9 - Chronic obstructive pulmonary disease, unspecified Is this a current diagnosis for this admission?: YesPlan: See covering attending physician orders. (4) Pleural effusion Is this a current diagnosis for this admission?: YesPlan: See covering attending physician orders. (5) Abdominal pain, right upper quadrant Is this a current diagnosis for this admission?: NoPlan: Obtain CMP and abdominal ultrasound for further evaluation of her hepatobilary system. - Time Time Spent with patient: 25-34 minutes Medications reviewed and adjusted accordingly: Yes Anticipated discharge: Home with Homehealth - Inpatient Certification Medical Necessity: Need Close Monitoring Due to Risk of Patient Decompensation, Need For IV Fluids, Need For Continuous Telemetry Monitoring, Need for Pain Control, Need for IV Antibiotics, Risk of Complication if Not Cared For in Hospital Post Hospital Care: D/C Books Salesperson Documentation - Plan Summary Plan Summary: See covering attending physician orders.
[2017-01-20 15:34] LABS: ALANINE AMINOTRANSFERASE 41 U/L (9-52); ALBUMIN 2.8 g/dL (3.5-5.0); ALKALINE PHOSPHATASE 87 U/L (38-126); ASPARTATE AMINO TRANSFERASE 29 U/L (14-36); BILIRUBIN,DIRECT 0.1 mg/dL (0.0-0.4); BILIRUBIN,TOTAL 0.3 mg/dL (0.2-1.3); TOTAL PROTEIN 5.4 g/dL (6.3-8.2)
--- NOTE | 2017-01-20 16:55 | PDOC PROGRESS REPORT ---
Subjective Progress Note for:: 01/20/17 Subjective:: Complains of nausea and vomiting difficulty retaining food Physical Exam Vital Signs: Temp Pulse Resp BP Pulse Ox 97.9 F 88 20 133/60 H 92 01/20/17 13:20 01/20/17 14:16 01/20/17 14:16 01/20/17 13:20 01/20/17 14:16 Intake & Output 01/19/17 01/20/17 01/21/17 06:59 06:59 06:59 Intake Total 1968 1620 100 Output Total 1000 1100 1000 Balance 968 520 -900 Weight 55.1 kg 56.4 kg General appearance: PRESENT: no acute distress, disheveled, hard of hearing, thin Head exam: PRESENT: atraumatic, normocephalic Eye exam: PRESENT: conjunctiva pale, EOMI Mouth exam: PRESENT: dry mucosa, neck supple Neck exam: ABSENT: carotid bruit, JVD, lymphadenopathy, thyromegaly Respiratory exam: PRESENT: decreased breath sounds, prolonged expiratory phas, rhonchi, unlabored, other - Pleurodex catheter right lateral chest wall Cardiovascular exam: PRESENT: irregular rhythm Pulses: PRESENT: normal radial pulses GI/Abdominal exam: PRESENT: normal bowel sounds, soft. ABSENT: distended, guarding, mass, organolmegaly, rebound, tenderness Rectal exam: PRESENT: deferred Musculoskeletal exam: PRESENT: tenderness Neurological exam: PRESENT: awake Skin exam: PRESENT: dry, warm Results Laboratory Results: 01/18/17 05:35 01/20/17 06:37 01/20/17 01/20/17 06:37 06:37 Sodium 121.9 L Potassium 5.5 H Chloride 89 L Carbon Dioxide 25 Anion Gap 8 BUN 60 H Creatinine 1.59 H Est GFR ( Amer) 38 L Est GFR (Non-Af Amer) 31 L Glucose 119 H Calcium 8.8 Total Bilirubin 0.3 AST 29 ALT 41 Alkaline Phosphatase 87 Total Protein 5.4 L Albumin 2.8 L 01/08/17 01/08/17 01/08/17 04:43 04:43 11:20 Creatine Kinase 35 36 CK-MB (CK-2) 2.85 Troponin I 0.138 01/08/17 01/08/17 01/08/17 11:20 16:45 16:45 Creatine Kinase 31 CK-MB (CK-2) 2.82 2.81 Troponin I 0.135 0.117 Impressions: Chest Ultrasound 01/09/17 00:00 IMPRESSION: BILATERAL PLEURAL EFFUSIONS, RIGHT GREATER THAN LEFT. Chest X-Ray 01/19/17 00:00 IMPRESSION: 1. Worsening left lung aeration as above. Assessment & Plan - Diagnosis (1) History of atrial fibrillation Is this a current diagnosis for this admission?: Yes (2) Recurrent pleural effusion on right Is this a current diagnosis for this admission?: YesPlan: 500 cc drained last 24 hours (3) COPD (chronic obstructive pulmonary disease) Qualifiers: COPD type: unspecified COPD Qualified Code(s): J44.9 - Chronic obstructive pulmonary disease, unspecified Is this a current diagnosis for this admission?: YesPlan: continue current therapy
[2017-01-20] MEDS: SIMVASTATIN 40 MG TABLET PO SCH (21:50)
[2017-01-21] MEDS: LEVALBUTEROL HCL NEB 1.25 MG/3 ML AMPUL NEB SCH ×4 (01:55→20:58)
[2017-01-21] MEDS: NORMAL SALINE 1000 ML 1,000 ML IV PRN ×3 (04:49→21:47)
[2017-01-21] MEDS: LANSOPRAZOLE 15 MG TAB.RAP.DR PO SCH (05:06)
[2017-01-21] MEDS: CEPHALEXIN 500 MG CAPSULE PO SCH ×3 (05:06→21:50)
[2017-01-21] MEDS: ONDANSETRON HCL INJ/PF 4 MG/2 ML SDV IV PRN ×2 (05:49→21:48)
[2017-01-21] MEDS: MAG HYDROX/AL HYDROX/SIMETH SUSP 30 ML UDCUP PO PRN (05:51)
[2017-01-21] MEDS: BUSPIRONE HCL 10 MG TABLET PO SCH ×2 (09:55→17:39)
[2017-01-21] MEDS: DILTIAZEM HCL 120 MG CAP.SR.24H PO SCH (09:55)
[2017-01-21] MEDS: DIGOXIN 0.125 MG TABLET PO SCH (09:55)
[2017-01-21] MEDS: DOCUSATE SODIUM 100 MG CAPSULE PO SCH ×2 (09:56→17:39)
[2017-01-21] MEDS: ESCITALOPRAM OXALATE 10 MG TABLET PO SCH (09:56)
[2017-01-21] MEDS: LACTOBACILLUS ACIDOPHILUS 250 MG TAB PO SCH ×2 (09:56→17:39)
[2017-01-21] MEDS: POLYETHYLENE GLYCOL 3350 POWDER 17 GM/1 PACKET PO SCH (09:57)
[2017-01-21] MEDS: APIXABAN 2.5 MG TABLET PO SCH ×2 (10:03→21:50)
[2017-01-21] MEDS: OXYCODONE-ACETAMINOPHEN 5-325 MG TABLET PO PRN (15:00)
--- NOTE | 2017-01-21 17:23 | PDOC PROGRESS REPORT ---
Subjective Progress Note for:: 01/21/17 Subjective:: Concerned about pleurodesis nausea and vomiting have decreased continued poor p.o. intake Physical Exam Vital Signs: Temp Pulse Resp BP Pulse Ox 97.9 F 78 20 119/57 L 95 01/21/17 15:59 01/21/17 15:59 01/21/17 15:59 01/21/17 15:59 01/21/17 15:59 Intake & Output 01/20/17 01/21/17 01/22/17 06:59 06:59 06:59 Intake Total 1620 2020 1197 Output Total 1100 1325 200 Balance 520 695 997 Weight 56.4 kg 55.6 kg General appearance: PRESENT: no acute distress, disheveled, thin Head exam: PRESENT: atraumatic, normocephalic Eye exam: PRESENT: conjunctiva pale, EOMI Mouth exam: PRESENT: neck supple Neck exam: ABSENT: carotid bruit, JVD, lymphadenopathy, thyromegaly Respiratory exam: PRESENT: decreased breath sounds, prolonged expiratory phas, rhonchi, unlabored Cardiovascular exam: PRESENT: irregular rhythm Pulses: PRESENT: normal radial pulses GI/Abdominal exam: PRESENT: normal bowel sounds, soft. ABSENT: distended, guarding, mass, organolmegaly, rebound, tenderness Rectal exam: PRESENT: deferred Musculoskeletal exam: PRESENT: normal inspection Neurological exam: PRESENT: alert, awake Psychiatric exam: PRESENT: normal mood Skin exam: PRESENT: dry, warm Results Laboratory Results: 01/18/17 05:35 01/20/17 06:37 01/08/17 01/08/17 01/08/17 04:43 04:43 11:20 Creatine Kinase 35 36 CK-MB (CK-2) 2.85 Troponin I 0.138 01/08/17 01/08/17 01/08/17 11:20 16:45 16:45 Creatine Kinase 31 CK-MB (CK-2) 2.82 2.81 Troponin I 0.135 0.117 Impressions: Chest Ultrasound 01/09/17 00:00 IMPRESSION: BILATERAL PLEURAL EFFUSIONS, RIGHT GREATER THAN LEFT. Chest X-Ray 01/19/17 00:00 IMPRESSION: 1. Worsening left lung aeration as above. Abdomen Ultrasound 01/20/17 00:00 IMPRESSION: Bilateral pleural effusions. Right renal atrophy. Assessment & Plan - Diagnosis (1) History of atrial fibrillation Is this a current diagnosis for this admission?: Yes (2) Recurrent pleural effusion on right Is this a current diagnosis for this admission?: YesPlan: 1 thousand cc drained over the last 24 hours (3) COPD (chronic obstructive pulmonary disease) Qualifiers: COPD type: unspecified COPD Qualified Code(s): J44.9 - Chronic obstructive pulmonary disease, unspecified Is this a current diagnosis for this admission?: YesPlan: continue current therapy
--- NOTE | 2017-01-21 20:19 | PDOC PROGRESS REPORT ---
Subjective Progress Note for:: 01/21/17 Subjective:: Patient is much better today with regard to right sided chest pain. She had 1000 cc of pleural fluid extracted from right pleural space today. Her abdominal ultrasound did confirm bilateral pleural effusion without ant significant acute intra-abdominal pathology. She remain on supplemental oxygen therapy. No fever or chills. There is some degree of nausea and vomiting. P.O intake and appetite remain poor. Physical Exam Vital Signs: Temp Pulse Resp BP Pulse Ox 97.9 F 78 20 119/57 L 95 01/21/17 15:59 01/21/17 15:59 01/21/17 15:59 01/21/17 15:59 01/21/17 15:59 Intake & Output 01/20/17 01/21/17 01/22/17 06:59 06:59 06:59 Intake Total 1620 2020 1437 Output Total 1100 1325 500 Balance 520 695 937 Weight 56.4 kg 55.6 kg Physical Exam: General appearance: PRESENT: no acute distress, cooperative, mild distress - on supplemental oxygen via nasal canula at 2L/min. Head exam: PRESENT: atraumatic, normocephalic Mouth exam: PRESENT: moist Respiratory exam: PRESENT: clear to auscultation marylou, decreased breath sounds - bilaterally Cardiovascular exam: PRESENT: RRR. ABSENT: diastolic murmur, rubs, systolic murmur GI/Abdominal exam: PRESENT: normal bowel sounds, soft. ABSENT: distended, guarding, mass, organomegaly, rebound, tenderness Musculoskeletal exam: PRESENT: deformity - related to arthritis Neurological exam: PRESENT: alert, awake, oriented to person, oriented to place , oriented to time, oriented to situation, CN II-XII grossly intact. ABSENT: motor sensory deficit Psychiatric exam: PRESENT: appropriate affect Skin exam: PRESENT: dry, intact - except the catheter site with satisfactory dressing., warm. ABSENT: cyanosis, rash Results Laboratory Results: 01/18/17 05:35 01/20/17 06:37 01/08/17 01/08/17 01/08/17 04:43 04:43 11:20 Creatine Kinase 35 36 CK-MB (CK-2) 2.85 Troponin I 0.138 01/08/17 01/08/17 01/08/17 11:20 16:45 16:45 Creatine Kinase 31 CK-MB (CK-2) 2.82 2.81 Troponin I 0.135 0.117 Impressions: Chest Ultrasound 01/09/17 00:00 IMPRESSION: BILATERAL PLEURAL EFFUSIONS, RIGHT GREATER THAN LEFT. Chest X-Ray 01/19/17 00:00 IMPRESSION: 1. Worsening left lung aeration as above. Abdomen Ultrasound 01/20/17 00:00 IMPRESSION: Bilateral pleural effusions. Right renal atrophy. Assessment & Plan - Diagnosis (1) Acute on chronic systolic (congestive) heart failure Is this a current diagnosis for this admission?: YesPlan: See covering attending physician orders. (2) Hyponatremia Is this a current diagnosis for this admission?: YesPlan: See covering attending physician orders. Follow up on nephrology consultation request. Repeat BMP in am. (3) COPD (chronic obstructive pulmonary disease) Qualifiers: COPD type: unspecified COPD Qualified Code(s): J44.9 - Chronic obstructive pulmonary disease, unspecified Is this a current diagnosis for this admission?: YesPlan: See covering attending physician orders. (4) Pleural effusion Is this a current diagnosis for this admission?: YesPlan: See covering attending physician orders. Patient remain on daily pleurodesis. (5) Abdominal pain, right upper quadrant Is this a current diagnosis for this admission?: NoPlan: Resolved and probably related to her pleural effusion for right sided CHF. - Time Time Spent with patient: 25-34 minutes Medications reviewed and adjusted accordingly: Yes Anticipated discharge: Home with Homehealth Within: Other - Inpatient Certification Medical Necessity: Need Close Monitoring Due to Risk of Patient Decompensation, Need For Continuous Telemetry Monitoring, Need for Nebulizer Therapy and Monitoring of Response, Risk of Complication if Not Cared For in Hospital Post Hospital Care: D/C Buffer Operator Documentation - Plan Summary Plan Summary: I had extensive discussion with patient and sister at bedside regarding planning for discharge. Sister is planning to have patient at her house. She is requesting for hospital bed to assist with patient management at home, particularly as related to her CHF, pleural effusion and dependency on supplemental oxygen. I did advise to start planning of moving patient's necessary belongs and set up in anticipation of her discharge.
[2017-01-21] MEDS ORDERED: DRONABINOL 2.5 MG CAPSULE PO ONE (21:30)
[2017-01-21] MEDS: SIMVASTATIN 40 MG TABLET PO SCH (21:50)
[2017-01-22] MEDS: ONDANSETRON HCL INJ/PF 4 MG/2 ML SDV IV PRN ×4 (02:09→20:10)
[2017-01-22] MEDS: OXYCODONE-ACETAMINOPHEN 5-325 MG TABLET PO PRN ×2 (02:09→20:26)
[2017-01-22] MEDS: LEVALBUTEROL HCL NEB 1.25 MG/3 ML AMPUL NEB SCH ×4 (02:22→21:06)
[2017-01-22] MEDS: CEPHALEXIN 500 MG CAPSULE PO SCH ×3 (05:38→22:53)
[2017-01-22] MEDS: LANSOPRAZOLE 15 MG TAB.RAP.DR PO SCH (05:39)
[2017-01-22] MEDS: MAG HYDROX/AL HYDROX/SIMETH SUSP 30 ML UDCUP PO PRN ×2 (05:44→20:16)
[2017-01-22] MEDS: DILTIAZEM HCL 120 MG CAP.SR.24H PO SCH (09:38)
[2017-01-22] MEDS: ESCITALOPRAM OXALATE 10 MG TABLET PO SCH (09:38)
[2017-01-22] MEDS: DIGOXIN 0.125 MG TABLET PO SCH (09:38)
[2017-01-22] MEDS: BUSPIRONE HCL 10 MG TABLET PO SCH ×2 (09:39→20:14)
[2017-01-22] MEDS: DOCUSATE SODIUM 100 MG CAPSULE PO SCH ×2 (09:39→20:13)
[2017-01-22] MEDS: LACTOBACILLUS ACIDOPHILUS 250 MG TAB PO SCH ×2 (09:39→20:14)
[2017-01-22] MEDS: APIXABAN 2.5 MG TABLET PO SCH ×2 (09:40→22:53)
[2017-01-22] MEDS ORDERED: DRONABINOL 2.5 MG CAPSULE PO SCH (10:00)
[2017-01-22 10:40] LABS: ANION GAP 8 (5-19); BLOOD UREA NITROGEN 51 mg/dL (7-20); CALCIUM 9.2 mg/dL (8.4-10.2); CARBON DIOXIDE 26 mmol/L (22-30); CHLORIDE 89 mmol/L (98-107); CREATININE RESULT 1.41 mg/dL (0.52-1.25); GLUCOSE 121 mg/dL (75-110); POTASSIUM 5.5 mmol/L (3.6-5.0); SODIUM 123.4 mmol/L (137-145)
[2017-01-22] MEDS: POLYETHYLENE GLYCOL 3350 POWDER 17 GM/1 PACKET PO SCH (11:22)
--- NOTE | 2017-01-22 11:34 | PDOC PROGRESS REPORT ---
Subjective Progress Note for:: 01/22/17 Subjective:: Continues to complain of nausea poor p.o. intake per patient another thousand cc drained from Pleurodex catheter Physical Exam Vital Signs: Temp Pulse Resp BP Pulse Ox 97.9 F 81 22 H 139/61 H 89 L 01/22/17 08:23 01/22/17 08:38 01/22/17 08:38 01/22/17 08:23 01/22/17 08:38 Intake & Output 01/21/17 01/22/17 01/23/17 06:59 06:59 06:59 Intake Total 20197 Output Total 1325 1000 Balance 695 1407 Weight 55.6 kg 57.5 kg General appearance: PRESENT: disheveled, hard of hearing, thin Head exam: PRESENT: atraumatic, normocephalic Eye exam: PRESENT: conjunctiva pale, EOMI Mouth exam: PRESENT: dry mucosa, neck supple Neck exam: PRESENT: carotid bruit Respiratory exam: PRESENT: decreased breath sounds, prolonged expiratory phas, rhonchi, unlabored Cardiovascular exam: PRESENT: irregular rhythm Pulses: PRESENT: normal radial pulses GI/Abdominal exam: PRESENT: normal bowel sounds, soft. ABSENT: distended, guarding, mass, organolmegaly, rebound, tenderness Rectal exam: PRESENT: deferred Musculoskeletal exam: PRESENT: normal inspection Neurological exam: PRESENT: awake Skin exam: PRESENT: dry, warm Results Laboratory Results: 01/18/17 05:35 01/22/17 10:00 01/22/17 10:00 Sodium 123.4 L Potassium 5.5 H Chloride 89 L Carbon Dioxide 26 Anion Gap 8 BUN 51 H Creatinine 1.41 H Est GFR ( Amer) 44 L Est GFR (Non-Af Amer) 36 L Glucose 121 H Calcium 9.2 01/08/17 01/08/17 01/08/17 04:43 04:43 11:20 Creatine Kinase 35 36 CK-MB (CK-2) 2.85 Troponin I 0.138 01/08/17 01/08/17 01/08/17 11:20 16:45 16:45 Creatine Kinase 31 CK-MB (CK-2) 2.82 2.81 Troponin I 0.135 0.117 Impressions: Chest Ultrasound 01/09/17 00:00 IMPRESSION: BILATERAL PLEURAL EFFUSIONS, RIGHT GREATER THAN LEFT. Chest X-Ray 01/19/17 00:00 IMPRESSION: 1. Worsening left lung aeration as above. Abdomen Ultrasound 01/20/17 00:00 IMPRESSION: Bilateral pleural effusions. Right renal atrophy. Assessment & Plan - Diagnosis (1) History of atrial fibrillation Is this a current diagnosis for this admission?: Yes (2) Recurrent pleural effusion on right Is this a current diagnosis for this admission?: Yes (3) COPD (chronic obstructive pulmonary disease) Qualifiers: COPD type: unspecified COPD Qualified Code(s): J44.9 - Chronic obstructive pulmonary disease, unspecified Is this a current diagnosis for this admission?: Yes
[2017-01-22] MEDS ORDERED: FUROSEMIDE INJ/PF 20 MG/2 ML SDV IV ONE (12:00)
[2017-01-22] MEDS: DILTIAZEM HCL 30 MG TABLET PO SCH ×2 (14:19→22:53)
[2017-01-22] MEDS ORDERED: DRONABINOL 2.5 MG CAPSULE PO ONE (14:30)
--- NOTE | 2017-01-22 15:07 | PDOC PROGRESS REPORT ---
Subjective Progress Note for:: 01/22/17 Subjective:: Patient reported nausea is improving with administration of IV Zofran and administration of Marinol. No fever or chills. P.O intake limited due to nausea. No chest pain. Breathing so far is okay. Physical Exam Vital Signs: Temp Pulse Resp BP Pulse Ox 98.2 F 79 20 133/61 H 94 01/22/17 13:12 01/22/17 14:18 01/22/17 14:18 01/22/17 13:12 01/22/17 14:18 Intake & Output 01/21/17 01/22/17 01/23/17 06:59 06:59 06:59 Intake Total 2019 2407 60 Output Total 1325 1000 1200 Balance 695 1407 -1140 Weight 55.6 kg 57.5 kg Physical Exam: General appearance: PRESENT: no acute distress, cooperative, mild distress - on supplemental oxygen via nasal canula at 2L/min. Head exam: PRESENT: atraumatic, normocephalic Mouth exam: PRESENT: moist Respiratory exam: PRESENT: clear to auscultation marylou, decreased breath sounds - bilaterally Cardiovascular exam: PRESENT: RRR. ABSENT: diastolic murmur, rubs, systolic murmur GI/Abdominal exam: PRESENT: normal bowel sounds, soft. ABSENT: distended, guarding, mass, organomegaly, rebound, tenderness Musculoskeletal exam: PRESENT: deformity - related to arthritis Neurological exam: PRESENT: alert, awake, oriented to person, oriented to place , oriented to time, oriented to situation, CN II-XII grossly intact. ABSENT: motor sensory deficit Psychiatric exam: PRESENT: appropriate affect Skin exam: PRESENT: dry, intact - except the catheter site with satisfactory dressing., warm. ABSENT: cyanosis, rash Results Laboratory Results: 01/18/17 05:35 01/22/17 10:00 01/22/17 10:00 Sodium 123.4 L Potassium 5.5 H Chloride 89 L Carbon Dioxide 26 Anion Gap 8 BUN 51 H Creatinine 1.41 H Est GFR ( Amer) 44 L Est GFR (Non-Af Amer) 36 L Glucose 121 H Calcium 9.2 01/08/17 01/08/17 01/08/17 04:43 04:43 11:20 Creatine Kinase 35 36 CK-MB (CK-2) 2.85 Troponin I 0.138 01/08/17 01/08/17 01/08/17 11:20 16:45 16:45 Creatine Kinase 31 CK-MB (CK-2) 2.82 2.81 Troponin I 0.135 0.117 Impressions: Chest Ultrasound 01/09/17 00:00 IMPRESSION: BILATERAL PLEURAL EFFUSIONS, RIGHT GREATER THAN LEFT. Chest X-Ray 01/19/17 00:00 IMPRESSION: 1. Worsening left lung aeration as above. Abdomen Ultrasound 01/20/17 00:00 IMPRESSION: Bilateral pleural effusions. Right renal atrophy. Assessment & Plan - Diagnosis (1) Acute on chronic systolic (congestive) heart failure Is this a current diagnosis for this admission?: YesPlan: See covering attending physician orders. (2) Hyponatremia Is this a current diagnosis for this admission?: YesPlan: See covering attending physician orders. Her serum sodium is improving. Follow up on nephrology consultation request. (3) COPD (chronic obstructive pulmonary disease) Qualifiers: COPD type: unspecified COPD Qualified Code(s): J44.9 - Chronic obstructive pulmonary disease, unspecified Is this a current diagnosis for this admission?: YesPlan: See covering attending physician orders. Continue current medication management. (4) Pleural effusion Is this a current diagnosis for this admission?: YesPlan: See covering attending physician orders. (5) Abdominal pain, right upper quadrant Is this a current diagnosis for this admission?: NoPlan: Resolved. See covering attending physician orders. - Time Time Spent with patient: 25-34 minutes Medications reviewed and adjusted accordingly: Yes Within: Other - Inpatient Certification Medical Necessity: Need Close Monitoring Due to Risk of Patient Decompensation, Need For Continuous Telemetry Monitoring, Need for Nebulizer Therapy and Monitoring of Response, Risk of Complication if Not Cared For in Hospital Post Hospital Care: D/C Commercial Real Estate Sales Manager Documentation - Plan Summary Plan Summary: See covering attending physician orders.
--- NOTE | 2017-01-22 16:18 | PDOC CONSULTATION ---
Consultation Consult Date: 01/22/17 Consult reason:: Acute on chronic kidney disease and hyponatremia History of Present Illness Admission Date/PCP: 01/08/17 00:10 CHEYENNE VILLARREAL MD History of Present Illness: SALOME MOSLEY is a 76 year old female With a history of chronic hypertension, COPD, CKD stage III with a base creatinine of 1.5 in the background of atrophic right kidney who has had recent admissions for multiple thoracentesis for recurrent pleural effusion comes in with progressive shortness of breath. She has been again found to have bilateral pleural effusions right more than left and she is now undergoing recurring daily thoracentesis. He denies any history of fever chills no history of any bloody fluid being drained out. Patient feels very weak and tired. Her approximately a month ago and she feels quite depressed. She has lost appetite. Very poor intake. No history of being on any NSAIDs. No extremity GI bleeds. No history of being on any diuretics. She has noticed generalized swelling of both lower extremities. Latest labs done today shows a BUN/creatinine Past Medical History Cardiac Medical History: Reports: Atrial Fibrillation, Coronary Artery Disease, Hyperlipidemia Denies: Myocardial Infarction Pulmonary Medical History: Reports: Chronic Obstructive Pulmonary Disease (COPD) Denies: Asthma, Bronchitis, Pneumonia Neurological Medical History: Denies: Seizures Renal/ Medical History: Reports: Chronic Kidney Disease Stage III GI Medical History: Reports: Gastroesophageal Reflux Disease, Hiatal Hernia Musculoskeltal Medical History: Denies: Arthritis Psychiatric Medical History: Denies: Depression Past Surgical History Past Surgical History: Reports: Other - Ablation Denies: Hysterectomy, Mastectomy Social History Lives with: Alone Smoking Status: Former Smoker Frequency of Alcohol Use: None Hx Recreational Drug Use: No Drugs: None Hx Prescription Drug Abuse: No Family History Parental Family History Reviewed: Yes Children Family History Reviewed: No Sibling(s) Family History Reviewed.: No Medication/Allergy Home Medications: Apixaban [Eliquis 2.5 mg Tablet] 2.5 mg PO Q12 12/05/16 Docusate Sodium [Colace 100 mg Capsule] 100 mg PO BID 12/05/16 Tiotropium [place] [Spiriva Respimat] 2 sprays IH DAILY 12/05/16 Vit A/Vit C/Vit E/Zinc/Copper [Preservision Areds Softgel] 1 each PO BID Omeprazole 20 mg PO QHS #30 12/10/16 Digoxin [Digitek] 125 mcg PO DAILY 01/08/17 Diltiazem HCl [Cartia Xt] 120 mg PO DAILY 01/08/17 Escitalopram Oxalate [Escitalopram Oxalate] 5 mg PO DAILY 01/08/17 Torsemide [Torsemide] 10 mg PO BID 01/08/17 Tramadol HCl [Ultram 50 mg Tablet] 50 mg PO BIDP PRN 01/08/17 Allergies/Adverse Reactions: sulfamethoxazole [From Bactrim] Allergy (Verified 01/08/17 02:43) trimethoprim [From Bactrim] Allergy (Verified 01/08/17 02:43) nut - unspecified Adverse Reaction (Verified 01/08/17 02:43) aggravates diverticulitis. Review of Systems Review of Systems: Constitutional: PRESENT: as per HPI. ABSENT: chills, fever(s), headache(s), weight gain, weight loss Eyes: ABSENT: visual disturbances Ears: ABSENT: hearing changes Cardiovascular: ABSENT: chest pain, palpitations Respiratory: ABSENT: cough, hemoptysis Gastrointestinal: ABSENT: abdominal pain, , diarrhea, hematemesis, hematochezia , nausea, vomiting Genitourinary: ABSENT: dysuria, hematuria Musculoskeletal: ABSENT: joint swelling Integumentary: ABSENT: rash, wounds Neurological: ABSENT: abnormal gait, abnormal speech, confusion, dizziness, focal weakness, syncope Psychiatric: ABSENT: homicidal ideation, suicidal ideation Endocrine: ABSENT: cold intolerance, heat intolerance, polydipsia, polyuria Hematologic/Lymphatic: ABSENT: easy bleeding, easy bruising, lymphadenopathy Physical Exam Vital Signs: Temp Pulse Resp BP Pulse Ox 98.2 F 79 20 133/61 H 94 01/22/17 13:12 01/22/17 14:18 01/22/17 14:18 01/22/17 13:12 01/22/17 14:18 Intake & Output 01/21/17 01/22/17 01/23/17 06:59 06:59 06:59 Intake Total 2019 2407 60 Output Total 1325 1000 1200 Balance 695 1407 -1140 Weight 55.6 kg 57.5 kg General appearance: PRESENT: mild distress - . She is currently on oxygen. She looks very tired and depressed. Eye exam: PRESENT: conjunctiva pink, EOMI. ABSENT: nystagmus, scleral icterus Ear exam: PRESENT: normal external ear exam Mouth exam: PRESENT: moist, neck supple Neck exam: ABSENT: lymphadenopathy, meningismus, tenderness, thyromegaly, tracheal deviation Respiratory exam: PRESENT: clear to auscultation marylou, crackles. ABSENT: rhonchi Cardiovascular exam: PRESENT: +S1, +S2, systolic murmur GI/Abdominal exam: PRESENT: normal bowel sounds, soft. ABSENT: firm, guarding, organomegaly, tenderness Extremities exam: PRESENT: +1 edema. ABSENT: calf tenderness, clubbing Neurological exam: PRESENT: awake, oriented to person, oriented to place, oriented to time Psychiatric exam: PRESENT: depressed, flat affect Skin exam: ABSENT: cyanosis, erythema, mottled, rash Results Laboratory Results: 01/18/17 05:35 01/22/17 10:00 01/22/17 10:00 Sodium 123.4 L Potassium 5.5 H Chloride 89 L Carbon Dioxide 26 Anion Gap 8 BUN 51 H Creatinine 1.41 H Est GFR ( Amer) 44 L Est GFR (Non-Af Amer) 36 L Glucose 121 H Calcium 9.2 01/08/17 01/08/17 01/08/17 04:43 04:43 11:20 Creatine Kinase 35 36 CK-MB (CK-2) 2.85 Troponin I 0.138 01/08/17 01/08/17 01/08/17 11:20 16:45 16:45 Creatine Kinase 31 CK-MB (CK-2) 2.82 2.81 Troponin I 0.135 0.117 Impressions: Chest Ultrasound 01/09/17 00:00 IMPRESSION: BILATERAL PLEURAL EFFUSIONS, RIGHT GREATER THAN LEFT. Chest X-Ray 01/19/17 00:00 IMPRESSION: 1. Worsening left lung aeration as above. Abdomen Ultrasound 01/20/17 00:00 IMPRESSION: Bilateral pleural effusions. Right renal atrophy. Assessment & Plan - Diagnosis (1) CKD (chronic kidney disease), stage III Plan: She is mildly decompensated. However she is got signs of overt fluid overload both central and peripheral. Stop normal saline start the Lasix follow-up. This should also help her with her hyponatremia. Discussed options with the patient and the sister who is at the bedside. She is not a candidate for renal replacement therapy and patient agrees to that effect. She also wants and is a DNR and did not want any resusticative measures to be instituted if she deteriorates.Renal failure is actually much worse than what is shown on the labs as she is got both central and peripheral fluid overload and she is diluting her numbers. Once she hemoconcentrates with Lasix her real renal numbers will be more obvious. (2) Acute on chronic systolic (congestive) heart failure Is this a current diagnosis for this admission?: YesPlan: Stop saline. Start IV Lasix. Reviewed echo which shows diastolic failure and pulmonary hypertension. She also got low albumin which is also responsible for some of the third spacing. (3) Acute renal failure Qualifiers: Acute renal failure type: unspecified Qualified Code(s): N17.9 - Acute kidney failure, unspecified (4) Hyponatremia Is this a current diagnosis for this admission?: YesPlan: Reviewed labs especially showing a sodium of below 5 in the urine. This is from congestive heart failure. See how she responds to about changes made. (5) Recurrent pleural effusion on right Is this a current diagnosis for this admission?: Yes (6) Atrial fibrillation Qualifiers: Atrial fibrillation type: paroxysmal Qualified Code(s): I48.0 - Paroxysmal atrial fibrillation Is this a current diagnosis for this admission?: Yes (7) COPD (chronic obstructive pulmonary disease) Qualifiers: COPD type: unspecified COPD Qualified Code(s): J44.9 - Chronic obstructive pulmonary disease, unspecified Is this a current diagnosis for this admission?: Yes (8) Respiratory failure Qualifiers: Chronicity: acute Is this a current diagnosis for this admission?: YesPlan: Currently on oxygen via nasal cannula and holding. Hopefully she will respond to the Lasix as well. Monitor. (9) Hyperkalemia Plan: See how she responds to the above measures. Her labs any higher we will have to institute other measures in the morning.
[2017-01-22] MEDS ORDERED: FUROSEMIDE INJ/PF 20 MG/2 ML SDV IV SCH (22:00)
[2017-01-22] MEDS: SIMVASTATIN 40 MG TABLET PO SCH (22:53)
[2017-01-23] MEDS: MAG HYDROX/AL HYDROX/SIMETH SUSP 30 ML UDCUP PO PRN ×3 (02:05→23:48)
[2017-01-23] MEDS: ONDANSETRON HCL INJ/PF 4 MG/2 ML SDV IV PRN (02:06)
[2017-01-23] MEDS: LEVALBUTEROL HCL NEB 1.25 MG/3 ML AMPUL NEB SCH ×4 (02:27→20:05)
[2017-01-23] MEDS: LANSOPRAZOLE 15 MG TAB.RAP.DR PO SCH (05:58)
[2017-01-23 06:04] LABS: ANION GAP 10 (5-19); BLOOD UREA NITROGEN 53 mg/dL (7-20); CALCIUM 9.3 mg/dL (8.4-10.2); CARBON DIOXIDE 22 mmol/L (22-30); CHLORIDE 90 mmol/L (98-107); CREATININE RESULT 1.31 mg/dL (0.52-1.25); GLUCOSE 109 mg/dL (75-110); MAGNESIUM 2.5 mg/dL (1.6-2.3); POTASSIUM 5.2 mmol/L (3.6-5.0); SODIUM 121.6 mmol/L (137-145)
[2017-01-23] MEDS: CEPHALEXIN 500 MG CAPSULE PO SCH ×3 (07:00→23:42)
[2017-01-23] MEDS: DILTIAZEM HCL 30 MG TABLET PO SCH ×3 (07:01→23:42)
[2017-01-23] MEDS: POLYETHYLENE GLYCOL 3350 POWDER 17 GM/1 PACKET PO SCH (10:14)
[2017-01-23] MEDS: APIXABAN 2.5 MG TABLET PO SCH ×2 (10:14→23:44)
[2017-01-23] MEDS: ESCITALOPRAM OXALATE 10 MG TABLET PO SCH (10:15)
[2017-01-23] MEDS: DIGOXIN 0.125 MG TABLET PO SCH (10:15)
[2017-01-23] MEDS: BUSPIRONE HCL 10 MG TABLET PO SCH ×2 (10:16→17:49)
[2017-01-23] MEDS: LACTOBACILLUS ACIDOPHILUS 250 MG TAB PO SCH ×2 (10:17→17:49)
[2017-01-23] MEDS: DOCUSATE SODIUM 100 MG CAPSULE PO SCH ×2 (10:17→17:48)
[2017-01-23] MEDS: DRONABINOL 2.5 MG CAPSULE PO SCH (10:19)
[2017-01-23] MEDS ORDERED: DRONABINOL 2.5 MG CAPSULE PO SCH (11:00)
--- NOTE | 2017-01-23 12:10 | PDOC PROGRESS REPORT ---
Subjective Progress Note for:: 01/23/17 Subjective:: Patient was seen this morning in the hospital today. She is up and about with help of physical therapy and is taking steps in the corridor with a walker.She denies any history of fever chills.She feels that her breathing is better as well as edema. Her appetite is picking up. Discussed her with the treating nurse. Physical Exam Vital Signs: Temp Pulse Resp BP Pulse Ox 97.5 F 72 18 116/60 90 L 01/23/17 08:00 01/23/17 08:43 01/23/17 08:43 01/23/17 08:00 01/23/17 08:43 Intake & Output 01/22/17 01/23/17 01/24/17 06:59 06:59 06:59 Intake Total 2407 735 Output Total 1000 2000 Balance 1407 -1265 Weight 57.5 kg 57 kg General appearance: PRESENT: no acute distress Respiratory exam: PRESENT: clear to auscultation marylou, crackles - Both bases., decreased breath sounds - In the right lungs Cardiovascular exam: PRESENT: +S1, +S2, systolic murmur GI/Abdominal exam: PRESENT: normal bowel sounds, soft. ABSENT: firm, guarding, organomegaly, tenderness Extremities exam: PRESENT: +1 edema Skin exam: ABSENT: cyanosis, erythema, mottled Results Laboratory Results: 01/18/17 05:35 01/23/17 04:53 01/23/17 01/23/17 04:53 04:53 Sodium 121.6 L Potassium 5.2 H Chloride 90 L Carbon Dioxide 22 Anion Gap 10 BUN 53 H Creatinine 1.31 H Est GFR ( Amer) 48 L Est GFR (Non-Af Amer) 39 L Glucose 109 Calcium 9.3 Magnesium 2.5 H TSH 4.67 01/08/17 01/08/17 01/08/17 04:43 04:43 11:20 Creatine Kinase 35 36 CK-MB (CK-2) 2.85 Troponin I 0.138 01/08/17 01/08/17 01/08/17 11:20 16:45 16:45 Creatine Kinase 31 CK-MB (CK-2) 2.82 2.81 Troponin I 0.135 0.117 Impressions: Chest Ultrasound 01/09/17 00:00 IMPRESSION: BILATERAL PLEURAL EFFUSIONS, RIGHT GREATER THAN LEFT. Chest X-Ray 01/19/17 00:00 IMPRESSION: 1. Worsening left lung aeration as above. Abdomen Ultrasound 01/20/17 00:00 IMPRESSION: Bilateral pleural effusions. Right renal atrophy. Assessment & Plan - Diagnosis (1) CKD (chronic kidney disease), stage III Plan: Nonoliguric stable. Increase Lasix. Monitor. (2) Acute on chronic systolic (congestive) heart failure Is this a current diagnosis for this admission?: YesPlan: Responding to Lasix. Increase Lasix to every 8 hours. Monitor. (3) Acute renal failure Qualifiers: Acute renal failure type: unspecified Qualified Code(s): N17.9 - Acute kidney failure, unspecified Plan: Nonoliguric. Improving renal numbers. Stay the course. (4) Hyponatremia Is this a current diagnosis for this admission?: YesPlan: Sodium today is 121 as yesterday of 123. I am going to increase the Lasix. Continue on present course otherwise. Limit p.o. fluid intake. Monitor sodium carefully. No symptoms of hyponatremia.I am going to be out of town for the next 10 days. We will ask Dr. Cee to see her on a as needed basis . (5) Recurrent pleural effusion on right Is this a current diagnosis for this admission?: YesPlan: As per Dr. Hale. (6) Atrial fibrillation Qualifiers: Atrial fibrillation type: paroxysmal Qualified Code(s): I48.0 - Paroxysmal atrial fibrillation Is this a current diagnosis for this admission?: YesPlan: Rate controlled. (7) COPD (chronic obstructive pulmonary disease) Qualifiers: COPD type: unspecified COPD Qualified Code(s): J44.9 - Chronic obstructive pulmonary disease, unspecified Is this a current diagnosis for this admission?: Yes (8) Respiratory failure Qualifiers: Chronicity: acute Is this a current diagnosis for this admission?: YesPlan: Improving. (9) Hyperkalemia Plan: Improving. Monitor
[2017-01-23 13:11] LABS: ANION GAP 11 (5-19); BLOOD UREA NITROGEN 55 mg/dL (7-20); CALCIUM 9.2 mg/dL (8.4-10.2); CARBON DIOXIDE 23 mmol/L (22-30); CHLORIDE 87 mmol/L (98-107); CREATININE RESULT 1.41 mg/dL (0.52-1.25); GLUCOSE 161 mg/dL (75-110); POTASSIUM 5.1 mmol/L (3.6-5.0)
--- NOTE | 2017-01-23 13:26 | PDOC PROGRESS REPORT ---
Subjective Progress Note for:: 01/23/17 Subjective:: Patient is currently doing fair patient's sodium level is still low and as per discussed with Dr. Forman suggest most likely heart failure in overload and the patient is currently increased the Lasix. Patient otherwise asymptomatic. Patient's also help her get an draining between 700 to 1000 cc per day Patient's denied any chest pain denied any shortness of the breath Patient's had a physical therapy done today Physical Exam Vital Signs: Temp Pulse Resp BP Pulse Ox 97.8 F 81 18 139/64 H 97 01/23/17 11:52 01/23/17 11:52 01/23/17 11:52 01/23/17 11:52 01/23/17 11:52 Intake & Output 01/22/17 01/23/17 01/24/17 06:59 06:59 06:59 Intake Total 2407 735 592 Output Total 1000 2000 Balance 1407 -1265 592 Weight 57.5 kg 57 kg General appearance: PRESENT: no acute distress, well-developed, well-nourished Head exam: PRESENT: atraumatic, normocephalic Eye exam: PRESENT: conjunctiva pink, EOMI, PERRLA. ABSENT: scleral icterus Ear exam: PRESENT: normal external ear exam Mouth exam: PRESENT: moist, tongue midline Neck exam: PRESENT: full ROM. ABSENT: carotid bruit, JVD, lymphadenopathy, thyromegaly Respiratory exam: PRESENT: decreased breath sounds Additional comments: Right-sided pleural catheter is present Cardiovascular exam: PRESENT: RRR. ABSENT: diastolic murmur, rubs, systolic murmur Pulses: PRESENT: normal dorsalis pedis pul, +2 pedal pulses bilateral Vascular exam: PRESENT: normal capillary refill GI/Abdominal exam: PRESENT: normal bowel sounds, soft. ABSENT: distended, guarding, mass, organolmegaly, rebound, tenderness Rectal exam: PRESENT: deferred Neurological exam: PRESENT: alert, awake, oriented to person, oriented to place , oriented to time, oriented to situation, CN II-XII grossly intact. ABSENT: motor sensory deficit Psychiatric exam: PRESENT: appropriate affect, normal mood. ABSENT: homicidal ideation, suicidal ideation Skin exam: PRESENT: dry, intact, warm. ABSENT: cyanosis, rash Results Laboratory Results: 01/18/17 05:35 01/23/17 01/23/17 04:53 04:53 Sodium 121.6 L Potassium 5.2 H Chloride 90 L Carbon Dioxide 22 Anion Gap 10 BUN 53 H Creatinine 1.31 H Est GFR ( Amer) 48 L Est GFR (Non-Af Amer) 39 L Glucose 109 Calcium 9.3 Magnesium 2.5 H TSH 4.67 01/08/17 01/08/17 01/08/17 04:43 04:43 11:20 Creatine Kinase 35 36 CK-MB (CK-2) 2.85 Troponin I 0.138 01/08/17 01/08/17 01/08/17 11:20 16:45 16:45 Creatine Kinase 31 CK-MB (CK-2) 2.82 2.81 Troponin I 0.135 0.117 Impressions: Chest Ultrasound 01/09/17 00:00 IMPRESSION: BILATERAL PLEURAL EFFUSIONS, RIGHT GREATER THAN LEFT. Chest X-Ray 01/19/17 00:00 IMPRESSION: 1. Worsening left lung aeration as above. Abdomen Ultrasound 01/20/17 00:00 IMPRESSION: Bilateral pleural effusions. Right renal atrophy. Assessment & Plan - Diagnosis (1) CHF (congestive heart failure) Qualifiers: Congestive heart failure type: unspecified congestive heart failure type Congestive heart failure chronicity: acute on chronic Qualified Code(s ): I50.9 - Heart failure, unspecified Is this a current diagnosis for this admission?: YesPlan: Most likely right-sided heart failure as per discussed with the Dr. Phoenix 2 -D concult again Continues to Lasix (2) Elevated troponin Is this a current diagnosis for this admission?: Yes (3) Recurrent pleural effusion on right Is this a current diagnosis for this admission?: YesPlan: Contiguous the current management (4) Respiratory distress Is this a current diagnosis for this admission?: Yes (5) Atrial fibrillation Qualifiers: Atrial fibrillation type: paroxysmal Qualified Code(s): I48.0 - Paroxysmal atrial fibrillation Is this a current diagnosis for this admission?: YesPlan: Currently on Eliquis (6) COPD (chronic obstructive pulmonary disease) Qualifiers: COPD type: unspecified COPD Qualified Code(s): J44.9 - Chronic obstructive pulmonary disease, unspecified Is this a current diagnosis for this admission?: YesPlan: Patients require 2 L oxygen at home (7) Chronic kidney disease Qualifiers: Chronic kidney disease stage: stage 3 (moderate) Qualified Code(s): N18.3 - Chronic kidney disease, stage 3 (moderate) Is this a current diagnosis for this admission?: YesPlan: Currently stable (8) Shortness of breath Is this a current diagnosis for this admission?: Yes (9) Leukocytosis Qualifiers: Leukocytosis type: unspecified Qualified Code(s): D72.829 - Elevated white blood cell count, unspecified Is this a current diagnosis for this admission?: Yes (10) Hyponatremia Is this a current diagnosis for this admission?: YesPlan: Most likely from congestive heart failure as per discussed with Dickson increase the Lasix - Time Time Spent with patient: 15-24 minutes Medications reviewed and adjusted accordingly: Yes Anticipated discharge: Home Within: Other - Inpatient Certification Medical Necessity: Need Close Monitoring Due to Risk of Patient Decompensation Post Hospital Care: D/C Returning Officer Documentation - Plan Summary Plan Summary: Discussed with the patient and her sister on the bedside about current conditions and all the test results
[2017-01-23] MEDS: OXYCODONE-ACETAMINOPHEN 5-325 MG TABLET PO PRN (14:28)
[2017-01-23] MEDS: FUROSEMIDE INJ/PF 20 MG/2 ML SDV IV SCH ×2 (14:28→23:43)
--- NOTE | 2017-01-23 15:32 | ST Inp Modified Barium Swallow ---
Medical Diagnosis - Medical Diagnoses Medical Diagnosis Description & ICD-10 Code(s): difficulty swallowing - ICD-10 Tx Diagnosis Coding (1) Dysphagia, oral phase ICD-10 Code(s): R13.11 - DYSPHAGIA, ORAL PHASE ST Inpatient [facility] [place] - General Date: 01/23/17 Date of Onset: 01/08/17 - History History Obtained From: Patient - per EMR -: Medical - SOB, CHF, elevated troponin, respiratory distress, COPD, CKD, a-fib , recurrent pleural effusions on right side, hypernatremia. Chest ultrasound shows bilateral pleural effusions right greater than left. Chest xray shows worsening lung aeration. PMHx: a-fib, CHF, CAD, HLD, COPD, CKD, GERD, hiatal hernia. Medications: Medications Reviewed Allergies: Refer to medical record - Subjective Current Nutritional Means: PO Current PO Diet: Regular Current Symptoms: Weight loss, Poor intake, c/o Globus sensation Pain: 0/5 - Objective Assessment: Upright, Left Lateral - Food Trials Food Trials Used: Thin liquids, Pureed, Regular The Patient: Was Able to Self Feed - Assessment Labial Function: Within Normal Limits Lingual Function: Impaired - lingual pumping Mandibular Function: Within Normal Limits Dentition: Dentures-Upper, Dentures-Lower Velo-Pharyngeal Function: Unremarkable Laryngeal Function: Volitional Cough, Volitional Swallow - Pharyngeal Stage Initiation of Pharyngeal Stage: Normal Decreased Laryngeal Elevation: No Reduced Velo-Pharyngeal Closure: no Reduced Pressure Generation: No Reduced Tongue Base Retraction: No Pre-Swallowing Pooling in Valleculae: None Pre-Swallowing Pooling in Pyriforms: None Reduced Thyro-Hyiod Approximation: No Reduced Epiglottic Excursion: No Reduced Pharyngeal Peristalsis: No Post Swallow Residuals in Valleculae: None Post Swallow Residuals in Pyriforms: None - Impression/Summary Laryngeal Penetration: No Tracheal Aspiration: no Risk of Aspiration: Minimal Risk of Nutritional Compromise: Severe - pt and pt's friend state pt has reduced PO intake due to "difficulty swallowing" - Recommendations NPO: no Solid Diet Recommendations: Regular Liquid Diet Recommendations: Thin Dysphagia Therapy with [employer]: Yes, Inpatient, Home Health Recommended Techniques: Small Bites and Sips Supervision: Distant Other Recommendations: 1) Recommend continued current diet, pt's pharyngeal phase of swallow observed to be safe and effecient-no penetration or aspiration on any consistency. Pt had no difficulty transferring thin liquids or swallowing pureed solids from oral to pharyngeal phase, however when presented with a fidelina cracker pt stated "this is gonna be hard". Pt observed to chew bolus with front teeth then move bolus to roof of mouth. Pt observed to demonstrate several seconds of lingual pumping, not moving bolus from roof of mouth. With max ST cues, pt able to move bolus posteriorly with tongue to trigger swallow reflex. ST discussed option for pureed diet due to no difficulty transferring pureed bolus to pharyngeal phase, however pt denied and stated "my had that crap I don't want it.". 2) Recommend acute care ST treatment x2 starting next week for oral phase deficits. 3) Recommend home health ST after discharge. 4) Recommend continued dietary consult due to pt self-limiting solids. - Time Total Time: 25 Total Timed Minutes: 0 ST F.L. Impairment Category - Rationale Based On Rationale Based On: Clin Find., Obj Measures - Swallowing Current G8996: CI 1-19% Impaired Goal G8997: CH 0% Impaired
--- NOTE | 2017-01-23 15:46 | PDOC PROGRESS REPORT ---
Subjective Progress Note for:: 01/23/17 Subjective:: Patient and sister at bedside reported difficulty with swallowing. Her nausea and vomiting significantly improved but P.O intake remain a challenge. No fever or chills. No chest pain. Breathing so far is okay but remain on supplemental oxygen via nasal canula. Patient is requesting for hospital bed usage upon discharge from the hospital. There is intent to move into her sister's home. Physical Exam Vital Signs: Temp Pulse Resp BP Pulse Ox 97.8 F 77 18 139/64 H 89 L 01/23/17 11:52 01/23/17 14:12 01/23/17 14:12 01/23/17 11:52 01/23/17 14:12 Intake & Output 01/22/17 01/23/17 01/24/17 06:59 06:59 06:59 Intake Total 2407 735 592 Output Total 1000 2000 Balance 1407 -1265 592 Weight 57.5 kg 57 kg Physical Exam: General appearance: PRESENT: no acute distress, cooperative, mild distress - on supplemental oxygen via nasal canula at 2L/min. Head exam: PRESENT: atraumatic, normocephalic Mouth exam: PRESENT: moist Respiratory exam: PRESENT: clear to auscultation marylou, decreased breath sounds - bilaterally Cardiovascular exam: PRESENT: RRR. ABSENT: diastolic murmur, rubs, systolic murmur GI/Abdominal exam: PRESENT: normal bowel sounds, soft. ABSENT: distended, guarding, mass, organomegaly, rebound, tenderness Musculoskeletal exam: PRESENT: deformity - related to arthritis Neurological exam: PRESENT: alert, awake, oriented to person, oriented to place , oriented to time, oriented to situation, CN II-XII grossly intact. ABSENT: motor sensory deficit Psychiatric exam: PRESENT: appropriate affect Skin exam: PRESENT: dry, intact - except the catheter site with satisfactory dressing., warm. ABSENT: cyanosis, rash Results Laboratory Results: 01/18/17 05:35 01/23/17 12:02 01/23/17 01/23/17 01/23/17 04:53 04:53 12:02 Sodium 121.6 L 121.0 L Potassium 5.2 H 5.1 H Chloride 90 L 87 L Carbon Dioxide 22 23 Anion Gap 10 11 BUN 53 H 55 H Creatinine 1.31 H 1.41 H Est GFR ( Amer) 48 L 44 L Est GFR (Non-Af Amer) 39 L 36 L Glucose 109 161 H Calcium 9.3 9.2 Magnesium 2.5 H TSH 4.67 01/08/17 01/08/17 01/08/17 04:43 04:43 11:20 Creatine Kinase 35 36 CK-MB (CK-2) 2.85 Troponin I 0.138 01/08/17 01/08/17 01/08/17 11:20 16:45 16:45 Creatine Kinase 31 CK-MB (CK-2) 2.82 2.81 Troponin I 0.135 0.117 Impressions: Chest Ultrasound 01/09/17 00:00 IMPRESSION: BILATERAL PLEURAL EFFUSIONS, RIGHT GREATER THAN LEFT. Abdomen Ultrasound 01/20/17 00:00 IMPRESSION: Bilateral pleural effusions. Right renal atrophy. Chest X-Ray 01/23/17 00:00 IMPRESSION: COPD. SLIGHT INCREASE IN THE LEFT PLEURAL EFFUSION. Modified Barium Swallow 01/23/17 00:00 IMPRESSION: NO EVIDENCE OF PENETRATION OR ASPIRATION. OTHER FINDINGS DESCRIBED.PLEASE SEE SPEECH PATHOLOGIST REPORT FOR OTHER FINDINGS AND RECOMMENDATIONS. Assessment & Plan - Diagnosis (1) Acute on chronic systolic (congestive) heart failure Is this a current diagnosis for this admission?: YesPlan: See covering attending physician orders. Patient is currently on IV Lasix therapy as per recommendation of hospital unit clerk. Her echocardiogram on 09/09/16 did reveal mild to moderate diastolic dysfunction with normal LVEF. (2) Hyponatremia Is this a current diagnosis for this admission?: YesPlan: See covering attending physician orders. Her serum sodium is improving. Follow up on renal indices and persistent hyponatremia. Obtain fasting Lipid panel. (3) COPD (chronic obstructive pulmonary disease) Qualifiers: Qualified Code(s): J44.9 - Chronic obstructive pulmonary disease, unspecified Is this a current diagnosis for this admission?: YesPlan: See covering attending physician orders. Continue current medication management. (4) Pleural effusion Is this a current diagnosis for this admission?: YesPlan: See covering attending physician orders. (5) Abdominal pain, right upper quadrant Is this a current diagnosis for this admission?: NoPlan: Resolved. See covering attending physician orders. - Time Time Spent with patient: 15-24 minutes Medications reviewed and adjusted accordingly: Yes Anticipated discharge: Home with Homehealth Within: Other - Inpatient Certification Based on my medical assessment, after consideration of the patient's comorbidities, presenting symptoms, or acuity I expect that the services needed warrant INPATIENT care.: Yes I certify that my determination is in accordance with my understanding of Medicare's requirements for reasonable and necessary INPATIENT services [42 CFR 412.3e].: Yes Medical Necessity: Need Close Monitoring Due to Risk of Patient Decompensation, Need For IV Fluids, Need For Continuous Telemetry Monitoring, Risk of Complication if Not Cared For in Hospital Post Hospital Care: D/C Balance Truing Inspector Documentation - Plan Summary Plan Summary: Obtain modified barium swallow evaluation for her reported persistent difficulty with swallowing. Obtain Lipid panel for further evaluation of her persistent hyponatremia. Monitor renal indices with sodium level. Request raw material planner consultation for home hospital bed arrangement pending discharge.
[2017-01-23] MEDS: SIMVASTATIN 40 MG TABLET PO SCH (23:43)
[2017-01-24] MEDS: ONDANSETRON HCL INJ/PF 4 MG/2 ML SDV IV PRN (01:13)
[2017-01-24] MEDS: LEVALBUTEROL HCL NEB 1.25 MG/3 ML AMPUL NEB SCH ×4 (02:13→20:46)
[2017-01-24 04:45] LABS: ABSOLUTE BASOPHILS # (AUTO) 0.1 10^3/uL (0.0-0.2); ABSOLUTE EOSINOPHILS # (AUTO) 0.2 10^3/uL (0.0-0.6); ABSOLUTE LYMPHOCYTES (AUTO) 0.9 10^3/uL (0.5-4.7); ABSOLUTE MONOCYTES (AUTO) 0.8 10^3/uL (0.1-1.4); ABSOLUTE NEUT (AUTO) 7.9 10^3/uL (1.7-8.2); BASOPHILS % (AUTO) 0.7 % (0-2); EOSINOPHILS % (AUTO) 2.4 % (0-6); HEMATOCRIT 30.4 % (36.0-47.0); HEMOGLOBIN 10.8 g/dL (12.0-15.5); LYMPHOCYTES % (AUTO) 9.3 % (13-45); MEAN CORPUSCULAR HEMOGLOBIN 31.5 pg (27.0-33.4); MEAN CORPUSCULAR HGB CONC 35.5 g/dL (32.0-36.0); MEAN CORPUSCULAR VOLUME 89 fl (80-97); MONOCYTES % (AUTO) 8.2 % (3-13); RED BLOOD COUNT 3.43 10^6/uL (3.72-5.28); RED CELL DISTRIBUTION WIDTH 13.5 % (11.5-14.0); SEGMENTED NEUTROPHILS % (AUTO) 79.4 % (42-78); WHITE BLOOD COUNT 9.9 10^3/uL (4.0-10.5)
[2017-01-24 05:08] LABS: ANION GAP 8 (5-19); BLOOD UREA NITROGEN 59 mg/dL (7-20); CALCIUM 9.1 mg/dL (8.4-10.2); CARBON DIOXIDE 25 mmol/L (22-30); CHLORIDE 90 mmol/L (98-107); CREATININE RESULT 1.36 mg/dL (0.52-1.25); GLUCOSE 122 mg/dL (75-110); POTASSIUM 4.9 mmol/L (3.6-5.0); SODIUM 122.7 mmol/L (137-145)
[2017-01-24] MEDS: FUROSEMIDE INJ/PF 20 MG/2 ML SDV IV SCH ×3 (06:17→21:54)
[2017-01-24] MEDS: CEPHALEXIN 500 MG CAPSULE PO SCH (06:17)
[2017-01-24] MEDS: DILTIAZEM HCL 30 MG TABLET PO SCH ×3 (06:17→21:53)
[2017-01-24] MEDS: LANSOPRAZOLE 15 MG TAB.RAP.DR PO SCH (06:35)
[2017-01-24] MEDS: ESCITALOPRAM OXALATE 10 MG TABLET PO SCH (09:04)
[2017-01-24] MEDS: POLYETHYLENE GLYCOL 3350 POWDER 17 GM/1 PACKET PO SCH (09:04)
[2017-01-24] MEDS: BUSPIRONE HCL 10 MG TABLET PO SCH ×2 (09:04→18:08)
[2017-01-24] MEDS: DIGOXIN 0.125 MG TABLET PO SCH (09:04)
[2017-01-24] MEDS: LACTOBACILLUS ACIDOPHILUS 250 MG TAB PO SCH ×2 (09:04→18:07)
[2017-01-24] MEDS: APIXABAN 2.5 MG TABLET PO SCH ×2 (09:04→22:08)
[2017-01-24] MEDS: DOCUSATE SODIUM 100 MG CAPSULE PO SCH ×2 (09:05→18:08)
--- NOTE | 2017-01-24 10:26 | PDOC PROGRESS REPORT ---
Subjective Progress Note for:: 01/24/17 Subjective:: Awake and alert no nausea this morning Physical Exam Vital Signs: Temp Pulse Resp BP Pulse Ox 97.4 F 69 16 126/53 H 94 01/24/17 08:02 01/24/17 09:06 01/24/17 09:06 01/24/17 08:02 01/24/17 09:06 Intake & Output 01/23/17 01/24/17 01/25/17 06:59 06:59 06:59 Intake Total 735 1178 Output Total 1999 900 Balance -1265 278 Weight 57 kg 57.5 kg General appearance: PRESENT: no acute distress, cooperative, disheveled, thin Head exam: PRESENT: atraumatic, normocephalic Eye exam: PRESENT: conjunctiva pale, EOMI Mouth exam: PRESENT: moist, neck supple Neck exam: ABSENT: carotid bruit, JVD, lymphadenopathy, thyromegaly Respiratory exam: PRESENT: decreased breath sounds, prolonged expiratory phas, rhonchi, symmetrical, unlabored Cardiovascular exam: PRESENT: irregular rhythm Pulses: PRESENT: normal radial pulses GI/Abdominal exam: PRESENT: normal bowel sounds, soft. ABSENT: distended, guarding, mass, organolmegaly, rebound, tenderness Rectal exam: PRESENT: deferred Neurological exam: PRESENT: alert, awake Skin exam: PRESENT: dry, warm Results Laboratory Results: 01/24/17 04:34 01/24/17 04:34 01/23/17 01/24/17 01/24/17 12:02 04:34 04:34 WBC 9.9 RBC 3.43 L Hgb 10.8 L Hct 30.4 L MCV 89 MCH 31.5 MCHC 35.5 RDW 13.5 Plt Count 298 Seg Neutrophils % 79.4 H Lymphocytes % 9.3 L Monocytes % 8.2 Eosinophils % 2.4 Basophils % 0.7 Absolute Neutrophils 7.9 Absolute Lymphocytes 0.9 Absolute Monocytes 0.8 Absolute Eosinophils 0.2 Absolute Basophils 0.1 Sodium 121.0 L 122.7 L Potassium 5.1 H 4.9 Chloride 87 L 90 L Carbon Dioxide 23 25 Anion Gap 11 8 BUN 55 H 59 H Creatinine 1.41 H 1.36 H Est GFR ( Amer) 44 L 46 L Est GFR (Non-Af Amer) 36 L 38 L Glucose 161 H 122 H Calcium 9.2 9.1 01/08/17 01/08/17 01/08/17 04:43 04:43 11:20 Creatine Kinase 35 36 CK-MB (CK-2) 2.85 Troponin I 0.138 01/08/17 01/08/17 01/08/17 11:20 16:45 16:45 Creatine Kinase 31 CK-MB (CK-2) 2.82 2.81 Troponin I 0.135 0.117 Impressions: Chest Ultrasound 01/09/17 00:00 IMPRESSION: BILATERAL PLEURAL EFFUSIONS, RIGHT GREATER THAN LEFT. Abdomen Ultrasound 01/20/17 00:00 IMPRESSION: Bilateral pleural effusions. Right renal atrophy. Chest X-Ray 01/23/17 00:00 IMPRESSION: COPD. SLIGHT INCREASE IN THE LEFT PLEURAL EFFUSION. Modified Barium Swallow 01/23/17 00:00 IMPRESSION: NO EVIDENCE OF PENETRATION OR ASPIRATION. OTHER FINDINGS DESCRIBED.PLEASE SEE SPEECH PATHOLOGIST REPORT FOR OTHER FINDINGS AND RECOMMENDATIONS. Assessment & Plan - Diagnosis (1) History of atrial fibrillation Is this a current diagnosis for this admission?: Yes (2) Recurrent pleural effusion on right Is this a current diagnosis for this admission?: YesPlan: 900 cc reportedly drained over the last 24 hours (3) COPD (chronic obstructive pulmonary disease) Qualifiers: COPD type: unspecified COPD Qualified Code(s): J44.9 - Chronic obstructive pulmonary disease, unspecified Is this a current diagnosis for this admission?: Yes
--- NOTE | 2017-01-24 11:07 | PDOC PROGRESS REPORT ---
Subjective Progress Note for:: 01/24/17 Subjective:: Patient is currently doing fair patient's sodium level is 122. Patients denied any chest pain denied any shortness of the breath Patient still having some leg swelling Patient seen by Dr. Smyth and also followed by the nephrology Physical Exam Vital Signs: Temp Pulse Resp BP Pulse Ox 97.4 F 69 16 126/53 H 94 01/24/17 08:02 01/24/17 09:06 01/24/17 09:06 01/24/17 08:02 01/24/17 09:06 Intake & Output 01/23/17 01/24/17 01/25/17 06:59 06:59 06:59 Intake Total 735 1178 Output Total 2000 900 Balance -1265 278 Weight 57 kg 57.5 kg General appearance: PRESENT: no acute distress, well-developed, well-nourished Head exam: PRESENT: atraumatic, normocephalic Eye exam: PRESENT: conjunctiva pink, EOMI, PERRLA. ABSENT: scleral icterus Ear exam: PRESENT: normal external ear exam Mouth exam: PRESENT: moist, tongue midline Neck exam: PRESENT: full ROM. ABSENT: carotid bruit, JVD, lymphadenopathy, thyromegaly Respiratory exam: PRESENT: decreased breath sounds Cardiovascular exam: PRESENT: RRR. ABSENT: diastolic murmur, rubs, systolic murmur Pulses: PRESENT: normal dorsalis pedis pul, +2 pedal pulses bilateral Vascular exam: PRESENT: normal capillary refill GI/Abdominal exam: PRESENT: normal bowel sounds, soft. ABSENT: distended, guarding, mass, organolmegaly, rebound, tenderness Rectal exam: PRESENT: deferred Neurological exam: PRESENT: alert, awake, oriented to person, oriented to place , oriented to time, oriented to situation, CN II-XII grossly intact. ABSENT: motor sensory deficit Psychiatric exam: PRESENT: appropriate affect, normal mood. ABSENT: homicidal ideation, suicidal ideation Skin exam: PRESENT: dry, intact, warm. ABSENT: cyanosis, rash Results Laboratory Results: 01/24/17 04:34 01/24/17 04:34 01/23/17 01/24/17 01/24/17 12:02 04:34 04:34 WBC 9.9 RBC 3.43 L Hgb 10.8 L Hct 30.4 L MCV 89 MCH 31.5 MCHC 35.5 RDW 13.5 Plt Count 298 Seg Neutrophils % 79.4 H Lymphocytes % 9.3 L Monocytes % 8.2 Eosinophils % 2.4 Basophils % 0.7 Absolute Neutrophils 7.9 Absolute Lymphocytes 0.9 Absolute Monocytes 0.8 Absolute Eosinophils 0.2 Absolute Basophils 0.1 Sodium 121.0 L 122.7 L Potassium 5.1 H 4.9 Chloride 87 L 90 L Carbon Dioxide 23 25 Anion Gap 11 8 BUN 55 H 59 H Creatinine 1.41 H 1.36 H Est GFR ( Amer) 44 L 46 L Est GFR (Non-Af Amer) 36 L 38 L Glucose 161 H 122 H Calcium 9.2 9.1 01/08/17 01/08/17 01/08/17 04:43 04:43 11:20 Creatine Kinase 35 36 CK-MB (CK-2) 2.85 Troponin I 0.138 01/08/17 01/08/17 01/08/17 11:20 16:45 16:45 Creatine Kinase 31 CK-MB (CK-2) 2.82 2.81 Troponin I 0.135 0.117 Impressions: Chest Ultrasound 01/09/17 00:00 IMPRESSION: BILATERAL PLEURAL EFFUSIONS, RIGHT GREATER THAN LEFT. Abdomen Ultrasound 01/20/17 00:00 IMPRESSION: Bilateral pleural effusions. Right renal atrophy. Chest X-Ray 01/23/17 00:00 IMPRESSION: COPD. SLIGHT INCREASE IN THE LEFT PLEURAL EFFUSION. Modified Barium Swallow 01/23/17 00:00 IMPRESSION: NO EVIDENCE OF PENETRATION OR ASPIRATION. OTHER FINDINGS DESCRIBED.PLEASE SEE SPEECH PATHOLOGIST REPORT FOR OTHER FINDINGS AND RECOMMENDATIONS. Assessment & Plan - Diagnosis (1) CHF (congestive heart failure) Qualifiers: Congestive heart failure type: unspecified congestive heart failure type Congestive heart failure chronicity: acute on chronic Qualified Code(s ): I50.9 - Heart failure, unspecified Is this a current diagnosis for this admission?: YesPlan: Most likely right-sided heart failure as per discussed with the Dr. Phoenix 2 -D concult again Continues to Lasix (2) Elevated troponin Is this a current diagnosis for this admission?: Yes (3) Recurrent pleural effusion on right Is this a current diagnosis for this admission?: YesPlan: Contiguous the current management (4) Respiratory distress Is this a current diagnosis for this admission?: YesPlan: PICC patient currently on a BiPAP will repeat the ABG and continues to monitor the patient (5) Atrial fibrillation Qualifiers: Atrial fibrillation type: paroxysmal Qualified Code(s): I48.0 - Paroxysmal atrial fibrillation Is this a current diagnosis for this admission?: YesPlan: Currently on Eliquis (6) COPD (chronic obstructive pulmonary disease) Qualifiers: COPD type: unspecified COPD Qualified Code(s): J44.9 - Chronic obstructive pulmonary disease, unspecified Is this a current diagnosis for this admission?: YesPlan: Patients require 2 L oxygen at home (7) Chronic kidney disease Qualifiers: Chronic kidney disease stage: stage 3 (moderate) Qualified Code(s): N18.3 - Chronic kidney disease, stage 3 (moderate) Is this a current diagnosis for this admission?: YesPlan: Currently stable (8) Shortness of breath Is this a current diagnosis for this admission?: Yes (9) Leukocytosis Qualifiers: Leukocytosis type: unspecified Qualified Code(s): D72.829 - Elevated white blood cell count, unspecified Is this a current diagnosis for this admission?: Yes (10) Hyponatremia Is this a current diagnosis for this admission?: YesPlan: Most likely from congestive heart failure as per discussed with Dickson bui the Lasix - Time Time Spent with patient: 15-24 minutes Medications reviewed and adjusted accordingly: Yes Anticipated discharge: Home Within: Other - Plan Summary Plan Summary: Continues the Lasix 20 mg and continues to monitor the patient's patient is currently asymptomatic with the low na Will reconsult Dr. Phoenix for the further evaluation of the ongoing right- sided heart failure
[2017-01-24] MEDS: DRONABINOL 2.5 MG CAPSULE PO SCH (12:25)
[2017-01-24] MEDS: OXYCODONE-ACETAMINOPHEN 5-325 MG TABLET PO PRN (12:26)
[2017-01-24] MEDS: SIMVASTATIN 40 MG TABLET PO SCH (21:53)
[2017-01-24] MEDS: ALPRAZOLAM 0.25 MG TABLET PO PRN (21:54)
--- NOTE | 2017-01-25 01:18 | PROGRESS NOTE E ---
Progress Note NAME: SALOME MOSLEY : 1940 AGE: 76Y DATE: 01/24/2017 ROOM: 336 SUBJECTIVE: Note that the patient was earlier seen in consult and signed off on 01/11/2017. The attending physician asked me to re-see the patient, the chief complaint being congestive heart failure and recurrent pleural effusions. I was with the patient from 1:40 p.m. to 2:00 p.m. 20 minutes spent on this patient. Note that the patient was seen earlier in consult for 1. Elevated troponin I, which has started secondary to hypoxic respiratory failure and also [id number] renal failure and possibly right heart failure. 2. Vpgbl-zy-toorpkk respiratory failure and recurrent bilateral pleural effusions for which the patient has had a thoracentesis multiple times and also this admission had a right PleurX catheter placed in the right pleural space. This is draining about a liter every day, which is transudate and also there is a large left pleural effusion. The patient has cwxzxhzg-hz-rrwwgw pulmonary hypertension, right ventricular systolic pressure of 50-60 mmHg. She also has COPD, O2-dependent. She has a history of congestive heart failure secondary to volume overload, jnnzd-ap-ozgghwx diastolic heart failure, right heart failure. She also has a history of solitary kidney and her chronic kidney disease is stage III. She also has paroxysmal atrial fibrillation in the past, converted to sinus rhythm and the patient is on Eliquis. Today the patient states that her shortness of breath is slightly improved. Dr. Forman had seen her and had placed her on Lasix, since the patient is hyponatremic and thought the patient had congestive heart failure, acute. She has remained in sinus rhythm with no recurrence of atrial fibrillation. She has no anginal symptoms. There is no PND. There is orthopnea present. The patient states that today she ate a little bit more. The patient was a full code, but the sister who is the healthcare surrogate power of insurance attorney and the patient both want patient to be a DNR, which the nurse spoke to the attending physician, Dr. Morales and made the patient DNR. There is no syncope. There are no TIA or CVA symptoms. There is no bleeding on Coumadin. OBJECTIVE: GENERAL: On examination at present, the patient is in mild respiratory distress. The patient is frail and malnourished and appears chronically ill. VITAL SIGNS: She is afebrile with temperature of 98.4 degrees Fahrenheit, her pulse is 82 beats per minute, blood pressure is 128/54, respirations are 24 per minute, O2 sats are 95% on 5 L nasal cannula. HEENT: Head is atraumatic, normocephalic. Eyes: Pupils are equal, round and regular, reactive to light and accommodation. Extraocular movements are normal. There is no conjunctival pallor. There is no scleral icterus. Ears: Tympanic membranes are intact. External auditory canals are clear. Nose: There is no deviated nasal septum. There is no inflammation of the nasal mucous membranes. Mouth: Mucous membranes of the mouth are moist. Tongue is moist. There are no ulcers. There is no bleeding from the gums. Throat: There is no redness of the oropharynx. There are no exudates in the throat. SKIN: There is no skin rash. There are no skin lesions. There are no petechiae or ecchymosis. NECK: Supple. There is no definite JVD. Carotids are equal. There are no bruits. There is no lymphadenopathy. There is no goiter. Trachea is slightly deviated to the right. LUNGS: There is dullness for the most part in the left lung. The right lung shows acute right crackles. There is a PleurX catheter in the right pleural space, which is draining transudate. The rest of the lung areas where there is no dullness, there is diminished air entry, prolonged expiration and also there is hyperresonance on percussion. HEART: S1 and S2 are heard. There is no S3 gallop. There is no S4 gallop. There is a systolic murmur at the left sternal border in the apex. There is no rub. ABDOMEN: Soft, nontender. There is no hepatosplenomegaly. Bowel sounds are well heard. EXTREMITIES: Femorals are well heard. There are no femoral bruits. Leg pulses are well felt. There is no pedal edema. There is no DVT or cellulitis. There is no cyanosis or clubbing. CENTRAL NERVOUS SYSTEM: The patient is conscious, awake, alert, oriented x3 with no focal deficits. PSYCHIATRIC: The patient seems to be slightly anxious, but her judgment and insight are intact. Note that the patient is on the same medications 1. Xanax 0.125 p.o. q.8 hours p.r.n. 2. She is on Eliquis 2.5 mg p.o. q.12 hours. 3. She is on BuSpar 10 mg p.o. b.i.d. 4. Digoxin 0.125 mg p.o. daily. 5. She is on Cardizem 30 mg p.o. q.8 hours. 6. She is on Marinol 2.5 mg p.o. a.c. lunch. 7. She is on Lexapro 5 mg p.o. daily. 8. She is on Lasix 20 mg IV q.8 hours. 9. She is on lactobacillus acidophilus 500 mg p.o. b.i.d. 10. She is on Pravaz 15 mg p.o. q.6 a.m. 11. She is on Xopenex treatment 1.25 mg nebulizer treatment q.6 hours. 12. She is on Maalox Plus 15 mL p.o. q.6 hours p.r.n. 13. She is on Zofran 4 mg IV q.4 hours p.r.n. 14. She is on oxycodone/acetaminophen 1 tablet p.o. q.4 hours p.r.n. 15. She is on polyethylene glycol that is MiraLax 17 g p.o. daily. 16. She is on simvastatin 40 mg p.o. at bedtime. DIAGNOSTIC DATA: The chest x-ray shows a large left pleural effusion. The right shows some chronic interstitial changes. The monitor shows sinus rhythm. There are no ventricular arrhythmias. The patient's white count is 9900, hemoglobin is 7.8, hematocrit is 30.4, and platelet count is 298,000. The patient's sodium is slightly up at 122.7, potassium 4.9, chloride is 90, CO2 is 25. The patient's BUN is 59, creatinine is 1.36, GFR is reduced to 38 mL, which is chronic kidney disease stage III. The patient's glucose is 122. Her calcium is 9.1. The patient's 24-hour intake is 1178 and output is 900 mL. IMPRESSION: 1. ACUTE ON CHRONIC RESPIRATORY FAILURE, SLIGHTLY IMPROVED. The patient is on nebulizer treatments. 2. RECURRENT BILATERAL PLEURAL EFFUSION WITH A PLEURX CATHETER ON THE RIGHT SIDE AND A LARGE LEFT PLEURAL EFFUSION. This is probably a combination of acute on chronic diastolic heart failure and also the patient's solitary kidney and chronic kidney disease. The plan is to continue the patient on Lasix 20 mg IV q.8 hours. 3. POSSIBLY THE PATIENT ALSO HAS RIGHT HEART FAILURE, MOST LIKELY SECONDARY TO PULMONARY HYPERTENSION. 4. PULMONARY HYPERTENSION, MODERATE TO SEVERE WITH A RIGHT VENTRICULAR SYSTOLIC PRESSURE OF 50-60. 5. CHRONIC OBSTRUCTIVE PULMONARY DISEASE, O2 DEPENDENT. 6. HISTORY OF CONGESTIVE HEART FAILURE SECONDARY TO VOLUME OVERLOAD AND ACUTE ON CHRONIC DIASTOLIC LEFT HEART FAILURE AND ALSO ACUTE SYSTOLIC RIGHT HEART FAILURE. 7. HISTORY OF SOLITARY KIDNEY. 8. CHRONIC KIDNEY DISEASE STAGE III. 9. PAROXYSMAL ATRIAL FIBRILLATION. The patient is on Cardizem and also on Eliquis. 10. HYPERLIPIDEMIA. Continue simvastatin. 11. ANXIETY. Continue antianxiolytic agents. PLAN: The patient is a difficult case to treat. Would continue the patient on Lasix. Would recommend tapping the left pleural effusion, but tapping the left pleural effusion, it reaccumulates very fast. In the past, workup for the pleural effusion, there is no evidence of any malignancy. Note that the patient is a DNR. Continue present treatment. Discussed with the attending. 20 minutes spent on this patient including reviewing the records of this admission. Since I have already been on this case, this I am writing as a progress note. Note more than 50% of the time spent of the 20 minutes spent on direct patient care and also review of the records from this admission. Discussed with the attending physician and nurse taking care of the patient. Also discussed with the patient and patient's sister. Apart from the 20 minutes taken, there was some time taken for dictating this note at a later time. Thanking you. DICTATING PHYSICIAN: LOYDA WAGNER M.D. [id number] MOOSEY#: [id number] ID: [id number] JOB#: [id number] ACCT: [id number] cc: >
[2017-01-25] MEDS: LEVALBUTEROL HCL NEB 1.25 MG/3 ML AMPUL NEB SCH ×4 (02:45→20:05)
[2017-01-25 05:55] LABS: ABSOLUTE BASOPHILS # (AUTO) 0.1 10^3/uL (0.0-0.2); ABSOLUTE EOSINOPHILS # (AUTO) 0.4 10^3/uL (0.0-0.6); ABSOLUTE LYMPHOCYTES (AUTO) 1.3 10^3/uL (0.5-4.7); ABSOLUTE MONOCYTES (AUTO) 0.8 10^3/uL (0.1-1.4); BASOPHILS % (AUTO) 1.2 % (0-2); EOSINOPHILS % (AUTO) 4.8 % (0-6); HEMATOCRIT 30.5 % (36.0-47.0); HEMOGLOBIN 10.6 g/dL (12.0-15.5); HGB HCT DIFFERENCE 1.3; MEAN CORPUSCULAR HEMOGLOBIN 31.4 pg (27.0-33.4); MEAN CORPUSCULAR HGB CONC 34.9 g/dL (32.0-36.0); MEAN CORPUSCULAR VOLUME 90 fl (80-97); MONOCYTES % (AUTO) 9.5 % (3-13); RED BLOOD COUNT 3.38 10^6/uL (3.72-5.28); RED CELL DISTRIBUTION WIDTH 13.7 % (11.5-14.0); SEGMENTED NEUTROPHILS % (AUTO) 69.5 % (42-78); WHITE BLOOD COUNT 8.7 10^3/uL (4.0-10.5)
[2017-01-25 06:10] LABS: ANION GAP 8 (5-19); BLOOD UREA NITROGEN 53 mg/dL (7-20); CALCIUM 8.9 mg/dL (8.4-10.2); CARBON DIOXIDE 27 mmol/L (22-30); CHLORIDE 89 mmol/L (98-107); CREATININE RESULT 1.19 mg/dL (0.52-1.25); GLUCOSE 99 mg/dL (75-110); POTASSIUM 4.7 mmol/L (3.6-5.0); SODIUM 124.4 mmol/L (137-145)
[2017-01-25] MEDS: FUROSEMIDE INJ/PF 20 MG/2 ML SDV IV SCH ×3 (06:51→22:45)
[2017-01-25] MEDS: DILTIAZEM HCL 30 MG TABLET PO SCH ×3 (06:52→22:45)
[2017-01-25] MEDS: MAG HYDROX/AL HYDROX/SIMETH SUSP 30 ML UDCUP PO PRN (06:59)
[2017-01-25] MEDS: LANSOPRAZOLE 15 MG TAB.RAP.DR PO SCH (06:59)
[2017-01-25] MEDS: BUSPIRONE HCL 10 MG TABLET PO SCH ×2 (08:34→17:31)
[2017-01-25] MEDS: DIGOXIN 0.125 MG TABLET PO SCH (08:35)
[2017-01-25] MEDS: ESCITALOPRAM OXALATE 10 MG TABLET PO SCH (08:35)
[2017-01-25] MEDS: LACTOBACILLUS ACIDOPHILUS 250 MG TAB PO SCH ×2 (08:36→17:32)
[2017-01-25] MEDS: APIXABAN 2.5 MG TABLET PO SCH ×2 (08:40→22:45)
[2017-01-25] MEDS: POLYETHYLENE GLYCOL 3350 POWDER 17 GM/1 PACKET PO SCH (08:41)
[2017-01-25] MEDS: DOCUSATE SODIUM 100 MG CAPSULE PO SCH ×2 (08:41→17:32)
--- NOTE | 2017-01-25 10:02 | PDOC PROGRESS REPORT ---
Subjective Progress Note for:: 01/23/17 Subjective:: mild nausea this morning Physical Exam Vital Signs: Temp Pulse Resp BP Pulse Ox 97.5 F 59 L 20 110/58 L 98 01/25/17 08:12 01/25/17 08:12 01/25/17 08:12 01/25/17 08:12 01/25/17 08:12 Intake & Output 01/24/17 01/25/17 01/26/17 06:59 06:59 06:59 Intake Total 1178 499 Output Total 900 1000 Balance 278 -501 Weight 57.5 kg 57 kg General appearance: PRESENT: no acute distress, disheveled, hard of hearing, thin Head exam: PRESENT: atraumatic, normocephalic Eye exam: PRESENT: conjunctiva pale, EOMI Mouth exam: PRESENT: dry mucosa, neck supple Neck exam: ABSENT: carotid bruit, JVD, lymphadenopathy, thyromegaly Respiratory exam: PRESENT: prolonged expiratory phas, symmetrical, unlabored Cardiovascular exam: PRESENT: irregular rhythm Pulses: PRESENT: normal radial pulses GI/Abdominal exam: PRESENT: normal bowel sounds, soft. ABSENT: distended, guarding, mass, organolmegaly, rebound, tenderness Rectal exam: PRESENT: deferred Musculoskeletal exam: PRESENT: normal inspection Neurological exam: PRESENT: awake Skin exam: PRESENT: dry, warm Results Laboratory Results: 01/25/17 05:30 01/25/17 05:30 01/25/17 01/25/17 05:30 05:30 WBC 8.7 RBC 3.38 L Hgb 10.6 L Hct 30.5 L MCV 90 MCH 31.4 MCHC 34.9 RDW 13.7 Plt Count 319 Seg Neutrophils % 69.5 Lymphocytes % 15.0 Monocytes % 9.5 Eosinophils % 4.8 Basophils % 1.2 Absolute Neutrophils 6.0 Absolute Lymphocytes 1.3 Absolute Monocytes 0.8 Absolute Eosinophils 0.4 Absolute Basophils 0.1 Sodium 124.4 L Potassium 4.7 Chloride 89 L Carbon Dioxide 27 Anion Gap 8 BUN 53 H Creatinine 1.19 Est GFR ( Amer) 53 L Est GFR (Non-Af Amer) 44 L Glucose 99 Calcium 8.9 01/08/17 01/08/17 01/08/17 04:43 04:43 11:20 Creatine Kinase 35 36 CK-MB (CK-2) 2.85 Troponin I 0.138 03/29/17 03/29/17 03/29/17 11:20 16:45 16:45 Creatine Kinase 31 CK-MB (CK-2) 2.82 2.81 Troponin I 0.135 0.117 Impressions: Chest Ultrasound 01/09/17 00:00 IMPRESSION: BILATERAL PLEURAL EFFUSIONS, RIGHT GREATER THAN LEFT. Abdomen Ultrasound 01/20/17 00:00 IMPRESSION: Bilateral pleural effusions. Right renal atrophy. Modified Barium Swallow 01/23/17 00:00 IMPRESSION: NO EVIDENCE OF PENETRATION OR ASPIRATION. OTHER FINDINGS DESCRIBED.PLEASE SEE SPEECH PATHOLOGIST REPORT FOR OTHER FINDINGS AND RECOMMENDATIONS. Chest X-Ray 01/24/17 14:00 IMPRESSION: STABLE APPEARANCE OF THE CHEST. COPD. LARGE LEFT PLEURAL EFFUSION WITH UNDERLYING OPACITY OF THE LEFT LUNG APPEARS UNCHANGED. Assessment & Plan - Diagnosis (1) History of atrial fibrillation Is this a current diagnosis for this admission?: Yes (2) Recurrent pleural effusion on right Is this a current diagnosis for this admission?: Yes (3) COPD (chronic obstructive pulmonary disease) Qualifiers: COPD type: unspecified COPD Qualified Code(s): J44.9 - Chronic obstructive pulmonary disease, unspecified Is this a current diagnosis for this admission?: Yes
[2017-01-25] MEDS: OXYCODONE-ACETAMINOPHEN 5-325 MG TABLET PO PRN (12:49)
[2017-01-25] MEDS: DRONABINOL 2.5 MG CAPSULE PO SCH (12:49)
--- NOTE | 2017-01-25 15:47 | PDOC PROGRESS REPORT ---
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 ABSENT: scleral icterus Ear exam: PRESENT: normal external ear exam Mouth exam: PRESENT: moist, tongue midline Neck exam: PRESENT: full ROM. ABSENT: carotid bruit, JVD, lymphadenopathy, thyromegaly Cardiovascular exam: PRESENT: RRR, +S1, +S2. ABSENT: diastolic murmur, rubs, systolic murmur Pulses: PRESENT: normal dorsalis pedis pul, +2 pedal pulses bilateral Vascular exam: PRESENT: normal capillary refill GI/Abdominal exam: PRESENT: normal bowel sounds, soft. ABSENT: distended, guarding, mass, organolmegaly, rebound, tenderness Rectal exam: PRESENT: deferred Neurological exam: PRESENT: alert, awake, oriented to person, oriented to place , oriented to time, oriented to situation, CN II-XII grossly intact. ABSENT: motor sensory deficit Psychiatric exam: PRESENT: appropriate affect, normal mood. ABSENT: homicidal ideation, suicidal ideation Skin exam: PRESENT: dry, intact, warm. ABSENT: cyanosis, rash Results Laboratory Results: 01/25/17 05:30 01/25/17 05:30 01/25/17 01/25/17 05:30 05:30 WBC 8.7 RBC 3.38 L Hgb 10.6 L Hct 30.5 L MCV 90 MCH 31.4 MCHC 34.9 RDW 13.7 Plt Count 319 Seg Neutrophils % 69.5 Lymphocytes % 15.0 Monocytes % 9.5 Eosinophils % 4.8 Basophils % 1.2 Absolute Neutrophils 6.0 Absolute Lymphocytes 1.3 Absolute Monocytes 0.8 Absolute Eosinophils 0.4 Absolute Basophils 0.1 Sodium 124.4 L Potassium 4.7 Chloride 89 L Carbon Dioxide 27 Anion Gap 8 BUN 53 H Creatinine 1.19 Est GFR ( Amer) 53 L Est GFR (Non-Af Amer) 44 L Glucose 99 Calcium 8.9 01/08/17 01/08/17 01/08/17 04:43 04:43 11:20 Creatine Kinase 35 36 CK-MB (CK-2) 2.85 Troponin I 0.138 01/08/17 01/08/17 01/08/17 11:20 16:45 16:45 Creatine Kinase 31 CK-MB (CK-2) 2.82 2.81 Troponin I 0.135 0.117 Impressions: Chest Ultrasound 01/09/17 00:00 IMPRESSION: BILATERAL PLEURAL EFFUSIONS, RIGHT GREATER THAN LEFT. Abdomen Ultrasound 01/20/17 00:00 IMPRESSION: Bilateral pleural effusions. Right renal atrophy. Modified Barium Swallow 01/23/17 00:00 IMPRESSION: NO EVIDENCE OF PENETRATION OR ASPIRATION. OTHER FINDINGS DESCRIBED.PLEASE SEE SPEECH PATHOLOGIST REPORT FOR OTHER FINDINGS AND RECOMMENDATIONS. Chest X-Ray 01/24/17 14:00 IMPRESSION: STABLE APPEARANCE OF THE CHEST. COPD. LARGE LEFT PLEURAL EFFUSION WITH UNDERLYING OPACITY OF THE LEFT LUNG APPEARS UNCHANGED. Assessment & Plan - Diagnosis (1) CHF (congestive heart failure) Qualifiers: Congestive heart failure type: unspecified congestive heart failure type Congestive heart failure chronicity: acute on chronic Qualified Code(s ): I50.9 - Heart failure, unspecified Is this a current diagnosis for this admission?: Yes (2) Chronic renal insufficiency, stage II (mild) Is this a current diagnosis for this admission?: Yes (3) History of atrial fibrillation Is this a current diagnosis for this admission?: Yes (4) Pleural effusion Is this a current diagnosis for this admission?: Yes (5) Respiratory failure Qualifiers: Chronicity: acute Is this a current diagnosis for this admission?: Yes
--- NOTE | 2017-01-25 21:33 | PROGRESS NOTE E ---
Progress Note NAME: SALOME MOSLEY : 1940 AGE: 76Y DATE: 01/25/2017 ROOM: 336 SUBJECTIVE: Note that the patient was seen from 2:10 p.m. to 2:35 p.m. The patient states that she had severe pain on the right side when they tried to drain the fluid from the PleurX, and this was stopped. She still has shortness of breath. She has orthopnea, but no PND. There is no pedal edema. The patient remains in sinus rhythm with no recurrence of atrial fibrillation. There is no bleeding on Eliquis. There is no TIA or CVA symptoms. The patient denies any palpitations. OBJECTIVE: The patient appears to be in mild respiratory distress. The patient is frail and malnourished, and appears to be chronically ill. The patient is afebrile. Pulse is 87 beats per minute, blood pressure is 121/55, respirations are 22 per minute. O2 sats are 97% on nasal O2 at 4.5 liters per minute. Head is atraumatic/normocephalic. Eyes: Pupils equal, round, regular, reactive to light and accommodation. Extraocular movements are normal. There is no conjunctival pallor. There is no scleral icterus. Ears: Tympanic membranes are intact. External auditory canals are clear. Nose: There is no deviated nasal septum. There is no inflammation of the nasal mucous membranes. Mouth mucous membranes are moist. There are no ulcers. There is *------*. There is no redness of the oropharynx. There are no exudates in the throat. There is no skin rash. There are no skin lesions. There is no petechia or ecchymosis. Neck is supple. There is no JVD. Carotids are equal. There are no bruits. There is no lymphadenopathy. There is no goiter. Trachea is slightly deviated to the right. Lungs: There is dullness for most of the left lung. The right lung shows a few dry crackles. There is a PleurX catheter in the right pleural space. There is dullness also in the right lower lobe. The rest of the lungs shows where there is no dullness present, diminished air entry and prolonged expiration, and on auscultation. There is hyperresonance. There is no S3 gallop. There is a systolic murmur in the left sternal border in the apex. There is no rub. Abdomen is soft and nontender. There is no hepatosplenomegaly. Bowel sounds are positive. Extremities: Pulses are well felt. There are no femoral bruits. Leg pulses are well felt. There is no pedal edema. There is no DVT or cellulitis. There is no cyanosis or clubbing. POWER OPERATOR: The patient is conscious, awake, alert, oriented x3 with no focal deficit. Psychiatric: The patient is anxious, but does not appear to be agitated, although judgment and insight are intact. The patient's 24 hour intake is 499 mL, output is 1000 mL. The patient's white count is 8700, hemoglobin 10.6, hematocrit 30.5, platelet count 319,000. The patient's sodium is low at 124.4, potassium 4.7, chloride 89, CO2 is 27. The patient's BUN is 53, creatinine 1.19. GFR is improved to 44 mL. Glucose is 99. Note that the GFR reflects chronic kidney disease stage III, which is improved from a GFR of 38 mL yesterday. The patient's calcium is 8.9. ASSESSMENT: 1. Acute on chronic respiratory failure. The patient still continues to have effusions. 2. Recurrent bilateral effusion with a PleurX catheter on the right side. Right and left pleural effusions, probably a combination of acute on chronic diastolic heart failure and also with the patient's solitary kidney and chronic kidney disease stage III. Continue the patient on Lasix 20 mg IV q.8 hours. Will increase this to 20 mg IV q.6 hours since the patient has improved with the 20 mg IV q.8 hours. 3. *------* the patient has right heart failure most likely secondary to pulmonary hypertension. 4. Pulmonary hypertension, moderate to severe, with right ventricular systolic pressure of 50-60. 5. Chronic obstructive pulmonary disease. O2 dependent. 6. History of congestive heart failure secondary to volume overload and echogenic chronic diastolic left heart failure. Acute systolic right heart failure. 7. History of solitary kidney. 8. Chronic kidney disease stage III. 9. Paroxysmal atrial fibrillation. The patient is on Cardizem and also on Eliquis. 10. Hyperlipidemia. Continue simvastatin. 11. Anxiety. Continue anxiolytic agents. PLAN: The patient is a difficult case to treat. She has recurrent pleural effusions, most likely secondary to combination of renal failure and right heart failure. Note that in the past, workup of the pleural effusions showed that it was transudate and not an exudate, and there were no malignant cells. Continue respiratory treatments. Continue Cardizem. Continue Eliquis and keep a wilson for recurrence of atrial fibrillation. Will increase the patient's Lasix to 20 mg IV q.6 hours. Note that 20 minutes were spent on the patient. Will follow with you. Will recheck the patient's echo on Friday to see if the patient's right heart failure has worsened, or if the patient's pulmonary hypertension has worsened. The patient's prognosis is very grave and seems to be untreatable. Will discuss with the pluck separator to see if we can get an opinion from a tertiary [facility] pluck separator or pick up operator. 25 minutes were spent on this patient. More than 50% of time spent on direct patient care. Also, medications were reviewed and adjusted, and also discussed with the other providers on the case. Note that the patient also has hyponatremia. This may be dilutional, since the sodium did come up with diuresis. Will follow with you. DICTATING PHYSICIAN: LOYDA WAGNER M.D. [id number] GUSTAVO#: [id number] ID: [id number] JOB#: [id number] ACCT: [id number] cc: >
[2017-01-25] MEDS: ALPRAZOLAM 0.25 MG TABLET PO PRN (22:45)
[2017-01-25] MEDS: SIMVASTATIN 40 MG TABLET PO SCH (22:45)
[2017-01-26] MEDS: LEVALBUTEROL HCL NEB 1.25 MG/3 ML AMPUL NEB SCH ×4 (02:04→20:25)
[2017-01-26 05:30] LABS: ANION GAP 8 (5-19); BLOOD UREA NITROGEN 53 mg/dL (7-20); CALCIUM 8.9 mg/dL (8.4-10.2); CARBON DIOXIDE 27 mmol/L (22-30); CHLORIDE 92 mmol/L (98-107); CREATININE RESULT 1.32 mg/dL (0.52-1.25); GLUCOSE 99 mg/dL (75-110); POTASSIUM 4.7 mmol/L (3.6-5.0); SODIUM 127.2 mmol/L (137-145)
[2017-01-26] MEDS: FUROSEMIDE INJ/PF 20 MG/2 ML SDV IV SCH ×3 (05:55→22:06)
[2017-01-26] MEDS: MAG HYDROX/AL HYDROX/SIMETH SUSP 30 ML UDCUP PO PRN (05:56)
[2017-01-26] MEDS: DILTIAZEM HCL 30 MG TABLET PO SCH ×3 (05:56→22:05)
[2017-01-26] MEDS: LANSOPRAZOLE 15 MG TAB.RAP.DR PO SCH (05:56)
[2017-01-26] MEDS: LACTOBACILLUS ACIDOPHILUS 250 MG TAB PO SCH ×2 (08:45→17:25)
[2017-01-26] MEDS: ESCITALOPRAM OXALATE 10 MG TABLET PO SCH (08:45)
[2017-01-26] MEDS: DIGOXIN 0.125 MG TABLET PO SCH (08:45)
[2017-01-26] MEDS: BUSPIRONE HCL 10 MG TABLET PO SCH ×2 (08:46→17:25)
[2017-01-26] MEDS: APIXABAN 2.5 MG TABLET PO SCH ×2 (08:46→22:04)
[2017-01-26] MEDS: POLYETHYLENE GLYCOL 3350 POWDER 17 GM/1 PACKET PO SCH (08:47)
[2017-01-26] MEDS: DOCUSATE SODIUM 100 MG CAPSULE PO SCH ×2 (08:47→17:26)
[2017-01-26] MEDS: ALPRAZOLAM 0.25 MG TABLET PO PRN ×2 (12:56→22:04)
[2017-01-26] MEDS: OXYCODONE-ACETAMINOPHEN 5-325 MG TABLET PO PRN (12:57)
[2017-01-26] MEDS: DRONABINOL 2.5 MG CAPSULE PO SCH (12:57)
--- NOTE | 2017-01-26 16:18 | PDOC PROGRESS REPORT ---
Subjective Progress Note for:: 01/26/17 Subjective:: There is no new complaints Physical Exam Vital Signs: Temp Pulse Resp BP Pulse Ox 98.3 F 75 18 116/55 L 98 01/26/17 16:05 01/26/17 16:05 01/26/17 16:05 01/26/17 16:05 01/26/17 16:05 Intake & Output 01/25/17 01/26/17 01/27/17 06:59 06:59 06:59 Intake Total 499 790 440 Output Total 1000 1850 1700 Balance -501 -1060 -1260 Weight 57 kg 56.5 kg General appearance: PRESENT: no acute distress Eye exam: PRESENT: PERRLA Cardiovascular exam: PRESENT: +S1, +S2 Results Laboratory Results: 01/25/17 05:30 01/26/17 03:58 01/26/17 03:58 Sodium 127.2 L Potassium 4.7 Chloride 92 L Carbon Dioxide 27 Anion Gap 8 BUN 53 H Creatinine 1.32 H Est GFR ( Amer) 47 L Est GFR (Non-Af Amer) 39 L Glucose 99 Calcium 8.9 01/08/17 01/08/17 01/08/17 04:43 04:43 11:20 Creatine Kinase 35 36 CK-MB (CK-2) 2.85 Troponin I 0.138 01/08/17 01/08/17 01/08/17 11:20 16:45 16:45 Creatine Kinase 31 CK-MB (CK-2) 2.82 2.81 Troponin I 0.135 0.117 Impressions: Chest Ultrasound 01/09/17 00:00 IMPRESSION: BILATERAL PLEURAL EFFUSIONS, RIGHT GREATER THAN LEFT. Abdomen Ultrasound 01/20/17 00:00 IMPRESSION: Bilateral pleural effusions. Right renal atrophy. Modified Barium Swallow 01/23/17 00:00 IMPRESSION: NO EVIDENCE OF PENETRATION OR ASPIRATION. OTHER FINDINGS DESCRIBED.PLEASE SEE SPEECH PATHOLOGIST REPORT FOR OTHER FINDINGS AND RECOMMENDATIONS. Chest X-Ray 01/24/17 14:00 IMPRESSION: STABLE APPEARANCE OF THE CHEST. COPD. LARGE LEFT PLEURAL EFFUSION WITH UNDERLYING OPACITY OF THE LEFT LUNG APPEARS UNCHANGED. Assessment & Plan - Diagnosis (1) CHF (congestive heart failure) Qualifiers: Congestive heart failure type: unspecified congestive heart failure type Congestive heart failure chronicity: acute on chronic Qualified Code(s ): I50.9 - Heart failure, unspecified Is this a current diagnosis for this admission?: Yes (2) Chronic renal insufficiency, stage II (mild) Is this a current diagnosis for this admission?: Yes (3) History of atrial fibrillation Is this a current diagnosis for this admission?: Yes (4) Pleural effusion Is this a current diagnosis for this admission?: Yes (5) Respiratory failure Qualifiers: Chronicity: acute Is this a current diagnosis for this admission?: Yes
--- NOTE | 2017-01-26 19:44 | PROGRESS NOTE E ---
Progress Note NAME: SALOME MOSLEY : 1940 AGE: 76Y DATE: 01/26/2017 ROOM: 336 SUBJECTIVE: Note, I was with the patient from 1:50 p.m. to 2:20 p.m. Thirty minutes were spent on this patient. The patient states her shortness of breath is much improved. She has no chest pain. There is no PND. She still has orthopnea. She is eating a little better. She is not short of breath with oxygen at rest, but if she moves she becomes short of breath. There is no pedal edema. She remains in sinus rhythm, and there is no recurrence of atrial fibrillation. There are no ventricular arrhythmias seen. OBJECTIVE: GENERAL: On examination, the patient appears to be chronically ill and very frail built. VITAL SIGNS: Her temperature was 97.6 degrees Fahrenheit. Pulse was 87 beats per minute. Blood pressure 142/67. Respirations were 20 per minute. O2 saturations are 99% on 3 liters nasal cannula. HEAD: Atraumatic/normocephalic. EYES: Pupils are equal, round, regular, reactive to light and accommodation. Extraocular movements are normal. There is no conjunctival pallor. There is no scleral icterus. EARS: Tympanic membranes are intact. External auditory canals are clear. NOSE: There is no deviated nasal septum. There is no inflammation of the nasal mucous membranes. MOUTH: Mucous membranes of the mouth are moist. Tongue is moist. There are no ulcers. There is no bleeding from the gums. THROAT: There is no redness of the oropharynx. There are no exudates. SKIN: There are no skin lesions. There is no petechia or ecchymosis. There are no skin rashes. NECK: Supple. There is no JVD. Carotids are equal. There is no bruit. There is no lymphadenopathy. There is no goiter. Trachea is slightly shifted to the right. LUNGS: There is an area of large amount of dullness in the left side of the lung involving the lower lobe and the middle lobe. The right shows a few dry crackles, but there is no dullness. The patient has a Pleurx catheter in the right pleural space. Elsewhere, there is no dullness. There is hyperresonance present. There is diminished air entry and prolonged expiration elsewhere with absent breath sounds in the left lower lobe and left middle lobe. There is no rhonchi or wheezing. HEART: S1, S2 is heard. There is no S3 gallop. There is no S4 gallop. There is a systolic murmur in the left sternal border and the apex. There is no rub. ABDOMEN: Soft, nontender. There is no hepatosplenomegaly. Bowel sounds are well heard. EXTREMITIES: Femorals are well felt. There is no femoral bruit. Leg pulses are well felt. There is no pedal edema. There is no DVT or cellulitis. There is no cyanosis or clubbing. CENTRAL NERVOUS SYSTEM: The patient is conscious, awake, alert, oriented x3 with no focal deficit. PSYCHIATRIC: The patient appears to be slightly anxious but does not appear to be agitated. The patient's judgement and insight are intact. INTAKE AND OUTPUT: The patient's intake is 790 and the output is 1850 mL. DIAGNOSTIC DATA: With the increase in dialysis, the patient's sodium has come up to 127.2, potassium 4.7, chloride is 92, CO2 is 27, the patient's BUN is 53, creatinine is 1.32, GFR is reduced at 39 mL which is chronic kidney disease stage 3. The patient's glucose is 99. Her calcium is 8.9. IMPRESSION: 1. ACUTE ON CHRONIC RESPIRATORY FAILURE. The patient continues to have pleural effusion. There is a Pleurx catheter on the right side. On the left, there is a large pleural effusion. 2. RECURRENT BILATERAL PLEURAL EFFUSION WITH PLEURX CATHETER ON THE RIGHT SIDE. Right and left pleural effusion probably a combination of acute on chronic diastolic heart failure and also the patient's solitary kidney and chronic kidney disease stage 3. Note that the patient's Lasix will be increased from 20 q.6 h., we will change it to 40 mg IV q.8 h. Note that the patient's acute systolic right heart failure most likely secondary to pulmonary hypertension. 3. PULMONARY HYPERTENSION. Moderate to severe with right ventricular systolic pressure of 50 to 60. 4. CHRONIC COPD. O2 dependent. 5. HISTORY OF CONGESTIVE HEART FAILURE. Secondary to volume overload and also acute on chronic diastolic left heart failure and acute systolic right heart failure. 6. HISTORY OF SOLITARY KIDNEY. 7. CHRONIC KIDNEY DISEASE STAGE 3. 8. PAROXYSMAL ATRIAL FIBRILLATION. The patient is on Cardizem and also on Eliquis, will continue this. 9. HYPERLIPIDEMIA. Continue simvastatin. 10. ANXIETY. Continue anxiolytic medications. RECOMMENDATIONS: As mentioned up above. We will change the Lasix to 40 mg IV q.8 h. We will get an echocardiogram to see if her pulmonary hypertension has progressed. Also, we will try to get an ultrasound of the abdomen with the Dopplers to see if the patient has portal hypertension and pulmonary hypertension. Note, 30 minutes were spent on this patient, medications reviewed and discussed with other care giving providers on the case including the nurse. Discussed with the patient. Will follow with you. DICTATING PHYSICIAN: LOYDA WAGNER M.D. [id number] PHY#: [id number] ID: [id number] JOB#: [id number] ACCT: [id number] cc:LOYDA WAGNER M.D. >
[2017-01-26] MEDS: SIMVASTATIN 40 MG TABLET PO SCH (22:05)
[2017-01-27] MEDS: LEVALBUTEROL HCL NEB 1.25 MG/3 ML AMPUL NEB SCH ×4 (02:02→20:10)
[2017-01-27 05:19] LABS: ANION GAP 10 (5-19); BLOOD UREA NITROGEN 54 mg/dL (7-20); CARBON DIOXIDE 30 mmol/L (22-30); CHLORIDE 93 mmol/L (98-107); CREATININE RESULT 1.16 mg/dL (0.52-1.25); GLUCOSE 107 mg/dL (75-110); POTASSIUM 4.2 mmol/L (3.6-5.0); SODIUM 132.5 mmol/L (137-145)
[2017-01-27] MEDS: DILTIAZEM HCL 30 MG TABLET PO SCH ×3 (05:30→21:34)
[2017-01-27] MEDS: MAG HYDROX/AL HYDROX/SIMETH SUSP 30 ML UDCUP PO PRN (05:31)
[2017-01-27] MEDS: FUROSEMIDE INJ/PF 20 MG/2 ML SDV IV SCH ×3 (05:32→21:34)
[2017-01-27] MEDS: LANSOPRAZOLE 15 MG TAB.RAP.DR PO SCH (05:33)
--- NOTE | 2017-01-27 07:50 | PDOC PROGRESS REPORT ---
Subjective Progress Note for:: 01/27/17 Subjective:: Patient is currently doing fair patient's denied any chest pain denied any shortness of breath Patient's ultrasound of the abdomen so still pleural effusion and the cirrhosis of the liver Patient seen by Dr. Phoenix and increased the Lasix Physical Exam Vital Signs: Temp Pulse Resp BP Pulse Ox 98.3 F 77 19 130/59 H 98 01/27/17 04:00 01/27/17 04:00 01/27/17 04:00 01/27/17 04:00 01/27/17 04:00 Intake & Output 01/26/17 01/27/17 01/28/17 06:59 06:59 06:59 Intake Total 790 1042 Output Total 1850 1999 Balance -1060 -958 Weight 56.5 kg 53.5 kg General appearance: PRESENT: no acute distress, well-developed, well-nourished Head exam: PRESENT: atraumatic, normocephalic Eye exam: PRESENT: conjunctiva pink, EOMI, PERRLA. ABSENT: scleral icterus Ear exam: PRESENT: normal external ear exam Mouth exam: PRESENT: moist, tongue midline Neck exam: PRESENT: full ROM. ABSENT: carotid bruit, JVD, lymphadenopathy, thyromegaly Respiratory exam: PRESENT: clear to auscultation marylou Cardiovascular exam: PRESENT: RRR. ABSENT: diastolic murmur, rubs, systolic murmur Pulses: PRESENT: normal dorsalis pedis pul, +2 pedal pulses bilateral Vascular exam: PRESENT: normal capillary refill GI/Abdominal exam: PRESENT: normal bowel sounds, soft. ABSENT: distended, guarding, mass, organolmegaly, rebound, tenderness Rectal exam: PRESENT: deferred Neurological exam: PRESENT: alert, awake, oriented to person, oriented to place , oriented to time, oriented to situation, CN II-XII grossly intact. ABSENT: motor sensory deficit Psychiatric exam: PRESENT: appropriate affect, normal mood. ABSENT: homicidal ideation, suicidal ideation Skin exam: PRESENT: dry, intact, warm. ABSENT: cyanosis, rash Results Laboratory Results: 01/25/17 05:30 01/27/17 04:33 01/27/17 04:33 Sodium 132.5 L Potassium 4.2 Chloride 93 L Carbon Dioxide 30 Anion Gap 10 BUN 54 H Creatinine 1.16 Est GFR ( Amer) 55 L Est GFR (Non-Af Amer) 45 L Glucose 107 Calcium 9.0 01/08/17 01/08/17 01/08/17 04:43 04:43 11:20 Creatine Kinase 35 36 CK-MB (CK-2) 2.85 Troponin I 0.138 01/08/17 01/08/17 01/08/17 11:20 16:45 16:45 Creatine Kinase 31 CK-MB (CK-2) 2.82 2.81 Troponin I 0.135 0.117 Impressions: Chest Ultrasound 01/09/17 00:00 IMPRESSION: BILATERAL PLEURAL EFFUSIONS, RIGHT GREATER THAN LEFT. Modified Barium Swallow 01/23/17 00:00 IMPRESSION: NO EVIDENCE OF PENETRATION OR ASPIRATION. OTHER FINDINGS DESCRIBED.PLEASE SEE SPEECH PATHOLOGIST REPORT FOR OTHER FINDINGS AND RECOMMENDATIONS. Chest X-Ray 01/24/17 14:00 IMPRESSION: STABLE APPEARANCE OF THE CHEST. COPD. LARGE LEFT PLEURAL EFFUSION WITH UNDERLYING OPACITY OF THE LEFT LUNG APPEARS UNCHANGED. Abdomen Ultrasound 01/27/17 06:00 IMPRESSION: Stable. Right renal atrophy. Bilateral pleural effusions. Mild nodular hepatic contour consistent with clinical history of cirrhosis. Assessment & Plan - Diagnosis (1) CHF (congestive heart failure) Qualifiers: Congestive heart failure type: unspecified congestive heart failure type Congestive heart failure chronicity: acute on chronic Qualified Code(s ): I50.9 - Heart failure, unspecified Is this a current diagnosis for this admission?: YesPlan: Continues the Lasix 40 mg Schedule for the echocardiogram (2) Elevated troponin Is this a current diagnosis for this admission?: Yes (3) Recurrent pleural effusion on right Is this a current diagnosis for this admission?: YesPlan: Continues the current medications (4) Respiratory distress Is this a current diagnosis for this admission?: Yes (5) Atrial fibrillation Qualifiers: Atrial fibrillation type: paroxysmal Qualified Code(s): I48.0 - Paroxysmal atrial fibrillation Is this a current diagnosis for this admission?: YesPlan: Currently on Eliquis (6) COPD (chronic obstructive pulmonary disease) Qualifiers: COPD type: unspecified COPD Qualified Code(s): J44.9 - Chronic obstructive pulmonary disease, unspecified Is this a current diagnosis for this admission?: YesPlan: Patients require 2 L oxygen at home (7) Chronic kidney disease Qualifiers: Chronic kidney disease stage: stage 3 (moderate) Qualified Code(s): N18.3 - Chronic kidney disease, stage 3 (moderate) Is this a current diagnosis for this admission?: YesPlan: Currently stable (8) Shortness of breath Is this a current diagnosis for this admission?: Yes (9) Leukocytosis Qualifiers: Leukocytosis type: unspecified Qualified Code(s): D72.829 - Elevated white blood cell count, unspecified Is this a current diagnosis for this admission?: Yes (10) Hyponatremia Is this a current diagnosis for this admission?: YesPlan: Now the sodium is 132 - Time Time Spent with patient: 15-24 minutes Medications reviewed and adjusted accordingly: Yes Anticipated discharge: Home Within: Other - Inpatient Certification Medical Necessity: Need Close Monitoring Due to Risk of Patient Decompensation Post Hospital Care: D/C Appliance Technician Documentation - Plan Summary Plan Summary: Discussed with the patient and the sister both the current conditions
[2017-01-27] MEDS: BUSPIRONE HCL 10 MG TABLET PO SCH ×2 (09:17→17:57)
[2017-01-27] MEDS: LACTOBACILLUS ACIDOPHILUS 250 MG TAB PO SCH ×2 (09:17→17:56)
[2017-01-27] MEDS: ESCITALOPRAM OXALATE 10 MG TABLET PO SCH (09:18)
[2017-01-27] MEDS: DIGOXIN 0.125 MG TABLET PO SCH (09:18)
[2017-01-27] MEDS: DOCUSATE SODIUM 100 MG CAPSULE PO SCH ×2 (09:18→17:57)
[2017-01-27] MEDS: APIXABAN 2.5 MG TABLET PO SCH ×2 (09:19→21:33)
[2017-01-27] MEDS: POLYETHYLENE GLYCOL 3350 POWDER 17 GM/1 PACKET PO SCH (09:25)
[2017-01-27 09:40] LABS: ALANINE AMINOTRANSFERASE 32 U/L (9-52); ALBUMIN 2.5 g/dL (3.5-5.0); ALKALINE PHOSPHATASE 69 U/L (38-126); ASPARTATE AMINO TRANSFERASE 29 U/L (14-36); BILIRUBIN,DIRECT 0.1 mg/dL (0.0-0.4); BILIRUBIN,TOTAL 0.3 mg/dL (0.2-1.3); TOTAL PROTEIN 4.9 g/dL (6.3-8.2)
--- NOTE | 2017-01-27 10:37 | PDOC PROGRESS REPORT ---
Subjective Progress Note for:: 01/27/17 Subjective:: Denies nausea is better has improved p.o. intake Physical Exam Vital Signs: Temp Pulse Resp BP Pulse Ox 98.1 F 88 18 128/57 H 96 01/27/17 07:50 01/27/17 08:07 01/27/17 08:07 01/27/17 07:50 01/27/17 08:07 Intake & Output 01/26/17 01/27/17 01/28/17 06:59 06:59 06:59 Intake Total 790 1042 Output Total 1850 1999 Balance -1060 -958 Weight 56.5 kg 53.5 kg General appearance: PRESENT: no acute distress, disheveled, thin Head exam: PRESENT: atraumatic, normocephalic Eye exam: PRESENT: conjunctiva pale, EOMI Mouth exam: PRESENT: dry mucosa, neck supple Neck exam: ABSENT: carotid bruit, JVD, lymphadenopathy, thyromegaly Respiratory exam: PRESENT: decreased breath sounds, prolonged expiratory phas, rhonchi, symmetrical, unlabored Cardiovascular exam: PRESENT: irregular rhythm Pulses: PRESENT: normal radial pulses GI/Abdominal exam: PRESENT: normal bowel sounds, soft. ABSENT: distended, guarding, mass, organolmegaly, rebound, tenderness Rectal exam: PRESENT: deferred Gentrourinary exam: PRESENT: indwelling catheter Musculoskeletal exam: PRESENT: normal inspection Neurological exam: PRESENT: alert, awake Skin exam: PRESENT: dry, warm Results Laboratory Results: 01/25/17 05:30 01/27/17 04:33 01/27/17 01/27/17 04:33 04:33 Sodium 132.5 L Potassium 4.2 Chloride 93 L Carbon Dioxide 30 Anion Gap 10 BUN 54 H Creatinine 1.16 Est GFR ( Amer) 55 L Est GFR (Non-Af Amer) 45 L Glucose 107 Calcium 9.0 Total Bilirubin 0.3 AST 29 ALT 32 Alkaline Phosphatase 69 Total Protein 4.9 L Albumin 2.5 L 01/08/17 01/08/17 01/08/17 04:43 04:43 11:20 Creatine Kinase 35 36 CK-MB (CK-2) 2.85 Troponin I 0.138 01/08/17 01/08/17 01/08/17 11:20 16:45 16:45 Creatine Kinase 31 CK-MB (CK-2) 2.82 2.81 Troponin I 0.135 0.117 Impressions: Chest Ultrasound 01/09/17 00:00 IMPRESSION: BILATERAL PLEURAL EFFUSIONS, RIGHT GREATER THAN LEFT. Modified Barium Swallow 01/23/17 00:00 IMPRESSION: NO EVIDENCE OF PENETRATION OR ASPIRATION. OTHER FINDINGS DESCRIBED.PLEASE SEE SPEECH PATHOLOGIST REPORT FOR OTHER FINDINGS AND RECOMMENDATIONS. Chest X-Ray 01/27/17 00:00 IMPRESSION: Relatively stable chest. Left pleural fluid and associated airspace disease/ volume loss as before. Abdomen Ultrasound 01/27/17 06:00 IMPRESSION: Stable. Right renal atrophy. Bilateral pleural effusions. Mild nodular hepatic contour consistent with clinical history of cirrhosis. Assessment & Plan - Diagnosis (1) History of atrial fibrillation Is this a current diagnosis for this admission?: Yes (2) Recurrent pleural effusion on right Is this a current diagnosis for this admission?: Yes (3) COPD (chronic obstructive pulmonary disease) Qualifiers: COPD type: unspecified COPD Qualified Code(s): J44.9 - Chronic obstructive pulmonary disease, unspecified Is this a current diagnosis for this admission?: Yes
[2017-01-27] MEDS: DRONABINOL 2.5 MG CAPSULE PO SCH (12:09)
[2017-01-27] MEDS: OXYCODONE-ACETAMINOPHEN 5-325 MG TABLET PO PRN (12:09)
[2017-01-27] MEDS: SIMVASTATIN 40 MG TABLET PO SCH (21:33)
[2017-01-27] MEDS: ALPRAZOLAM 0.25 MG TABLET PO PRN (21:34)
--- NOTE | 2017-01-27 21:44 | PROGRESS NOTE E ---
Progress Note NAME: SALOME MOSLEY : 1940 AGE: 76Y DATE: 01/27/2017 ROOM: 336 The patient was seen from 12:40 p.m. to 1:10 p.m. SUBJECTIVE: The patient states her shortness of breath is much better but still she has orthopnea, but there is no PND. There is no chest pain or discomfort. There are no palpitations. The patient remains in sinus rhythm. There is no bleeding on Eliquis. There are no TIA or CVA symptoms. OBJECTIVE: GENERAL: On examination, the patient appears to be chronically ill and very frail and ill nourished. VITAL SIGNS: She is afebrile with a temperature of 98.1 degrees Fahrenheit orally. Pulse is 87 beats per minute. Blood pressure 116/55. Respirations are 20 per minute. O2 saturations are 96% on 2 L nasal cannula. HEENT: Head is atraumatic, normocephalic. Eyes: Pupils are equal, round, regular, reactive to light and accommodation. Extraocular movements are normal. There is no conjunctival pallor. There is no scleral icterus. Ears: Tympanic membranes are intact. External auditory canals are clear. Nose: There is no deviated nasal septum. There is no inflammation of the nasal mucosa. Mouth: Mucous membranes of the mouth are moist. Tongue is moist. There are no ulcers. There is no bleeding from the gums. Throat: There is no redness of the oropharynx. There are no exudates. SKIN: There are no skin lesions. There are no petechiae or ecchymosis. There are no skin rashes. NECK: Supple. There is no JVD. Carotids are equal; there is no bruit. There is no thyromegaly. There is no goiter. Trachea is slightly to the right. LUNGS: There is a large amount of dullness in the left lower lobe and left middle lobe. The right shows a few dry crackles. There is a Pleurx catheter in the right pleural space. There is diminished air entry and prolonged expiration elsewhere, and elsewhere, there is hyperresonance on percussion. There is no rhonchi or wheezing. CARDIOVASCULAR: S1, S2 are heard. There is no S3 gallop. There is no S4 gallop. There is systolic murmur in the left sternal border and the apex. There is no rub. ABDOMEN: Soft, nontender. There is no hepatosplenomegaly. Bowel sounds are well heard. EXTREMITIES: Femorals are well heard. There are no femoral bruits. Leg pulses are well heard. There is no pedal edema. There is no cyanosis or clubbing. CENTRAL NERVOUS SYSTEM: The patient is conscious, awake, alert, oriented x3 with no focal deficit. PSYCHIATRIC: The patient appears to be slightly anxious but does not appear to be agitated. The patient's judgment and insight are intact. The patient's 24-hour intake is 1042 mL; output is 2000 mL. DIAGNOSTIC TESTS: Note *------* she had an echocardiogram in the hospital in November. We will try to get the report of that. The patient's abdominal ultrasound suggests that the patient's liver is nodular suggestive of cirrhosis. Note in 2% of the cases there can be pleural effusions without ascites. At this point, the fact that the patient has chronic kidney disease and also right heart failure/congestive heart failure so the pleural effusions are multifactorial. The patient's sodium has come up to 132.5, potassium 4.2, chloride 93. The patient's CO2 is 30. The patient's BUN is 34; creatinine is 1.16. GFR has come up to 45 but still chronic kidney disease stage 3. The patient's glucose is 107. Liver function tests are normal. Her total protein is 4.9. Albumin is 2.5. ASSESSMENT: 1. ACUTE ON CHRONIC RESPIRATORY FAILURE. The patient continues to have pleural effusion. As mentioned earlier, it is multifactorial secondary to right heart failure/congestive heart failure secondary to decreased albumin, chronic kidney disease, and also cirrhosis of the liver. This is very difficult to treat the patient's effusion. 2. RECURRENT BILATERAL EFFUSION WITH PLEURX CATHETER ON THE RIGHT SIDE. Later, would recommend that the patient have Pleurx catheter on the left side. This would be supportive care. 3. PULMONARY HYPERTENSION, MODERATE TO SEVERE, WITH RIGHT VENTRICULAR SYSTOLIC PRESSURE OF 50-60. The patient states that she had an echocardiogram in November. We will see what the results of this are. 4. CHRONIC OBSTRUCTIVE PULMONARY DISEASE O2 DEPENDENT. 5. PAROXYSMAL ATRIAL FIBRILLATION, AT PRESENT IN SINUS RHYTHM. Patient on Eliquis. No TIA or CVA. No bleeding. 6. HISTORY OF CONGESTIVE HEART FAILURE SECONDARY TO VOLUME OVERLOAD AND ALSO CHRONIC DIASTOLIC HEART FAILURE AND ACUTE SYSTOLIC RIGHT HEART FAILURE SECONDARY TO PULMONARY HYPERTENSION. 7. HISTORY OF SOLITARY KIDNEY. 8. CHRONIC KIDNEY DISEASE STAGE 3. 9. HYPERLIPIDEMIA. 10. ANXIETY. 11. CIRRHOSIS OF THE LIVER. No definite evidence of portal hypertension or Budd-Chiari syndrome. RECOMMENDATIONS: 1. Continue Lasix at 40 mg IV q.8 hours. 2. Continue Eliquis. 3. Continue other current medications including respiratory treatment. 4. Continue drainage from the right Pleurx catheter. 5. Ultrasound findings were discussed with the patient. TIME SPENT: Note 30 minutes spent on this patient with more than 50% of the time spent in direct patient care, and medications have been reviewed. We will follow with you. PLAN: @ DICTATING PHYSICIAN: LOYDA WAGNER M.D. [id number] PHY#: [id number] ID: [id number] JOB#: [id number] ACCT: [id number] cc: >
[2017-01-28] MEDS: LEVALBUTEROL HCL NEB 1.25 MG/3 ML AMPUL NEB SCH ×4 (02:03→20:03)
[2017-01-28] MEDS: FUROSEMIDE INJ/PF 20 MG/2 ML SDV IV SCH (05:11)
[2017-01-28] MEDS: DILTIAZEM HCL 30 MG TABLET PO SCH ×3 (05:11→21:29)
[2017-01-28] MEDS: LANSOPRAZOLE 15 MG TAB.RAP.DR PO SCH (05:12)
[2017-01-28] MEDS: MAG HYDROX/AL HYDROX/SIMETH SUSP 30 ML UDCUP PO PRN ×2 (05:23→21:04)
[2017-01-28 06:59] LABS: ABSOLUTE BASOPHILS # (AUTO) 0.1 10^3/uL (0.0-0.2); ABSOLUTE EOSINOPHILS # (AUTO) 0.4 10^3/uL (0.0-0.6); ABSOLUTE LYMPHOCYTES (AUTO) 1.1 10^3/uL (0.5-4.7); ABSOLUTE MONOCYTES (AUTO) 0.6 10^3/uL (0.1-1.4); ABSOLUTE NEUT (AUTO) 5.6 10^3/uL (1.7-8.2); BASOPHILS % (AUTO) 1.2 % (0-2); HEMATOCRIT 31.5 % (36.0-47.0); HEMOGLOBIN 10.9 g/dL (12.0-15.5); HGB HCT DIFFERENCE 1.2; LYMPHOCYTES % (AUTO) 13.8 % (13-45); MEAN CORPUSCULAR HEMOGLOBIN 31.5 pg (27.0-33.4); MEAN CORPUSCULAR HGB CONC 34.7 g/dL (32.0-36.0); MEAN CORPUSCULAR VOLUME 91 fl (80-97); MONOCYTES % (AUTO) 7.6 % (3-13); RED BLOOD COUNT 3.47 10^6/uL (3.72-5.28); RED CELL DISTRIBUTION WIDTH 13.8 % (11.5-14.0); SEGMENTED NEUTROPHILS % (AUTO) 72.4 % (42-78); WHITE BLOOD COUNT 7.8 10^3/uL (4.0-10.5)
[2017-01-28 07:22] LABS: ANION GAP 8 (5-19); BLOOD UREA NITROGEN 55 mg/dL (7-20); CARBON DIOXIDE 34 mmol/L (22-30); CHLORIDE 93 mmol/L (98-107); CREATININE RESULT 1.25 mg/dL (0.52-1.25); GLUCOSE 103 mg/dL (75-110); POTASSIUM 3.7 mmol/L (3.6-5.0); SODIUM 134.8 mmol/L (137-145)
--- NOTE | 2017-01-28 08:04 | PDOC PROGRESS REPORT ---
Subjective Progress Note for:: 01/28/17 Subjective:: Patient's currently doing fair denied any chest pain denied any shortness of the breath Sodium level is 134 Patient's pleural fluid is still drinking 7 50 mL yesterday Physical Exam Vital Signs: Temp Pulse Resp BP Pulse Ox 97.8 F 72 19 107/47 L 98 01/28/17 04:00 01/28/17 07:00 01/28/17 04:00 01/28/17 04:00 01/28/17 04:00 Intake & Output 01/27/17 01/28/17 01/29/17 06:59 06:59 06:59 Intake Total 1042 1135 Output Total 2000 750 Balance -958 385 Weight 53.5 kg 51.8 kg General appearance: PRESENT: no acute distress, well-developed, well-nourished Head exam: PRESENT: atraumatic, normocephalic Eye exam: PRESENT: conjunctiva pink, EOMI, PERRLA. ABSENT: scleral icterus Ear exam: PRESENT: normal external ear exam Mouth exam: PRESENT: moist, tongue midline Neck exam: PRESENT: full ROM. ABSENT: carotid bruit, JVD, lymphadenopathy, thyromegaly Respiratory exam: PRESENT: decreased breath sounds Cardiovascular exam: PRESENT: RRR. ABSENT: diastolic murmur, rubs, systolic murmur Pulses: PRESENT: normal dorsalis pedis pul, +2 pedal pulses bilateral Vascular exam: PRESENT: normal capillary refill GI/Abdominal exam: PRESENT: normal bowel sounds, soft. ABSENT: distended, guarding, mass, organolmegaly, rebound, tenderness Rectal exam: PRESENT: deferred Neurological exam: PRESENT: alert, awake, oriented to person, oriented to place , oriented to time, oriented to situation, CN II-XII grossly intact. ABSENT: motor sensory deficit Psychiatric exam: PRESENT: appropriate affect, normal mood. ABSENT: homicidal ideation, suicidal ideation Skin exam: PRESENT: dry, intact, warm. ABSENT: cyanosis, rash Results Laboratory Results: 01/28/17 06:47 01/28/17 06:47 01/27/17 01/28/17 01/28/17 04:33 06:47 06:47 WBC 7.8 RBC 3.47 L Hgb 10.9 L Hct 31.5 L MCV 91 MCH 31.5 MCHC 34.7 RDW 13.8 Plt Count 357 Seg Neutrophils % 72.4 Lymphocytes % 13.8 Monocytes % 7.6 Eosinophils % 5.0 Basophils % 1.2 Absolute Neutrophils 5.6 Absolute Lymphocytes 1.1 Absolute Monocytes 0.6 Absolute Eosinophils 0.4 Absolute Basophils 0.1 Sodium 134.8 L Potassium 3.7 Chloride 93 L Carbon Dioxide 34 H Anion Gap 8 BUN 55 H Creatinine 1.25 Est GFR ( Amer) 50 L Est GFR (Non-Af Amer) 42 L Glucose 103 Calcium 9.0 Total Bilirubin 0.3 AST 29 ALT 32 Alkaline Phosphatase 69 Total Protein 4.9 L Albumin 2.5 L 01/08/17 01/08/17 01/08/17 04:43 04:43 11:20 Creatine Kinase 35 36 CK-MB (CK-2) 2.85 Troponin I 0.138 01/08/17 01/08/17 01/08/17 11:20 16:45 16:45 Creatine Kinase 31 CK-MB (CK-2) 2.82 2.81 Troponin I 0.135 0.117 Impressions: Chest Ultrasound 01/09/17 00:00 IMPRESSION: BILATERAL PLEURAL EFFUSIONS, RIGHT GREATER THAN LEFT. Modified Barium Swallow 01/23/17 00:00 IMPRESSION: NO EVIDENCE OF PENETRATION OR ASPIRATION. OTHER FINDINGS DESCRIBED.PLEASE SEE SPEECH PATHOLOGIST REPORT FOR OTHER FINDINGS AND RECOMMENDATIONS. Chest X-Ray 01/27/17 00:00 IMPRESSION: Relatively stable chest. Left pleural fluid and associated airspace disease/ volume loss as before. Abdomen Ultrasound 01/27/17 06:00 IMPRESSION: Stable. Right renal atrophy. Bilateral pleural effusions. Mild nodular hepatic contour consistent with clinical history of cirrhosis. Assessment & Plan - Diagnosis (1) CHF (congestive heart failure) Qualifiers: Congestive heart failure type: unspecified congestive heart failure type Congestive heart failure chronicity: acute on chronic Qualified Code(s ): I50.9 - Heart failure, unspecified Is this a current diagnosis for this admission?: YesPlan: Right-sided heart failure continues the Lasix (2) Elevated troponin Is this a current diagnosis for this admission?: Yes (3) Recurrent pleural effusion on right Is this a current diagnosis for this admission?: YesPlan: From multifactorial from the right sided heart failure and cardiac cirrhosis and chronic kidney disease (4) Respiratory distress Is this a current diagnosis for this admission?: YesPlan: PICC patient currently on a BiPAP will repeat the ABG and continues to monitor the patient (5) Atrial fibrillation Qualifiers: Atrial fibrillation type: paroxysmal Qualified Code(s): I48.0 - Paroxysmal atrial fibrillation Is this a current diagnosis for this admission?: YesPlan: Currently on Eliquis (6) COPD (chronic obstructive pulmonary disease) Qualifiers: COPD type: unspecified COPD Qualified Code(s): J44.9 - Chronic obstructive pulmonary disease, unspecified Is this a current diagnosis for this admission?: YesPlan: Patients require 2 L oxygen at home (7) Chronic kidney disease Qualifiers: Chronic kidney disease stage: stage 3 (moderate) Qualified Code(s): N18.3 - Chronic kidney disease, stage 3 (moderate) Is this a current diagnosis for this admission?: YesPlan: Currently stable (8) Shortness of breath Is this a current diagnosis for this admission?: Yes (9) Leukocytosis Qualifiers: Leukocytosis type: unspecified Qualified Code(s): D72.829 - Elevated white blood cell count, unspecified Is this a current diagnosis for this admission?: Yes (10) Hyponatremia Is this a current diagnosis for this admission?: YesPlan: Back to the normal - Time Time Spent with patient: 15-24 minutes Medications reviewed and adjusted accordingly: Yes Anticipated discharge: Home Within: Other - Inpatient Certification Medical Necessity: Need Close Monitoring Due to Risk of Patient Decompensation Post Hospital 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 Phoenix [facility] the IV Lasix to by mouth Lasix. Discussed with the patient and the family with the all the test results and the patient's chronic conditions
[2017-01-28] MEDS: DIGOXIN 0.125 MG TABLET PO SCH (09:34)
[2017-01-28] MEDS: ESCITALOPRAM OXALATE 10 MG TABLET PO SCH (09:34)
[2017-01-28] MEDS: BUSPIRONE HCL 10 MG TABLET PO SCH ×2 (09:34→17:27)
[2017-01-28] MEDS: LACTOBACILLUS ACIDOPHILUS 250 MG TAB PO SCH ×2 (09:35→17:27)
[2017-01-28] MEDS: APIXABAN 2.5 MG TABLET PO SCH ×2 (09:36→21:29)
[2017-01-28] MEDS: POLYETHYLENE GLYCOL 3350 POWDER 17 GM/1 PACKET PO SCH (09:40)
[2017-01-28] MEDS: DOCUSATE SODIUM 100 MG CAPSULE PO SCH ×2 (09:40→17:30)
[2017-01-28] MEDS: DRONABINOL 2.5 MG CAPSULE PO SCH (11:58)
[2017-01-28] MEDS: OXYCODONE-ACETAMINOPHEN 5-325 MG TABLET PO PRN (11:58)
[2017-01-28] MEDS ORDERED: TORSEMIDE 20 MG TABLET PO ONE (15:00)
--- NOTE | 2017-01-28 19:11 | PDOC PROGRESS REPORT ---
Subjective Progress Note for:: 01/28/17 Subjective:: she is better has improved p.o. intake Physical Exam Vital Signs: Temp Pulse Resp BP Pulse Ox 98.1 F 84 19 117/57 L 98 01/28/17 15:13 01/28/17 15:13 01/28/17 15:13 01/28/17 15:13 01/28/17 15:13 Intake & Output 01/27/17 01/28/17 01/29/17 06:59 06:59 06:59 Intake Total 1042 1135 479 Output Total 2000 750 1000 Balance -958 385 -521 Weight 53.5 kg 51.8 kg General appearance: PRESENT: no acute distress, cooperative, disheveled, hard of hearing, thin Head exam: PRESENT: atraumatic, normocephalic Eye exam: PRESENT: conjunctiva pale, EOMI Mouth exam: PRESENT: dry mucosa, neck supple Neck exam: ABSENT: carotid bruit, JVD, lymphadenopathy, thyromegaly Respiratory exam: PRESENT: decreased breath sounds, prolonged expiratory phas, rales, rhonchi, symmetrical, unlabored, other - pleuradex r latera chest wall bs decreased most r base r lateral chest Cardiovascular exam: PRESENT: irregular rhythm Pulses: PRESENT: normal radial pulses GI/Abdominal exam: PRESENT: normal bowel sounds, soft. ABSENT: distended, guarding, mass, organolmegaly, rebound, tenderness Rectal exam: PRESENT: deferred Gentrourinary exam: PRESENT: indwelling catheter Neurological exam: PRESENT: alert, awake Skin exam: PRESENT: dry, warm Results Laboratory Results: 01/28/17 06:47 01/28/17 06:47 01/28/17 01/28/17 06:47 06:47 WBC 7.8 RBC 3.47 L Hgb 10.9 L Hct 31.5 L MCV 91 MCH 31.5 MCHC 34.7 RDW 13.8 Plt Count 357 Seg Neutrophils % 72.4 Lymphocytes % 13.8 Monocytes % 7.6 Eosinophils % 5.0 Basophils % 1.2 Absolute Neutrophils 5.6 Absolute Lymphocytes 1.1 Absolute Monocytes 0.6 Absolute Eosinophils 0.4 Absolute Basophils 0.1 Sodium 134.8 L Potassium 3.7 Chloride 93 L Carbon Dioxide 34 H Anion Gap 8 BUN 55 H Creatinine 1.25 Est GFR ( Amer) 50 L Est GFR (Non-Af Amer) 42 L Glucose 103 Calcium 9.0 01/08/17 01/08/17 01/08/17 04:43 04:43 11:20 Creatine Kinase 35 36 CK-MB (CK-2) 2.85 Troponin I 0.138 01/08/17 01/08/17 01/08/17 11:20 16:45 16:45 Creatine Kinase 31 CK-MB (CK-2) 2.82 2.81 Troponin I 0.135 0.117 Impressions: Chest Ultrasound 01/09/17 00:00 IMPRESSION: BILATERAL PLEURAL EFFUSIONS, RIGHT GREATER THAN LEFT. Modified Barium Swallow 01/23/17 00:00 IMPRESSION: NO EVIDENCE OF PENETRATION OR ASPIRATION. OTHER FINDINGS DESCRIBED.PLEASE SEE SPEECH PATHOLOGIST REPORT FOR OTHER FINDINGS AND RECOMMENDATIONS. Chest X-Ray 01/27/17 00:00 IMPRESSION: Relatively stable chest. Left pleural fluid and associated airspace disease/ volume loss as before. Abdomen Ultrasound 01/27/17 06:00 IMPRESSION: Stable. Right renal atrophy. Bilateral pleural effusions. Mild nodular hepatic contour consistent with clinical history of cirrhosis. Assessment & Plan - Diagnosis (1) History of atrial fibrillation Is this a current diagnosis for this admission?: Yes (2) Recurrent pleural effusion on right Is this a current diagnosis for this admission?: Yes (3) COPD (chronic obstructive pulmonary disease) Qualifiers: COPD type: unspecified COPD Qualified Code(s): J44.9 - Chronic obstructive pulmonary disease, unspecified Is this a current diagnosis for this admission?: Yes
--- NOTE | 2017-01-28 19:58 | PDOC PROGRESS REPORT ---
Subjective Progress Note for:: 01/28/17 Subjective:: Patient seems to be doing better with gradual improvement. Pt is denying any chest arm or neck discomfort. Patient denying any PND, orthopnea. Patient denied any sustained palpitations, dizziness, syncope, near syncope. Patient denying any fever chills. Patient denying any other significant discomfort. Patient is maintaining sinus rhythm. Patient has a right Pleurx catheter. Pedal edema has improved. Review of systems: Rest review of systems negative. Medications: Medications have been reviewed. Physical Exam Vital Signs: Temp Pulse Resp BP Pulse Ox 98.1 F 84 19 117/57 L 98 01/28/17 15:13 01/28/17 15:13 01/28/17 15:13 01/28/17 15:13 01/28/17 15:13 Intake & Output 01/27/17 01/28/17 01/29/17 06:59 06:59 06:59 Intake Total 1042 1135 479 Output Total 2000 750 1000 Balance -958 385 -521 Weight 53.5 kg 51.8 kg Exam: GENERAL: well-nourished and in no acute distress. Alert and oriented x3 HEAD: Atraumatic, normocephalic. EYES: Pupils equal round and reactive to light, extraocular movements intact, sclera anicteric, conjunctiva are normal. ENT: TMs normal, nares patent, oropharynx clear without exudates. Moist mucous membranes. No oral ulcerations or bleeding gums noted NECK: supple without lymphadenopathy. Trachea is central. No cervical or axillary lymphadenopathy noted. Carotids are 2+, JVD WNL LUNGS: Respiration seems nonlabored, no significant accessory muscle action noted. Patient noted to have a Pleurx catheter on the right side. Bilateral basal dullness noted. Bilateral mild diminished breath sounds noted. Lungs are otherwise clear. CHEST: Palpation of the chest wall shows no significant chest wall tenderness. No other significant abnormalities noted. HEART: [employer], No PSH, 1/6 SONJA aortic area, 1/6 zayas systolic murmur mitral area, no rubs, no gallops. ABDOMEN: Soft, no significant tenderness appreciated, normoactive bowel sounds. No guarding, no rebound. No rigidity noted . No masses appreciated. EXTREMITIES: Pedal pulses are 1-2+, no calf tenderness noted. No clubbing or cyanosis.1+ pedal edema noted NEUROLOGICAL: Focused neurological exam showed no significant neurologic deficit. Normal speech, no focal weakness appreciated. PSYCH: Normal mood, normal affect. Judgment and insight within normal limits. SKIN: No significant ecchymosis, rash, ulcerations or signs of pruritus noted. MUSCULOSKELETAL EXAM: No significant joint swelling noted. Results Laboratory Results: 01/28/17 06:47 01/28/17 06:47 01/28/17 01/28/17 06:47 06:47 WBC 7.8 RBC 3.47 L Hgb 10.9 L Hct 31.5 L MCV 91 MCH 31.5 MCHC 34.7 RDW 13.8 Plt Count 357 Seg Neutrophils % 72.4 Lymphocytes % 13.8 Monocytes % 7.6 Eosinophils % 5.0 Basophils % 1.2 Absolute Neutrophils 5.6 Absolute Lymphocytes 1.1 Absolute Monocytes 0.6 Absolute Eosinophils 0.4 Absolute Basophils 0.1 Sodium 134.8 L Potassium 3.7 Chloride 93 L Carbon Dioxide 34 H Anion Gap 8 BUN 55 H Creatinine 1.25 Est GFR ( Amer) 50 L Est GFR (Non-Af Amer) 42 L Glucose 103 Calcium 9.0 01/08/17 01/08/17 01/08/17 04:43 04:43 11:20 Creatine Kinase 35 36 CK-MB (CK-2) 2.85 Troponin I 0.138 01/08/17 01/08/17 01/08/17 11:20 16:45 16:45 Creatine Kinase 31 CK-MB (CK-2) 2.82 2.81 Troponin I 0.135 0.117 Impressions: Chest Ultrasound 01/09/17 00:00 IMPRESSION: BILATERAL PLEURAL EFFUSIONS, RIGHT GREATER THAN LEFT. Modified Barium Swallow 01/23/17 00:00 IMPRESSION: NO EVIDENCE OF PENETRATION OR ASPIRATION. OTHER FINDINGS DESCRIBED.PLEASE SEE SPEECH PATHOLOGIST REPORT FOR OTHER FINDINGS AND RECOMMENDATIONS. Chest X-Ray 01/27/17 00:00 IMPRESSION: Relatively stable chest. Left pleural fluid and associated airspace disease/ volume loss as before. Abdomen Ultrasound 01/27/17 06:00 IMPRESSION: Stable. Right renal atrophy. Bilateral pleural effusions. Mild nodular hepatic contour consistent with clinical history of cirrhosis. Assessment & Plan - Diagnosis (1) CHF (congestive heart failure) Qualifiers: Congestive heart failure type: diastolic Congestive heart failure chronicity: acute on chronic Qualified Code(s): I50.33 - Acute on chronic diastolic (congestive) heart failure Is this a current diagnosis for this admission?: Yes (2) CKD (chronic kidney disease), stage III Is this a current diagnosis for this admission?: Yes (3) History of atrial fibrillation Is this a current diagnosis for this admission?: Yes (4) COPD (chronic obstructive pulmonary disease) Qualifiers: COPD type: unspecified COPD Qualified Code(s): J44.9 - Chronic obstructive pulmonary disease, unspecified Is this a current diagnosis for this admission?: Yes (5) Pleural effusion Is this a current diagnosis for this admission?: Yes - Notes Notes: CHF: Acute on chronic, diastolic plus right-sided. Patient has been on Lasix drip. Have switched patient to Demadex After discussion with Dr. Morales. Patient may benefit from CPAP therapy but so far she has declined to have a sleep study. Patient would benefit from CHF pathway with salt and fluid restriction. Chronic kidney disease: Currently stable. History of atrial fibrillation: Patient has been maintaining sinus rhythm. Continue chronic anticoagulation. COPD: Patient seems to have significant COPD and also significant pulmonary hypertension. Currently stable. Recommend oxygen supplementation. Bilateral pleural effusion: Agree with Pleurx catheter drainage. Continue diuretic therapy. Patient to report any further problems. I'm told that patient is going to move to [facility] with her sister. - Time Time with patient: Greater than 35 minutes - CODE STATUS was discussed, patient remains full code. Surrogate decision-maker elevation sister. Multiple medical problems were addressed.More than 50% of the time spent coordinating care, discussing management plans with involved caregivers. Management plans discussed with involved personnels. Medical decision making was of moderate to high complexity, patient's has multiple severe comorbidities. Medications reviewed and adjusted accordingly: Yes
[2017-01-28] MEDS: ALPRAZOLAM 0.25 MG TABLET PO PRN (21:28)
[2017-01-28] MEDS: SIMVASTATIN 40 MG TABLET PO SCH (21:29)
[2017-01-29] MEDS: LEVALBUTEROL HCL NEB 1.25 MG/3 ML AMPUL NEB SCH ×3 (02:12→14:45)
[2017-01-29] MEDS: DILTIAZEM HCL 30 MG TABLET PO SCH ×2 (06:00→14:15)
[2017-01-29] MEDS: LANSOPRAZOLE 15 MG TAB.RAP.DR PO SCH (06:00)
[2017-01-29 06:53] LABS: ANION GAP 8 (5-19); BLOOD UREA NITROGEN 59 mg/dL (7-20); CALCIUM 9.1 mg/dL (8.4-10.2); CARBON DIOXIDE 34 mmol/L (22-30); CHLORIDE 92 mmol/L (98-107); CREATININE RESULT 1.29 mg/dL (0.52-1.25); GLUCOSE 109 mg/dL (75-110); POTASSIUM 4.1 mmol/L (3.6-5.0)
--- NOTE | 2017-01-29 08:26 | PDOC DISCHARGE SUMMARY ---
General - Admit/Disc Date/PCP Admission Date/Primary Care Provider: 01/08/17 00:10 CHEYENNE VILLARREAL MD Discharge Date: 01/29/17 - Discharge Diagnosis (1) CHF (congestive heart failure) Is this a current diagnosis for this admission?: YesSummary: Right-sided congestive heart failure as per discussed with the cardiology continues demadex extremity milligrams by mouth daily (2) Elevated troponin Is this a current diagnosis for this admission?: Yes (3) Recurrent pleural effusion on right Is this a current diagnosis for this admission?: YesSummary: From the multifactorial from the right-sided heart failure and cardiac cirrhosis and chronic kidney disease. Status post right-sided pleural catheter placements and follow with the pulmonary Home health arrange for the pleural catheter drainage Consider to put the other catheter the left side for persistent problems (4) Respiratory distress Is this a current diagnosis for this admission?: YesSummary: All resolving (5) Atrial fibrillation Is this a current diagnosis for this admission?: YesSummary: on Eliquis and the Cardizem (6) COPD (chronic obstructive pulmonary disease) Is this a current diagnosis for this admission?: YesSummary: Continuous current inhaler and oxygen (7) Chronic kidney disease Is this a current diagnosis for this admission?: YesSummary: Patient only have a 1 kidney patient's creatinine is currently stable follow with the Dr. Forman (8) Shortness of breath Is this a current diagnosis for this admission?: Yes (9) Leukocytosis Is this a current diagnosis for this admission?: Yes (10) Hyponatremia Is this a current diagnosis for this admission?: YesSummary: ALT resolving - Additional Information Discharge Activity: Activity As Tolerated, Balance Activity w/Rest, Weigh Daily Home Medications: Apixaban [Eliquis 2.5 mg Tablet] 2.5 mg PO Q12 12/05/16 Docusate Sodium [Colace 100 mg Capsule] 100 mg PO BID 12/05/16 Tiotropium [place] [Spiriva Respimat] 2 sprays IH DAILY 12/05/16 Vit A/Vit C/Vit E/Zinc/Copper [Preservision Areds Softgel] 1 each PO BID Omeprazole 20 mg PO QHS #30 12/10/16 Buspirone HCl [Buspar 10 mg Tablet] 10 mg PO BID #60 tablet 01/29/17 Digoxin [Lanoxin 0.125 mg Tablet] 0.125 mg PO DAILY #30 tablet 01/29/17 Diltiazem HCl [Cardizem 30 mg Tablet] 30 mg PO Q8 #90 tablet 01/29/17 Dronabinol [Marinol 2.5 mg Capsule] 2.5 mg PO ACLUNCH #30 capsule 01/29/17 Escitalopram Oxalate [Lexapro 10 mg Tablet] 5 mg PO DAILY #30 tablet 01/29/17 Oxycodone HCl/Acetaminophen [Percocet 5-325 mg Tablet] 1 tab PO DAILY #30 tablet 01/29/17 Torsemide [Demadex 20 mg Tablet] 20 mg PO DAILY #30 tablet 01/29/17 History of Present Illness History of Present Illness: SALOME MOSLEY is a 76 year old female This is a 76-year-old female with a significant history of the congestive heart failure history of the COPD with oxygen dependent and history of the chronic kidney disease and a history of the recurrent pleural effusionsAnd several thoracocentesis was done and no sign of any malignancy and mostly a transudate fluid came to the emergency department with the complaining of shortness of the breath and patient's chest x-ray shows the bilateral pleural effusions more increasing compared to the last timesAnd the patient's also put on the BiPAP and patient's currently seen in the ER feeling better. Patient have a several evaluations done by the pulmonary cardiology and the nephrology through the [place] and in the [facility] and the patient is also noncompliance with the diet in patients also noncompliance with the putting the oxygen's and I think that is mostly creating the more problems. Discussed with the patient and the patient's sister on the bedside about the patient's current conditions and discussed with the cardiology and pulmonary today and admit the patient's for further evaluation and treatment Patients denied any chest pain, some mild cough and congestions Hospital Course Hospital Course: This is a 76-year-old female with multiple medical problems and a multiple hospital admission for the recurrent pleural effusions and most likely coming from that right heart failure and cardiac cirrhosis and chronic kidney disease and is alert transited fluid Patient have a several thoracocentesis was done in the past and no sign of any malignancy and this times patient have a place right-sided pleural cath Patient also seen by the cardiology Dr. [place] Patient also seen by the pulmonary dr rodriguez and nephrology Dr. Forman Patient's otherwise currently doing well Patient's also treated with the IV antibiotic because of the underlying pulmonary disease and possible infiltrate Patient is also have a developed hyponatremia due to volume due to the above conditions and is possibly well with the IV Lasix Patient's currently sodium level is 134 and kidney function is currently all stable Patient's otherwise doing well and desires to washable home very anxiously Patient also have underlying anxiety problems Patient also meter pain medication during the catheter drain Also home health was arranged Discussed with the system on the bedside about the patient's current conditions and patient have a multiple medical issues and not a very good prognosis prolonged time Patient is to follow in 2 wk Need a CBC and Chem-7 in 1 week Physical Exam Vital Signs: Temp Pulse Resp BP Pulse Ox 97.8 F 72 18 120/60 92 01/29/17 07:53 01/29/17 07:53 01/29/17 07:53 01/29/17 07:53 01/29/17 07:53 Intake & Output 01/28/17 01/29/17 01/30/17 06:59 06:59 06:59 Intake Total 1135 499 Output Total 750 1000 Balance 385 -501 Weight 51.8 kg 50.8 kg General appearance: PRESENT: no acute distress, well-developed, well-nourished Head exam: PRESENT: atraumatic, normocephalic Eye exam: PRESENT: conjunctiva pink, EOMI, PERRLA. ABSENT: scleral icterus Ear exam: PRESENT: normal external ear exam Mouth exam: PRESENT: moist, tongue midline Neck exam: PRESENT: full ROM. ABSENT: carotid bruit, JVD, lymphadenopathy, thyromegaly Respiratory exam: PRESENT: clear to auscultation marylou Cardiovascular exam: PRESENT: RRR. ABSENT: diastolic murmur, rubs, systolic murmur Pulses: PRESENT: normal dorsalis pedis pul, +2 pedal pulses bilateral Vascular exam: PRESENT: normal capillary refill GI/Abdominal exam: PRESENT: normal bowel sounds, soft. ABSENT: distended, guarding, mass, organolmegaly, rebound, tenderness Rectal exam: PRESENT: deferred Neurological exam: PRESENT: alert, awake, oriented to person, oriented to place , oriented to time, oriented to situation, CN II-XII grossly intact. ABSENT: motor sensory deficit Psychiatric exam: PRESENT: appropriate affect, normal mood. ABSENT: homicidal ideation, suicidal ideation Skin exam: PRESENT: dry, intact, warm. ABSENT: cyanosis, rash Results Laboratory Results: 01/28/17 06:47 01/29/17 06:13 01/29/17 06:13 Sodium 134.0 L Potassium 4.1 Chloride 92 L Carbon Dioxide 34 H Anion Gap 8 BUN 59 H Creatinine 1.29 H Est GFR ( Amer) 48 L Est GFR (Non-Af Amer) 40 L Glucose 109 Calcium 9.1 01/08/17 01/08/17 01/08/17 04:43 04:43 11:20 Creatine Kinase 35 36 CK-MB (CK-2) 2.85 Troponin I 0.138 01/08/17 01/08/17 01/08/17 11:20 16:45 16:45 Creatine Kinase 31 CK-MB (CK-2) 2.82 2.81 Troponin I 0.135 0.117 Impressions: Chest Ultrasound 01/09/17 00:00 IMPRESSION: BILATERAL PLEURAL EFFUSIONS, RIGHT GREATER THAN LEFT. Modified Barium Swallow 01/23/17 00:00 IMPRESSION: NO EVIDENCE OF PENETRATION OR ASPIRATION. OTHER FINDINGS DESCRIBED.PLEASE SEE SPEECH PATHOLOGIST REPORT FOR OTHER FINDINGS AND RECOMMENDATIONS. Chest X-Ray 01/27/17 00:00 IMPRESSION: Relatively stable chest. Left pleural fluid and associated airspace disease/ volume loss as before. Abdomen Ultrasound 01/27/17 06:00 IMPRESSION: Stable. Right renal atrophy. Bilateral pleural effusions. Mild nodular hepatic contour consistent with clinical history of cirrhosis. Plan Time Spent: Greater than 30 Minutes - Discharge home with the home health and following the 2 weeks with the pulmonary cardiology and nephrology Discussed with the patient and assisted about the patient's current conditions with the multiple medical problem and poor prognosis for the long-term
[2017-01-29] MEDS ORDERED: TORSEMIDE 20 MG TABLET PO SCH (10:00)
[2017-01-29] MEDS: DOCUSATE SODIUM 100 MG CAPSULE PO SCH (10:09)
[2017-01-29] MEDS: ALPRAZOLAM 0.25 MG TABLET PO PRN (10:10)
[2017-01-29] MEDS: DIGOXIN 0.125 MG TABLET PO SCH (10:11)
[2017-01-29] MEDS: ESCITALOPRAM OXALATE 10 MG TABLET PO SCH (10:11)
[2017-01-29] MEDS: BUSPIRONE HCL 10 MG TABLET PO SCH (10:12)
[2017-01-29] MEDS: LACTOBACILLUS ACIDOPHILUS 250 MG TAB PO SCH (10:12)
[2017-01-29] MEDS: POLYETHYLENE GLYCOL 3350 POWDER 17 GM/1 PACKET PO SCH (10:16)
[2017-01-29] MEDS: APIXABAN 2.5 MG TABLET PO SCH (11:00)
[2017-01-29] MEDS: OXYCODONE-ACETAMINOPHEN 5-325 MG TABLET PO PRN (11:00)
[2017-01-29] MEDS: MAG HYDROX/AL HYDROX/SIMETH SUSP 30 ML UDCUP PO PRN (11:03)
[2017-01-29] MEDS: DRONABINOL 2.5 MG CAPSULE PO SCH (11:04)
[2017-01-29 13:14] VITALS: BP 118/51
--- NOTE | 2017-02-01 17:41 | PDOC PROGRESS REPORT ---
Subjective Progress Note for:: 01/29/17 Subjective:: no nausea,no chest pain Physical Exam Vital Signs: Temp Pulse Resp BP Pulse Ox 97.9 F 84 19 118/51 L 96 01/29/17 13:09 01/29/17 13:09 01/29/17 13:09 01/29/17 13:09 01/29/17 13:09 Intake & Output 01/28/17 01/29/17 01/30/17 06:59 06:59 06:59 Intake Total 1135 499 437 Output Total 750 1000 Balance 385 -501 437 Weight 51.8 kg 50.8 kg General appearance: PRESENT: no acute distress, disheveled, thin Head exam: PRESENT: atraumatic, normocephalic Eye exam: PRESENT: conjunctiva pale, EOMI Mouth exam: PRESENT: dry mucosa, neck supple Neck exam: ABSENT: carotid bruit, JVD, lymphadenopathy, thyromegaly Respiratory exam: PRESENT: decreased breath sounds, rhonchi, unlabored, other - pleuradex r lateral chest wall Cardiovascular exam: PRESENT: RRR, +S1 Pulses: PRESENT: normal radial pulses GI/Abdominal exam: PRESENT: normal bowel sounds, soft. ABSENT: distended, guarding, mass, organolmegaly, rebound, tenderness Rectal exam: PRESENT: deferred Musculoskeletal exam: PRESENT: normal inspection Neurological exam: PRESENT: alert, awake Psychiatric exam: PRESENT: normal mood Skin exam: PRESENT: dry, warm Results Laboratory Results: 01/28/17 06:47 01/29/17 06:13 01/29/17 06:13 Sodium 134.0 L Potassium 4.1 Chloride 92 L Carbon Dioxide 34 H Anion Gap 8 BUN 59 H Creatinine 1.29 H Est GFR ( Amer) 48 L Est GFR (Non-Af Amer) 40 L Glucose 109 Calcium 9.1 01/08/17 01/08/17 01/08/17 04:43 04:43 11:20 Creatine Kinase 35 36 CK-MB (CK-2) 2.85 Troponin I 0.138 01/08/17 01/08/17 01/08/17 11:20 16:45 16:45 Creatine Kinase 31 CK-MB (CK-2) 2.82 2.81 Troponin I 0.135 0.117 Impressions: Chest Ultrasound 01/09/17 00:00 IMPRESSION: BILATERAL PLEURAL EFFUSIONS, RIGHT GREATER THAN LEFT. Modified Barium Swallow 01/23/17 00:00 IMPRESSION: NO EVIDENCE OF PENETRATION OR ASPIRATION. OTHER FINDINGS DESCRIBED.PLEASE SEE SPEECH PATHOLOGIST REPORT FOR OTHER FINDINGS AND RECOMMENDATIONS. Chest X-Ray 01/27/17 00:00 IMPRESSION: Relatively stable chest. Left pleural fluid and associated airspace disease/ volume loss as before. Abdomen Ultrasound 01/27/17 06:00 IMPRESSION: Stable. Right renal atrophy. Bilateral pleural effusions. Mild nodular hepatic contour consistent with clinical history of cirrhosis. Assessment & Plan - Diagnosis (1) History of atrial fibrillation Is this a current diagnosis for this admission?: Yes (2) Recurrent pleural effusion on right Is this a current diagnosis for this admission?: Yes (3) COPD (chronic obstructive pulmonary disease) Qualifiers: COPD type: unspecified COPD Qualified Code(s): J44.9 - Chronic obstructive pulmonary disease, unspecified Is this a current diagnosis for this admission?: YesPlan: will f/u as outpatient
== END 2017-01-29 15:00 | disposition home health service (06) | DRG 291 ==
LOC: ER 22:21 → EH 01-08 00:10 → 3S 01-08 13:42
PROVIDERS: ADMIT Family Medicine; ATTEND Family Medicine
PROC: 5A09457 Assistance with Respiratory Ventilation, 24-96 Consecutive Hours, Continuous Positive Airway Pressure (ICD-10-PCS; 2017-01-07)
PROC: 3E0F73Z Introduction of Anti-inflammatory into Respiratory Tract, Via Natural or Artificial Opening (ICD-10-PCS; 2017-01-11)
PROC: 0W9930Z Drainage of Right Pleural Cavity with Drainage Device, Percutaneous Approach (ICD-10-PCS; principal; 2017-01-13)
DX: I13.0 Hypertensive heart and chronic kidney disease with heart failure and stage 1 through stage 4 chronic kidney disease, or unspecified chronic kidney disease (principal); I50.43 Acute on chronic combined systolic (congestive) and diastolic (congestive) heart failure; J96.21 Acute and chronic respiratory failure with hypoxia; J91.8 Pleural effusion in other conditions classified elsewhere; N17.9 Acute kidney failure, unspecified; E87.1 Hypo-osmolality and hyponatremia; E46 Unspecified protein-calorie malnutrition; I50.9 Heart failure, unspecified; I48.0 Paroxysmal atrial fibrillation; E87.5 Hyperkalemia; J44.9 Chronic obstructive pulmonary disease, unspecified; R74.8 Abnormal levels of other serum enzymes; N18.3 Chronic kidney disease, stage 3 (moderate); D72.829 Elevated white blood cell count, unspecified; Z99.81 Dependence on supplemental oxygen; I25.10 Atherosclerotic heart disease of native coronary artery without angina pectoris; F41.1 Generalized anxiety disorder; I27.2 Other secondary pulmonary hypertension; E78.5 Hyperlipidemia, unspecified; M19.90 Unspecified osteoarthritis, unspecified site; K21.9 Gastro-esophageal reflux disease without esophagitis; K76.1 Chronic passive congestion of liver; K44.9 Diaphragmatic hernia without obstruction or gangrene; Z91.19 Patient's noncompliance with other medical treatment and regimen; Z66 Do not resuscitate; Z68.22 Body mass index [BMI] 22.0-22.9, adult; Z88.2 Allergy status to sulfonamides; Z88.8 Allergy status to other drugs, medicaments and biological substances; Z90.5 Acquired absence of kidney; Z79.02 Long term (current) use of antithrombotics/antiplatelets; Z90.710 Acquired absence of both cervix and uterus; Z82.49 Family history of ischemic heart disease and other diseases of the circulatory system
CPT/HCPCS: 32551; 36415; 36600; 71010; 71020; 74230; 76604; 76700; 80048; 80053; 80076; 82150; 82533; 82550; 82553; 82803; 82945; 83615; 83735; 83880; 83930; 83935; 84300; 84443; 84484; 85025; 85027; 85610; 85730; 87040; 87070; 87075; 87086; 87088; 87186; 87205; 88305; 88341; 88342; 89050; 93005; 93010; 93976; 94660; 94799; 96374; 96375; 99291; A4300; G8978-GP; G8979-GP; G8996-GN; G8997-GN; J0692; J1885; J1940; J2060; J2250; J2405; J2930; J3010; J3490; J7030; J7620; Q0167